=== PATIENT | female | born 1960 | race Caucasian/White ===

== ENCOUNTER 2016-08-04 11:53 | Emergency (ER) | payer MEDICARE, MEDICAID ==
[~2016-08-04 11:53] MED LIST: ACETAMINOPHEN-1 EAC1 PO; ALBUTEROL SULF8.5 GM INH; ALBUTEROL0.63 MG/3 INH; ALPRAZOLAM0.25 MG PO; ALPRAZOLAM0.5 MG PO; AMITRIPTYLINE H25 MG PO; AMLODIPINE BESYL5 MG PO; AZITHROMYCIN250 MG PO; BACTRIM DS TAB1 EACH PO; BENADRYL25 MG PO; CLINDAMYCIN HC300 MG PO; CLOTRIMAZOLE-BE15 GM TOP; CYCLOBENZAPRINE10 MG PO; DIAZEPAM5 MG PO; FREESTYLE TEST1 EACH MISC; HORMONE PILL; HYDROXYZINE HCL25 MG PO; LOSARTAN POTASS50 MG PO; LOSARTAN-HCTZ1 EAC2 PO; MAG-OXIDE400 MG PO; MEDROXYPROGESTE10 MG PO; METFORMIN HCL500 MG PO; METOPROLOL SUC100 MG PO; METOPROLOL SUCC25 MG PO; NAPROXEN500 MG PO; NEOMYCIN-POLYMY10 M1 OTIC; NORCO 5-325 TA1 EACH PO; NYSTATIN15 GM TOP; PERCOCET 5-3251 EACH PO; PERCOCET 7.5-31 EACH PO; POTASSIUM CHLO10 MEQ PO; PREDNISONE20 MG PO; SEPTRA DS TABL1 EACH PO; TOPROL XL100 MG PO; TRAMADOL HCL50 MG PO; TRAZODONE HCL100 MG PO; TRAZODONE HCL150 MG PO; TYLENOL WITH C1 EACH PO; VALIUM5 MG PO; VENTOLIN HFA18 GM INH; ZOFRAN ODT8 MG PO
--- NOTE | 2016-08-05 01:01 | EKG ---
[facility] [address] [facility] [place] [address] Signed Normal sinus rhythm Low voltage QRS Nonspecific T wave abnormality Prolonged QT Abnormal ECG No previous ECGs available Confirmed by ELISEO MORRIS MD ([id number]) on 08/05/2016 1:00:44 AM Electronically Signed By: ELISEO MORRIS MD 08/05/16100 PATIENT NAME: SHAYYCHARLA DHEERAJ Electrocardiogram DATE OF : 64 PHYSICIAN: ELISEO MORRIS MD REPORT #: [id number] REPORT IS CONFIDENTIAL AND NOT TO BE RELEASED WITHOUT AUTHORIZATION
== END 2016-08-04 15:17 | disposition home or self-care (01) ==
LOC: ED 11:53
DX: E86.0 Dehydration (principal); R55 Syncope and collapse; I10 Essential (primary) hypertension; F41.9 Anxiety disorder, unspecified; J45.909 Unspecified asthma, uncomplicated; F43.10 Post-traumatic stress disorder, unspecified; Z88.0 Allergy status to penicillin; Z88.1 Allergy status to other antibiotic agents; Z88.8 Allergy status to other drugs, medicaments and biological substances; Z79.899 Other long term (current) drug therapy
CPT/HCPCS: 80053; 81001; 84484; 85025; 96360; 99284; J7030

== ENCOUNTER 2017-05-05 17:16 | Emergency (ER) | payer MEDICARE, MEDICAID ==
[~2017-05-05] VITALS: Ht 162.6 cm; Wt 111.1 kg
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
--- OUTSIDE RECORDS SUMMARY | 2017-05-05 17:28 | XMS | Clinical Summary ---
Demographics + + + | Address | [address] | | | [place] [address] | + + + | Home Phone | | + + + | Preferred Language | Unknown | + + + | Marital Status | Single | + + + | Druze Affiliation | CHR | + + + | Race | White | + + + | Ethnic Group | Not or | + + + Author + + + | Author | [facility] | + + + | Organization | [facility] | + + + [...] Team Providers + +------+ + | Care Swimming Pool Installer And Servicer Name | Role | Phone | + +------+ + | Alex Askew MD | PP | Unavailable | + +------+ + Source Comments JANINE is fully live on both EpicCare Ambulatory and EpicCare InPatient.[facility] Allergies + + + + [...] + | Overview: 1 Liver biopsy 09/08/08 [facility] G3S3, previously 2004, | | Spencer Palmer, Reviewed at [facility] G2S22 HCV Genotype 1, Well | | compensated, no evidence of ascites, variceal hemorrhage, or | | encephalopathy 3 egd 09/07/[address] [facility] ab[address] [facility], 7mm | | hypervascular lesion in right [...] 2018 | Visit | | MD Daniela [address] | | | | | | [place], [place] | | | | | | [address] | | | | | | [phone] | | | | | | | [...]
[2017-05-05] MEDS ORDERED: MINIPRESS2 MG PO (17:36)
[2017-05-05] MEDS ORDERED: ALDACTONE25 MG PO (17:36)
[2017-05-05] MEDS ORDERED: NADOLOL80 MG PO (17:37)
[2017-05-05] MEDS ORDERED: LOSARTAN POTAS100 MG PO (17:37)
[2017-05-05] MEDS ORDERED: PAROXETINE HCL20 MG PO (17:37)
[2017-05-05] MEDS ORDERED: QUETIAPINE FUMA50 M1 PO (17:38)
[2017-05-05] MEDS ORDERED: KETOROLAC TROME10 MG PO (18:53)
[2017-05-05] MEDS ORDERED: BACLOFEN10 MG PO (18:53)
== END 2017-05-05 19:05 | disposition home or self-care (01) ==
LOC: ED 17:16
DX: S09.90XA Unspecified injury of head, initial encounter (principal); S16.1XXA Strain of muscle, fascia and tendon at neck level, initial encounter; I10 Essential (primary) hypertension; F41.9 Anxiety disorder, unspecified; J45.909 Unspecified asthma, uncomplicated; E66.9 Obesity, unspecified; Z91.018 Allergy to other foods; Z91.030 Bee allergy status; Z88.1 Allergy status to other antibiotic agents; Z88.0 Allergy status to penicillin; Z79.899 Other long term (current) drug therapy; Z79.1 Long term (current) use of non-steroidal anti-inflammatories (NSAID); Z79.84 Long term (current) use of oral hypoglycemic drugs; W19.XXXA Unspecified fall, initial encounter
CPT/HCPCS: 70450; 70486; 72125; 96374; 96375; 99284; J1885; J2060

== ENCOUNTER 2017-05-07 20:56 | Emergency (ER) | payer MEDICARE, MEDICAID ==
[~2017-05-07] VITALS: Ht 162.6 cm; Wt 111.1 kg
--- OUTSIDE RECORDS SUMMARY | ~2017-05-07 | XMS | Clinical Summary ---
Demographics + + + | Address | [address] | | | [place] [address] | + + + | Home Phone [...] + + + | Author | [facility] | + + + | Organization | [facility] | + + [...] Team Providers + +------+ + | Care Stone Engraver Name | Role | Phone | + +------+ + | Alex Askew MD | PP | Unavailable | + +------+ + Source Comments JANINE is fully live on both EpicCare Ambulatory and EpicCare InPatient.[facility] Allergies + + + + [...] + | Overview: 1 Liver biopsy 09/08/08 [facility] G3S3, previously 2004, | | Spencer Palmer, Reviewed at [facility] G2S22 HCV Genotype 1, Well | | compensated, no evidence of ascites, variceal hemorrhage, or | | encephalopathy 3 egd 09/07/[address] of abd [facility], 7mm | | hypervascular lesion in right [...] | | | | | | [place], [place] | | | | | | [address] | | | | | | [phone] | | | | | | | | +--------+---------+ + + + + + + + + | Health Maintenance | Due Date | Last Done | Comments | + + + + + | INFLUENZA VACCINE | | 11/22/2009, 10/07/2008, | | | (FLU SHOT) | 8 | 12/08/2007, Additional history | | | | | exists | | + + + + + Results Not on filefrom Last 3 Months
--- OUTSIDE RECORDS SUMMARY | ~2017-05-07 | XMS | Clinical Summary ---
Demographics + + + | Address | [address] | | | [place] [address] | + + + | Home Phone [...] + + + | Author | [facility] | + + + | Organization | [facility] | + + + | [...] Team Providers + +------+ + | Care Veterans' Coordinator Name | Role | Phone | + +------+ + | Alex Askew MD | PP | Unavailable | + +------+ + Source Comments JANINE is fully live on both EpicCare Ambulatory and EpicCare InPatient.[facility] Allergies + + + + + [...] + | Overview: 1 Liver biopsy 09/08/08 [facility] G3S3, previously 2004, | | Spencer Palmer, Reviewed at [facility] G2S22 HCV Genotype 1, Well | | compensated, no evidence of ascites, variceal hemorrhage, or | | encephalopathy 3 egd 09/07/[address] [facility] [facility], 7mm | | hypervascular lesion in [...] 2018 | Visit | | MD Daniela [address] | | | | | | [place], [place] | | | | | | [address] | | | | | | [phone] | | | | | | | [...]
[~2017-05-07 20:56] MED LIST changes: +ALDACTONE25 MG PO; +BACLOFEN10 MG PO; +KETOROLAC TROME10 MG PO; +LOSARTAN POTAS100 MG PO; +MINIPRESS2 MG PO; +NADOLOL80 MG PO; +PAROXETINE HCL20 MG PO; +QUETIAPINE FUMA50 M1 PO
[2017-05-08] MEDS ORDERED: ONDANSETRON ODT4 MG SL (01:57)
[2017-05-08] MEDS ORDERED: ZANAFLEX2 M1 PO (01:57)
[2017-05-08] MEDS ORDERED: LIDODERM1 EACH TOP (02:01)
== END 2017-05-08 02:35 | disposition home or self-care (01) ==
LOC: ED 20:56
DX: S06.0X9A Concussion with loss of consciousness of unspecified duration, initial encounter (principal); R42 Dizziness and giddiness; M62.838 Other muscle spasm; R11.0 Nausea; W10.9XXA Fall (on) (from) unspecified stairs and steps, initial encounter; I10 Essential (primary) hypertension; F41.9 Anxiety disorder, unspecified; J45.909 Unspecified asthma, uncomplicated; E66.9 Obesity, unspecified; F43.10 Post-traumatic stress disorder, unspecified; Z88.0 Allergy status to penicillin; Z88.8 Allergy status to other drugs, medicaments and biological substances; Z91.030 Bee allergy status; Z91.010 Allergy to peanuts; Z79.899 Other long term (current) drug therapy; Z79.84 Long term (current) use of oral hypoglycemic drugs
CPT/HCPCS: 96374; 96375; 99282; J0780; J1200; J2060; J7040

== ENCOUNTER 2018-06-22 13:15 | Inpatient (IN) | payer MEDICARE, MEDICAID ==
[~2018-06-22] VITALS: Ht 162.6 cm; Wt 120.2 kg
--- NOTE | ~2018-06-22 | DS ---
[facility] [address] [place], [place] [address] Draft ADMISSION DATE: 07/03/2018 DISCHARGE DATE: 07/06/2018 FINAL DIAGNOSIS: End-stage osteoarthritis, right knee. PROCEDURE: Right total knee arthroplasty using an Attune PS knee. HISTORY OF PRESENT ILLNESS: The claimant has a long history of severe bilateral osteoarthritis of her knees, more symptomatic on the right. She has gotten to the point where she does not get any symptomatic relief from any conservative treatment and she presents for elective total knee arthroplasty on the right. HOSPITAL COURSE: The patient was admitted to Day Surgery on the . She was taken to the operating room, where she underwent an uneventful total knee arthroplasty on the right with an Attune PS knee and a fixed tibial bearing. Postoperatively, she has done fairly well. She has struggled a little bit with O2 desaturation when she gets up and moves around, but otherwise is making steady progress in therapy. Plan is to discharge her home on the after therapy when she finally clears all of her protocols per the therapist. We will be sending her home alternating on Oxy IR and tramadol for pain. I am also going to put her on Xarelto 10 mg one once a day for DVT prophylaxis. We will have her get started in outpatient physical therapy next Monday and go three times a week for the total knee program. I would like to see her back in about a month. We will have her continue on all her home medications. MD ROBERTO Zepeda/JULIANA /[id number] Copies: PATIENT NAME: CHARLA LUCAS DISCHARGE SUMMARY DATE OF : 64 REPORT #: [id number] PHYSICIAN: JADE WILL MD PCP: JAX NGO MD REPORT IS CONFIDENTIAL AND NOT TO BE RELEASED WITHOUT AUTHORIZATION [address] [address] Draft ~ PATIENT NAME: CHARLA LUCAS DISCHARGE SUMMARY DATE OF : 64 REPORT #: [id number] PHYSICIAN: JADE WILL MD PCP: JAX NGO MD REPORT IS CONFIDENTIAL AND NOT TO BE RELEASED WITHOUT AUTHORIZATION
--- OUTSIDE RECORDS SUMMARY | ~2018-06-22 | XMS | Encounter Summary ---
Demographics + + + | Address | [address] | | | [place] [address] | + + + | Home Phone | | + + + | Preferred Language | Unknown | + + + | Marital Status | Single | + + + | Presybeterian Affiliation | CHR | + + + | Race | White | + + + | Ethnic Group | Not or | + + + Author + + + | Author | [facility] | + + + | Organization | [facility] | + + + | Address | Unknown | + + + | Phone | Unavailable | + + + Support + + +---------+ + | Name | Relationship | Address | Phone | + + +---------+ + | Jennifer Cuevas | ECON | Unknown | | + + +---------+ + | Ye Epstein | ECON | Unknown | | + + +---------+ + Care Team Providers + +------+ + | Care Compensation Director Name | Role | Phone | + +------+ + | Alex Askew MD | PCP | Unavailable | + +------+ + Encounter Details +--------+ + + + + | Date | Type | Department | Care Team | Description | +--------+ + + + + | 03/16/ | Orders Only | [facility] Division of | Cyrus Huston, | Cirrhosis of Liver | | 2006 | | Gastroenterology/Hep | [place] | without Mention of | | | | atology [address] | | Alcohol; Chronic | | | | [address] | | Hepatitis C without | | | | Road Mailcode: | | Mention of Hepatic | | | | [address] | | Coma | | | | [address] | | | | | | [place], [place] | | | | | | [address] | | | | | | [phone] | | | +--------+ + + + + Social History + +-------+ +--------+------+ | Tobacco Use | Types | Packs/Day | Years | Date | | | | | Used | | + +-------+ +--------+------+ | Former Smoker | | | | | + +-------+ +--------+------+ + + +---------+ + | Alcohol Use | Drinks/Week | oz/Week | Comments | + + +---------+ + | No | | | | + + +---------+ + + + + | Sex Assigned at | Date Recorded | | | | + + + | Not on file | | + + + + + + + | Job Start Date | Occupation | Industry | + + + + | Not on file | Not on file | Not on file | + + + + + + + + | Travel History | Travel Start | Travel End | + + + + + + | No recent travel history available. | + + documented as of this encounter Plan of Treatment + +------+--------+ + + | Name | Type | Priori | Associated Diagnoses | Order Schedule | | | | ty | | | + +------+--------+ + + | [facility] COLLECT, | Lab | Routin | Cirrhosis of Liver | Ordered: 03/16/2006 | | VENIPUNCTURE | | e | without Mention of | | | | | | Alcohol | | + +------+--------+ + + documented as of this encounter Procedures + +--------+ + + + | Procedure Name | Priori | Date/Time | Associated Diagnosis | Comments | | | ty | | | | + +--------+ + + + | DIFFERENTIAL | Routin | 03/16/2006 | | Results for this | | | e | 2:13 PM | | procedure are in the | | | | PST | | results section. | + +--------+ + + + | INR | Routin | 03/16/2006 | Cirrhosis of Liver | Results for this | | | e | 2:13 PM | without Mention of | procedure are in the | | | | PST | Alcohol | results section. | + +--------+ + + + | CBC, WITH | Routin | 03/16/2006 | Cirrhosis of Liver | Results for this | | DIFFERENTIAL | e | 2:13 PM | without Mention of | procedure are in the | | | | PST | Alcohol | results section. | + +--------+ + + + | COMPLETE METABOLIC | Routin | 03/16/2006 | Cirrhosis of Liver | Results for this | | SET | e | 2:13 PM | without Mention of | procedure are in the | | (NA,K,CL,CO2,BUN,CRE | | PST | Alcohol | results section. | | AT,GLUC,CA,AST,ALT,B | | | | | | ENA TOTAL,ALK | | | | | | PHOS,ALB,PROT TOTAL) | | | | | + +--------+ + + + documented in this encounter Results DIFFERENTIAL (03/16/2006 2:13 PM PST) + +---------+ + + + | Component | Value | Ref Range | Performed | Pathologist | | | | | At | Signature | + +---------+ + + + | NEUTROPHIL | 66 | 50 - 70 % | [facility] | | | % | | | DEPARTMENT | | | | | | OF | | | | | | PATHOLOGY | | + +---------+ + + + | LYMPHOCYTE | 26 | 18 - 42 % | [facility] | | | % | | | DEPARTMENT | | | | | | OF | | | | | | PATHOLOGY | | + +---------+ + + + | MONOCYTE % | 7 | 2 - 8 % | [facility] | | | | | | DEPARTMENT | | | | | | OF | | | | | | PATHOLOGY | | + +---------+ + + + | EOS % | 1 | 1 - 3 % | [facility] | | | | | | DEPARTMENT | | | | | | OF | | | | | | PATHOLOGY | | + +---------+ + + + | BASO % | 0 | <3 % | [facility] | | | | | | DEPARTMENT | | | | | | OF | | | | | | PATHOLOGY | | + +---------+ + + + | NEUTROPHIL | 6.3 | 1.8 - 7.7 K/cu | [facility] | | | # | | mm | DEPARTMENT | | | | | | OF | | | | | | PATHOLOGY | | + +---------+ + + + | LYMPHOCYTE | 2.5 | 1.0 - 4.8 K/cu | [facility] | | | # | | mm | DEPARTMENT | | | | | | OF | | | | | | PATHOLOGY | | + +---------+ + + + | MONOCYTE # | 0.7 (H) | 0.1 - 0.6 K/cu | [facility] | | | | | mm | DEPARTMENT | | | | | | OF | | | | | | PATHOLOGY | | + +---------+ + + + | EOS # | 0.1 | <0.6 K/cu mm | [facility] | | | | | | DEPARTMENT | | | | | | OF | | | | | | PATHOLOGY | | + +---------+ + + + | BASO # | 0.0 | <0.3 | [facility] | | | | | | DEPARTMENT | | | | | | OF | | | | | | PATHOLOGY | | + +---------+ + + + + + | Specimen | + + | | + + + + + + + | Performing | Address | City/State/Zipcode | Phone Number | | Organization | | | | + + + + + | [facility] | [address] | [place] [address] | | | PATHOLOGY | [address] | | | + + + + + | [facility] | [address] | [place] [address] | | | PATHOLOGY | [address] | | | + + + + + PROTHROMBIN TIME (03/16/2006 2:13 PM PST) + + + + + + | Component | Value | Ref Range | Performed | Pathologist | | | | | At | Signature | + + + + + + | INR | 1.08Comment: | 0.90 - 1.20 INR | [facility] | | | | PT INR | | DEPARTMENT | | | | Therapeutic ranges for | | OF | | | | full | | PATHOLOGY | | | | anticoagulation: | | | | | | INR for | | | | | | Venous | | | | | | Thromboembolism | | | | | | | | | | | | (2.0-3.0)INR | | | | | | INR for most | | | | | | patients with mech. | | | | | | valves (2.5-3.5)I | | | | | | NR | | | | + + + + + + + + | Specimen | + + | Blood | + + + + + + + | Performing | Address | City/State/Zipcode | Phone Number | | Organization | | | | + + + + + | [facility] DEPARTMENT OF | [address] | [place] [address] | | | PATHOLOGY | [address] | | | + + + + + | [facility] DEPARTMENT OF | [address] | [place] [address] | | | PATHOLOGY | [address] | | | + + + + + CBC, WITH DIFFERENTIAL (03/16/2006 2:13 PM PST) + +-------+ + + + | Component | Value | Ref Range | Performed | Pathologist | | | | | At | Signature | + +-------+ + + + | WHITE CELL | 9.6 | 4.4 - 11.0 K/cu | [facility] | | | COUNT | | mm | DEPARTMENT | | | | | | OF | | | | | | PATHOLOGY | | + +-------+ + + + | RED CELL | 4.76 | 4.00 - 5.20 | [facility] | | | COUNT | | M/cu mm | DEPARTMENT | | | | | | OF | | | | | | PATHOLOGY | | + +-------+ + + + | HEMOGLOBIN | 14.9 | 12.0 - 16.0 | [facility] | | | | | g/dL | DEPARTMENT | | | | | | OF | | | | | | PATHOLOGY | | + +-------+ + + + | HEMATOCRIT | 43.0 | 36.0 - 46.0 % | [facility] | | | | | | DEPARTMENT | | | | | | OF | | | | | | PATHOLOGY | | + +-------+ + + + | MCV | 90.3 | 80.0 - 96.0 fL | [facility] | | | | | | DEPARTMENT | | | | | | OF | | | | | | PATHOLOGY | | + +-------+ + + + | MCHC | 34.6 | 33.4 - 35.5 | [facility] | | | | | g/dL | DEPARTMENT | | | | | | OF | | | | | | PATHOLOGY | | + +-------+ + + + | RDW | 12.6 | 11.5 - 15.0 % | [facility] | | | | | | DEPARTMENT | | | | | | OF | | | | | | PATHOLOGY | | + +-------+ + + + | PLATELET | 253 | 150 - 400 K/cu | [facility] | | | COUNT | | mm | DEPARTMENT | | | | | | OF | | | | | | PATHOLOGY | | + +-------+ + + + + + | Specimen | + + | | + + + + + + + | Performing | Address | City/State/Zipcode | Phone Number | | Organization | | | | + + + + + | [facility] | [address] | [place] [address] | | | PATHOLOGY | [address] | | | + + + + + | [facility] | [address] | [place] [address] | | | PATHOLOGY | [address] | | | + + + + + COMP METABOLIC SET (03/16/2006 2:13 PM PST) + +---------+ + + + | Component | Value | Ref Range | Performed | Pathologist | | | | | At | Signature | + +---------+ + + + | GLUCOSE, | 148 (H) | 65 - 110 mg/dL | [facility] | | | PLASMA | | | DEPARTMENT | | | (LAB) | | | OF | | | | | | PATHOLOGY | | + +---------+ + + + | BUN, PLASMA | 6 | 6 - 20 mg/dL | [facility] | | | (LAB) | | | DEPARTMENT | | | | | | OF | | | | | | PATHOLOGY | | + +---------+ + + + | CREATININE | 0.8 | 0.6 - 1.1 mg/dL | [facility] | | | PLASMA | | | DEPARTMENT | | | (LAB) | | | OF | | | | | | PATHOLOGY | | + +---------+ + + + | TOTAL | 6.8 | 6.1 - 7.9 g/dL | [facility] | | | PROTEIN, | | | DEPARTMENT | | | PLASMA | | | OF | | | (LAB) | | | PATHOLOGY | | + +---------+ + + + | ALBUMIN, | 3.5 | 3.5 - 4.7 g/dL | [facility] | | | PLASMA | | | DEPARTMENT | | | (LAB) | | | OF | | | | | | PATHOLOGY | | + +---------+ + + + | CALCIUM, | 8.8 | 8.5 - 10.5 | [facility] | | | PLASMA | | mg/dL | DEPARTMENT | | | (LAB) | | | OF | | | | | | PATHOLOGY | | + +---------+ + + + | BILIRUBIN | 0.7 | 0.3 - 1.2 mg/dL | [facility] | | | TOTAL | | | DEPARTMENT | | | | | | OF | | | | | | PATHOLOGY | | + +---------+ + + + | ALK PHOS | 130 (H) | 42 - 98 U/L | [facility] | | | | | | DEPARTMENT | | | | | | OF | | | | | | PATHOLOGY | | + +---------+ + + + | AST(SGOT) | 46 (H) | 15 - 41 U/L | [facility] | | | | | | DEPARTMENT | | | | | | OF | | | | | | PATHOLOGY | | + +---------+ + + + | SODIUM, | 138 | 136 - 145 | [facility] | | | PLASMA | | mmol/L | DEPARTMENT | | | (LAB) | | | OF | | | | | | PATHOLOGY | | + +---------+ + + + | POTASSIUM, | 3.4 (L) | 3.5 - 5.1 | [facility] | | | PLASMA | | mmol/L | DEPARTMENT | | | (LAB) | | | OF | | | | | | PATHOLOGY | | + +---------+ + + + | CHLORIDE, | 102 | 98 - 107 mmol/L | [facility] | | | PLASMA | | | DEPARTMENT | | | (LAB) | | | OF | | | | | | PATHOLOGY | | + +---------+ + + + | TOTAL CO2, | 28 | 23 - 29 mmol/L | [facility] | | | PLASMA | | | DEPARTMENT | | | (LAB) | | | OF | | | | | | PATHOLOGY | | + +---------+ + + + | ALT (SGPT) | 59 (H) | 13 - 48 U/L | [facility] | | | | | | DEPARTMENT | | | | | | OF | | | | | | PATHOLOGY | | + +---------+ + + + + + | Specimen | + + | | + + + + + | Narrative | Performed At | + + + | [id number] Estimated GFR > 60 mL/min/1.73 sq m if non- | [facility] | | [id number] Estimated GFR > 60 mL/min/1.73 sq m if GFR | DEPARTMENT OF | | is estimated using the MDRD equation recommended by the National | PATHOLOGY | | Kidney Disease Education Program. Estimated GFR Interpretive | | | Information: <60 mL/min/1.73 sq m Chronic Kidney Disease | | | <15 mL/mon/1.73 sq m Kidney Failure Estimated GFR greater | | | than 60mL/min/1.73 is of limited clinical Value. The MDRD equation | | | is not valid in the following situations: - Patients under 18 years | | | of age - Severe malnutrition or obesity - Vegetarian diet - | | | Rapidly changing kidney function | | + + + + + + + + | Performing | Address | City/State/Zipcode | Phone Number | | Organization | | | | + + + + + | [facility] | [facility] | [place] [address] | | | PATHOLOGY | [address] | | | + + + + + | [facility] | [address] | [place] [address] | | | PATHOLOGY | [address] | | | + + + + + documented in this encounter Visit Diagnoses + + | Diagnosis | + + | Cirrhosis of liver without mention of alcohol | + + | Chronic hepatitis C without mention of hepatic coma | + + documented in this encounter"
--- OUTSIDE RECORDS SUMMARY | ~2018-06-22 | XMS | Encounter Summary ---
Demographics + + + | Address | [address] | | | [place] [address] | + + + | Home Phone | | + + + | Preferred Language | Unknown | + + + | Marital Status | Single | + + + | Evangelical Affiliation | CHR | + + + | Race | White | + + + | Ethnic Group | Not or | + + + Author + + + | Author | [facility] | + + + | Organization | [facility] | + + + | Address | [...] Team Providers + +------+ + | Care Synthetic Plasterer Name | Role | Phone | + +------+ + | Alex Askew MD | PCP | Unavailable | + +------+ + Encounter Details +--------+------+ + + + | Date | Type | Department | Care Team | Description | +--------+------+ + + + | 08/21/ | Lab | Laboratory at [facility] | | Hepatitis C, chronic | | 2013 | | [address] | | (HCC); GERD | | | | [place], [place] | | (gastroesophageal | | | | [address] | | reflux disease) | | | | [phone] | | | +--------+------+ + + + Social History + +-------+ [...] as of this encounter Plan of Treatment Not on filedocumented as of this encounter Procedures + +--------+ + + + | Procedure Name | Priori | Date/Time | Associated Diagnosis | Comments | | | ty | | | | + +--------+ + + + | ALPHA-FETOPROTEIN | Routin | 08/21/2013 | Hepatitis C, | Results for this | | TUMOR MARKER, SERUM | e | 9:10 AM | chronic (HCC) GERD | procedure are in the | | | | PDT | (gastroesophageal | results section. | | | | | reflux disease) | | + +--------+ + + + documented in this encounter Results ALPHA-FETOPROTEIN TUMOR MARKER, SERUM (08/21/2013 9:10 AM PDT) + +-------+ + + + | Component | Value | Ref Range | Performed | Pathologist | | | | | At | Signature | + +-------+ + + + | AFP, TUMOR | 6.3 | <=9.0 ng/mL | [facility] | | | [facility], | | | [facility] | | | [facility] | | | [place] | | + +-------+ + + + + + | Specimen | + + | Blood - Blood | + + + + + + + | Performing | Address | City/State/Zipcode | Phone Number | | Organization | | | | + + + + + | [facility] | [address] | [place] [address] | | | [place] | | | | + + + + + documented in this encounter Visit Diagnoses + + | Diagnosis | + + | Hepatitis C, chronic (HCC) Chronic hepatitis C without mention of hepatic coma | + + | GERD (gastroesophageal reflux disease) Esophageal reflux | + + documented in this encounter"
--- OUTSIDE RECORDS SUMMARY | ~2018-06-22 | XMS | Encounter Summary ---
Demographics + + + | Address | [address] | | | [place] [address] | + + + | Home Phone | | + + + | Preferred Language | Unknown | + + + | Marital Status | Single | + + + | Gnosticism Affiliation | CHR | + + + | Race | White | + + + | Ethnic Group | Not or | + + + Author + + + | Author | [facility] | + + + | Organization | [facility] | + + + | [...] Team Providers + +------+ + | Care Engineering Director Name | Role | Phone | + +------+ + | Alex Askew MD | PCP | Unavailable | + +------+ + Encounter Details +--------+ + + + + | Date | Type | Department | Care Team | Description | +--------+ + + + + | 09/01/ | Documentati | Digestive Health | [place], | | | 2015 | on | [facility] [address] | [place], [place] | | | | | [address] | [address] | | | | | Mailcode: Center | | | | | | for Health and | | | | | | Healing, [address] | | | | | | [place], [place] | | | | | | [address] | | | | | | [phone] | | | +--------+ + + + + Social History + +-------+ +--------+ + [...] Not on filedocumented as of this encounter Visit Diagnoses Not on filedocumented in this encounter"
--- OUTSIDE RECORDS SUMMARY | ~2018-06-22 | XMS | Encounter Summary ---
Demographics + + + | Address | [address] | | | [place] [address] | + + + | Home Phone | | + + + | Preferred Language | Unknown | + + + | Marital Status | Single | + + + | Rastafari Affiliation | CHR | + + + | Race | White | + + + | Ethnic Group | Not or | + + + Author + + + | Author | [facility] | + + + | Organization | [facility] | + + + | [...] Team Providers + +------+ + | Care Internal Combustion Engine Subassembler Name | Role | Phone | + +------+ + | Alex Askew MD | PCP | Unavailable | + +------+ + Encounter Details +--------+ + + + + | Date | Type | Department | Care Team | Description | +--------+ + + + + | 12/15/ | Document-Sc | UNKNOWN DEPARTMENT | Unknown . | | | 2015 | anned | [address] [facility] [address] [facility] | | | | | | [facility] | | | | | | [place], [place] | | | | | | [address] | | | +--------+ + + + [...] | + +--------+ + + + | LAB REPORTS | | 12/15/2014 | | Results for this | | | | 12:00 AM | | procedure are in the | | | | PST | | results section. | + +--------+ + + + documented in this encounter Results LAB REPORTS (12/15/2014 12:00 AM PST) + + + | Narrative | Performed At | + + + | | | + + + documented in this encounter Visit Diagnoses Not on filedocumented in this encounter"
--- OUTSIDE RECORDS SUMMARY | ~2018-06-22 | XMS | Encounter Summary ---
Demographics + + + | Address | [address] | | | [place] [address] | + + + | Home Phone | | + + + | Preferred Language | Unknown | + + + | Marital Status | Single | + + + | Hindu Affiliation | CHR | + + + | Race | White | + + + | Ethnic Group | Not or | + + + Author + + + | Author | [facility] | + + + | Organization | [facility] | + + + | Address | [...] Team Providers + +------+ + | Care Adoption Worker Name | Role | Phone | + +------+ + | Alex Askew MD | PCP | Unavailable | + +------+ + Encounter Details +--------+ + + + + | Date | Type | Department | Care Team | Description | +--------+ + + + + | 08/04/ | Documentati | Digestive Health | [place], | | | 2015 | on | [facility] [address] | [place], [place] | | | | | [address] | [address] | | | | | Mailcode: Center | | | | | | for Health and | | | | | | Healing, [address] | | | | | | [place], [place] | | | | | | [address] | | | | | | [phone] | | | +--------+ + + + [...]
--- OUTSIDE RECORDS SUMMARY | ~2018-06-22 | XMS | Encounter Summary ---
Demographics + + + | Address | [address] | | | [place] [address] | + + + | Home Phone | | + + + | Preferred Language | Unknown | + + + | Marital Status | Single | + + + | Anabaptism Affiliation | CHR | + + + [...] Team Providers + +------+ + | Care Inventory Specialist Manager Name | Role | Phone | + +------+ + | Alex Askew MD | PCP | Unavailable | + +------+ + Encounter Details +--------+------+ + + + | Date | Type | Department | Care Team | Description | +--------+------+ + + + | 06/03/ | Lab | Laboratory at [facility] | | Hepatitis C, chronic | | 2014 | | [address] | | (HCC) | | | | [place], [place] | | | | | | [address] | | | | | | [phone] | | | +--------+------+ + + + [...] | + +--------+ + + + | CBC (HEMOGRAM) ONLY | Routin | 06/03/2014 | Hepatitis C, | Results for this | | | e | 12:51 PM | chronic (HCC) | procedure are in the | | | | PDT | | results section. | + +--------+ + + + | HEPATITIS C | Routin | 06/03/2014 | Hepatitis C, | Results for this | | QUANTITATIVE, PLASMA | e | 12:51 PM | chronic (HCC) | procedure are in the | | | | PDT | | results section. | + +--------+ + + + | INR | Routin | 06/03/2014 | Hepatitis C, | Results for this | | | e | 12:51 PM | chronic (HCC) | procedure are in the | | | | PDT | | results section. | + +--------+ + + + | COMPLETE METABOLIC | Routin | 06/03/2014 | Hepatitis C, | Results for this | | SET | e | 12:51 PM | chronic (HCC) | procedure are in the | | (NA,K,CL,CO2,BUN,CRE | | PDT | | results section. | | AT,GLUC,CA,AST,ALT,B | | | | | | ENA TOTAL,ALK | | | | | | PHOS,ALB,PROT TOTAL) | | | | | + +--------+ + + + | CBC ONLY | Routin | 06/03/2014 | Hepatitis C, | Results for this | | | e | 12:51 PM | chronic (HCC) | procedure are in the | | | | PDT | | results section. | + +--------+ + + + | ALPHA-FETOPROTEIN | Routin | 06/03/2014 | Hepatitis C, | Results for this | | TUMOR MARKER, SERUM | e | 12:51 PM | chronic (HCC) | procedure are in the | | | | PDT | | results section. | + +--------+ + + + documented in this encounter Results CBC (HEMOGRAM) ONLY (06/03/2014 12:51 PM PDT) + +-------+ + + + | Component | Value | Ref Range | Performed | Pathologist | | | | | At | Signature | + +-------+ + + + | WHITE CELL | 10.60 | 4.40 - 11.00 | [facility] | | | COUNT | | K/cu mm | LABORATORY | | | | | | SERVICES, | | | | | | [facility] | | | | [facility] | | + +-------+ + + + | RED CELL | 4.64 | 4.00 - 5.20 | [facility] | | | COUNT | | M/cu mm | LABORATORY | | | | | | SERVICES, | | | | | | [facility] + | | | | | | [facility] | | + +-------+ + + + | HEMOGLOBIN | 14.4 | 12.0 - 16.0 | [facility] | | | | | g/dL | LABORATORY | | | | | | SERVICES, | | | | | | [facility] + | | | | | | [facility] | | + +-------+ + + + | HEMATOCRIT | 40.5 | 36.0 - 46.0 % | [facility] | | | | | | LABORATORY | | | | | | SERVICES, | | | | | | [facility] + | | | | | | [facility] | | + +-------+ + + + | MCV | 87.3 | 80.0 - 96.0 fL | [facility] | | | | | | LABORATORY | | | | | | SERVICES, | | | | | | [facility] + | | | | | | [facility] | | + +-------+ + + + | MCHC | 35.6 | 33.0 - 35.5 | [facility] | | | | | g/dL | LABORATORY | | | | | | SERVICES, | | | | | | [facility] + | | | | | | [facility] | | + +-------+ + + + | RDW SD | 39.8 | 35.1 - 46.3 fL | [facility] | | | | | | LABORATORY | | | | | | SERVICES, | | | | | | [facility] + | | | | | | [facility] | | + +-------+ + + + | PLATELET | 192 | 150 - 400 K/cu | [facility] | | | COUNT | | mm | LABORATORY | | | | | | SERVICES, | | | | | | [facility] + | | | | | | [facility] | | + +-------+ + + + | MPV | 9.8 | 9.7 - 12.3 fL | [facility] | | | | | | LABORATORY | | | | | | SERVICES, | | | | | | [facility] + | | | | | | [facility] | | + +-------+ + + + + + | Specimen | + + | Blood - Blood | + + + + + + + | Performing | Address | City/State/Zipcode | Phone Number | | Organization | | | | + + + + + | [facility] | [address] | [place] [address] | | | [facility] | | | | | [facility] + [facility]ALING | | | | + + + + + HEPATITIS C QUANTITATIVE, PLASMA (06/03/2014 12:51 PM PDT) + + + + + + | Component | Value | Ref Range | Performed | Pathologist | | | | | At | Signature | + + + + + + | HEP C PCR | 1,700,000 (H) | Undetected | [facility] | | | QUANT, | | IU/mL | DIAGNOSTIC | | | VALUE | | | | | | | | | LABORATORIE | | | | | | S | | + + + + + + + + | Specimen | + + | Blood - Blood | + + + + + | Narrative | Performed At | + + + | Reportable Range: 12-100,000,000 IU/mL Low levels or serial | [facility] | | declines in the HCV viral load may indicate the relative efficacy of | DIAGNOSTIC | | anti-viral therapy. Viral load changes of less than approximately 3 | LABORATORIES | | fold may not be biologically significant and should be interpreted | | | cautiously. Undetected results are suggestive of either the absence | | | of HCV viremia or the presence of low-level HCV viremia below the | | | assay's detection limit. | | + + + + + + + + | Performing | Address | City/State/Zipcode | Phone Number | | Organization | | | | + + + + + | [facility] | [address], | [place] [address] | | | DI[facility] | [address] | | | | LABORATORIES | | | | + + + + + ALPHA-FETOPROTEIN TUMOR MARKER, SERUM (06/03/2014 12:51 PM PDT) + +---------+ + + + | Component | Value | Ref Range | Performed | Pathologist | | | | | At | Signature | + +---------+ + + + | AFP, TUMOR | 9.8 (H) | <=9.0 ng/mL | [facility] | | | [facility], | | | [facility] - | | | SERUM | | | [place] | | + +---------+ + + + + + | Specimen | + + | Blood - Blood | + + + + + + + | Performing | Address | City/State/Zipcode | Phone Number | | Organization | | | | + + + + + | [facility] | [address] | [place] [address] | | | [place] | | | | + + + + + INR (06/03/2014 12:51 PM PDT) + +-------+ + + + | Component | Value | Ref Range | Performed | Pathologist | | | | | At | Signature | + +-------+ + + + | INR | 1.17 | 0.90 - 1.20 INR | [facility] | | | | | | LABORATORY | | | | | | SERVICES, | | | | | | CORE | | + +-------+ + + + + + | Specimen | + + | Blood - Blood | + + + + + | Narrative | Performed At | + + + | INR Therapeutic ranges for full anticoagulation: INR for | [facility] | | Venous Thromboembolism (2.0 - 3.0) INR INR | LABORATORY | | for most patients with mech. valves (2.5 - 3.5) INR | [facility] | + + + + + + + + | Performing | Address | City/State/Zipcode | Phone Number | | Organization | | | | + + + + + | [facility] | [address] | [place] [address] | | | [facility] | [address] | | | + + + + + COMPLETE METABOLIC SET (NA,K,CL,CO2,BUN,CREAT,GLUC,CA,AST,ALT,BILI TOTAL,ALK PHOS,ALB,PROT TOTAL) (06/03/2014 12:51 PM PDT) + +---------+ + + + | Component | Value | Ref Range | Performed | Pathologist | | | | | At | Signature | + +---------+ + + + | GLUCOSE, | 105 (H) | 60 - 99 mg/dL | [facility] | | | PLASMA | | | LABORATORY | | | (LAB) | | | SERVICES, | | | | | | CORE | | + +---------+ + + + | BUN, PLASMA | 13 | 6 - 20 mg/dL | [facility] | | | (LAB) | | | LABORATORY | | | | | | SERVICES, | | | | | | CORE | | + +---------+ + + + | CREATININE | 0.90 | 0.60 - 1.10 | [facility] | | | PLASMA | | mg/dL | LABORATORY | | | (LAB) | | | SERVICES, | | | | | | CORE | | + +---------+ + + + | EGFR | >60 | >60 mL/min | [facility] | | | - | | | LABORATORY | | | RUSSIAN | | | SERVICES, | | | | | | CORE | | + +---------+ + + + | EGFR NON | >60 | >60 mL/min | [facility] | | | -RAMÓN | | | LABORATORY | | | RICAN | | | SERVICES, | | | | | | CORE | | + +---------+ + + + | SODIUM, | 138 | 136 - 145 | [facility] | | | PLASMA | | mmol/L | LABORATORY | | | (LAB) | | | SERVICES, | | | | | | CORE | | + +---------+ + + + | POTASSIUM, | 3.5 | 3.4 - 5.0 | [facility] | | | PLASMA | | mmol/L | LABORATORY | | | (LAB) | | | SERVICES, | | | | | | CORE | | + +---------+ + + + | CHLORIDE, | 100 | 97 - 108 mmol/L | [facility] | | | PLASMA | | | LABORATORY | | | (LAB) | | | SERVICES, | | | | | | CORE | | + +---------+ + + + | TOTAL CO2, | 31 | 21 - 32 mmol/L | [facility] | | | PLASMA | | | LABORATORY | | | (LAB) | | | SERVICES, | | | | | | CORE | | + +---------+ + + + | CALCIUM, | 9.2 | 8.6 - 10.2 | [facility] | | | PLASMA | | mg/dL | LABORATORY | | | (LAB) | | | SERVICES, | | | | | | CORE | | + +---------+ + + + | BILIRUBIN | 0.6 | 0.3 - 1.2 mg/dL | [facility] | | | TOTAL | | | LABORATORY | | | | | | SERVICES, | | | | | | CORE | | + +---------+ + + + | TOTAL | 8.1 | 6.4 - 8.2 g/dL | [facility] | | | PROTEIN, | | | LABORATORY | | | PLASMA | | | SERVICES, | | | (LAB) | | | CORE | | + +---------+ + + + | ALBUMIN, | 3.4 (L) | 3.5 - 4.7 g/dL | [facility] | | | PLASMA | | | LABORATORY | | | (LAB) | | | SERVICES, | | | | | | CORE | | + +---------+ + + + | ALK PHOS | 126 (H) | 42 - 98 U/L | [facility] | | | | | | LABORATORY | | | | | | SERVICES, | | | | | | CORE | | + +---------+ + + + | AST(SGOT) | 79 (H) | <=41 U/L | [facility] | | | | | | LABORATORY | | | | | | SERVICES, | | | | | | CORE | | + +---------+ + + + | ALT (SGPT) | 89 (H) | <=60 U/L | [facility] | | | | | | LABORATORY | | | | | | SERVICES, | | | | | | CORE | | + +---------+ + + + | ANION | 8 | 4 - 11 mmol/L | [facility] | | | GAP(ALB | | | LABORATORY | | | CORRECTED) | | | SERVICES, | | | | | | CORE | | + +---------+ + + + | POTASSIUM | No Hemo | | [facility] | | | CMNT | | | LABORATORY | | | | | | SERVICES, | | | | | | CORE | | + +---------+ + + + | BILI T CMNT | No Hemo | | [facility] | | | | | | LABORATORY | | | | | | SERVICES, | | | | | | CORE | | + +---------+ + + + | AST CMNT | No Hemo | | [facility] | | | | | | LABORATORY | | | | | | SERVICES, | | | | | | CORE | | + +---------+ + + + | ANION GAP | 7 | mmol/L | [facility] | | | | | | LABORATORY | | | | | | SERVICES, | | | | | | CORE | | + +---------+ + + + + + | Specimen | + + | Blood - Blood | + + + + + | Narrative | Performed At | + + + | GFR is estimated using the MDRD equation recommended by the | [facility] | | National Kidney Disease Education Program. Estimated GFR | LABORATORY | | Interpretive Information: <60 mL/min/1.73 sq | SERVICES, CORE | | m Chronic Kidney Disease <15 mL/min/1.73 | | | sq m Kidney Failure Estimated GFR greater | | | that 60 mL/min/1.73 sq m is of limited clinical value. The MDRD | | | equation is not valid in the following situations: - Patients under | | | 18 years of age - Severe malnutrition or obesity - Vegetarian diet | | | - Rapidly changing kidney function | | + + + + + + + + | Performing | Address | City/State/Zipcode | Phone Number | | Organization | | | | + + + + + | [facility] | [address] | [place] [address] | | | SERVICES, CORE | [address] | | | + + + + + documented in this encounter Visit Diagnoses + + | Diagnosis | + + | Hepatitis C, chronic (HCC) Chronic hepatitis C without mention of hepatic coma | + + documented in this encounter"
--- OUTSIDE RECORDS SUMMARY | ~2018-06-22 | XMS | Encounter Summary ---
Demographics + + + | Address | [address] | | | [place] [address] | + + + | Home Phone [...] + + + | Author | [facility] | + + + | Organization | [facility] | + + + | Address | [...] Team Providers + +------+ + | Care Boom Stick Worker Name | Role | Phone | + +------+ + | Alex Askew MD | PCP | Unavailable | + +------+ + Reason for Visit +--------+ + | Reason | Comments | +--------+ + | Other | Pre clinic prep | +--------+ + Encounter Details +--------+ + + + + | Date | Type | Department | Care Team | Description | +--------+ + + + + | 07/17/ | Telephone | [facility] | Cyrus Huston, | Other (Pre clinic | | 2013 | | Center at [facility] [address] | [place] | prep) | | | | [address] | | | | | | Mailcode: Center | | | | | | for Health and | | | | | | [facility] [address] | | | | | | | | | | | | [address] | | | | | | [phone] | | | +--------+ + + + [...] Not on filedocumented as of this encounter Results INR (08/07/2013 8:39 AM PDT) + +-------+ + + + | Component | Value | Ref Range | Performed | Pathologist | | | | | At | Signature | + +-------+ + + + | INR | 1.09 | 0.90 - 1.20 INR | [facility] [...] ranges for full anticoagulation: INR for | [facility] | | Venous Thromboembolism (2.0 - 3.0) INR INR | LABORATORY | | for most patients with mech. valves (2.5 - 3.5) INR | [facility], CORE | + + + + + + + + | Performing | Address | City/State/Zipcode | Phone Number | | Organization | | | | + + + + + | [facility] | [address] | [place] [address] | | | [place] | [address] | | | + + + + + COMPLETE METABOLIC SET (NA,K,CL,CO2,BUN,CREAT,GLUC,CA,AST,ALT,BILI TOTAL,ALK PHOS,ALB,PROT TOTAL) (08/07/2013 8:39 AM PDT) + +---------+ + + + | Component | Value | Ref Range | Performed | Pathologist | | | | | At | Signature | + +---------+ + + + | GLUCOSE, | 121 (H) | 60 - 99 mg/dL | [facility] | | | PLASMA | | | LABORATORY | | | (LAB) | | | SERVICES, | | | | | | CORE | | + +---------+ + + + | BUN, PLASMA | 14 | 6 - 20 mg/dL | [facility] | | | (LAB) | | | LABORATORY | | | | | | SERVICES, | | | | | | CORE | | + +---------+ + + + | CREATININE | 0.99 | 0.60 - 1.10 | [facility] | | | PLASMA | | mg/dL | LABORATORY | | | (LAB) | | | SERVICES, | | | | | | CORE | | + +---------+ + + + | EGFR | >60 | >60 mL/min | [facility] | | | - | | | LABORATORY | | | CONGOLESE | | | SERVICES, | | | | | | CORE | | + +---------+ + + + | EGFR NON | 59 (L) | >60 mL/min | [facility] | | | -RAM[facility]N | | | LABORATORY | | | RICAN | | | SERVICES, | | | | | | CORE | | + +---------+ + + + | SODIUM, | 135 (L) | 136 - 145 | [facility] | | | PLASMA | | mmol/L | LABORATORY | | | (LAB) | | | SERVICES, | | | | | | CORE | | + +---------+ + + + | POTASSIUM, | 3.0 (L) | 3.4 - 5.0 | [facility] | [...] + + + | TOTAL CO2, | 30 | 21 - 32 mmol/L | [facility] | | | PLASMA | | | LABORATORY | | | (LAB) | | | SERVICES, | | | | | | CORE | | + +---------+ + + + | CALCIUM, | 8.8 | 8.6 - 10.2 | [facility] | [...] +---------+ + + + | TOTAL | 7.7 | 6.4 - 8.2 g/dL | [facility] | | | PROTEIN, | | | LABORATORY | | | PLASMA | | | SERVICES, | | | (LAB) | | | CORE | | + +---------+ + + + | ALBUMIN, | 3.6 | 3.5 - 4.7 g/dL | [facility] | | | PLASMA | | | LABORATORY | | | (LAB) | | | SERVICES, | | | | | | CORE | | + +---------+ + + + | ALK PHOS | 95 | 42 - 98 U/L | [facility] | | | | | | LABORATORY | | | | | | SERVICES, | | | | | | CORE | | + +---------+ + + + | AST(SGOT) | 41 | 15 - 41 U/L | [facility] | | | | | | LABORATORY | | | | | | SERVICES, | | | | | | CORE | | + +---------+ + + + | ALT (SGPT) | 52 | 12 - 60 U/L | [facility] | | | | | | LABORATORY | | | | | | SERVICES, | | | | | | CORE | | + +---------+ + + + | ANION | 6 | 4 - 11 mmol/L | [facility] [...] + + + | ANION GAP | 5 | mmol/L | [facility] | | | [...] | + + + + + | [facility] | [address] | [place] [address] | | | SERVICES, CORE | [address] | | | + + + + + documented in this encounter Visit Diagnoses + + | Diagnosis | + + | Hepatitis C, chronic (HCC) - Primary Chronic hepatitis C without mention of hepatic | | coma | + + documented in this encounter"
--- OUTSIDE RECORDS SUMMARY | ~2018-06-22 | XMS | Encounter Summary ---
Demographics + + + | Address | [address] | | | [place] [address] | + + + | Home Phone | | + + + | Preferred Language | Unknown | + + + | Marital Status | Single | + + + | Restorationism Affiliation | CHR | + + + | Race | White | + + + | Ethnic Group | Not or | + + + Author + + + | Author | [facility] | + + + | Organization | [facility] | + + + | Address [...] Team Providers + +------+ + | Care Health Researcher Name | Role | Phone | + +------+ + | Alex Askew MD | PCP | Unavailable | + +------+ + Reason for Visit + + + | Reason | Comments | + + + | Medical Records | | | Review | | + + + Encounter Details +--------+ + + + + | Date | Type | Department | Care Team | Description | +--------+ + + + + | 09/08/ | Abstract | [facility] | [place] | Medical Records | | 2014 | | Center at [facility] [address] | MD Daniela [address] | Review | | | | [address] | [place], [place] | | | | | Mailcode: [place] | [address] | | | | | [facility] and | [phone] | | | | | [facility], [place] [address] | | | | | | [place], [place] | | | | | | [address] | | | | | | [phone] | | | +--------+ + + + [...]
--- OUTSIDE RECORDS SUMMARY | ~2018-06-22 | XMS | Encounter Summary ---
Demographics + + + | Address | [address] | | | [place] [address] | + + + | Home Phone | | + + + | Preferred Language | Unknown | + + + | Marital Status | Single | + + + | Pentecostalism Affiliation | CHR | + + + | Race | White | + + + | Ethnic Group | Not or | + + + Author + + + | Author | [facility] | + + + | Organization | [facility] | + + + | Address [...] Team Providers + +------+ + | Care Etl Manager Name | Role | Phone | + +------+ + | Alex Askew MD | PCP | Unavailable | + +------+ + Reason for Visit + + + | Reason | Comments | + + + | Refill Request | Hep c tx refill/Ribavirin | + + + Encounter Details +--------+ + + + + | Date | Type | Department | Care Team | Description | +--------+ + + + + | 11/21/ | Telephone | [facility] | [place] | Refill Request (Hep | | 2015 | | Center at [facility] [address] | EMD [address] | c tx | | | | [address] | [place], [place] | refill/Ribavirin) | | | | Mailcode: [place] | [address] | | | | | for Health and | [phone] | | | | | [place] [address] | | | | | | [place], [place] | | | | | | [address] | | | | | | [phone] | | | +--------+ + + + [...]
--- OUTSIDE RECORDS SUMMARY | ~2018-06-22 | XMS | Encounter Summary ---
Demographics + + + | Address | [address] | | | [place] [address] | + + + | Home Phone | | + + + | Preferred Language | Unknown | + + + | Marital Status | Single | + + + | Zoroastrianism Affiliation | CHR | + + + | Race | White | + + + | Ethnic Group | Not or | + + + Author + + + | Author | [facility] | + + + | Organization | [facility] | + + + | [...] Team Providers + +------+ + | Care Senior Scrum Master Name | Role | Phone | + +------+ + | Alex Askew MD | PCP | Unavailable | + +------+ + Reason for Visit + + + | Reason | Comments | + + + | Medical Records | 12/15/14 lab | | Review | | + + + Encounter Details +--------+ + + + + | Date | Type | Department | Care Team | Description | +--------+ + + + + | 01/29/ | Documentati | [facility] | [place] | Medical Records | | 2014 | on | Center at [facility] [address] | MD Danieal [address] | Review (12/15/14 [facility]) | | | | [address] | [place], [place] | | | | | Mailcode: [place] | [address] | | | | | for Health and | [phone] | | | | | [place] [address] | | | | | | [place], [place] | | | | | | [address] | | | | | | [phone] | | | +--------+ + + + [...] + | HEPATITIS C | Routin | 12/15/2014 | | Results for this | | QUANTITATIVE, PLASMA | e | | | procedure are in the | | | | | | results section. | + +--------+ + + + documented in this encounter Results HEPATITIS C QUANTITATIVE, PLASMA (12/15/2014) + + + + + + | Component | Value | Ref Range | Performed | Pathologist | | | | | At | Signature | + + + + + + | HEP C PCR, | not detected | IU/mL | [facility] | | | QUANT | | | LABORATORY- | | | | | | [place] | | + + + + + + + + | Specimen | + + | Blood - Blood | + + + + + + + | Performing | Address | City/State/Zipcode | Phone Number | | Organization | | | | + + + + + | [facility] | [address] | [place] [address] | [phone] | | [facility] | | | | + + + + + documented in this encounter Visit Diagnoses Not on filedocumented in this encounter"
--- OUTSIDE RECORDS SUMMARY | ~2018-06-22 | XMS | Encounter Summary ---
Demographics + + + | Address | [address] | | | [place] [address] | + + + | Home Phone | | + + + | Preferred Language | Unknown | + + + | Marital Status | Single | + + + | Moravian Affiliation | CHR | + + + | Race | White | + + + | Ethnic Group | Not or | + + + Author + + + | Author | [facility] | + + + | Organization | [facility] | + + + | Address | [...] Team Providers + +------+ + | Care Property Field Adjuster Name | Role | Phone | + +------+ + | Alex Aksew MD | PCP | Unavailable | + +------+ + Encounter Details +--------+ + + + + | Date | Type | Department | Care Team | Description | +--------+ + + + + | 05/25/ | Ancillary | Registration 3181 | Cyrus Huston, | | | 2005 | [facility] | | | | n | [facility] Mailcode: | | | | | | [address] [place], [place] | | | | | | [address] | | | | | | [phone] | | | +--------+ + + + + Social History + +-------+ +--------+------+ | Tobacco Use | Types | Packs/Day | Years | Date | | | | | Used | | + +-------+ +--------+------+ | Never Assessed | | | | | + +-------+ +--------+------+ + + + | Sex Assigned at [...] + + | DIFFERENTIAL | Routin | 05/25/2005 | | Results for this | | | e | 1:47 PM | | procedure are in the | | | | PDT | | results section. | + +--------+ + + + | INR | Routin | 05/25/2005 | | Results for this | | | e | 1:47 PM | | procedure are in the | | | | PDT | | results section. | + +--------+ + + + | CBC, WITH | Routin | 05/25/2005 | | Results for this | | DIFFERENTIAL | e | 1:47 PM | | procedure are in the | | | | PDT | | results section. | + +--------+ + + + | COMPLETE METABOLIC | Routin | 05/25/2005 | | Results for this | | SET | e | 1:47 PM | | procedure are in the | | (NA,K,CL,CO2,BUN,CRE | | PDT | | results section. | | AT,GLUC,CA,AST,ALT,B | | | | | | ENA TOTAL,ALK | | | | | | PHOS,ALB,PROT TOTAL) | | | | | + +--------+ + + + | ALPHA-FETOPROTEIN | Routin | 05/25/2005 | | Results for this | | TUMOR MARKER, SERUM | e | 1:47 PM | | procedure are in the | | | | PDT | | results section. | + +--------+ + + + | HEPATITIS A AB IGM, | Routin | 05/25/2005 | | Results for this | | SERUM | e | 1:47 PM | | procedure are in the | | | | PDT | | results section. | + +--------+ + + + | HEPATITIS B SURFACE | Routin | 05/25/2005 | | Results for this | | AB QUAL, SERUM | e | 1:47 PM | | procedure are in the | | | | PDT | | results section. | + +--------+ + + + | HEPATITIS B SURFACE | Routin | 05/25/2005 | | Results for this | | AG, SERUM | e | 1:47 PM | | procedure are in the | | | | PDT | | results section. | + +--------+ + + + | HEPATITIS B CORE AB, | Routin | 05/25/2005 | | Results for this | | SERUM | e | 1:47 PM | | procedure are in the | | | | PDT | | results section. | + +--------+ + + + | HEPATITIS A AB | Routin | 05/25/2005 | | Results for this | | SCREEN, SERUM | e | 1:47 PM | | procedure are in the | | | | PDT | | results section. | + +--------+ + + + | HEPATITIS C | Routin | 05/25/2005 | | Results for this | | GENOTYPING, PLASMA | e | 1:27 PM | | procedure are in the | | | | PDT | | results section. | + +--------+ + + + documented in this encounter Results HEPATITIS A AB-IGM (05/25/2005 1:47 PM PDT) + + + + + + | Component | Value | Ref Range | Performed | Pathologist | | | | | At | Signature | + + + + + + | HEPATITIS A | NegativeComment: | Negative | | | | AB, IGM | Test performed by [facility] | | | | | | [facility] | | | | | | ethology. | | | | + + + + + + + + | Specimen | + + | | + + + + + + + | Performing | Address | City/State/Zipcode | Phone Number | | Organization | | | | + + + + + | [facility] | [address] | [place] [address] | | | LABORATORY | | | | + + + + + HEPATITIS B SURFACE AG (05/25/2005 1:47 PM PDT) + + + + + + | Component | Value | Ref Range | Performed | Pathologist | | | | | At | Signature | + + + + + + | HEPATITIS B | NegativeComment: | Negative | | | | SURFACE | Test performed by Last | | | | | AG, SERUM | [facility] | | | | | | Laboratories. | | | | + + + + + + + + | Specimen | + + | | + + + + + + + | Performing | Address | City/State/Zipcode | Phone Number | | Organization | | | | + + + + + | [facility] | [address] | [place] [address] | | | LABORATORY | | | | + + + + + HEPATITIS B SURFACE AB (05/25/2005 1:47 PM PDT) + + + + + + | Component | Value | Ref Range | Performed | Pathologist | | | | | At | Signature | + + + + + + | HEP B | POSITIVEComment: | Negative | | | | SURFACE AB | Test performed by Last | | | | | UBALDO, SERUM | [facility] | | | | | | Laboratories. | | | | + + + + + + + + | Specimen | + + | | + + + + + + + | Performing | Address | City/State/Zipcode | Phone Number | | Organization | | | | + + + + + | [facility] | [address] | [place] [address] | | | LABORATORY | | | | + + + + + ALPHA-FETOPROTEIN, TUMOR MKR (05/25/2005 1:47 PM PDT) + + + + + + | Component | Value | Ref Range | Performed | Pathologist | | | | | At | Signature | + + + + + + | AFP, TUMOR | 5Comment: Test | <21 ng/mL | | | | MARKER, | performed by [facility] | | | | | SERUM | [facility] | | | | | | Laboratories. | | | | + + + + + + + + | Specimen | + + | | + + + + + + + | Performing | Address | City/State/Zipcode | Phone Number | | Organization | | | | + + + + + | [facility] | [address] | [place] [address] | | | LABORATORY | | | | + + + + + HEPATITIS B CORE AB (05/25/2005 1:47 PM PDT) + + + + + + | Component | Value | Ref Range | Performed | Pathologist | | | | | At | Signature | + + + + + + | HEPATITIS B | POSITIVEComment: | Negative | | | | CORE AB, | Test performed by [facility] | | | | | [facility] | [facility] | | | | | | Laboratories. | | | | + + + + + + + + | Specimen | + + | | + + + + + + + | Performing | Address | City/State/Zipcode | Phone Number | | Organization | | | | + + + + + | [facility] | [address] | [place] [address] | | | LABORATORY | | | | + + + + + HEPATITIS A IGNACIO LOPEZ (05/25/2005 1:47 PM PDT) + + + + + + | Component | Value | Ref Range | Performed | Pathologist | | | | | At | Signature | + + + + + + | HEPATITIS A | POSITIVEComment: | Negative | | | | AB TOTAL | Test performed | | | | | | by [facility] | | | | | | Regional | | | | | | Laboratories. | | | | | | The test for total | | | | | | antibody to Hepatits A | | | | | | virus tests for | | | | | | both | | | | | | immunoglobulins G and M | | | | | | and is used primarily as | | | | | | an indicatorof | | | | | | past infection and | | | | | | immunity to HAV. When | | | | | | total antibodyresult | | | | | | is positive the | | | | | | Hepatitis A IgM antibody | | | | | | is | | | | | | automaticallyperformed | | | | | | to confirm | | | | | | recent infection. | | | | + + + + + + + + | Specimen | + + | | + + + + + + + | Performing | Address | City/State/Zipcode | Phone Number | | Organization | | | | + + + + + | [facility] | [address] | [place] [address] | | | LABORATORY | | | | + + + + + PROTHROMBIN TIME (05/25/2005 1:47 PM PDT) + + + + + + | Component | Value | Ref Range | Performed | Pathologist | | | | | At | Signature | + + + + + + | INR | 1.00Comment: | 0.90 - 1.20 INR | [facility] [...] | + + + + + | [facility] DEPARTMENT | [address] | [place] [address] | | | PATHOLOGY | [address] | | | + + + + + | [facility] | [address] | [place] [address] | | | PATHOLOGY | [address] | | | + + + + + DIFFERENTIAL (05/25/2005 1:47 PM PDT) + +---------+ + + + | Component | Value | Ref Range | Performed | Pathologist | | | | | At | Signature | + +---------+ + + + | NEUTROPHIL | 67 | 50 - 70 % | [facility] | | | % | | | DEPARTMENT | | | | | | OF | | | | | | PATHOLOGY | | + +---------+ + + + | LYMPHOCYTE | 25 | 18 - 42 % | [facility] [...] + + + | BASO % | 1 | <3 % | [facility] | | | | | | DEPARTMENT | | | | | | OF | | | | | | PATHOLOGY | | + +---------+ + + + | NEUTROPHIL | 6.4 | 1.8 - 7.7 K/cu | [facility] | | | # | | mm | DEPARTMENT | | | | | | OF | | | | | | PATHOLOGY | | + +---------+ + + + | LYMPHOCYTE | 2.4 | 1.0 - 4.8 K/cu | [facility] [...] + + + | BASO # | 0.1 | <0.3 | [facility] | | | [...] | + + + + + | [facility] | [address] | [place] [address] | | | PATHOLOGY | [address] | | | + + + + + | [facility] | [address] | [place] [address] | | | PATHOLOGY | [address] | | | + + + + + CBC, WITH DIFFERENTIAL (05/25/2005 1:47 PM PDT) + +-------+ + + + | Component | Value | Ref Range | Performed | Pathologist | | | | | At | Signature | + +-------+ + + + | WHITE CELL | 9.5 | 4.4 - 11.0 K/cu | [facility] | | | COUNT | | mm | DEPARTMENT | | | | | | OF | | | | | | PATHOLOGY | | + +-------+ + + + | RED CELL | 4.70 | 4.00 - 5.20 | [facility] | | | COUNT | | M/cu mm | DEPARTMENT | | | | | | OF | | | | | | PATHOLOGY | | + +-------+ + + + | HEMOGLOBIN | 14.7 | 12.0 - 16.0 | [facility] | | | | | g/dL | DEPARTMENT | | | | | | OF | | | | | | PATHOLOGY | | + +-------+ + + + | HEMATOCRIT | 42.4 | 36.0 - 46.0 % | [facility] [...] +-------+ + + + | PLATELET | 303 | 150 - 400 K/cu | [facility] [...] | + + + + + | [facility] DEPARTMENT OF | [address] | [place] [address] | | | PATHOLOGY | [address] | | | + + + + + | [facility] DEPARTMENT OF | [address] | [place] [address] | | | PATHOLOGY | [address] | | | + + + + + COMP METABOLIC SET (05/25/2005 1:47 PM PDT) + +---------+ + + + | Component | Value | Ref Range | Performed | Pathologist | | | | | At | Signature | + +---------+ + + + | GLUCOSE, | 115 (H) | 65 - 110 mg/dL | [facility] | | | PLASMA | | | DEPARTMENT | | | (LAB) | | | OF | | | | | | PATHOLOGY | | + +---------+ + + + | BUN, PLASMA | 8 | 6 - 20 mg/dL | [facility] [...] +---------+ + + + | TOTAL | 7.6 | 6.1 - 7.9 g/dL | [facility] [...] +---------+ + + + | CALCIUM, | 8.7 | 8.5 - 10.5 | [facility] | [...] + + + | ALK PHOS | 133 (H) | 42 - 98 U/L | [facility] | | | | | | DEPARTMENT | | | | | | OF | | | | | | PATHOLOGY | | + +---------+ + + + | AST(SGOT) | 42 (H) | 15 - 41 U/L | [facility] | | | | | | DEPARTMENT | | | | | | OF | | | | | | PATHOLOGY | | + +---------+ + + + | SODIUM, | 136 | 136 - 145 | [facility] | | | PLASMA | | mmol/L | DEPARTMENT | | | (LAB) | | | OF | | | | | | PATHOLOGY | | + +---------+ + + + | POTASSIUM, | 3.5 | 3.5 - 5.1 | [facility] | | | PLASMA | | mmol/L | DEPARTMENT | | | (LAB) | | | OF | | | | | | PATHOLOGY | | + +---------+ + + + | CHLORIDE, | 103 | 98 - 107 mmol/L | [facility] | | | PLASMA | | | DEPARTMENT | | | (LAB) | | | OF | | | | | | PATHOLOGY | | + +---------+ + + + | TOTAL CO2, | 27 | 23 - 29 mmol/L | [facility] | | | PLASMA | | | DEPARTMENT | | | (LAB) | | | OF | | | | | | PATHOLOGY | | + +---------+ + + + | ALT (SGPT) | 57 (H) | 13 - 48 U/L | [facility] | | | | | | DEPARTMENT | | | | | | OF | | | | | | PATHOLOGY | | + +---------+ + + + + + | Specimen | + + | | + + + + + | Narrative | Performed At | + + + | [id number] Estimated GFR > 60 mL/min/1.73 sq m if non- | [facility] | | [id number] Estimated GFR > 60 mL/min/1.73 sq m [...] | + + + + + | [facility] DEPARTMENT | [address] [place] [address] | [place] [address] | | | PATHOLOGY | [address] | | | + + + + + | [facility] DEPARTMENT OF | [address] [place] [address] | [place] [address] | | | PATHOLOGY | [address] | | | + + + + + HEP C GENOTYPING (05/25/2005 1:27 PM PDT) + + + + + + | Component | Value | Ref Range | Performed | Pathologist | | | | | At | Signature | + + + + + + | HEP C | TYPE 1A | | | | | GENOTYPE | | | | | + + + + + + | INTERP HEP | As per your request, we | | | | | C GENOTYPE | have completed a | | | | | | polymerase chain | | | | | | reaction (PCR)bases | | | | | | assay to determine the | | | | | | genotype of the | | | | | | hepatitis C virus | | | | | | speciespresent in the | | | | | | patient. For this assay, | | | | | | serum derived RNA is | | | | | | reversetranscribed with | | | | | | an HCV specific primer | | | | | | followed by multiplex | | | | | | PCRamplification (3 | | | | | | different reactions) | | | | | | with genotype-specific | | | | | | probes andfluorescent | | | | | | detection on an BECK | | | | | | [id number] instrument. The | | | | | | real time | | | | | | PCRamplification plots | | | | | | of the patient sample | | | | | | and controls has been | | | | | | examinedand the clinical | | | | | | interpretation is | | | | | | detailed below.Infection | | | | | | with HCV genotype | | | | | | 1,4,5, or 6 isolates has | | | | | | been shown to be oneof | | | | | | several factors | | | | | | associated with a poorer | | | | | | virological response | | | | | | topharmacologic | | | | | | antiviral therapy. | | | | | | Patients with HCV | | | | | | genotype 1,4,5,or | | | | | | 6isolates may require | | | | | | lengthier durations of | | | | | | antiviral therapy to | | | | | | achievea sustained | | | | | | virological | | | | | | response. In addition | | | | | | to the presence of | | | | | | HCVgenotype 1,4,5,or 6 | | | | | | isolates, other poor | | | | | | prognostic indicators | | | | | | for asustained response | | | | | | to antiviral therapy | | | | | | include a high baseline | | | | | | viralload, the presence | | | | | | of hepatic fibrosis, and | | | | | | older age. A | | | | | | quantitativeHCV RNA-PCR | | | | | | viral load assay | | | | | | (test#8804) may | | | | | | therefore be | | | | | | clinicallyindicated. | | | | | | References:1.) Jennifer | | | | | | Christiano gomez, Ej Martinez, | | | | | | Paris Rios, Felicity, | | | | | | Maureen Briones J. | | | | | | (1999): Is am "A la | | | | | | Carte" combination of | | | | | | interferon denilson-2b | | | | | | plusribavirin regimen | | | | | | possible for the first | | | | | | line treatment of | | | | | | patients withhepatitis | | | | | | C? Hepatology 31, | | | | | | [phone]. This test was | | | | | | developed and its | | | | | | performance | | | | | | characteristics | | | | | | determined by[facility] | | | | | | [facility] | | | | | | Laboratory. It has | | | | | | not been cleared or | | | | | | approvedby the Food and | | | | | | Drug Administration. FDA | | | | | | approval is not | | | | | | required forclinical use | | | | | | of the test, and | | | | | | therefore validation was | | | | | | done as requiredunder | | | | | | the requirements of the | | | | | | Clinical Laboratory | | | | | | Improvement Act | | | | | | [id number]. The [facility] | | | | | | Diagnostic Laboratory is | | | | | | a fully licensed and/ | | | | | | oraccredited clinical | | | | | | laboratory under CLIA, | | | | | | [place], and the State of | | | | | | [place]. | | | | + + + + + + | HEP C GT | Reviewed by Melvin Garcia | | | | | FINAL | Carol MATTSON, PhD. | | | | | SIGNATURE | | | | | | HGT | | | | | + + + + + + + + | Specimen | + + | | + + + + + + + | Performing | Address | City/State/Zipcode | Phone Number | | Organization | | | | + + + + + | [facility] | [facility] | [place] [address] | | | GENETICS LABS | [address] | | | | | [address] | | | + + + + + documented in this encounter Visit Diagnoses Not on filedocumented in this encounter
--- OUTSIDE RECORDS SUMMARY | ~2018-06-22 | XMS | Encounter Summary ---
Demographics + + + | Address | [address] | | | [place] [address] | + + + | Home Phone | | + + + | Preferred Language | Unknown | + + + | Marital Status | Single | + + + | Adventism Affiliation | CHR | + + + | Race | White | + + + | Ethnic Group | Not or | + + + Author + + + | Organization | Unknown | + + + | Address | [...] Team Providers + +------+ + | Care Manager Services Name | Role | Phone | + +------+ + | Alex Askew MD | PCP | Unavailable | + +------+ + Encounter Details +--------+ + + + + | Date | Type | Department | Care Team | Description | +--------+ + + + + | 09/07/ | Procedure - | | Endoscopy, Gi | EGD | | 2005 | | | | (esophagogastroduode | | | Transcribed | | | noscopy) | +--------+ + + + + Social [...] | + +--------+ + + + | EGD | | 09/07/2005 | | | + +--------+ + + + documented in this encounter Visit Diagnoses Not on filedocumented in this encounter"
--- OUTSIDE RECORDS SUMMARY | ~2018-06-22 | XMS | Encounter Summary ---
Demographics + + + | Address | [address] | | | [place] [address] | + + + | Home Phone [...] Author + + + | Author | [facility] | + + + | Organization | [facility] | + + + | Address | [...] Team Providers + +------+ + | Care Television Audio Engineer Name | Role | Phone | + +------+ + PCP | Unavailable | + +------+ + Encounter Details +--------+ + + + + | Date | Type | Department | Care Team | Description | +--------+ + + + + | 05/25/ | Results | [facility] Division of | Cyrus Huston, | | | 2005 | Only | Gastroenterology/Hep | [place] | | | | | atology [address] | | | | [address] | | | | | | [address] Mailcode: | | | | | | [id number] | | | | | | [address] | | | | | | [place], [place] | | | | | | [address] | | | | | | [phone] | | | +--------+ + + + [...] of this encounter Plan of Treatment + +---------+--------+ + + | Name | Type | Priori | Associated Diagnoses | Date/Time | | | | ty | | | + +---------+--------+ + + | CT ABDOMEN W | Imaging | Routin | | 05/25/2005 1:37 PM | | CONTRAST | | e | | PDT | + +---------+--------+ + + | CT ABDOMEN WWO | Imaging | Routin | | 08/08/2005 1:09 PM | | CONTRAST | | e | | PDT | + +---------+--------+ + + | CT ABDOMEN WWO | Imaging | Routin | | 09/07/2005 2:45 PM | | CONTRAST | | e | | PDT | + +---------+--------+ + + documented as of this encounter Procedures + +--------+ + + + | Procedure Name | Priori | Date/Time | Associated Diagnosis | Comments | | | ty | | | | + +--------+ + + + | CT ABDOMEN WWO IV | Routin | 09/07/2005 | | Results for this | | CONTRAST | e | 2:45 PM | | procedure are in the | | | | PDT | | results section. | + +--------+ + + + documented in this encounter Results CT ABDOMEN WWO CONTRAST (09/07/2005 2:45 PM PDT) + + + + + + | Component | Value | Ref Range | Performed | Pathologist | | | | | At | Signature | + + + + + + | CT ABDOMEN | Radiologist 1: LEONILA, | | | | | MANEO | Jose NICOLE | | | | | VERONIQUE | MMirna-Radiologist 2: | | | | | | MARLENA RAMEY: ABDOMEN | | | | | | WITHOUT AND WITH IV | | | | | | CONTRAST: (Triple Phase | | | | | | Liver) TECHNIQUE: | | | | | | Following oral water | | | | | | helical scanning was | | | | | | performedthrough the | | | | | | abdomen. Following | | | | | | intravenous contrast | | | | | | (Visapaque,120 cc), | | | | | | helical scanning was | | | | | | performed from the | | | | | | diaphram throughthe | | | | | | abdomen to the iliac | | | | | | crest during both | | | | | | arterial and | | | | | | portalvenous phase. | | | | | | COMPARISONS: None. | | | | | | FINDINGS: Noncontrast | | | | | | images through the | | | | | | abdomen demonstrate no | | | | | | pathologiccalcifications | | | | | | . Following contrast in | | | | | | this region, arterial | | | | | | phase imagesdemonstrate | | | | | | a 7 mm hypervascular | | | | | | focus in the periphery | | | | | | of theright anterior | | | | | | segment, image | | | | | | 19. This lesion | | | | | | becomes isodense tothe | | | | | | surrounding hepatic | | | | | | parenchyma in the portal | | | | | | venous phase. Noother | | | | | | focal hepatic lesions | | | | | | identified. Hepatic | | | | | | arterial anatomyis | | | | | | conventional. The | | | | | | main portal vein | | | | | | measures 13 mm diameter | | | | | | andis patent. The | | | | | | gallbladder, spleen, | | | | | | pancreas, adrenal | | | | | | glands, and kidneys | | | | | | arenormal. The distal | | | | | | esophagus, stomach, and | | | | | | visualized bowel | | | | | | areunremarkable. Ther | | | | | | e is no ascites | | | | | | appreciable | | | | | | adenopathy. Lungbases | | | | | | are clear. IMPRESSION: | | | | | | 1. Isolated 7 mm | | | | | | hypervascular focus in | | | | | | the right | | | | | | anteriorsegment, | | | | | | indeterminate | | | | | | etiology. Close | | | | | | attention in followup | | | | | | issuggested. Otherwis | | | | | | e no focal abnormality. | | | | + + + + + + + + | Specimen | + + | | + + + +---------+ + + | Performing | Address | City/State/Zipcode | Phone Number | | Organization | | | | + +---------+ + + | [facility] DEPARTMENT OF | | | | | RADIOLOGY | | | | + +---------+ + + documented in this encounter Visit Diagnoses Not on filedocumented in this encounter"
--- OUTSIDE RECORDS SUMMARY | ~2018-06-22 | XMS | Encounter Summary ---
Demographics + + + | Address | [address] | | | [place] [address] | + + + | Home Phone | | + + + | Preferred Language | Unknown | + + + | Marital Status | Single | + + + | Denominational Affiliation | CHR | + + + | Race | White | + + + | Ethnic Group | Not or | + + + Author + + + | Author | [facility] | + + + | Organization | [facility] | + + + | Address [...] Team Providers + +------+ + | Care Multimedia Manager Name | Role | Phone | + +------+ + | Alex Askew MD | PCP | Unavailable | + +------+ + Reason for Referral Diagnostic Testing (Routine) +--------+--------+ + + + + | Status | Reason | Specialty | Diagnoses / | Referred By | Referred To | | | | | Procedures | Contact | Contact | +--------+--------+ + + + + | Closed | | Radiology | Diagnoses | [place] | [address] | | | | | Hepatitis | ROMIE Bridges | [address] | | | | | C, chronic | [address] | | | | | (HCC) | [address] | [address] | | | | | Procedures | [place], [place] | Road | | | | | CT ABDOMEN | [address] | Mailcode: | | | | | W[address] IV | | [address] [facility] | | | | | CONTRAST RI | | Hospital | | | | | CT SCAN OF | | [place], [place] | | | | | ABDOMEN | | [address] | | | | | COMBO | | Phone: | | | | | | | [phone] | | | | | | | Fax: | | | | | | | [phone] | +--------+--------+ + + + + Diagnostic Testing (Routine) +--------+--------+ + + + + | Status | Reason | Specialty | Diagnoses / | Referred By | Referred To | | | | | Procedures | Contact | Contact | +--------+--------+ + + + + | Closed | | Radiology | Diagnoses | [place], | Rad Ct Scan | | | | | Hepatitis | ROMIE Bridges | [facility] [address] | | | | | C, chronic | [address] | [address] | | | | | (HCC) | [address] | [address] | | | | | Procedures | [place], [place] | Road | | | | | CT ABDOMEN | [address] | Mailcode: | | | | | WWO IV | | [address] [facility] | | | | | [address] | | Hospital | | | | | CT SCAN OF | | [place], [place] | | | | | ABDOMEN | | [address] | | | | | COMBO | | Phone: | | | | | | | [phone] | | | | | | | Fax: | | | | | | | [phone] | +--------+--------+ + + + + Reason for Visit Diagnostic Testing (Routine) +--------+--------+ + + + + | Status | Reason | Specialty | Diagnoses / | Referred By | Referred To | | | | | Procedures | Contact | Contact | +--------+--------+ + + + + | Closed | | Radiology | Diagnoses | [place], | Rad Ct Scan | | | | | Hepatitis | ROMIE Bridges | [facility] [address] | | | | | C, chronic | [address] | [address] | | | | | (HCC) | [address] | [facility] | | | | | Procedures | [place], [place] | Road | | | | | CT ABDOMEN | [address] | Mailcode: | | | | | W[address] IV | | [address] [facility] | | | | | [address] [place] | | Hospital | | | | | CT SCAN OF | | [place], [place] | | | | | ABDOMEN | | [address] | | | | | COMBO | | Phone: | | | | | | | [phone] | | | | | | | Fax: | | | | | | | [phone] | +--------+--------+ + + + + Encounter Details +--------+ + + + + | Date | Type | Department | Care Team | Description | +--------+ + + + + | 08/21/ | Hospital | Radiology/Imaging | | | | 2013 | Encounter | Lab at [facility] [address] | | | | | | [address] | | | | | | Mailcode: CH3G | | | | | | [facility] | | | | | | and [facility], 3rd | | | | | | [place], [place] | | | | | | [address] | | | | | | [phone] | | | +--------+ + + + [...] + + documented as of this encounter Medications at Time of Discharge + + + +---------+--------+ + | Medication | Sig | Dispensed | Refills | Start | End Date | | | | | | Date | | + + + +---------+--------+ + | ACETAMINOPHEN, | once daily at | | 0 | | | | BULK, MISC | bedtime. | | | | | + + + +---------+--------+ + | ALBUTEROL 90 | inhale 1 puff by | | 0 | | | | MCG/ACTUATION | inhalation route | | | | | | AEROSOL INHALER | every 4-6 hours as | | | | | | | needed | | | | | + + + +---------+--------+ + | ALBUTEROL IN | Inhale 0.85 mg. 4 | | 0 | | | | | times daily or more | | | | | | | as needed | | | | | + + + +---------+--------+ + | amLODIPine 5 mg | Take 5 mg by mouth | | 0 | | | | oral tablet | once daily. | | | | | + + + +---------+--------+ + | cyclobenzaprine 10 | Take 10 mg by mouth | | 0 | | | | mg oral tablet | three times daily as | | | | | | | needed. Do not use | | | | | | | longer than 2-3 | | | | | | | weeks. | | | | | + + + +---------+--------+ + | DULoxetine 60 mg | Take 60 mg by mouth | | 0 | | | | oral capsule,delayed | once daily. | | | | | | release(/INO) | | | | | | + + + +---------+--------+ + | hydrOXYzine | Take 25 mg by mouth | | 0 | | | | pamoate 25 mg Oral | every four hours as | | | | | | Capsule | needed. | | | | | + + + +---------+--------+ + | losartan 100 mg | Take 12.5 mg by | | 0 | | | | oral tablet | mouth once daily. | | | | | + + + +---------+--------+ + | meclizine 25 mg | Take 25 mg by mouth | | 0 | | | | oral tablet | twice daily as | | | | | | | needed for | | | | | | | nausea/vomiting. | | | | | + + + +---------+--------+ + | | Take 10 mg by mouth. | | 0 | | | | medroxyPROGESTERone | | | | | | | 10 mg oral tablet | | | | | | + + + +---------+--------+ + | METOPROLOL | Take by mouth. | | 0 | | | | SUCCINATE ORAL | | | | | | + + + +---------+--------+ + | naproxen 500 mg | Take 500 mg by mouth | | 0 | | | | oral tablet | two times daily. | | | | | + + + +---------+--------+ + | oxyCODONE, | Take by mouth every | | 0 | | | | immediate release, 5 | six hours as | | | | | | mg oral tablet | needed. | | | | | + + + +---------+--------+ + | timolol 10 mg Oral | Take by mouth. Take | | 0 | | | | Tablet | 2 tabs in the | | | | | | | morning and 1 at | | | | | | | bedtime | | | | | + + + +---------+--------+ + | Tramadol (ULTRAM | Take 50 mg by mouth | | 0 | | | | ER) 300 mg Oral | once daily at | | | | | | Tablet Sustained | bedtime. | | | | | | Release 24 hr | | | | | | + + + +---------+--------+ + | TRAZODONE 50 MG | 1 tab by mouth once | | 0 | | | | TAB | daily 100 mg | | | | | + + + +---------+--------+ + | XANAX 0.25 MG TAB | take 1 tablet | | 0 | | | | | (0.25mg) by oral | | | | | | | route 3 times per | | | | | | | day | | | | | + + + +---------+--------+ + documented as of this encounter Plan of Treatment Not on filedocumented as of this encounter Procedures + +--------+ + + + | Procedure Name | Priori | Date/Time | Associated Diagnosis | Comments | | | ty | | | | + +--------+ + + + | PROCEDURE NOTE | Routin | 03/12/2015 | | Results for this | | | e | 6:11 PM | | procedure are in the | | | | PST | | results section. | + +--------+ + + + | CT ABDOMEN WWO IV | Routin | 08/21/2013 | Hepatitis C, | Results for this | | CONTRAST | e | 9:39 AM | chronic (HCC) | procedure are in the | | | | PDT | | results section. | + +--------+ + + + | CREATININE, POC | Routin | 08/21/2013 | | Results for this | | | e | 9:09 AM | | procedure are in the | | | | PDT | | results section. | + +--------+ + + + documented in this encounter Results PROCEDURE NOTE (03/12/2015 6:11 PM PST) + + | Transcriptions | + + | Other, Faculty - 08/29/2013 1:34 PM PDT | + + CT ABDOMEN WWO IV CONTRAST (08/21/2013 9:39 AM PDT) + + + + + + | Component | Value | Ref Range | Performed | Pathologist | | | | | At | Signature | + + + + + + | CT ABDOMEN | EXAM: Liver protocol | | | | | WWO | CT of the abdomen WITH | | | | | CONTRAST | and WITHOUT contrast. | | | | | | HISTORY: Cirrhosis, | | | | | | hepatoma screening | | | | | | COMPARISON: 12/29/10 | | | | | | TECHNIQUE: Unenhanced, | | | | | | arterial, portal venous | | | | | | and 4-minute delayed | | | | | | abdominalCT with 125mL | | | | | | Omnipaque 350 IV | | | | | | contrast. Coronal and | | | | | | sagittal reformats | | | | | | werereviewed. | | | | | | FINDINGS:LOWER THORAX: | | | | | | There is trace right | | | | | | basilar atelectasis. The | | | | | | lung bases areclear. | | | | | | There is no effusion or | | | | | | pneumothorax. The heart | | | | | | and mediastinum | | | | | | areunremarkable. LIVER: | | | | | | There are multiple sub 5 | | | | | | mm foci of arterial | | | | | | phase hyper | | | | | | enhancement.There is no | | | | | | corresponding finding or | | | | | | other focal abnormality | | | | | | on portal venousand | | | | | | delayed phases. These | | | | | | are most consistent with | | | | | | transient | | | | | | hepaticattenuation | | | | | | differences.BILIARY: | | | | | | There is no intra-or | | | | | | extrahepatic biliary | | | | | | dilation. The | | | | | | gallbladder | | | | | | isnormal.SPLEEN: | | | | | | Unremarkable.PANCREAS: | | | | | | Unremarkable. ADRENALS: | | | | | | Unremarkable.KIDNEYS/URE | | | | | | TERS: There is a 6 mm, | | | | | | exophytic, likely simple | | | | | | cyst in theinterpolar | | | | | | right kidney. The | | | | | | kidneys are otherwise | | | | | | unremarkable. There is | | | | | | nohydronephrosis or | | | | | | ureterectasis. GI TRACT: | | | | | | The stomach and visible | | | | | | bowel is normal caliber | | | | | | and wall | | | | | | thickness.PERITONEUM: No | | | | | | free air or fluid.LYMPH | | | | | | NODES: | | | | | | Unremarkable.VESSELS: No | | | | | | aortic aneurysmal | | | | | | dilation. Normal caliber | | | | | | and contrast filling | | | | | | ofthe aorta, portal | | | | | | system, and vena cava. | | | | | | Hepatic arterial anatomy | | | | | | isconventional. No | | | | | | other varicosities. | | | | | | BONES: No suspicious | | | | | | bony lesions. | | | | | | IMPRESSION:No evidence | | | | | | for HCC. Attending | | | | | | Radiologists: NELSY | | | | | | GI ESPARZAuthor: | | | | | | EMILIANO CUEVAS MD I have | | | | | | personally viewed this | | | | | | procedure/exam, reviewed | | | | | | this report, and | | | | | | madechanges to it where | | | | | | appropriate. | | | | | | Final/Electronically | | | | | | signed / NELSY | | | | | | ISAIAS 08/21/2013 | | | | | | 15:52 PM Pending | | | | | | final approval / | | | | | | EMILIANO CUEVAS 08/21/2013 | | | | | | 14:53 PM Preliminary | | | | | | / EMILIANO CUEVAS | | | | | | 08/21/2013 10:12 AM | | | | + + + + + + + + | Specimen | + + | | + + + +---------+ + + | Performing | Address | City/State/Zipcode | Phone Number | | Organization | | | | + +---------+ + + | [place] [facility] | | | | | [facility]IOLOGY | | | | + +---------+ + + ROUTINE CHEMISTRY TESTS (RADIOLOGY), POC (08/21/2013 9:09 AM PDT) + +-------+ + + + | Component | Value | Ref Range | Performed | Pathologist | | | | | At | Signature | + +-------+ + + + | CREATININE, | 1.1 | 0.6 - 1.1 mg/dL | [facility], | | | POC | | | POINT OF | | | | | | CARE TESTS | | + +-------+ + + + + + | Specimen | + + | | + + + + + + + | Performing | Address | City/State/Zipcode | Phone Number | | Organization | | | | + + + + + | [facility] | [address] | [place] [address] | | | OF CARE TESTS | | | | + + + + + documented in this encounter Visit Diagnoses + + | Diagnosis | + + | Hepatitis C, chronic (HCC) Chronic hepatitis C without mention of hepatic coma | + + documented in this encounter"
--- OUTSIDE RECORDS SUMMARY | ~2018-06-22 | XMS | Encounter Summary ---
Demographics + + + | Address | [address] | | | [place] [address] | + + + | Home Phone | | + + + | Preferred Language | Unknown | + + + | Marital Status | Single | + + + | Scientologist Affiliation | CHR | + + + | Race | White | + + + | Ethnic Group | Not or | + + + Author + + + | Author | [facility] | + + + | Organization | [facility] | + + + | Address | [...] Team Providers + +------+ + | Care Pharmacy Technician Instructor Name | Role | Phone | + +------+ + | Alex Askew MD | PCP | Unavailable | + +------+ + Reason for Visit + + + | Reason | Comments | + + + | Blood Test Results | Outside labs from [facility] 12/15/14. | + + + Encounter Details +--------+ + + + + | Date | Type | Department | Care Team | Description | +--------+ + + + + | 12/16/ | Documentati | Dig[facility]ive [facility] | [place] | Blood Test Results | | 2015 | on | Center at [facility] [address] | MD Daniela [address] | (Outside labs from | | | | [address] | [place], [place] | [facility] 12/15/14.) | | | | Mailcode: [place] | [address] | | | | | for Health and | [phone] | | | | | [facility], [place] [address] | | | | | | [place], [place] | | | | | | [address] | | | | | | [phone] | | | +--------+ + + + [...] + + | INR | Routin | 12/15/2014 | | Results for this | | | e | 11:07 AM | | procedure are in the | | | | PST | | results section. | + +--------+ + + + | COMPLETE METABOLIC | Routin | 12/15/2014 | | Results for this | | SET | e | 11:07 AM | | procedure are in the | | (NA,K,CL,CO2,BUN,CRE | | PST | | results section. | | AT,GLUC,CA,AST,ALT,B | | | | | | ENA TOTAL,ALK | | | | | | PHOS,ALB,PROT TOTAL) | | | | | + +--------+ + + + | CBC ONLY | Routin | 12/15/2014 | | Results for this | | | e | 11:07 AM | | procedure are in the | | | | PST | | results section. | + +--------+ + + + documented in this encounter Results INR (12/15/2014 11:07 AM PST) + +-------+ + + + | Component | Value | Ref Range | Performed | Pathologist | | | | | At | Signature | + +-------+ + + + | INR | 1.3 | INR | [facility] | | | | | | LAB - | | | | | | [place] | | + +-------+ + + + + + | Specimen | + + | Blood - Blood | + + + + + + + | Performing | Address | City/State/Zipcode | Phone Number | | Organization | | | | + + + + + | [facility] - | [address] | [place], [place] | [phone] | | [place] | | | | + + + + + COMPLETE METABOLIC SET (NA,K,CL,CO2,BUN,CREAT,GLUC,CA,AST,ALT,BILI TOTAL,ALK PHOS,ALB,PROT TOTAL) (12/15/2014 11:07 AM PST) + +---------+ + + + | Component | Value | Ref Range | Performed | Pathologist | | | | | At | Signature | + +---------+ + + + | GLUCOSE, | 175 (H) | mg/dL | [facility] | | | PLASMA | | | LAB - | | | (LAB) | | | [place] | | + +---------+ + + + | BUN, PLASMA | 18 | mg/dL | [facility] | | | (LAB) | | | LAB - | | | | | | [place] | | + +---------+ + + + | CREATININE | 0.96 | mg/dL | [facility] | | | PLASMA | | | LAB - | | | (LAB) | | | [place] | | + +---------+ + + + | ALBUMIN, | 3.7 | g/dL | [facility] | | | PLASMA | | | LAB - | | | (LAB) | | | [place] | | + +---------+ + + + | BILIRUBIN | 0.8 | Transcutaneous | [facility] | | | TOTAL | | Bilirubinometer | LAB - | | | | | | [place] | | + +---------+ + + + | ALK PHOS | 151 (H) | U/L | [facility] | | | | | | LAB - | | | | | | [place] | | + +---------+ + + + | AST(SGOT) | 24 | U/L | [facility] | | | | | | LAB - | | | | | | [place] | | + +---------+ + + + | SODIUM, | 134 | mmol/L | [facility] | | | PLASMA | | | LAB - | | | (LAB) | | | [place] | | + +---------+ + + + | POTASSIUM, | 4 | mmol/L | [facility] | | | PLASMA | | | LAB - | | | (LAB) | | | [place] | | + +---------+ + + + | ALT (SGPT) | 31 | U/L | [facility] | | | | | | LAB - | | | | | | [place] | | + +---------+ + + + + + | Specimen | + + | Blood - Blood | + + + + + + + | Performing | Address | City/State/Zipcode | Phone Number | | Organization | | | | + + + + + | [facility] - | [address] | [place], [place] | [phone] | | [place] | | | | + + + + + CBC ONLY (12/15/2014 11:07 AM PST) + + + + + + | Component | Value | Ref Range | Performed | Pathologist | | | | | At | Signature | + + + + + + | WHITE CELL | 12.7 (H) | K/cu mm | [facility] | | | COUNT | | | LAB - | | | | | | [place] | | + + + + + + | HEMOGLOBIN | 10.8 (L) | g/dL | [facility] | | | | | | LAB - | | | | | | [place] | | + + + + + + | HEMATOCRIT | 32.5 | % | [facility] | | | | | | LAB - | | | | | | [place] | | + + + + + + | PLATELET | 271 | K/cu mm | [facility] | | | COUNT | | | LAB - | | | | | | [place] | | + + + + + + + + | Specimen | + + | Blood - Blood | + + + + + + + | Performing | Address | City/State/Zipcode | Phone Number | | Organization | | | | + + + + + | [facility] | [address] | [place] | [phone] | | [place] | | | | + + + + + documented in this encounter Visit Diagnoses Not on filedocumented in this encounter"
--- OUTSIDE RECORDS SUMMARY | ~2018-06-22 | XMS | Encounter Summary ---
Demographics + + + | Address | [address] | | | [place] [address] | + + + | Home Phone [...] Author + + + | Author | [facility] | + + + | Organization | [facility] | + + + | [...] Team Providers + +------+ + | Care Process Coach Name | Role | Phone | + +------+ + | Alex Askew MD | PCP | Unavailable | + +------+ + Reason for Visit + + + | Reason | Comments | + + + | Treatment Planning | | + + + Encounter Details +--------+ + + + + | Date | Type | Department | Care Team | Description | +--------+ + + + + | 09/22/ | Telephone | Dig[facility]ive [facility] | [place], | Treatment Planning | | 2008 | | Center at [facility] [address] | [place] | | | | | [address] | | | | | | Mailcode: [place] | | | | | | [facility] | | | | | | [place] [address] | | | | | | [place], [place] | | | | | | [address] | | | | | | [phone] | | | +--------+ + + + [...] + | HEPATITIS C | Routin | 10/10/2008 | Chronic hepatitis | Results for this | | QUANTITATIVE, PLASMA | e | | C without mention of | procedure are in the | | | | | hepatic coma | results section. | + +--------+ + + + documented in this encounter Results HEPATITIS C QUANTITATIVE, SERUM (10/10/2008) + + + + + + | Component | Value | Ref Range | Performed | Pathologist | | | | | At | Signature | + + + + + + | HEP C PCR, | [id number] (H) | IU/mL | [facility] | | | QUANT | | | LAB - | | [...] - | [address] | [place], [place] | [phone] | | [place] | | | | + + + + + | [facility] - | | [place], [place] | | | [place] | | | | + + + + + documented in this encounter Visit Diagnoses + + | Diagnosis | + + | Chronic hepatitis C without mention of hepatic coma - Primary | + + documented in this encounter"
--- OUTSIDE RECORDS SUMMARY | ~2018-06-22 | XMS | Encounter Summary ---
Demographics + + + | Address | [address] | | | [place] [address] | + + + | Home Phone | | + + + | Preferred Language | Unknown | + + + | Marital Status | Single | + + + | Restorationist Affiliation | CHR | + + + [...] Team Providers + +------+ + | Care Coil Winder Repair Name | Role | Phone | + +------+ + | Alex Askew MD | PCP | Unavailable | + +------+ + Encounter Details +--------+------+ + + + | Date | Type | Department | Care Team | Description | +--------+------+ + + + | 09/22/ | Lab | Laboratory at [facility] | | Hepatitis C, Chronic | | 2008 | | [address] | | (HCC) | | | | [place], [place] | | | | | | [address] | | | | | | [phone] | | | +--------+------+ + + + [...] + + | DIFFERENTIAL | Routin | 09/22/2008 | | Results for this | | | e | 1:46 PM | | procedure are in the | | | | PDT | | results section. | + +--------+ + + + | INR | Routin | 09/22/2008 | Hepatitis C, | Results for this | | | e | 1:46 PM | Chronic (HCC) | procedure are in the | | | | PDT | | results section. | + +--------+ + + + | CBC, WITH | Routin | 09/22/2008 | Hepatitis C, | Results for this | | DIFFERENTIAL | e | 1:46 PM | Chronic (HCC) | procedure are in the | | | | PDT | | results section. | + +--------+ + + + | COMPLETE METABOLIC | Routin | 09/22/2008 | Hepatitis C, | Results for this | | SET | e | 1:46 PM | Chronic (HCC) | procedure are in the | | (NA,K,CL,CO2,BUN,CRE | | PDT | | results section. | | AT,GLUC,CA,AST,ALT,B | | | | | | ENA TOTAL,ALK | | | | | | PHOS,ALB,PROT TOTAL) | | | | | + +--------+ + + + documented in this encounter Results DIFFERENTIAL (09/22/2008 1:46 PM PDT) + +---------+ + + + | Component | Value | Ref Range | Performed | Pathologist | | | | | At | Signature | + +---------+ + + + | NEUTROPHIL | 60 | 50 - 70 % | [facility] | | | % | | | DEPARTMENT | | | | | | OF | | | | | | PATHOLOGY | | + +---------+ + + + | LYMPHOCYTE | 30 | 18 - 42 % | [facility] | | | % | | | DEPARTMENT | | | | | | OF | | | | | | PATHOLOGY | | + +---------+ + + + | MONOCYTE % | 9 (H) | 2 - 8 % | [facility] [...] +---------+ + + + | NEUTROPHIL | 6.2 | 1.8 - 7.7 K/cu | [facility] | | | # | | mm | DEPARTMENT | | | | | | OF | | | | | | PATHOLOGY | | + +---------+ + + + | LYMPHOCYTE | 3.1 | 1.0 - 4.8 K/cu | [facility] | | | # | | mm | DEPARTMENT | | | | | | OF | | | | | | PATHOLOGY | | + +---------+ + + + | MONOCYTE # | 0.9 (H) | <0.9 K/cu mm | [facility] | | | [...] | + + + + + | [facility] DEPARTMENT | [address] | [place] [address] | | | PATHOLOGY | [address] | | | + + + + + | [facility] | [facility] | [place] [address] | | | PATHOLOGY | [address] | | | + + + + + INR (09/22/2008 1:46 PM PDT) + + + + + + | Component | Value | Ref Range | Performed | Pathologist | | | | | At | Signature | + + + + + + | INR | 1.10Comment: | 0.90 - 1.20 INR | [facility] | | | | INR | | DEPARTMENT | | | | Therapeutic ranges for | | OF | | | | full | | PATHOLOGY | | | | anticoagulation: | | | | | | INR for Venous | | | | | | Thromboembolism | | | | | | | | | | | | (2.0-3.0) | | | | | | INR INR for | | | | | | most patients with mech. | | | | | | | | | | | | valves (2.5-3.5) | | | | | | INR | | | | + + + + + + + + | Specimen | + + | Blood - Blood | + + + + + + + | Performing | Address | City/State/Zipcode | Phone Number | | Organization | | | | + + + + + | [facility] | [address] | [place] [address] | | | PATHOLOGY | [address] | | | + + + + + | [facility] | [address] | [place] [address] | | | PATHOLOGY | [address] | | | + + + + + CBC, WITH DIFFERENTIAL (09/22/2008 1:46 PM PDT) + +-------+ + + + | Component | Value | Ref Range | Performed | Pathologist | | | | | At | Signature | + +-------+ + + + | WHITE CELL | 10.3 | 4.4 - 11.0 K/cu | [facility] | | | COUNT | | mm | DEPARTMENT | | | | | | OF | | | | | | PATHOLOGY | | + +-------+ + + + | RED CELL | 4.61 | 4.00 - 5.20 | [facility] | | | COUNT | | M/cu mm | DEPARTMENT | | | | | | OF | | | | | | PATHOLOGY | | + +-------+ + + + | HEMOGLOBIN | 15.1 | 12.0 - 16.0 | [facility] | | | | | g/dL | DEPARTMENT | | | | | | OF | | | | | | PATHOLOGY | | + +-------+ + + + | HEMATOCRIT | 43.7 | 36.0 - 46.0 % | [facility] | | | | | | DEPARTMENT | | | | | | OF | | | | | | PATHOLOGY | | + +-------+ + + + | MCV | 94.6 | 80.0 - 96.0 fL | [facility] | | | | | | DEPARTMENT | | | | | | OF | | | | | | PATHOLOGY | | + +-------+ + + + | MCHC | 34.5 | 33.4 - 35.5 | [facility] | | | | | g/dL | DEPARTMENT | | | | | | OF | | | | | | PATHOLOGY | | + +-------+ + + + | RDW | 13.6 | 11.5 - 15.0 % | [facility] | | | | | | DEPARTMENT | | | | | | OF | | | | | | PATHOLOGY | | + +-------+ + + + | PLATELET | 268 | 150 - 400 K/cu | [facility] [...] | + + + + + | [facility] | [address] | [place] [address] | | | PATHOLOGY | [address] | | | + + + + + | [facility] | [facility] | [place] [address] | | | PATHOLOGY | [address] | | | + + + + + COMPLETE METABOLIC SET (NA,K,CL,CO2,BUN,CREAT,GLUC,CA,AST,ALT,BILI TOTAL,ALK PHOS,ALB,PROT TOTAL) (09/22/2008 1:46 PM PDT) + +---------+ + + + | Component | Value | Ref Range | Performed | Pathologist | | | | | At | Signature | + +---------+ + + + | GLUCOSE, | 134 (H) | 60 - 99 mg/dL | [facility] | | | PLASMA | | | DEPARTMENT | | | (LAB) | | | OF | | | | | | PATHOLOGY | | + +---------+ + + + | BUN, PLASMA | 7 | 6 - 20 mg/dL | [facility] | | | (LAB) | | | DEPARTMENT | | | | | | OF | | | | | | PATHOLOGY | | + +---------+ + + + | CREATININE | 0.84 | 0.60 - 1.10 | [facility] | | | PLASMA | | mg/dL | DEPARTMENT | | | (LAB) | | | OF | | | | | | PATHOLOGY | | + +---------+ + + + | TOTAL | 7.3 | 6.1 - 7.9 g/dL | [facility] | | | PROTEIN, | | | DEPARTMENT | | | PLASMA | | | OF | | | (LAB) | | | PATHOLOGY | | + +---------+ + + + | ALBUMIN, | 3.3 (L) | 3.5 - 4.7 g/dL | [facility] | | | PLASMA | | | DEPARTMENT | | | (LAB) | | | OF | | | | | | PATHOLOGY | | + +---------+ + + + | CALCIUM, | 9.0 | 8.6 - 10.2 | [facility] | [...] + + + | ALK PHOS | 109 (H) | 42 - 98 U/L | [facility] | | | | | | DEPARTMENT | | | | | | OF | | | | | | PATHOLOGY | | + +---------+ + + + | AST(SGOT) | 84 (H) | 15 - 41 U/L | [facility] | | | | | | DEPARTMENT | | | | | | OF | | | | | | PATHOLOGY | | + +---------+ + + + | SODIUM, | 140 | 134 - 143 | [facility] | | | PLASMA | | mmol/L | DEPARTMENT | | | (LAB) | | | OF | | | | | | PATHOLOGY | | + +---------+ + + + | POTASSIUM, | 3.9 | 3.4 - 5.0 | [facility] | | | PLASMA | | mmol/L | DEPARTMENT | | | (LAB) | | | OF | | | | | | PATHOLOGY | | + +---------+ + + + | CHLORIDE, | 104 | 97 - 108 mmol/L | [facility] | | | PLASMA | | | DEPARTMENT | | | (LAB) | | | OF | | | | | | PATHOLOGY | | + +---------+ + + + | TOTAL CO2, | 30 | 23 - 31 mmol/L | [facility] | | | PLASMA | | | DEPARTMENT | | | (LAB) | | | OF | | | | | | PATHOLOGY | | + +---------+ + + + | ALT (SGPT) | 88 (H) | 13 - 48 U/L | [facility] | | | | | | DEPARTMENT | | | | | | OF | | | | | | PATHOLOGY | | + +---------+ + + + + + | Specimen | + + | Blood - Blood | + + + + + | Narrative | Performed At | + + + | [id number] Estimated GFR > 60 mL/min/1.73 sq m if non- | [facility] | | [place] [id number] Estimated GFR > 60 mL/min/1.73 sq m if | DEPARTMENT | | [place] GFR is estimated using the MDRD equation recommended by | PATHOLOGY | | the National Kidney Disease Education Program. Estimated GFR | | | Interpretive Information: <60 mL/min/1.73 sq m Chronic | | | Kidney Disease <15 mL/mon/1.73 sq m Kidney Failure | | | Estimated GFR greater than 60mL/min/1.73 is of limited clinical | | | Value. The MDRD equation is not valid in the following situations: | | | - Patients under 18 years of age - Severe malnutrition or obesity | | | - Vegetarian diet - Rapidly changing kidney function | | + + + + + + + + | Performing | Address | City/State/Zipcode | Phone Number | | Organization | | | | + + + + + | [facility] | [address] | [place] [address] | | | PATHOLOGY | [address] | | | + + + + + | [facility] | [address] | [place] [address] | | | PATHOLOGY | [address] | | | + + + + + documented in this encounter Visit Diagnoses + + | Diagnosis | + + | Hepatitis C, chronic (HCC) Chronic hepatitis C without mention of hepatic coma | + + documented in this encounter"
--- OUTSIDE RECORDS SUMMARY | ~2018-06-22 | XMS | Encounter Summary ---
Demographics + + + | Address | [address] | | | [place] [address] | + + + | Home Phone [...] Author + + + | Author | [facility] | + + + | Organization | [facility] | + + + | Address [...] Team Providers + +------+ + | Care Logistic Manager Name | Role | Phone | [...] | +--------+ + + + + | 10/14/ | Abstract | [facility] | [place] | Medical Records | | 2015 | | Center at [facility] [address] | MD Daniela [address] | Review | | | | [address] | [place], [place] | | | | | Mailcode: [place] | [address] | | | | | [facility] and | [phone] | | | | | [facility] [place] [address] | | | | | | [place], [place] | | | | | | [address] | | | | | | [phone] | | | +--------+ + + + [...]
--- OUTSIDE RECORDS SUMMARY | ~2018-06-22 | XMS | Encounter Summary ---
Demographics + + + | Address | [address] | | | [place] [address] | + + + | Home Phone [...] Author + + + | Author | [facility] | + + + | Organization | [facility] | + + + | Address [...] Team Providers + +------+ + | Care Fresh Work Wrapper Layer Name | Role | Phone | + +------+ + | Alex Askew MD | PCP | Unavailable | + +------+ + Reason for Visit + + + | Reason | Comments | + + + | Blood Test Results | Outside labs from [facility] 03/11/15. | + + + Encounter Details +--------+ + + + + | Date | Type | Department | Care Team | Description | +--------+ + + + + | 04/01/ | Documentati | [facility] | [place] | Blood Test Results | | 2016 | on | Center at [facility] [address] | MD Daniela [address] | (Outside labs from | | | | [address] | [place], [place] | [facility] 03/11/15.) | | | | Mailcode: [place] | [address] | | | | | for Health and | [phone] | | | | | [place] [address] | | | | | | [place], [place] | | | | | | [address] | | | | | | [phone] | | | +--------+ + + + [...] + + | INR | Routin | 03/11/2015 | | Results for this | | | e | 3:36 PM | | procedure are in the | | | | PST | | results section. | + +--------+ + + + | COMPLETE METABOLIC | Routin | 03/11/2015 | | Results for this | | SET | e | 3:36 PM | | procedure are in the | | (NA,K,CL,CO2,BUN,CRE | | PST | | results section. | | AT,GLUC,CA,AST,ALT,B | | | | | | ENA TOTAL,ALK | | | | | | PHOS,ALB,PROT TOTAL) | | | | | + +--------+ + + + | CBC ONLY | Routin | 03/11/2015 | | Results for this | | | e | 3:36 PM | | procedure are in the | | | | PST | | results section. | + +--------+ + + + documented in this encounter Results INR (03/11/2015 3:36 PM PST) + +-------+ + + + | Component | Value | Ref Range | Performed | Pathologist | | | | | At | Signature | + +-------+ + + + | INR | 1.1 | INR | [facility] | | | [...] [address] | [place], [place] | [phone] | | [facility] | | | | + + + + + COMPLETE METABOLIC SET (NA,K,CL,CO2,BUN,CREAT,GLUC,CA,AST,ALT,BILI TOTAL,ALK PHOS,ALB,PROT TOTAL) (03/11/2015 3:36 PM PST) + +---------+ + + + | Component | Value | Ref Range | Performed | Pathologist | | | | | At | Signature | + +---------+ + + + | GLUCOSE, | 375 (H) | mg/dL | [facility] | | | PLASMA | | | LAB - | | | (LAB) | | | [facility] | | + +---------+ + + + | BUN, PLASMA | 14 | mg/dL | [facility] | | | (LAB) | | | LAB - | | | | | | [facility] | | + +---------+ + + + | CREATININE | 0.93 | mg/dL | [facility] | | | PLASMA | | | LAB - | | | (LAB) | | | [facility] | | + +---------+ + + + | ALBUMIN, | 4 | g/dL | [facility] | | | PLASMA | | | LAB - | | | (LAB) | | | [facility] | | + +---------+ + + + | BILIRUBIN | 0.5 | Transcutaneous | [facility] | | | TOTAL | | Bilirubinometer | LAB - | | | | | | [facility] | | + +---------+ + + + | ALK PHOS | 137 (H) | U/L | [facility] | | | | | | LAB - | | | | | | [facility] | | + +---------+ + + + | AST(SGOT) | 26 | U/L | [facility] | | | | | | LAB - | | | | | | [facility] | | + +---------+ + + + | SODIUM, | 132 | mmol/L | [facility] | | | PLASMA | | | LAB - | | | (LAB) | | | [facility] | | + +---------+ + + + | POTASSIUM, | 3.9 | mmol/L | [facility] | | | PLASMA | | | LAB - | | | (LAB) | | | [facility] | | + +---------+ + + + | ALT (SGPT) | 37 | U/L | [facility] | | | [...] [address] | [place], [place] | [phone] | | [facility] | | | | + + + + + CBC ONLY (03/11/2015 3:36 PM PST) + +-------+ + + + | Component | Value | Ref Range | Performed | Pathologist | | | | | At | Signature | + +-------+ + + + | WHITE CELL | 9.1 | K/cu mm | [facility] | | | COUNT | | | LAB - | | | | | | [facility] | | + +-------+ + + + | HEMOGLOBIN | 15.1 | g/dL | [facility] | | | | | | LAB - | | | | | | [facility] | | + +-------+ + + + | HEMATOCRIT | 44.8 | % | [facility] | | | | | | LAB - | | | | | | [facility] | | + +-------+ + + + | PLATELET | 204 | K/cu mm | [facility] | | [...] [facility] - | [address] | [place] | [phone] | | [place] | | | | + + + + + documented in this encounter Visit Diagnoses Not on filedocumented in this encounter"
--- OUTSIDE RECORDS SUMMARY | ~2018-06-22 | XMS | Encounter Summary ---
Demographics + + + | Address | [address] | | | [place] [address] | + + + | Home Phone [...] + + | Author | [facility] | + + + | Organization | [facility] | + + + | [...] Providers + +------+ + | Care Senior Solutions Consultant Name | Role | Phone | + +------+ + | Alex Askew MD | PCP | Unavailable | + +------+ + Encounter Details +--------+ + + + + | Date | Type | Department | Care Team | Description | +--------+ + + + + | 08/21/ | Document-Sc | UNKNOWN DEPARTMENT | Unknown . | | | 2013 | anned | [address] | | | | | | [facility] | | | | | | [place], [place] | | | | | | [address] | | | +--------+ + + + [...] | + +--------+ + + + | ORDERS OTHER | | 08/21/2013 | | Results for this | | | | 12:00 AM | | procedure are in the | | | | PDT | | results section. | + +--------+ + + + documented in this encounter Results ORDERS OTHER (08/21/2013 12:00 AM PDT) + + + | Narrative | Performed At | + + + | | | | | | + + + + + | Procedure Note | + + | Yoanna Jaffe - 09/02/2013 9:37 AM PDT | + + documented in this encounter Visit Diagnoses Not on filedocumented in this encounter"
--- OUTSIDE RECORDS SUMMARY | ~2018-06-22 | XMS | Encounter Summary ---
Demographics + + + | Address | [address] | | | [place] [address] | + + + | Home Phone | | + + + | Preferred Language | Unknown | + + + | Marital Status | Single | + + + | Bahai Affiliation | CHR | + + + | Race | White | + + + | Ethnic Group | Not or | + + + Author + + + | Author | [facility] | + + + | Organization | [facility] | + + + | [...] Team Providers + +------+ + | Care Virtual Recruiter Name | Role | Phone | + +------+ + | Alex Askew MD | PCP | Unavailable | + +------+ + Reason for Visit + + + | Reason | Comments | + + + | Medication Question | authorization for medication | + + + Encounter Details +--------+ + + + + | Date | Type | Department | Care Team | Description | +--------+ + + + + | 07/03/ | Telephone | [facility] | [place] | Medication Question | | 2014 | | Center at [facility] [address] | MD Daniela [address] | (authorization for | | | | [address] | [place], [place] | medication) | | | | Mailcode: [place] | [address] | | | | | for Health and | [phone] | | | | | [place] [address] | | | | | | [place], [place] | | | | | | [address] | | | | | | [phone] | | | +--------+ + + + [...]
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
--- OUTSIDE RECORDS SUMMARY | ~2018-06-22 | XMS | Encounter Summary ---
Demographics + + + | Address | [address] | | | [place] [address] | + + + | Home Phone | | + + + | Preferred Language | Unknown | + + + | Marital Status | Single | + + + | Catholic Affiliation | CHR | + + + | Race | White | + + + | Ethnic Group | Not or | + + + Author + + + | Author | [facility] | + + + | Organization | [facility] | + + + | [...] Team Providers + +------+ + | Care Statistics Manager Name | Role | Phone | + +------+ + | Alex Askew MD | PCP | Unavailable | + +------+ + Encounter Details +--------+ + + + + | Date | Type | Department | Care Team | Description | +--------+ + + + + | 03/16/ | Ancillary | Registration [id number] | Cyrus Huston, | | | 2006 | Registrjulioo Bryce GRUBBS | | | | n | [facility] Mailcode: | | | | | | [address] [place], [place] | | | | | | [address] | | | | | | [phone] | | | +--------+ + + + [...]
--- OUTSIDE RECORDS SUMMARY | ~2018-06-22 | XMS | Encounter Summary ---
Demographics + + + | Address | [address] | | | [place] [address] | + + + | Home Phone | | + + + | Preferred Language | Unknown | + + + | Marital Status | Single | + + + | Episcopalian Affiliation | CHR | + + + | Race | White | + + + | Ethnic Group | Not or | + + + Author + + + | Author | [facility] | + + + | Organization | [facility] | + + + | Address [...] Team Providers + +------+ + | Care Thickener Operator Name | Role | Phone | + +------+ + | Alex Askew MD | PCP | Unavailable | + +------+ + Encounter Details +--------+ + + + + | Date | Type | Department | Care Team | Description | +--------+ + + + + | 12/09/ | Document-Sc | Health Information | Other, Faculty | | | 2014 | anned | Services [address] | [phone] | | | | | [address] | | | | | | Road Mailcode: | | | | | | [address] | | | | | | [facility] | | | | | [place], [place] | | | | | | [address] | | | | | | [phone] | | | +--------+ + + + [...]
--- OUTSIDE RECORDS SUMMARY | ~2018-06-22 | XMS | Encounter Summary ---
Demographics + + + | Address | [address] | | | [place] [address] | + + + | Home Phone | | + + + | Preferred Language | Unknown | + + + | Marital Status | Single | + + + | Jew Affiliation | CHR | + + + | Race | White | + + + | Ethnic Group | Not or | + + + Author + + + | Author | [facility] | + + + | Organization | [facility] | + + + | Address [...] Team Providers + +------+ + | Care Angle Dozer Operator Name | Role | Phone | + +------+ + | Alex Askew MD | PCP | Unavailable | + +------+ + Encounter Details +--------+ + + + + | Date | Type | Department | Care Team | Description | +--------+ + + + + | 05/28/ | Document-Sc | [facility] | [place] | | | 2016 | annluis enrique | [facility] [address] | MD Daniela [address] | | | | | [address] | [place], [place] | | | | | Mailcode: [place] | [address] | | | | | for Health and | [phone] | | | | | [facility], [facility] [address] | | | | | | [place], [place] | | | | | | [address] | | | | | | [phone] | | | +--------+ + + + [...] | + +--------+ + + + | US HEPATOCELLULAR | | 05/29/2015 | | | | CARCINOMA SCREENING | | 12:00 AM | | | | | | PDT | | | + +--------+ + + + documented in this encounter Results HEPATOCELLULAR CARCINOMA SCREENING (05/29/2015 12:00 AM PDT) + + + | Narrative | Performed At | + + + | | | + + + documented in this encounter Visit Diagnoses Not on filedocumented in this encounter"
--- OUTSIDE RECORDS SUMMARY | ~2018-06-22 | XMS | Encounter Summary ---
Demographics + + + | Address | [address] | | | [place] [address] | + + + | Home Phone | | + + + | Preferred Language | Unknown | + + + | Marital Status | Single | + + + | Baptism Affiliation | CHR | + + + | Race | White | + + + | Ethnic Group | Not or | + + + Author + + + | Author | [facility] | + + + | Organization | [facility] | + + + [...] Team Providers + +------+ + | Care Real Estate Representative Name | Role | Phone | + +------+ + | Alex Askew MD | PCP | Unavailable | + +------+ + Encounter Details +--------+ + + + + | Date | Type | Department | Care Team | Description | +--------+ + + + + | 09/07/ | Hospital | Registration [address] | [address] | | | 2005 | Activity | [address] | [address] | | | | | [facility] Mailcode: | [address] [place], | | | | | [address] [place], [place] | [place] [address] | | | | | [address] | [phone] | | | | | [phone] | | | +--------+ + + + [...]
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
--- OUTSIDE RECORDS SUMMARY | ~2018-06-22 | XMS | Encounter Summary ---
Demographics + + + | Address | [address] | | | [place] [address] | + + + | Home Phone | | + + + | Preferred Language | Unknown | + + + | Marital Status | Single | + + + | Mu-Ism Affiliation | CHR | + + + [...] Team Providers + +------+ + | Care Tutoring Manager Name | Role | Phone | + +------+ + | Alex Askew MD | PCP | Unavailable | + +------+ + Reason for Referral PROC - Dept/Practice Procedure (Routine) +--------+--------+ + + + + | Status | Reason | Specialty | Diagnoses / | Referred By | Referred To | | | | | Procedures | Contact | Contact | +--------+--------+ + + + + | Closed | | Gastroenterol | Diagnoses | Darcy, | Gas End[facility] | | | | ogy | BRBPR | MD Kristian | [facility] [address] | | | | | (bright red | [address] | | | | | blood per | [place] | [address] | | | | | rectum) | Rd | Mailcode: | | | | | Procedures | [place], [place] | [address] | | | | | CONSULT TO | [address] | [place] | | | | | GI PROCEDURE | Phone: | [address] | | | | | UNIT: | [phone] | [place], | | | | | COLONOSCOPY | Fax: | [place] [address] | | | | | [place] | [phone] | Phone: | | | | | COLONOSCOPY, | | [phone] | | | | | BIOPSY | | Fax: | | | | | | | [phone] | +--------+--------+ + + + + Encounter Details +--------+ + + + + | Date | Type | Department | Care Team | Description | +--------+ + + + + | 08/22/ | Macroeconomics Professor | Digestive Health | Kristian Taveras MD | BRBPR (bright red | | 2013 | | Center at [facility] [address] | [address] | blood per rectum) | | | | [address] | Deja [address] [place], | (Primary Dx) | | | | Mailcode: Center | [place] [address] | | | | | for [facility] and | [phone] | | | | | [facility] [address] | | | | | | [place], [place] | | | | | | [address] | | | | | | [phone] | | | +--------+ + + + [...] filedocumented as of this encounter Visit Diagnoses + + | Diagnosis | + + | BRBPR (bright red blood per rectum) - Primary Hemorrhage of rectum and anus | + + documented in this encounter"
--- OUTSIDE RECORDS SUMMARY | ~2018-06-22 | XMS | Encounter Summary ---
Demographics + + + | Address | [address] | | | [place] [address] | + + + | Home Phone | | + + + | Preferred Language | Unknown | + + + | Marital Status | Single | + + + | Sabianism Affiliation | CHR | + + + [...] Team Providers + +------+ + | Care Ornamental Metal Erector Name | Role | Phone | + +------+ + | Alex Askew MD | PCP | Unavailable | + +------+ + Reason for Visit + + + | Reason | Comments | + + + | Blood Test Results | 10/10/2008 [facility] | + + + Encounter Details +--------+ + + + + | Date | Type | Department | Care Team | Description | +--------+ + + + + | 04/27/ | Documentati | Digestive Health | Betzaida Cyrus, | Blood Test Results | | 2009 | on | Center at [facility] [address] | [place] | (10/10/2008 [facility] | | | | [address] | | laboratory) | | | | Mailcode: Center | | | | | | for Health and | | | | | | [facility], [address] [place] [address] | | | | | | [place], [place] | | | | | | [address] | | | | | | [phone] | | | +--------+ + + + [...]
--- OUTSIDE RECORDS SUMMARY | ~2018-06-22 | XMS | Encounter Summary ---
Demographics + + + | Address | [address] | | | [place] [address] | + + + | Home Phone [...] Author + + + | Author | [facility] | + + + | Organization | [facility] | + + + | Address [...] Team Providers + +------+ + | Care Filter Helper Name | Role | Phone | + +------+ + | Alex Askew MD | PCP | Unavailable | + +------+ + Reason for Visit +--------+ + | Reason | Comments | +--------+ + | Other | Notes sent to PCP. | +--------+ + Encounter Details +--------+ + + + + | Date | Type | Department | Care Team | Description | +--------+ + + + + | 08/15/ | Documentati | Digestive Health | Cyrus Huston, | Other (Notes sent to | | 2013 | on | [facility] at [facility] [address] | [place] | PCP.) | | | | [address] | | | | | | Mailcode: [place] | | | | | | [facility] Health and | | | | | | [facility] [address] | | | | | | [place], [place] | | | | | | [address] | | | | | | [phone] | | | +--------+ + + + [...]
--- OUTSIDE RECORDS SUMMARY | ~2018-06-22 | XMS | Encounter Summary ---
Demographics + + + | Address | [address] | | | [place] [address] | + + + | Home Phone [...] Team Providers + +------+ + | Care Abstract Clerk Name | Role | Phone | + +------+ + | Alex Askew MD | PCP | Unavailable | + +------+ + Encounter Details +--------+ + + + + | Date | Type | Department | Care Team | Description | +--------+ + + + + | 09/01/ | Ancillary | Registration [id number] | | | | 2005 | [address] | | | | | n | [facility] Mailcode: | | | | | | [address] [place], [place] | | | | | | [address] | | | | | | [phone] | | | +--------+ + + + [...]
--- OUTSIDE RECORDS SUMMARY | ~2018-06-22 | XMS | Encounter Summary ---
Demographics + + + | Address | [address] | | | [place] [address] | + + + | Home Phone | | + + + | Preferred Language | Unknown | + + + | Marital Status | Single | + + + | Quaker Affiliation | CHR | + + + [...] Team Providers + +------+ + | Care Interventional Radiology Rn Name | Role | Phone | + [...] | Radiology | Diagnoses | Betzaida | Rad | | | | | Hepatitis | ROMIE Bridges | Ultrasound | | | | | C, chronic | [address] | | | | | (HCC) | [address] | [address] | | | | | Procedures | [place], [place] | [facility] | | | | | [place] BIOPSY | [address] | Road | | | | | LIVER W/ US | | Mailcode: | | | | | & GUIDANCE | | [id number] | | | | | | | Physicians | | | | | | | Doris | | | | | | | [place], [place] | | | | | | | [address] | | | | | | | Phone: | | | | | | | [phone] | | | | | | | Fax: | | | | | | | [phone] | +--------+--------+ + + + + Reason for Visit Office Visit - E/M Services (Routine) +--------+--------+ [...] | | | | [facility] for [facility] | | | [facility] | [facility] and | Health and | | | | | | Healing, | Healing, | | | | | | Building [address] | [address] | | | | | | [place], [place] | [place], [place] | | | | | | [address] | [address] | | | | | | Phone: | Phone: | | | | | | [phone] | [phone] | | | | | | Fax: | Fax: | | | | | | [phone] | [phone] | +--------+--------+ + + + + Encounter Details +--------+---------+ + + + | Date | Type | Department | Care Team | Description | +--------+---------+ + + + | 08/01/ | Office | Digestive Health | Cyrus Huston, | Hepatitis C, Chronic | | 2008 | Visit | Center at [facility] [address] | [place] | (HCC) (Primary Dx) | | | | [address] | | | | | | Mailcode: Center | | | | | | for Health and | | | | | | Healing, [address] | | | | | | [place], [place] | | | | | | [address] | | | | | | [phone] | | | +--------+---------+ + + + [...] + + + | Blood Pressure | 161/83 | 08/01/2008 2:06 PM | | | | | PDT | | + + + + + | Pulse | 64 | 08/01/2008 2:06 PM | | | | | PDT | | + + + + + | Temperature | 36.7 C (98.1 F) | 08/01/2008 2:06 PM | | | | | PDT | | + + + + + | Respiratory Rate | 16 | 08/01/2008 2:06 PM | | | | | PDT | | + + + + + | Oxygen Saturation | - | - | | + + + + + | Inhaled Oxygen | - | - | | | Concentration | | | | + + + + + | Weight | 116.6 kg (257 lb 1.6 | 08/01/2008 2:06 PM | | | | oz) | PDT | | + + + + + | Height | 162.6 cm (5' 4") | 08/01/2008 2:06 PM | | | | | PDT | | + + + + + | Body Mass Index | 44.13 | 08/01/2008 2:06 PM | | | | | PDT | | + + + + + documented in this encounter Progress Notes Cyrus Huston PA - 08/03/2008 11:42 AM PDTFormatting of this note might be different fro m the original. HEPATOLOGY FOLLOW UP VISIT Diagnoses: Patient Active Problem List Diagnoses Hepatitis C, Chronic [070.54C] Overview Note: 1 Liver biopsy 2003, [facility], Reviewed at [facility] G2S2 2 HCV Genotype 1, Well compensated, no evidence of ascites, variceal hemorrhage, or encepha lopathy 3 egd 09/07/[address] of abd [facility], 7mm hypervascular lesion in right [...] clinic for follow up of Chronic Hepatitis C. She states that her current symptoms are fatigue. She denies fluid accumulation in feet/ankles, fluid accumulation in abdomen, blood in bowel movements or black tarry bm's, memory or concentration changes, weight loss and early satie ty. Review of Systems: All other systems negative. Social History: Current alcohol use: no Currently employed: yes Good social support: yes Objective: BP 161/83 | Pulse 64 | Temp(Src) 36.7 C (98.1 F) (Oral) | Resp 16 | Ht 1.626 m (5' 4") | Wt 116.62 kg (257 lb 1.6 oz) General: Alert, NAD. HEENT: Normal, sclerae [...] Laboratory Data: SODIUM (LAB) (mmol/L) Date Value 08/01/08 2:46 PM 138 07/24/07 11:22 AM 138 03/16/06 2:13 PM 138 CREATININE,PLASMA (mg/dL) Date Value 08/01/08 2:46 PM 0.72 07/24/07 11:22 AM 0.8 03/16/06 2:13 PM 0.8 AST(SGOT) (U/L) Date Value 08/01/08 2:46 PM 46* 07/24/07 11:22 AM 36 03/16/06 2:13 PM 46* ALT (SGPT) (U/L) Date Value 08/01/08 2:46 PM 65* 07/24/07 11:22 AM 46 03/16/06 2:13 PM 59* BILIRUBIN TOTAL (mg/dL) Date Value 08/01/08 2:46 PM 0.7 07/24/07 11:22 AM 0.3 03/16/06 2:13 PM 0.7 ALBUMIN (LAB) (g/dL) Date Value 08/01/08 2:46 PM 3.5 07/24/07 11:22 AM 3.3* 03/16/06 2:13 PM 3.5 WHITE CELL COUNT (K/cu mm) Date Value 08/01/08 2:46 PM 9.4 07/24/07 11:22 AM 11.4* 09/21/06 10:25 AM 8.0 HEMOGLOBIN (g/dL) Date Value 08/01/08 2:46 PM 14.5 07/24/07 11:22 AM 15.0 09/21/06 10:25 AM 14.5 MCV (fL) Date Value 08/01/08 2:46 PM 93.5 07/24/07 11:22 AM 90.3 09/21/06 10:25 AM 91.1 PLATELET COUNT (K/cu mm) Date Value 08/01/08 2:46 PM 262 07/24/07 11:22 AM 246 09/21/06 10:25 AM 281 Assessment/Plan: 070.54C Hepatitis C, Chronic (primary encounter diagnosis) Comment:Chronic infection gt1, discussed updated liver biopsy, pt wishes to have procedure, ordered today, rtc after results available for further discussion. Plan: COMPLETE METABOLIC SET (NA,K,CL,CO2,BUN,CREAT,GLUC,CA,AST,ALT,BILI TOTAL,ALK PHOS,ALB,PROT TOTAL), CBC, WITH DIFFERENTIAL, INR, US BIOPSY LIVER W/ US & GUIDANCE, APTT (ACT. PART. THROMBO TIME) Counseling Time: The overall face to face time of office visit was >25 minutes over half, of which was spent in education and counseling the patient. ROMIE AZUL documented in this en counter Plan of Treatment Not on filedocumented as of this encounter Results APTT (ACT. PART. THROMBO TIME) (08/01/2008 2:46 PM PDT) + + + + + + | Component | Value | Ref Range | Performed | Pathologist | | | | | At | Signature | + + + + + + | APTT | 32.0Comment: | 26.0 - 36.0 | [facility] | | | | APTT | seconds | DEPARTMENT | | | | Therapeutic | | OF | | | | Range | | PATHOLOGY | | | | | | | | | | (75-120) | | | | | | sec | | | | | | Heparin levels of | | | | | | 0.35-0.7 U/mL | | | | + + + + + + + + | Specimen | + + | Blood - Blood | + + + + + + + | Performing | Address | City/State/Zipcode | Phone Number | | Organization | | | | + + + + + | [facility] DEPARTMENT OF | [address] | [place] [address] | | | PATHOLOGY | [address] | | | + + + + + | [facility] DEPARTMENT OF | [address] | [place] [address] | | | PATHOLOGY | [address] | | | + + + + + INR (08/01/2008 2:46 PM PDT) + + + + + + | Component | Value | Ref Range | Performed | Pathologist | | | | | At | Signature | + + + + + + | INR | 1.14Comment: | 0.90 - 1.20 INR | [facility] | | | | INR | | [...] | + + + + + | [facility] | [address] | [place] [address] | | | PATHOLOGY | [address] | | | + + + + + | [facility] DEPARTMENT OF | [address] | [place] [address] | | | PATHOLOGY | [address] | | | + + + + + CBC, WITH DIFFERENTIAL (08/01/2008 2:46 PM PDT) + +-------+ + + + | Component | Value | Ref Range | Performed | Pathologist | | | | | At | Signature | + +-------+ + + + | WHITE CELL | 9.4 | 4.4 - 11.0 K/cu | [facility] | | | COUNT | | mm | DEPARTMENT | | | | | | OF | | | | | | PATHOLOGY | | + +-------+ + + + | RED CELL | 4.48 | 4.00 - 5.20 | [facility] | | | COUNT | | M/cu mm | DEPARTMENT | | | | | | OF | | | | | | PATHOLOGY | | + +-------+ + + + | HEMOGLOBIN | 14.5 | 12.0 - 16.0 | [facility] | | | | | g/dL | DEPARTMENT | | | | | | OF | | | | | | PATHOLOGY | | + +-------+ + + + | HEMATOCRIT | 41.9 | 36.0 - 46.0 % | [facility] | | | | | | DEPARTMENT | | | | | | OF | | | | | | PATHOLOGY | | + +-------+ + + + | MCV | 93.5 | 80.0 - 96.0 fL | [facility] | | | | | | DEPARTMENT | | | | | | OF | | | | | | PATHOLOGY | | + +-------+ + + + | MCHC | 34.7 | 33.4 - 35.5 | [facility] | | | | | g/dL | DEPARTMENT | | | | | | OF | | | | | | PATHOLOGY | | + +-------+ + + + | RDW | 12.0 | 11.5 - 15.0 % | [facility] | | | | | | DEPARTMENT | | | | | | OF | | | | | | PATHOLOGY | | + +-------+ + + + | PLATELET | 262 | 150 - 400 K/cu | [facility] [...] + | [facility] DEPARTMENT OF | [address] | [place] [address] | | | PATHOLOGY | [address] | | | + + + + + | [facility] DEPARTMENT | [address] | [place] [address] | | | PATHOLOGY | [address] | | | + + + + + COMPLETE METABOLIC SET (NA,K,CL,CO2,BUN,CREAT,GLUC,CA,AST,ALT,BILI TOTAL,ALK PHOS,ALB,PROT TOTAL) (08/01/2008 2:46 PM PDT) + +--------+ + + + | Component | Value | Ref Range | Performed | Pathologist | | | | | At | Signature | + +--------+ + + + | GLUCOSE, | 89 | 60 - 99 mg/dL | [facility] | | | PLASMA | | | DEPARTMENT | | | (LAB) | | | OF | | | | | | PATHOLOGY | | + +--------+ + + + | BUN, PLASMA | 5 (L) | 6 - 20 mg/dL | [facility] | | | (LAB) | | | DEPARTMENT | | | | | | OF | | | | | | PATHOLOGY | | + +--------+ + + + | CREATININE | 0.72 | 0.60 - 1.10 | [facility] | | | PLASMA | | mg/dL | DEPARTMENT | | | (LAB) | | | OF | | | | | | PATHOLOGY | | + +--------+ + + + | TOTAL | 7.2 | 6.1 - 7.9 g/dL | [facility] | | | PROTEIN, | | | DEPARTMENT | | | PLASMA | | | OF | | | (LAB) | | | PATHOLOGY | | + +--------+ + + + | ALBUMIN, | 3.5 | 3.5 - 4.7 g/dL | [facility] | | | PLASMA | | | DEPARTMENT | | | (LAB) | | | OF | | | | | | PATHOLOGY | | + +--------+ + + + | CALCIUM, | 8.9 | 8.6 - 10.2 | [facility] | | | PLASMA | | mg/dL | DEPARTMENT | | | (LAB) | | | OF | | | | | | PATHOLOGY | | + +--------+ + + + | BILIRUBIN | 0.7 | 0.3 - 1.2 mg/dL | [facility] | | | TOTAL | | | DEPARTMENT | | | | | | OF | | | | | | PATHOLOGY | | + +--------+ + + + | ALK PHOS | 95 | 42 - 98 U/L | [facility] | | | | | | DEPARTMENT | | | | | | OF | | | | | | PATHOLOGY | | + +--------+ + + + | AST(SGOT) | 46 (H) | 15 - 41 U/L | [facility] | | | | | | DEPARTMENT | | | | | | OF | | | | | | PATHOLOGY | | + +--------+ + + + | SODIUM, | 138 | 134 - 143 | [facility] | | | PLASMA | | mmol/L | DEPARTMENT | | | (LAB) | | | OF | | | | | | PATHOLOGY | | + +--------+ + + + | POTASSIUM, | 3.7 | 3.4 - 5.0 | [facility] | | | PLASMA | | mmol/L | DEPARTMENT | | | (LAB) | | | OF | | | | | | PATHOLOGY | | + +--------+ + + + | CHLORIDE, | 102 | 97 - 108 mmol/L | [facility] | | | PLASMA | | | DEPARTMENT | | | (LAB) | | | OF | | | | | | PATHOLOGY | | + +--------+ + + + | TOTAL CO2, | 30 | 23 - 31 mmol/L | [facility] | | | PLASMA | | | DEPARTMENT | | | (LAB) | | | OF | | | | | | PATHOLOGY | | + +--------+ + + + | ALT (SGPT) | 65 (H) | 13 - 48 U/L | [facility] | | | | | | DEPARTMENT | | | | | | OF | | | | | | PATHOLOGY | | + +--------+ + + + + + | Specimen | + + | Blood - Blood | + + + + + | Narrative | Performed At | + + + | [id number] Estimated GFR > 60 mL/min/1.73 sq m if non- | [facility] | | [place] [id number] Estimated GFR > 60 mL/min/1.73 sq m if | DEPARTMENT OF | | [place] GFR is estimated using the MDRD equation [...] | + + + + + | [facility] | [address] | [place] [address] | | | PATHOLOGY | [address] | | | + + + + + | [facility] | [address] | [place] [address] | | | PATHOLOGY | [address] | | | + + + + + documented in this encounter Visit Diagnoses + + | Diagnosis | + + | Hepatitis C, chronic (HCC) - Primary Chronic hepatitis C without mention of hepatic | | coma | + + documented in this encounter
--- OUTSIDE RECORDS SUMMARY | ~2018-06-22 | XMS | Encounter Summary ---
Demographics + + + | Address | [address] | | | [place] [address] | + + + | Home Phone [...] Author + + + | Author | [facility] | + + + | Organization | [facility] | + + + | Address [...] Team Providers + +------+ + | Care Gardening Supervisor Name | Role | Phone | + [...] | Radiology | Diagnoses | [place] | [address] Scan | | | | | Hepatitis | ROMIE Bridges | [address] | | | | | C, chronic | [address] | | | | | (HCC) | [address] | [address] | | | | | Procedures | [place], [place] | Road | | | | | CT ABDOMEN | [address] | Mailcode: | | | | | [address] | | [address] [facility] | | | | | CONTRAST | | Hospital | | | | | | | [place], [place] | | | | | | | [address] | | | | | | | Phone: | | | | | | | [phone] | | | | | | | Fax: | | | | | | | [phone] | +--------+--------+ + + + + Reason for Visit + + + | Reason | Comments | + + + | Follow-up visit | | + + + Encounter Details +--------+---------+ + + + | Date | Type | Department | Care Team | Description | +--------+---------+ + + + | 12/20/ | Office | Digestive Health | Cyrus Huston, | Hepatitis c, chronic | | 2010 | Visit | Center at [facility] [address] | [place] | (HCC) (Primary Dx) | | | | [address] | | | | | | Mailcode: [place] | | | | | | for Health and | | | | | | Healing, [address] | | | | | | [place], [place] | | | | | | [address] | | | | | | [phone] | | | +--------+---------+ + + + [...] + + + | Blood Pressure | 191/83 | 12/20/2010 4:28 PM | | | | | PST | | + + + + + | Pulse | 67 | 12/20/2010 4:28 PM | | | | | PST | | + + + + + | Temperature | 36.4 C (97.6 F) | 12/20/2010 4:28 PM | | | | | PST | | + + + + + | Respiratory Rate | 16 | 12/20/2010 4:28 PM | | | | | PST | | + + + + + | Oxygen Saturation | - | - | | + + + + + | Inhaled Oxygen | - | - | | | Concentration | | | | + + + + + | Weight | 114.7 kg (252 lb | 12/20/2010 4:28 PM | | | | 14.4 oz) | PST | | + + + + + | Height | 162.6 cm (5' 4") | 12/20/2010 4:28 PM | | | | | PST | | + + + + + | Body Mass Index | 43.41 | 12/20/2010 4:28 PM | | | | | PST | | + + + + + documented in this encounter Progress Notes Cyrus Huston PA - 01/18/2011 2:41 PM PSTFormatting of this note might be different fro m the original. HEPATOLOGY FOLLOW UP VISIT Diagnoses: Patient Active Problem List Diagnoses Hepatitis C, Chronic 1 Liver biopsy 09/08/08 [facility] G3S3, previously 2004, [facility], Reviewed at [facility] G2S2 2 HCV Genotype 1, Well compensated, no evidence of ascites, variceal hemorrhage, or encepha lopathy 3 egd 09/07/[address] of abd [facility], 7mm hypervascular lesion in right lobe of [...] history of IVDA GERD (Gastroesophageal Reflux Disease) 1 Stable on protonix Chronic Low Back Pain RAD (Reactive Airway Disease) Current Outpatient Prescriptions Medication Sig ALBUTEROL 90 MCG/ACTUATION AEROSOL INHALER inhale 1 puff by inhalation route every 4-6 hours as needed ALBUTEROL IN Inhale 0.85 mg. 4 times daily or more as needed diclofenac EC 75 mg Oral Tablet, Delayed Release (E.C.) Take 75 mg by mouth two times d aily. hydrOXYzine pamoate 25 mg Oral Capsule Take 25 mg by mouth every four hours as needed. irbesartan (AVAPRO) 300 mg Oral Tablet Take 150 mg by mouth once daily. timolol 10 mg Oral Tablet Take by mouth. Take 2 tabs in the morning and 1 at bedtime Tramadol (ULTRAM ER) 300 mg Oral Tablet Sustained Release 24 hr Take 300 mg by mouth on ce daily at bedtime. TRAZODONE 50 MG TAB 1 tab by mouth once daily XANAX 0.25 MG TAB take 1 tablet (0.25mg) by oral route 3 times per day Allergy: Allergies Allergen Reactions Cephalexin Itching, Rash and Swelling Lisinopril Wheez/Dyspnea, Cough and Swelling Ampicillin Hives Subjective: Ms. Miranda is seen in Hepatology clinic for follow up of Chronic Hepatitis C wi th advanced fibrosis. She states that her current symptoms are fatigue. She denies abdominal pain , fluid accumulation in feet/ankles, fluid accumulation in abdome n, blood in bowel movements or black tarry bm's, memory or concentration changes, weight los s and early satiety. Review of Systems: All other systems negative. Social History: Currently smoking: no Current alcohol use: no Currently employed: yes Objective: BP 191/83 | Pulse 67 | Temp (Src) 36.4 C (97.6 F) (Oral) | RR 16 | Ht 162.6 cm (5' 4") | Wt 114.715 kg (252 lb 14.4 oz) | BMI 43.41 kg/(m^2) General: Alert, NAD. HEENT: Normal, sclerae anicteric. Respiration: Normal CTAB, and good air exchange. Cardiac: Regular rate and rhythm. Abdomen: Soft, non-distended, normal bowel sounds, no hepatosplenomegaly, no fluid wave, no other masses noted. Neuro: Normal, alert with no asterixis. Psych: Normal speech pattern and thought process linear. Extremities: Normal, no edema, or skin discolorations. Skin: Warm and dry without rashes, lesions or spider hemangomota. Laboratory Data: SODIUM, PLASMA (LAB) (mmol/L) Date Value 12/20/2010 139 11/23/2009 134 05/22/2009 137 SODIUM-[facility] (mmol/L) Date Value CREATININE PLASMA (LAB) (mg/dL) Date Value 11/23/2009 1.12* 05/22/2009 0.85 CREATININE, POC (mg/dL) Date Value CREATININE-[facility] (mg/dL) Date Value AST(SGOT) (U/L) Date Value 11/23/2009 44* 05/22/2009 116* AST-[facility] (U/L) Date Value ALT (SGPT) (U/L) Date Value 12/20/2010 91* 11/23/2009 61* 05/22/2009 141* ALT-[facility] (U/L) Date Value BILIRUBIN TOTAL (mg/dL) Date Value 11/23/2009 0.8 05/22/2009 0.7 BILIRUBIN, TOTAL-[facility] (mg/dL) Date Value ALBUMIN, PLASMA (LAB) (g/dL) Date Value 11/23/2009 3.6 05/22/2009 3.5 ALBUMIN-[facility] (g/dL) Date Value WHITE CELL COUNT (K/cu mm) Date Value 12/20/2010 12.9* 11/23/2009 9.5 WHITE CELL COUNT - [facility] (K/cu mm) Date Value HEMOGLOBIN (g/dL) Date Value 12/20/2010 15.2 11/23/2009 14.9 HEMOGLOBIN, BLOOD - [facility] (g/dL) Date Value MCV (fL) Date Value 12/20/2010 95.1 11/23/2009 97.3* MCV - [facility] (fL) Date Value PLATELET COUNT (K/cu mm) Date Value 12/20/2010 271 11/23/2009 198 PLATELET COUNT, BLOOD - [facility] (K/cu mm) Date Value Assessment/Plan: Hepatitis c, chronic (primary encounter diagnosis) Comment: Stable, given s3 fibrosis, continue screening for hepatoma, update labs today, rtc 6 months, sooner as needed. Plan: COMPLETE METABOLIC SET (NA,K,CL,CO2,BUN,CREAT,GLUC,CA,AST,ALT,BILI TOTAL,ALK PHOS,ALB,PROT TOTAL), CBC, WITH DIFFERENTIAL, INR, ALPHA-FETOPROTEIN TUMOR MARKER, SERUM, CT ABDOMEN WWO IV CONTRAST ROMIE AZUL documented in this en counter Plan of Treatment Not on filedocumented as of this encounter Results CT ABDOMEN WWO IV CONTRAST (12/29/2010 1:25 PM PST) + + + + + + | Component | Value | Ref Range | Performed | Pathologist | | | | | At | Signature | + + + + + + | CT ABDOMEN | EXAM: CT abdomen and | | | | | WWO | pelvis with and without | | | | | CONTRAST | contrast. 12/29/2010. | | | | | | HISTORY: Chronic | | | | | | hepatitis C, evaluate | | | | | | for and hepatoma. | | | | | | COMPARISON: MRI | | | | | | abdomen with and without | | | | | | contrast dated 03/16/06 | | | | | | andCT abdomen with and | | | | | | without contrast 09/07/05. | | | | | | TECHNIQUE: Overlapping | | | | | | [address] images | | | | | | were obtained through | | | | | | theabdomen without | | | | | | contrast. Subsequentl | | | | | | y after the | | | | | | uneventfuladministration | | | | | | of 100 cc of Visipaque | | | | | | intravenous contrast, | | | | | | 5-mmoverlapping axial CT | | | | | | images were obtained | | | | | | through the abdomen | | | | | | inarterial and portal | | | | | | venous | | | | | | phase. Four-minute | | | | | | delayed images werealso | | | | | | acquired. Coronal and | | | | | | sagittal reformatted | | | | | | images reviewed. | | | | | | FINDINGS: The visualized | | | | | | lung bases are clear. | | | | | | The lateral segment of | | | | | | the left hepatic lobe is | | | | | | enlarged, | | | | | | withprominence of | | | | | | fissures within the | | | | | | liver. Geographic | | | | | | arterialhyperenhancement | | | | | | is noted along the | | | | | | posterior aspect of the | | | | | | lateralsegment left | | | | | | hepatic lobe, along the | | | | | | fissure for the | | | | | | ligamentumteres, | | | | | | adjacent to the | | | | | | gallbladder fossa and | | | | | | within the | | | | | | posteriorsegment of the | | | | | | right hepatic lobe, | | | | | | likely perfusion | | | | | | anomalies. Thereis a | | | | | | 6-mm arterial | | | | | | hyperenhancing lesion in | | | | | | the lateral segment | | | | | | ofthe left hepatic lobe | | | | | | (image 50 series 4), | | | | | | which remains | | | | | | hyperdenseon portal | | | | | | venous imaging, and is | | | | | | isodense to hepatic | | | | | | parenchyma on4-minute | | | | | | delayed images. This | | | | | | lesion is unchanged in | | | | | | size from 2006,and most | | | | | | compatible with a flash | | | | | | filling | | | | | | hemangioma. No | | | | | | suspiciousfocal arterial | | | | | | hyperenhancing lesion | | | | | | is identified. No | | | | | | focus ofwashout is | | | | | | identified on portal | | | | | | venous phase or delayed | | | | | | images. Conventional | | | | | | hepatic arterial anatomy | | | | | | is noted. The main | | | | | | portal veinis patent, | | | | | | and measures 13 mm in | | | | | | diameter, | | | | | | unchanged. Scatteredp | | | | | | rominent portOcaval | | | | | | lymph nodes are | | | | | | unchanged from 2005, | | | | | | likelyrelated to chronic | | | | | | hepatitis C. The | | | | | | gallbladder, biliary | | | | | | system, spleen, | | | | | | pancreas, adrenals | | | | | | andkidneys are | | | | | | unremarkable. The | | | | | | visualized bowel is | | | | | | unremarkable,without | | | | | | evidence of | | | | | | obstruction. No | | | | | | abdominal adenopathy or | | | | | | freefluid is seen in the | | | | | | visualized abdomen. | | | | | | There is no suspicious | | | | | | osseous abnormality. | | | | | | IMPRESSION:1. 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 | | | | | | No evidence of HCC. | | | | | | 2. Hypertrophy of the | | | | | | lateral segment left | | | | | | hepatic lobe | | | | | | withprominence of | | | | | | fissures, suggestive of | | | | | | hepatic | | | | | | fibrosis/earlycirrhosis. | | | | | | No evidence of | | | | | | portal hypertension or | | | | | | ascites. Attending | | | | | | Radiologists: Vito | | | | | | Juanito BelleAuthor: | | | | | | Tom Bender M.D. | | | | | | I have personally viewed | | | | | | this procedure/exam, | | | | | | reviewed this report,and | | | | | | made changes to it | | | | | | where appropriate. | | | | | | Final/Electronically | | | | | | signed / Vito | | | | | | Yoshi 12/29/2010 16:51 | | | | | | PM Pending final | | | | | | approval / Tom | | | | | | Eliazar Bender 12/29/2010 | | | | | | 15:32 PM Preliminary | | | | | | / Tom Bender | | | | | | 12/29/2010 13:46 PM | | | | + + + + + + + + | Specimen | + + | | + + + +---------+ + + | Performing | Address | City/State/Zipcode | Phone Number | | Organization | | | | + +---------+ + + | [facility] | | | | | RADIOLOGY | | | | + +---------+ + + ALPHA-FETOPROTEIN TUMOR MARKER, SERUM (12/20/2010 5:19 PM PST) + +-------+ + + + | Component | Value | Ref Range | Performed | Pathologist | | | | | At | Signature | + +-------+ + + + | AFP, TUMOR | 8 | ng/mL | [facility] | | | MARKER, | | | DEPARTMENT | | | SERUM | | | OF | | | | | | PATHOLOGY | | + +-------+ + + + + + | Specimen | + + | Blood - Blood | + + + + + | Narrative | Performed At | + + + | [facility] ([facility]) | [facility] | | [facility] [address] [address] | DEPARTMENT OF | | [place] [address] | PATHOLOGY | + + + + + + + + | Performing | Address | City/State/Zipcode | Phone Number | | Organization | | | | + + + + + | [facility] | [address] | [place] [address] | | | PATHOLOGY | [address] | | | + + + + + INR (12/20/2010 5:19 PM PST) + + + + + + | Component | Value | Ref Range | Performed | Pathologist | | | | | At | Signature | + + + + + + | INR | 1.16Comment: | 0.90 - 1.20 INR | [facility] [...] DEPARTMENT OF | [address] | [place] [address] | | | PATHOLOGY | [address] | | | + + + + + CBC, WITH DIFFERENTIAL (12/20/2010 5:19 PM PST) + + + + + + | Component | Value | Ref Range | Performed | Pathologist | | | | | At | Signature | + + + + + + | WHITE CELL | 12.9 (H) | 4.4 - 11.0 K/cu | [facility] | | | COUNT | | mm | DEPARTMENT | | | | | | OF | | | | | | PATHOLOGY | | + + + + + + | RED CELL | 4.57 | 4.00 - 5.20 | [facility] | | | COUNT | | M/cu mm | DEPARTMENT | | | | | | OF | | | | | | PATHOLOGY | | + + + + + + | HEMOGLOBIN | 15.2 | 12.0 - 16.0 | [facility] | | | | | g/dL | DEPARTMENT | | | | | | OF | | | | | | PATHOLOGY | | + + + + + + | HEMATOCRIT | 43.5 | 36.0 - 46.0 % | [facility] | | | | | | DEPARTMENT | | | | | | OF | | | | | | PATHOLOGY | | + + + + + + | MCV | 95.1 | 80.0 - 96.0 fL | [facility] | | | | | | DEPARTMENT | | | | | | OF | | | | | | PATHOLOGY | | + + + + + + | MCHC | 35.0 | 33.4 - 35.5 | [facility] | | | | | g/dL | DEPARTMENT | | | | | | OF | | | | | | PATHOLOGY | | + + + + + + | RDW | 12.7 | 11.5 - 15.0 % | [facility] | | | | | | DEPARTMENT | | | | | | OF | | | | | | PATHOLOGY | | + + + + + + | PLATELET | 271 | 150 - 400 K/cu | [facility] [...] | + + + + + | [facility] DEPARTMENT | [address] | [place] [address] | | | PATHOLOGY | [address] | | | + + + + + COMPLETE METABOLIC SET (NA,K,CL,CO2,BUN,CREAT,GLUC,CA,AST,ALT,BILI TOTAL,ALK PHOS,ALB,PROT TOTAL) (12/20/2010 5:19 PM PST) + + + + + + | Component | Value | Ref Range | Performed | Pathologist | | | | | At | Signature | + + + + + + | GLUCOSE, | 96 | 60 - 99 mg/dL | [facility] | | | PLASMA | | | DEPARTMENT | | | (LAB) | | | OF | | | | | | PATHOLOGY | | + + + + + + | BUN, PLASMA | 12 | 6 - 20 mg/dL | [facility] | | | (LAB) | | | DEPARTMENT | | | | | | OF | | | | | | PATHOLOGY | | + + + + + + | CREATININE | 1.00 | 0.60 - 1.10 | [facility] | | | PLASMA | | mg/dL | DEPARTMENT | | | (LAB) | | | OF | | | | | | PATHOLOGY | | + + + + + + | TOTAL | 7.7 | 6.1 - 7.9 g/dL | [facility] | | | PROTEIN, | | | DEPARTMENT | | | PLASMA | | | OF | | | (LAB) | | | PATHOLOGY | | + + + + + + | ALBUMIN, | 3.6 | 3.5 - 4.7 g/dL | [facility] | | | PLASMA | | | DEPARTMENT | | | (LAB) | | | OF | | | | | | PATHOLOGY | | + + + + + + | CALCIUM, | 9.1 | 8.6 - 10.2 | [facility] | | | PLASMA | | mg/dL | DEPARTMENT | | | (LAB) | | | OF | | | | | | PATHOLOGY | | + + + + + + | BILIRUBIN | 0.8 | 0.3 - 1.2 mg/dL | [facility] | | | TOTAL | | | DEPARTMENT | | | | | | OF | | | | | | PATHOLOGY | | + + + + + + | ALK PHOS | 125 (H) | 42 - 98 U/L | [facility] | | | | | | DEPARTMENT | | | | | | OF | | | | | | PATHOLOGY | | + + + + + + | AST(SGOT) | 63 (H) | 15 - 41 U/L | [facility] | | | | | | DEPARTMENT | | | | | | OF | | | | | | PATHOLOGY | | + + + + + + | SODIUM, | 139 | 134 - 143 | [facility] | | | PLASMA | | mmol/L | DEPARTMENT | | | (LAB) | | | OF | | | | | | PATHOLOGY | | + + + + + + | POTASSIUM, | 3.1 (L) | 3.4 - 5.0 | [facility] | | | PLASMA | | mmol/L | DEPARTMENT | | | (LAB) | | | OF | | | | | | PATHOLOGY | | + + + + + + | CHLORIDE, | 99 | 97 - 108 mmol/L | [facility] | | | PLASMA | | | DEPARTMENT | | | (LAB) | | | OF | | | | | | PATHOLOGY | | + + + + + + | TOTAL CO2, | 33 (H) | 22 - 29 mmol/L | [facility] | | | PLASMA | | | DEPARTMENT | | | (LAB) | | | OF | | | | | | PATHOLOGY | | + + + + + + | ALT (SGPT) | 91 (H) | 13 - 48 U/L | [facility] | | | | | | DEPARTMENT | | | | | | OF | | | | | | PATHOLOGY | | + + + + + + | EGFR | > 60 | >60 mL/min | [facility] | | | - | | | DEPARTMENT | | | [place] | | | OF | | | | | | PATHOLOGY | | + + + + + + | EGFR NON | 59 (L)Comment: GFR is | >60 mL/min | [facility] | | | -RAMÓN | estimated using the MDRD | | DEPARTMENT | | | RICAN | equation recommended by | | OF | | | | theNational Kidney | | PATHOLOGY | | | | Disease Education | | | | | | Program. Estimated GFR | | | | | | Interpretive | | | | | | Information: <60 | | | | | | mL/min/1.73 sq m | | | | | | Chronic Kidney Disease | | | | | | <15 mL/min/1.73 sq | | | | | | m Kidney Failure | | | | | | Estimated GFR greater | | | | | | than 60mL/min/1.73 is of | | | | | | limited clinical Value. | | | | | | The MDRD equation is | | | | | | not valid in the | | | | | | following situations: - | | | | | | Patients under 18 years | | | | | | of age - Severe | | | | | | malnutrition or obesity | | | | | | - Vegetarian diet - | | | | | | Rapidly changing kidney | | | | | | function | | | | + + + + + + | ANION GAP | 7 | 4 - 11 mmol/L | [facility] | | | | | | DEPARTMENT | | | | | | OF | | | | | | PATHOLOGY | | + + + + + + | ANION | 8 | 4 - 11 mmol/L | [facility] | | | GAP(ALB | | | DEPARTMENT | | | CORRECTED) | | | OF | | | | | | PATHOLOGY | | + + + + + + + + | Specimen | + + | Blood - Blood | + + + + + + + | Performing | Address | City/State/Zipcode | Phone Number | | Organization | | | | + + + + + | [facility] | [address] | [place] [address] | | | PATHOLOGY | [address] | | | + + + + + documented in this encounter Visit Diagnoses + + | Diagnosis | + + | Hepatitis C, chronic (HCC) - Primary Chronic hepatitis C without mention of hepatic | | coma | + + documented in this encounter
--- OUTSIDE RECORDS SUMMARY | ~2018-06-22 | XMS | Encounter Summary ---
Demographics + + + | Address | [address] | | | [place] [address] | + + + | Home Phone [...] Team Providers + +------+ + | Care Host Name | Role | Phone | + +------+ + | Alex Askew MD | PCP | Unavailable | + +------+ + Encounter Details +--------+ + + + + | Date | Type | Department | Care Team | Description | +--------+ + + + + | 07/08/ | Telephone | Dig[facility]ive Health | [place] | | | 2014 | | Center at [facility] [address] Bryce Suarez MD [address] | | | | | [address] | [place] [facility] [place] | | | | | Mailcode: [place] | [address] | | | | | for Health and | [phone] | | | | | Healing, [address] | | | | | | [place], [place] | | | | | | [address] | | | | | | [phone] | | | +--------+ + + + [...]
--- OUTSIDE RECORDS SUMMARY | ~2018-06-22 | XMS | Encounter Summary ---
Demographics + + + | Address | [address] | | | [place] [address] | + + + | Home Phone | | + + + | Preferred Language | Unknown | + + + | Marital Status | Single | + + + | Jewish Affiliation | CHR | + + + | Race | White | + + + | Ethnic Group | Not or | + + + Author + + + | Author | [facility] | + + + | Organization | [facility] | + + + | [...] Team Providers + +------+ + | Care Hr Intern Name | Role | Phone | + +------+ + | Alex Askew MD | PCP | Unavailable | + +------+ + Reason for Visit + + + | Reason | Comments | + + + | Lab Results | | + + + | Medication | | | management | | + + + Encounter Details +--------+ + + + + | Date | Type | Department | Care Team | Description | +--------+ + + + + | 12/02/ | Telephone | Dig[facility]ive Health | [place] | Lab Results; | | 2014 | | Center at [facility] [address] | MD Daniela [address] | Medication | | | | [address] | [address] [place], [place] | management | | | | Mailcode: Center | [address] | | | | | for Health and | [phone] | | | | | [facility] [address] | | | | | | [place], [place] | | | | | | [address] | | | | | | [phone] | | | +--------+ + + + [...]
--- OUTSIDE RECORDS SUMMARY | ~2018-06-22 | XMS | Encounter Summary ---
Demographics + + + | Address | [address] | | | [place] [address] | + + + | Home Phone | | + + + | Preferred Language | Unknown | + + + | Marital Status | Single | + + + | Jainism Affiliation | CHR | + + + | Race | White | + + + | Ethnic Group | Not or | + + + Author + + + | Author | [facility] | + + + | Organization | [facility] | + + + | Address [...] Team Providers + +------+ + | Care Environmental Journalist Name | Role | Phone | + +------+ + | Alex Askew MD | PCP | Unavailable | + +------+ + Reason for Visit + + + | Reason | Comments | + + + | Lab Results | | + + + Encounter Details +--------+ + + + + | Date | Type | Department | Care Team | Description | +--------+ + + + + | 09/14/ | Telephone | Dig[facility]ive Health | [place] | Lab Results | | 2014 | | Center at [facility] [address] | MD Daniela [address] | | | | | [address] | [place], [place] | | | | | Mailcode: [place] | [address] | | | | | for Health and | [phone] | | | | | [facility] [address] | | | | | | [place], [place] | | | | | | [address] | | | | | | [phone] | | | +--------+ + + + [...] + | HEPATITIS C | Routin | 10/21/2014 | | Results for this | | QUANTITATIVE, PLASMA | e | 12:00 PM | | procedure are in the | | | | PDT | | results section. | + +--------+ + + + | INR | Routin | 10/21/2014 | | Results for this | | | e | 12:00 PM | | procedure are in the | | | | PDT | | results section. | + +--------+ + + + | COMPLETE METABOLIC | Routin | 10/21/2014 | | Results for this | | SET | e | 12:00 PM | | procedure are in the | | (NA,K,CL,CO2,BUN,CRE | | PDT | | results section. | | AT,GLUC,CA,AST,ALT,B | | | | | | ENA TOTAL,ALK | | | | | | PHOS,ALB,PROT TOTAL) | | | | | + +--------+ + + + | CBC ONLY | Routin | 10/21/2014 | | Results for this | | | e | 12:00 PM | | procedure are in the | | | | PDT | | results section. | + +--------+ + + + documented in this encounter Results HEPATITIS C QUANTITATIVE, PLASMA (10/21/2014 12:00 PM PDT) + +-------+ + + + | Component | Value | Ref Range | Performed | Pathologist | | | | | At | Signature | + +-------+ + + + | HEP C PCR, | <15 | IU/mL | [facility] | | | [...] + + | [facility] - | [address] | [place], [place] | [phone] | | [place] | | | | + + + + + INR (10/21/2014 12:00 PM PDT) + +-------+ + + + [...] | [facility] - | [address] | [place], [place] | [phone] | | [place] | | | | + + + + + COMPLETE METABOLIC SET (NA,K,CL,CO2,BUN,CREAT,GLUC,CA,AST,ALT,BILI TOTAL,ALK PHOS,ALB,PROT TOTAL) (10/21/2014 12:00 PM PDT) + +---------+ + + + | Component | Value | Ref Range | Performed | Pathologist | | | | | At | Signature | + +---------+ + + + | GLUCOSE, | 125 (H) | mg/dL | [facility] | | | PLASMA | | | LAB - | | | (LAB) | | | [place] | | + +---------+ + + + | BUN, PLASMA | 8 | mg/dL | [facility] | | | (LAB) | | | LAB - | | | | | | [place] | | + +---------+ + + + | CREATININE | 1.03 | mg/dL | [facility] | | | PLASMA | | | LAB - | | | (LAB) | | | [place] | | + +---------+ + + + | ALBUMIN, | 3.3 (L) | g/dL | [facility] | | | PLASMA | | | LAB - | | | (LAB) | | | [facility] | | + +---------+ + + + | BILIRUBIN | 1 | Transcutaneous | [facility] | | | TOTAL | | Bilirubinometer | LAB - | | | | | | [facility] | | + +---------+ + + + | ALK PHOS | 119 | U/L | [facility] | | | | | | LAB - | | | | | | [facility] | | + +---------+ + + + | AST(SGOT) | 23 | U/L | [facility] | | | | | | LAB - | | | | | | [facility] | | + +---------+ + + + | SODIUM, | 135 | mmol/L | [facility] | | | [...] + + + | ALT (SGPT) | 24 | U/L | [facility] | [...] + | [facility] - | [address] | [place] | [phone] | | [facility] | | | | + + + + + CBC ONLY (10/21/2014 12:00 PM PDT) + + + + + + | Component | Value | Ref Range | Performed | Pathologist | | | | | At | Signature | + + + + + + | WHITE CELL | 8.3 | K/cu mm | [facility] | | | COUNT | | | LAB - | | | | | | [facility] | | + + + + + + | HEMOGLOBIN | 9.8 (L) | g/dL | [facility] | | | | | | LAB - | | | | | | [facility] | | + + + + + + | HEMATOCRIT | 28.8 (L) | % | [facility] | | | | | | LAB - | | | | | | [facility] | | + + + + + + | PLATELET | 207 | K/cu mm | [facility] | | [...] + + | [facility] - | [address] | [place] | [phone] | | [facility] | | | | + + + + + documented in this encounter Visit Diagnoses + + | Diagnosis | + + | Chronic hepatitis C without hepatic coma (HCC) - Primary | + + documented in this encounter"
--- OUTSIDE RECORDS SUMMARY | ~2018-06-22 | XMS | Encounter Summary ---
Demographics + + + | Address | [address] | | | [place] [address] | + + + | Home Phone [...] + + + | Author | [facility] | + + + | Organization | [facility] | + + + | Address [...] Team Providers + +------+ + | Care Life Advisor Name | Role | Phone | + +------+ + | Alex Askew MD | PCP | Unavailable | + +------+ + Reason for Visit + + + | Reason | Comments | + + + | Discussion | | + + + Encounter Details +--------+ + + + + | Date | Type | Department | Care Team | Description | +--------+ + + + + | 08/07/ | Telephone | Digestive Health | [place]os | Discussion | | 2014 | | Center at [facility] [address] | MD Daniela [address] | | | | | [address] | [place], [place] | | | | | Mailcode: [place] | [address] | | | | | for Health and | [phone] | | | | | [address] [address] | | | | | | [place], [place] | | | | | | [address] | | | | | | [phone] | | | +--------+ + + + [...]
--- OUTSIDE RECORDS SUMMARY | ~2018-06-22 | XMS | Encounter Summary ---
Demographics + + + | Address | [address] | | | [place] [address] | + + + | Home Phone | | + + + | Preferred Language | Unknown | + + + | Marital Status | Single | + + + | Muslim Affiliation | CHR | + + + [...] Team Providers + +------+ + | Care Documentation Nurse Name | Role | Phone | + +------+ + | Alex Askew MD | PCP | Unavailable | + +------+ + Encounter Details +--------+ + + + + | Date | Type | Department | Care Team | Description | +--------+ + + + + | 06/03/ | Hospital | Radiology/Imaging | | | | 2014 | Encounter | Lab at [facility] [address] | | | | | | [address] | | | | | | Mailcode: CH3G | | | | | | [facility] | | | | | | and Healing, 3rd | | | | | | Floor [place], [place] | | | | | | [address] | | | | | | [phone] | | | +--------+ + + + [...] + +--------+ + + + | US ABDOMEN COMPLETE | Routin | 06/03/2014 | Hepatitis C, | Results for this | | | e | 1:32 PM | chronic (HCC) | procedure are in the | | | | PDT | | results section. | + +--------+ + + + documented in this encounter Results US ABDOMEN COMPLETE (06/03/2014 1:32 PM PDT) + + + + + + | Component | Value | Ref Range | Performed | Pathologist | | | | | At | Signature | + + + + + + | US ABDOMEN | EXAM: US ABDOMEN | | | | | COMPLETE | COMPLETE. HISTORY: | | | | | | Hepatitis C, screening | | | | | | for hepatoma. | | | | | | COMPARISON: CT abdomen | | | | | | and pelvis | | | | | | 08/21/13, abdominal | | | | | | ultrasound 09/08/08 | | | | | | TECHNIQUE: Abdominal | | | | | | ultrasound performed. | | | | | | FINDINGS: Liver: | | | | | | Diffusely increased | | | | | | echogenicity is | | | | | | noted. There is a | | | | | | hypoechoicsubcapsular | | | | | | lesion in the left | | | | | | lateral lobe that | | | | | | measures 1.2 x 3.8 x 1.1 | | | | | | cm,not significant | | | | | | changed compared to the | | | | | | prior ultrasound. No | | | | | | other focalhepatic | | | | | | lesion is seen. Biliary: | | | | | | The gallbladder is | | | | | | normal. No biliary | | | | | | dilatation. The | | | | | | common ductmeasures 7 mm | | | | | | in diameter. Pancreas: | | | | | | Overlying bowel gas | | | | | | partially obscures the | | | | | | pancreas. The | | | | | | visualizedhead and body | | | | | | are grossly | | | | | | unremarkable. Kidneys | | | | | | and Bladder: The right | | | | | | kidney measures 10.9 cm | | | | | | in length. The | | | | | | leftmeasures 10.0 cm in | | | | | | length. Renal | | | | | | parenchymal echogenicity | | | | | | is normal. | | | | | | Nosuspicious renal mass, | | | | | | stone, or | | | | | | hydronephrosis is seen. | | | | | | Spleen: The spleen is | | | | | | normal in echogenicity | | | | | | and measures 12.0 cm in | | | | | | length. Other: The | | | | | | visualized aorta and IVC | | | | | | are within normal | | | | | | limits. No free | | | | | | fluid. IMPRESSION: | | | | | | 1. Diffusely | | | | | | increased echogenicity | | | | | | of the liver may be due | | | | | | to fatty liverand/or | | | | | | underlying | | | | | | hepatocellular | | | | | | disease. Hypoechoic | | | | | | focus in the left | | | | | | lateralhepatic lobe is | | | | | | not significantly | | | | | | changed from | | | | | | 09/08/08. This may | | | | | | represent anarea of | | | | | | focal fatty sparing. | | | | | | Attending Radiologists: | | | | | | BLANE ALTMAN, | | | | | | MDAuthor: BLANE | | | | | | MD ANUPAMA I have | | | | | | personally viewed this | | | | | | procedure/exam, reviewed | | | | | | this report, and | | | | | | madechanges to it where | | | | | | appropriate. | | | | | | Final/Electronically | | | | | | signed / BLANE | | | | | | ANUPAMA 06/03/2014 14:16 | | | | | | PM | | | | + + + + + + + + | Specimen | + + | | + + + +---------+ + + | Performing | Address | City/State/Zipcode | Phone Number | | Organization | | | | + +---------+ + + | [facility] DEPARTMENT OF | | | | | RADIOLOGY | | | | + +---------+ + + documented in this encounter Visit Diagnoses + + | Diagnosis | + + | Hepatitis C, chronic (HCC) Chronic hepatitis C without mention of hepatic coma | + + documented in this encounter"
--- OUTSIDE RECORDS SUMMARY | ~2018-06-22 | XMS | Encounter Summary ---
Demographics + + + | Address | [address] | | | [place] [address] | + + + | Home Phone | | + + + | Preferred Language | Unknown | + + + | Marital Status | Single | + + + | Nondenominational Affiliation | CHR | + + + [...] Team Providers + +------+ + | Care Accounting Assistant Name | Role | Phone | + +------+ + | Alex Askew MD | PCP | Unavailable | + +------+ + Encounter Details +--------+ + + + + | Date | Type | Department | Care Team | Description | +--------+ + + + + | 02/24/ | Telephone | Digestive Health | Cyrus Huston, | | | 2009 | | [place] at [facility] [address] | [place] | | | | | [address] | | | | | | Mailcode: [place] | | | | | | for Health and | | | | | | Healing, [address] | | | | | | [facility] [place] | | | | | | [address] | | | | | | [phone] | | | +--------+ + + + [...]
--- OUTSIDE RECORDS SUMMARY | ~2018-06-22 | XMS | Encounter Summary ---
Demographics + + + | Address | [address] | | | [place] [address] | + + + | Home Phone | | + + + | Preferred Language | Unknown | + + + | Marital Status | Single | + + + | Rastafarian Affiliation | CHR | + + + | Race | White | + + + | Ethnic Group | Not or | + + + Author + + + | Author | [facility] | + + + | Organization | [facility] | + + + | Address [...] Team Providers + +------+ + | Care Corncob Pipe Supervisor Name | Role | Phone | + +------+ + | Alex Askew MD | PCP | Unavailable | + +------+ + Reason for Visit +--------+ + | Reason | Comments | +--------+ + | Other | | +--------+ + Encounter Details +--------+ + + + + | Date | Type | Department | Care Team | Description | +--------+ + + + + | 09/11/ | Telephone | Digestive Health | Cyrus Huston, | Other | | 2006 | | Center [address] | | | | | [place] Mailcode: | | | | | | [facility] | | | | | | Health and Healing, | | | | | | 6th floor [place], | | | | | | [place] [address] | | | | | | [phone] | | | +--------+ + + + [...]
--- OUTSIDE RECORDS SUMMARY | ~2018-06-22 | XMS | Encounter Summary ---
Demographics + + + | Address | [address] | | | [place] [address] | + + + | Home Phone [...] Team Providers + +------+ + | Care Leather Cutter Name | Role | Phone | + +------+ + | Alex Askew MD | PCP | Unavailable | + +------+ + Encounter Details +--------+------+ + + + | Date | Type | Department | Care Team | Description | +--------+------+ + + + | 12/20/ | Lab | Laboratory at [facility] | | Hepatitis c, chronic | | 2010 | | [address] | | (HCC) | | | | [place], [place] | | | | | | [address] | | | | | | [phone] | | | +--------+------+ + + + [...] + + | INR | Routin | 12/20/2010 | Hepatitis c, | Results for this | | | e | 5:19 PM | chronic (HCC) | procedure are in the | | | | PST | | results section. | + +--------+ + + + | CBC, WITH | Routin | 12/20/2010 | Hepatitis c, | Results for this | | DIFFERENTIAL | e | 5:19 PM | chronic (HCC) | procedure are in the | | | | PST | | results section. | + +--------+ + + + | COMPLETE METABOLIC | Routin | 12/20/2010 | Hepatitis c, | Results for this | | SET | e | 5:19 PM | chronic (HCC) | procedure are in the | | (NA,K,CL,CO2,BUN,CRE | | PST | | results section. | | AT,GLUC,CA,AST,ALT,B | | | | | | ENA TOTAL,ALK | | | | | | PHOS,ALB,PROT TOTAL) | | | | | + +--------+ + + + | ALPHA-FETOPROTEIN | Routin | 12/20/2010 | Hepatitis c, | Results for this | | TUMOR MARKER, SERUM | e | 5:19 PM | chronic (HCC) | procedure are in the | | | | PST | | results section. | + +--------+ + + + documented in this encounter Results ALPHA-FETOPROTEIN TUMOR MARKER, SERUM (12/20/2010 5:19 PM [...] ([facility] [facility]) | [facility] | | [facility] [place] [address] [facility] [address] [facility] | DEPARTMENT OF | | [place] [address] | PATHOLOGY | + + + + + + + + | Performing | Address | City/State/Zipcode | Phone Number | | Organization | | | | + + + + + | [facility] DEPARTMENT OF | [address] | [place] [address] | | | PATHOLOGY | [address] [...] | + + + + + | [facility][1] | [address] | [place] [address] | | | PATHOLOGY | [address] [...] 271 | 150 - 400 K/cu | [facility] | | | COUNT | | mm [...] | + + + + + | [facility] DEPARTMENT OF | [address] | [place] [address] | | | PATHOLOGY | [address] [...] 96 | 60 - 99 mg/dL | [facility] [...] | | | DEPARTMENT | | | RW[place]AN | | | OF | | | [...] | + + + + + | [facility][1] | [address] | [place] [address] | | | PATHOLOGY | [address] | | | + + + + + documented in this encounter Visit Diagnoses + + | Diagnosis | + + | Hepatitis C, chronic (HCC) Chronic hepatitis C without mention of hepatic coma | + + documented in this encounter"
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
--- OUTSIDE RECORDS SUMMARY | ~2018-06-22 | XMS | Encounter Summary ---
Demographics + + + | Address | [address] | | | [place] [address] | + + + | Home Phone | | + + + | Preferred Language | Unknown | + + + | Marital Status | Single | + + + | Buddhism Affiliation | CHR | + + + | Race | White | + + + | Ethnic Group | Not or | + + + Author + + + | Author | [facility] | + + + | Organization | [facility] | + + + | [...] Team Providers + +------+ + | Care Drill Press Hand Name | Role | Phone | + +------+ + | Alex Askew MD | PCP | Unavailable | + +------+ + Reason for Visit + + + | Reason | Comments | + + + | Medication | | | management | | + + + Encounter Details +--------+ + + + + | Date | Type | Department | Care Team | Description | +--------+ + + + + | 08/27/ | Telephone | Digestive Health | Tam Yu, | Medication | | 2014 | | Center at [facility] [address] | [place], [place] | management | | | | [address] | [address] | | | | | Mailcode: [place] | | | | | | for Health and | | | | | | Healing, [address] | | | | | | [place], [place] | | | | | | [address] | | | | | | [phone] | | | +--------+ + + + [...]
--- OUTSIDE RECORDS SUMMARY | ~2018-06-22 | XMS | Encounter Summary ---
Demographics + + + | Address | [address] | | | [place] [address] | + + + | Home Phone | | + + + | Preferred Language | Unknown | + + + | Marital Status | Single | + + + | Samaritan Affiliation | CHR | + + + | Race | White | + + + | Ethnic Group | Not or | + + + Author + + + | Author | [facility] | + + + | Organization | [facility] | + + + | [...] Team Providers + +------+ + | Care Pit Shovel Operator Name | Role | Phone | + +------+ + | Alex Askew MD | PCP | Unavailable | + +------+ + Reason for Visit + + + | Reason | Comments | + + + | Blood Test Results | [facility] 11/21/14 | + + + Encounter Details +--------+ + + + + | Date | Type | Department | Care Team | Description | +--------+ + + + + | 11/28/ | Documentati | Digestive Health | La Nena Ríos | Blood Test Results | | 2015 | on | Center at [facility] [address] | MD Daniela [address] | ([facility] | | | | [address] | [address] [place], [place] | 11/21/14) | | | | Mailcode: [place] | [address] | | | | | for Health and | [phone] | | | | | [address] [address] | | | | | | [place], [place] | | | | | | [address] | | | | | | [phone] | | | +--------+ + + + [...] + + | INR | Routin | 11/21/2014 | | Results for this | | | e | | | procedure are in the | | | | | | results section. | + +--------+ + + + | COMPLETE METABOLIC | Routin | 11/21/2014 | | Results for this | | SET | e | | | procedure are in the | | (NA,K,CL,CO2,BUN,CRE | | | | results section. | | AT,GLUC,CA,AST,ALT,B | | | | | | ENA TOTAL,ALK | | | | | | PHOS,ALB,PROT TOTAL) | | | | | + +--------+ + + + | CBC ONLY | Routin | 11/21/2014 | | Results for this | | | e | | | procedure are in the | | | | | | results section. | + +--------+ + + + documented in this encounter Results INR (11/21/2014) + +-------+ + + + | Component [...] - | [address] | [place], [place] | [phone] | | [facility] | | | | + + + + + COMPLETE METABOLIC SET (NA,K,CL,CO2,BUN,CREAT,GLUC,CA,AST,ALT,BILI TOTAL,ALK PHOS,ALB,PROT TOTAL) (11/21/2014) + +---------+ + + + | Component | Value | Ref Range | Performed | Pathologist | | | | | At | Signature | + +---------+ + + + | GLUCOSE, | 129 (H) | mg/dL | [facility] | | [...] +---------+ + + + | CREATININE | 0.91 | mg/dL | [facility] | | | PLASMA | | | LAB - | | | (LAB) | | | [facility] | | + +---------+ + + + | ALBUMIN, | 3.5 | g/dL | [facility] | | | [...] + + + | ALK PHOS | 111 | U/L | [facility] | | | | | | LAB - | | | | | | [facility] | | + +---------+ + + + | AST(SGOT) | 31 | U/L | [facility] | | | | | | LAB - | | | | | | [facility] | | + +---------+ + + + | SODIUM, | 134 | mmol/L | [facility] | | | PLASMA | | | LAB - | | | (LAB) | | | [facility] | | + +---------+ + + + | POTASSIUM, | 3.8 | mmol/L | [facility] | | | PLASMA | | | LAB - | | | (LAB) | | | [facility] | | + +---------+ + + + | ALT (SGPT) | 32 | U/L | [facility] | | | [...] - | [address] | [place], [place] | [phone] | | [facility] | | | | + + + + + CBC ONLY (11/21/2014) + + + + + + | Component | Value | Ref Range | Performed | Pathologist | | | | | At | Signature | + + + + + + | WHITE CELL | 13.5 (H) | K/cu mm | [facility] | | | COUNT | | | LAB - | | | | | | [facility] | | + + + + + + | HEMOGLOBIN | 10.9 (L) | g/dL | [facility] | | | | | | LAB - | | | | | | [facility] | | + + + + + + | HEMATOCRIT | 32.8 (L) | % | [facility] | | | | | | LAB - | | | | | | [facility] | | + + + + + + | PLATELET | 269 | K/cu mm | [facility] | | [...] + + | [facility] - | [address] | [place], [place] | [phone] | | [facility] | | | | + + + + + documented in this encounter Visit Diagnoses Not on filedocumented in this encounter"
--- OUTSIDE RECORDS SUMMARY | ~2018-06-22 | XMS | Encounter Summary ---
Demographics + + + | Address | [address] | | | [place] [address] | + + + | Home Phone | | + + + | Preferred Language | Unknown | + + + | Marital Status | Single | + + + | Yazidi Affiliation | CHR | + + + [...] Team Providers + +------+ + | Care Upset Welding Machine Operator Name | Role | Phone | + +------+ + | Alex Askew MD | PCP | Unavailable | + +------+ + Encounter Details +--------+ + + + + | Date | Type | Department | Care Team | Description | +--------+ + + + + | 12/11/ | Ancillary | Registration [id number] | Yoanna Jaffe | | | 2006 | Registratio | Suzy Miner | [phone] | | | | n | [facility] Mailcode: | | | | | | [address] [place], [place] | | | | | | [address] | | | | | | [phone] | | | +--------+ + + + [...] | + +--------+ + + + | SURGICAL PATHOLOGY | Routin | 12/11/2006 | | Results for this | | | e | | | procedure are in the | | | | | | results section. | + +--------+ + + + documented in this encounter Results SURGICAL PATHOLOGY (12/11/2006) + + + + + + | Component | Value | Ref Range | Performed | Pathologist | | | | | At | Signature | + + + + + + | SURGICAL | SOURCE OF SPECIMEN:A | | [facility] | | | PATHOLOGY | Liver Biopsy Materials | | DEPARTMENT | | | | Received:Received on | | OF | | | | December 11, 2006, from | | PATHOLOGY | | | | [id number] | | | | | [facility], | | | | | | Frank Julian, | | | | | | are four stained slides, | | | | | | one paraffin block | | | | | | bearingaccession number | | | | | | [id number], and a | | | | | | pathology report | | | | | | indicating specimen | | | | | | wasreceived on | | | | | | 09/26/2003. Final | | | | | | Pathologic | | | | | | Diagnosis:Liver, biopsy | | | | | | (outside slides | | | | | | [id number], 09/26/03)- | | | | | | Changes consistent with | | | | | | chronic hepatitis C, | | | | | | mildly active (grade 2 | | | | | | of4), with moderate | | | | | | periportal fibrosis | | | | | | (stage 2 of 4) | | | | | | Comment: The degree | | | | | | of fibrosis is confirmed | | | | | | on a VVG stain provided | | | | | | forreview. The | | | | | | submitted iron and PAS/D | | | | | | stains are negative for | | | | | | otherpathologic | | | | | | findings. Case reviewed | | | | | | by:Alex Howell | | | | | | Ronen Wahl, Ph.D. | | | | | | /PathologistThe slides | | | | | | will be returned at a | | | | | | later date. / | | | | | | I have reviewed all | | | | | | diagnostic slides and | | | | | | have edited the gross | | | | | | and/ormicroscopic | | | | | | portion of this report | | | | | | as part of my pathologic | | | | | | assessment andfinal | | | | | | diagnosis. Clinical | | | | | | History:The patient is a | | | | | | 46-year-old female with | | | | | | a history of chronic | | | | | | portalinflammation. C | | | | | | onsistent with hepatitis | | | | | | C.Rendering | | | | | | Diagnostician: Vlad | | | | | | ester Wahl | | | | | | Ronen,Ph.D.PathologistEle | | | | | | ctronically Signed | | | | | | 01/23/2007 | | | | + + + + + + + + | Specimen | + + | | + + + + + + + | Performing | Address | City/State/Zipcode | Phone Number | | Organization | | | | + + + + + | [facility] | [address] | [place] [address] | | | PATHOLOGY | [address] | | | + + + + + | [facility] | [address] | [place] [address] | | | PATHOLOGY | [address] | | | + + + + + documented in this encounter Visit Diagnoses Not on filedocumented in this encounter"
--- OUTSIDE RECORDS SUMMARY | ~2018-06-22 | XMS | Encounter Summary ---
Demographics + + + | Address | [address] | | | [place] [address] | + + + | Home Phone | | + + + | Preferred Language | Unknown | + + + | Marital Status | Single | + + + | Jehovah'S Witness Affiliation | CHR | + + + | Race | White | + + + | Ethnic Group | Not or | + + + Author + + + | Author | [facility] | + + + | Organization | [facility] | + + + | Address [...] Team Providers + +------+ + | Care Embedded Nurse Name | Role | Phone | + +------+ + | Alex Askew MD | PCP | Unavailable | + +------+ + Reason for Visit + + + | Reason | Comments | + + + | Prior Authorization | | | Request | | + + + Encounter Details +--------+ + + + + | Date | Type | Department | Care Team | Description | +--------+ + + + + | 09/04/ | Telephone | [facility] | [place] | Prior Authorization | | 2014 | | Center at [facility] [address] | MD Daniela [address] | Request | | | | [address] | [address] [place], [place] | | | | | Mailcode: [place] | [address] | | | | | for Health and | [phone] | | | | | [place] [address] | | | | | | [place], [place] | | | | | | [address] | | | | | | [phone] | | | +--------+ + + + [...]
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
--- OUTSIDE RECORDS SUMMARY | ~2018-06-22 | XMS | Encounter Summary ---
Demographics + + + | Address | [address] | | | [place] [address] | + + + | Home Phone | | + + + | Preferred Language | Unknown | + + + | Marital Status | Single | + + + | Protestant Affiliation | CHR | + + + | Race | White | + + + | Ethnic Group | Not or | + + + Author + + + | Author | [facility] | + + + | Organization | [facility] | + + + [...] Team Providers + +------+ + | Care Sack Sorter Name | Role | Phone | + +------+ + | Alex Askew MD | PCP | Unavailable | + +------+ + Encounter Details +--------+ + + + + | Date | Type | Department | Care Team | Description | +--------+ + + + + | 06/09/ | Telephone | [facility] | [facility] [place] | | | 2016 | | Center at [address] | | | | | [address] | [facility] [place] | | | | | Mailcode: [place] | [address] | | | | | for Health and | [phone] | | | | | Healing, [address] | | | | | | [place], [place] | | | | | | [address] | | | | | | [phone] | | | +--------+ + + + [...]
--- OUTSIDE RECORDS SUMMARY | ~2018-06-22 | XMS | Encounter Summary ---
Demographics + + + | Address | [address] | | | [place] [address] | + + + | Home Phone | | + + + | Preferred Language | Unknown | + + + | Marital Status | Single | + + + | Episcopal Affiliation | CHR | + + + | Race | White | + + + | Ethnic Group | Not or | + + + Author + + + | Author | [facility] | + + + | Organization | [facility] | + + + | Address [...] Team Providers + +------+ + | Care Machinist Mate Name | Role | Phone | + +------+ + | Alex Askew MD | PCP | Unavailable | + +------+ + Encounter Details +--------+ + + + + | Date | Type | Department | Care Team | Description | +--------+ + + + + | 04/03/ | Telephone | [facility] | [place] | | | 2015 | | Center at [facility] | | | | | [address] | [facility] [place] | | | | | Mailcode: [place] | [address] | | | | | for Health and | [phone] | | | | | Healing, [address] | | | | | | [place], [place] | | | | | | [address] | | | | | | [phone] | | | +--------+ + + + [...]
--- OUTSIDE RECORDS SUMMARY | ~2018-06-22 | XMS | Encounter Summary ---
Demographics + + + | Address | [address] | | | [place] [address] | + + + | Home Phone [...] Author + + + | Author | [facility] | + + + | Organization | [facility] | + + + | Address [...] Team Providers + +------+ + | Care Communication And Outreach Manager Name | Role | Phone | [...] | | | | | Procedures | [place], [place] | [facility] | | | | | US BIOPSY | [address] | Road | | | | | LIVER W/ US | | Mailcode: | | | | | & GUIDANCE | | [id number] | | | | | | | Physicians | | | | | | | [address] | | | | | | | [place], [place] | | | | | | | [address] | | | | | | | Phone: | | | | | | | [phone] | | | | | | | Fax: | | | | | | | [phone] | +--------+--------+ + + + + Reason for Visit AUTH/CERT +--------+--------+ + + + + | Status | Reason | Specialty | Diagnoses / | Referred By | Referred To | | | | | Procedures | Contact | Contact | +--------+--------+ + + + + | Closed | | | | | [facility] | | | | | | | Proceduralcar | | | | | | | e [address] | | | | | | | [address] | | | | | | | [address] | | | | | | | [facility] | | | | | | | [facility] | | | | | | | [place], [place] | | | | | | | [address] Phone: | | | | | | | [phone] | | | | | | | Fax: | | | | | | | [phone] | +--------+--------+ + + + + Encounter Details +--------+ + + + + | Date | Type | Department | Care Team | Description | +--------+ + + + + | 09/08/ | Hospital | [facility] [address] | Beverley Thomas MD | | | 2009 | Encounter | [address] | [address] | | | | | [facility] [facility] | [address] [place], | | | | | [place] [address] | [place] [address] | | | | | [phone] | [phone] | | | | | | | | | | | | Cyrus Goldsmith, | | | | | | [address] | | | | | | [address] | | | | | | [facility] [place] | | | | | | [address] | | | | | | [phone] | | | | | | | | +--------+ + + [...] + + + | Blood Pressure | 164/80 | 09/08/2008 4:15 PM | | | | | PDT | | + + + + + | Pulse | 71 | 09/08/2008 4:15 PM | | | | | PDT | | + + + + + | Temperature | 36.1 C (97 F) | 09/08/2008 9:55 AM | | | | | PDT | | + + + + + | Respiratory Rate | 16 | 09/08/2008 4:15 PM | | | | | PDT | | + + + + + | Oxygen Saturation | 100% | 09/08/2008 4:15 PM | | | | | PDT | | + + + + + | Inhaled Oxygen | - | - | | | Concentration | | | | + + + + + | Weight | 116.1 kg (256 lb) | 09/08/2008 9:55 AM | | | | | PDT | | + + + + + | Height | 162.6 cm (5' 4") | 09/08/2008 9:55 AM | | | | | PDT | | + + + + + | Body Mass Index | 43.94 | 09/08/2008 9:55 AM | | | | | PDT | | + + + + + documented in this encounter Discharge Summaries Yoanna Jaffe - 09/08/2008 4:57 PM PDT documented in this encounter Discharge Instructions Instructions Osiel Jackson - 09/08/2008Patient given dc instructions, verónica cummings Patient taken out in . documented in this encounter Medications at Time of Discharge [...] | | + +------+--------+ + + | SURGICAL PATHOLOGY | Lab | Routin | | LABS TO BE COLLECTED | | | | e | | IN RADIOLOGY for 1 | | | | | | Occurrences starting | | | | | | 09/08/2008 | + +------+--------+ + + | INR | Lab | Routin | | Pre-Procedure for 1 | | | | e | | Occurrences starting | | | | | | 09/08/2008 | + +------+--------+ + + documented as of this encounter Procedures + +--------+ + + + | Procedure Name | Priori | Date/Time | Associated Diagnosis | Comments | | | ty | | | | + +--------+ + + + | ANESTHESIA/SEDATION | | 09/08/2008 | | Results for this | | | | 4:57 PM | | procedure are in the | | | | PDT | | results section. | + +--------+ + + + | US BIOPSY LIVER WITH | Routin | 09/08/2008 | | Results for this | | GUIDANCE | e | 12:30 PM | | procedure are in the | | | | PDT | | results section. | + +--------+ + + + | INR | Routin | 09/08/2008 | | Results for this | | | e | 11:04 AM | | procedure are in the | | | | PDT | | results section. | + +--------+ + + + | CBC ONLY | Routin | 09/08/2008 | | Results for this | | | e | 11:04 AM | | procedure are in the | | | | PDT | | results section. | + +--------+ + + + | APTT (ACT. PART. | Routin | 09/08/2008 | | Results for this | | THROMBO TIME) | e | 11:04 AM | | procedure are in the | | | | PDT | | results section. | + +--------+ + + + | SURGICAL PATHOLOGY | Routin | 09/08/2008 | | Results for this | | | e | | | procedure are in the | | | | | | results section. | + +--------+ + + + documented in this encounter Results ANESTHESIA/SEDATION (09/08/2008 4:57 PM PDT) + + + | Narrative | Performed At | + + + | | | + + + + + | Procedure Note | + + | Ld, Faculty - 09/08/2008 4:57 PM PDT | | | + + US BIOPSY LIVER W/ US & GUIDANCE (09/08/2008 12:30 PM PDT) + + + + + + | Component | Value | Ref Range | Performed | Pathologist | | | | | At | Signature | + + + + + + | US BIOPSY | EXAM: Liver | | | | | LIVER W/ US | ultrasound and | | | | | & GUIDANCE | ultrasound-guided liver | | | | | | biopsyHISTORY: Chroni | | | | | | c hepatitis | | | | | | C.COMPARISON: None.FI | | | | | | NDINGS: The liver | | | | | | demonstrates mild | | | | | | diffuse increased | | | | | | echogenicitywith a more | | | | | | focal, rounded, | | | | | | subcentimeter area of | | | | | | hypoechogenicitywithin | | | | | | the left lateral | | | | | | lobe. Area of concern | | | | | | on the CT of 2005 | | | | | | inright lobe laterally | | | | | | is not | | | | | | seen. Gallbladder is | | | | | | unremarkable.PROCEDURE: | | | | | | PARQ conference was | | | | | | performed and the | | | | | | patient's | | | | | | questionsanswered. Th | | | | | | e patient gave informed | | | | | | written and verbal | | | | | | consent toproceed.The | | | | | | area was prepped and | | | | | | draped in the usual | | | | | | sterile | | | | | | fashion. Localanesthe | | | | | | karuna was achieved using | | | | | | 1% lidocaine mixed with | | | | | | sodiumbicarbonate. A | | | | | | small needle entry | | | | | | incision is | | | | | | made. Underultrasound | | | | | | guidance, an 18 gauge, | | | | | | 16-cm Bard biopsy needle | | | | | | wasadvanced into the | | | | | | left lobe of liver and | | | | | | two adequate core | | | | | | specimenswere obtained | | | | | | (one linear and one as | | | | | | fragments), placed in | | | | | | formalinand sent to | | | | | | pathology. After the | | | | | | biopsy needle was | | | | | | withdrawn,hemostasis was | | | | | | achieved. The | | | | | | patient tolerated the | | | | | | procedure wellwithout | | | | | | apparent | | | | | | complication. No | | | | | | post-biopsy fluid | | | | | | collection wasseen on | | | | | | ultrasound imaging.The | | | | | | attending physician, | | | | | | Martha, was present and | | | | | | participated inthe | | | | | | procedure. 1 mg of IV | | | | | | Versed and 200 | | | | | | micrograms of IV | | | | | | fentanylwas administered | | | | | | in total during the | | | | | | procedure. The | | | | | | patient was sentto the | | | | | | IRU for observation | | | | | | after the | | | | | | procedure.IMPRESSION:Deena | | | | | | arently successful | | | | | | ultrasound-guided liver | | | | | | biopsy.I have personally | | | | | | viewed this | | | | | | procedure/exam and | | | | | | reviewed this | | | | | | report.Author: NALDO Patricio | | | | | | DONALDO TORRESeviewer: | | | | | | BEVERLEY THOMAS JR., | | | | | | M.D.STATUS FINAL / | | | | | | BEVERLEY REES | | | | | | PENDING FINAL APPROVAL / | | | | | | Dr. NALDO Patricio | | | | | | ANTONINA | | | | | | PRELIMINARY - UNSIGNED / | | | | | | Dr. NALDO TORRES | | | | + + + + + + + + | Specimen | + + | | + + + +---------+ + + | Performing | Address | City/State/Zipcode | Phone Number | | Organization | | | | + +---------+ + + | [facility] DEPARTMENT OF | | | | | RADIOLOGY | | | | + +---------+ + + CBC ONLY (09/08/2008 11:04 AM PDT) + +-------+ + + + | Component | Value | Ref Range | Performed | Pathologist | | | | | At | Signature | + +-------+ + + + | WHITE CELL | 9.7 | 4.4 - 11.0 K/cu | [facility] | | | COUNT | | mm | DEPARTMENT | | | | | | OF | | | | | | PATHOLOGY | | + +-------+ + + + | RED CELL | 4.53 | 4.00 - 5.20 | [facility] | | | COUNT | | M/cu mm | DEPARTMENT | | | | | | OF | | | | | | PATHOLOGY | | + +-------+ + + + | HEMOGLOBIN | 14.6 | 12.0 - 16.0 | [facility] | [...] +-------+ + + + | MCV | 93.4 | 80.0 - 96.0 fL | [facility] | | | | | | DEPARTMENT | | | | | | OF | | | | | | PATHOLOGY | | + +-------+ + + + | MCHC | 34.3 | 33.4 - 35.5 | [facility] | [...] +-------+ + + + | PLATELET | 222 | 150 - 400 K/cu | [facility] [...] | + + + + + | [facility] DEPARTMENT | [address] | [place] [address] | | | PATHOLOGY | [address] | | | + + + + + | [facility] | [address] [place] [address] | [place] [address] | | | PATHOLOGY | [address] | | | + + + + + APTT (ACT. PART. THROMBO TIME) (09/08/2008 11:04 AM PDT) + + + + + + | Component | Value | Ref Range | Performed | Pathologist | | | | | At | Signature | + + + + + + | APTT | 33.7Comment: | 26.0 - 36.0 | [facility] | [...] + + + + + | [facility] | [address] | [place] [address] | | | PATHOLOGY | [address] | | | + + + + + | [facility] | [address] | [place] [address] | | | PATHOLOGY | [address] | | | + + + + + INR (09/08/2008 11:04 AM PDT) + + + + + + | Component | Value | Ref Range | Performed | Pathologist | | | | | At | Signature | + + + + + + | INR | 1.18Comment: | 0.90 - 1.20 INR | [facility] [...] | + + + + + | [facility] DEPARTMENT OF | [address] | [place] [address] | | | PATHOLOGY | [address] | | | + + + + + | [facility] DEPARTMENT OF | [address] | [place] [address] | | | PATHOLOGY | [address] | | | + + + + + SURGICAL PATHOLOGY (09/08/2008) + + + + + + | Component | Value | Ref Range | Performed | Pathologist | | | | | At | Signature | + + + + + + | SURGICAL | SOURCE OF SPECIMEN:A | | [facility] | | | PATHOLOGY | Liver, [place] | | DEPARTMENT | | | | Biopsy Final | | OF | | | | Pathologic | | PATHOLOGY | | | | Diagnosis:Liver, [place] | | | | | | biopsy:- Liver with | | | | | | moderate steatosis and | | | | | | changes consistent with | | | | | | chronichepatitis C, | | | | | | moderately active (grade | | | | | | 3 of 4) with septal | | | | | | fibrosis | | | | | | andarchitectural | | | | | | distortion (stage 3 of | | | | | | 4) | | | | | | Comment: Liver | | | | | | parenchyma shows macro- | | | | | | and microsteatosis. | | | | | | There ismoderate portal | | | | | | and periportal active | | | | | | inflammation. Portal | | | | | | septal fibrosisis | | | | | | prominent with | | | | | | associated lobular | | | | | | architectural | | | | | | distortion. In | | | | | | additionthe appearances | | | | | | of nodularity is | | | | | | reflective of early | | | | | | cirrhosis. Iron | | | | | | and PAS/D stains are | | | | | | negative. Trichrome and | | | | | | reticulin | | | | | | stainhighlights the | | | | | | fibrosis and | | | | | | architectural | | | | | | nodularity. Case | | | | | | seen by:Arlene Redding / | | | | | | Student FellowAtiya | | | | | | Julio Cesar, | | | | | | M.D./PathologistT:09/09/ | | | | | | 09:lab Clinical | | | | | | History:The patient is a | | | | | | 48-year-old female with | | | | | | a history of chronic | | | | | | hepatitis C. | | | | | | Gross Description:One | | | | | | specimen is received in | | | | | | formalin in a container | | | | | | labeled with thepatient | | | | | | name (initials CA), and | | | | | | medical record | | | | | | number. Received are | | | | | | fourthread-like | | | | | | fragments of soft tissue | | | | | | measuring 0.1 cm in | | | | | | diameter x 1.2 cmin | | | | | | total length. The | | | | | | entire specimen is | | | | | | submitted. | | | | | | Cassette Index:A1, | | | | | | wrappedMEG:tp My | | | | | | electronic signature | | | | | | indicates that I have | | | | | | personally reviewed | | | | | | alldiagnostic slides, | | | | | | the gross and/or | | | | | | microscopic portion of | | | | | | thisreport and | | | | | | formulated the final | | | | | | diagnosis. | | | | | | Rendering | | | | | | Diagnostician: Fernanda | | | | | | Julio Cesar | | | | | | RonenPathologistElectroni | | | | | | marry Signed 09/10/2008 | | | | + + + + + + + + | Specimen | + + | Other | + + + + + + + | Performing | Address | City/State/Zipcode | Phone Number | | Organization | | | | + + + + + | [facility] | [address] | [place] [address] | | | PATHOLOGY | [address] | | | + + + + + | [facility] | [address] | [place] [address] | | | PATHOLOGY | [address] | | | + + + + + documented in this encounter Visit Diagnoses + + | Diagnosis | + + | Hepatitis C, chronic (HCC) Chronic hepatitis C without mention of hepatic coma | + + documented in this encounter Administered Medications + +--------+ +--------+------+------+ | Medication Order | MAR | Action | Dose | Rate | Site | | | Action | Date | | | | + +--------+ +--------+------+------+ | fentanyl (aka SUBLIMAZE) | Given | 09/09/19 | 50 mcg | | | | injection 25-50 mcg 25-50 mcg, | | 09 1:00 | | | | | intravenous, EVERY 1 HOUR | | PM PDT | | | | | NEEDED, Starting Mon09/08/08 at | | | | | | | 1230, Until Mon09/08/08 at 2257, | | | | | | | moderate pain, pain | | | | | | + +--------+ +--------+------+------+ +---+---+ | | | +---+---+ + +-------+ +--------+---+---+ | HYDROmorphone (aka DILAUDID) | Given | 09/09/19 | 0.5 mg | | | | injection 1 mg 1 mg, | | 09 1:45 | | | | | intravenous, EVERY 2 HOURS | | PM PDT | | | | | NEEDED, Starting Mon09/08/08 at | | | | | | | 1340, Until Mon09/08/08 at 2257, | | | | | | | moderate pain | | | | | | + +-------+ +--------+---+---+ +---+---+ | | | +---+---+ documented in this encounter
--- OUTSIDE RECORDS SUMMARY | ~2018-06-22 | XMS | Encounter Summary ---
Demographics + + + | Address | [address] | | | [place] [address] | + + + | Home Phone [...] Author + + + | Author | [facility] | + + + | Organization | [facility] | + + + | Address [...] Team Providers + +------+ + | Care Rotary Cutter Operator Name | Role | Phone | + +------+ + | Alex Askew MD | PCP | Unavailable | + +------+ + Reason for Visit + + + | Reason | Comments | + + + | Lab Results | Patient request for results | + + + Encounter Details +--------+ + + + + | Date | Type | Department | Care Team | Description | +--------+ + + + + | 12/22/ | Telephone | [facility] | [facility] | Lab Results (Patient | | 2015 | | [facility] at [facility] [address] | MD Daniela [address] | request for | | | [address] | [address] [place], [place] | results) | | | | Mailcode: [place] | [address] | | | | | for Health and | [phone] | | | | | [place] [address] | | | | | | [place], [place] | | | | | | [address] | | | | | | [phone] | | | +--------+ + + + [...]
--- OUTSIDE RECORDS SUMMARY | ~2018-06-22 | XMS | Encounter Summary ---
Demographics + + + | Address | [address] | | | [place] [address] | + + + | Home Phone [...] Team Providers + +------+ + | Care Metallurgical Engineering Technician Name | Role | Phone | + +------+ + | Alex Askew MD | PCP | Unavailable | + +------+ + Encounter Details +--------+------+ + + + | Date | Type | Department | Care Team | Description | +--------+------+ + + + | 08/01/ | Lab | Laboratory at [facility] | | Hepatitis C, Chronic | | 2008 | | [address] | | (HCC) | | | | [place], [place] | | | | | | [address] | | | | | | [phone] | | | +--------+------+ + + + [...] + + | DIFFERENTIAL | Routin | 08/01/2008 | | Results for this | | | e | 2:46 PM | | procedure are in the | | | | PDT | | results section. | + +--------+ + + + | INR | Routin | 08/01/2008 | Hepatitis C, | Results for this | | | e | 2:46 PM | Chronic (HCC) | procedure are in the | | | | PDT | | results section. | + +--------+ + + + | CBC, WITH | Routin | 08/01/2008 | Hepatitis C, | Results for this | | DIFFERENTIAL | e | 2:46 PM | Chronic (HCC) | procedure are in the | | | | PDT | | results section. | + +--------+ + + + | COMPLETE METABOLIC | Routin | 08/01/2008 | Hepatitis C, | Results for this | | SET | e | 2:46 PM | Chronic (HCC) | procedure are in the | | (NA,K,CL,CO2,BUN,CRE | | PDT | | results section. | | AT,GLUC,CA,AST,ALT,B | | | | | | ENA TOTAL,ALK | | | | | | PHOS,ALB,PROT TOTAL) | | | | | + +--------+ + + + | APTT (ACT. PART. | Routin | 08/01/2008 | Hepatitis C, | Results for this | | THROMBO TIME) | e | 2:46 PM | Chronic (HCC) | procedure are in the | | | | PDT | | results section. | + +--------+ + + + documented in this encounter Results DIFFERENTIAL (08/01/2008 2:46 PM PDT) + +---------+ + + + | Component | Value | Ref Range | Performed | Pathologist | | | | | At | Signature | + +---------+ + + + | NEUTROPHIL | 54 | 50 - 70 % | [facility] | | | % | | | DEPARTMENT | | | | | | OF | | | | | | PATHOLOGY | | + +---------+ + + + | LYMPHOCYTE | 33 | 18 - 42 % | [facility] | | | % | | | DEPARTMENT | | | | | | OF | | | | | | PATHOLOGY | | + +---------+ + + + | MONOCYTE % | 12 (H) | 2 - 8 % | [...] +---------+ + + + | NEUTROPHIL | 5.1 | 1.8 - 7.7 K/cu | [facility] [...] + + + | MONOCYTE # | 1.1 (H) | <0.9 K/cu mm | [facility] [...] DEPARTMENT OF | [address] | [place], [place] [address] | | | PATHOLOGY | [address] | | | + + + + + | [facility] DEPARTMENT OF | [address] | [place] [address] | | | PATHOLOGY | [address] | | | + + + + + APTT (ACT. PART. THROMBO TIME) (08/01/2008 2:46 PM PDT) + + + + + + | Component | Value | Ref Range | Performed | Pathologist | | | | | At | Signature | + + + + + + | APTT | 32.0Comment: | 26.0 - 36.0 | [facility] | | | | APTT | seconds [...] | + + + + + | [facility] DEPARTMENT OF | [facility] | [place] [address] | | | PATHOLOGY | [address] | | | + + + + + | [facility] DEPARTMENT OF | [address] | [place] [address] | | | PATHOLOGY | [address] [...] | + + + + + | [facility] | [address] | [place] [address] | | | PATHOLOGY | [address] | | | + + + + + | [facility] | [address] | [place] [address] | | | PATHOLOGY | [address] [...] | + + + + + | [facility] | [address] [facility] | [place] [address] | | | PATHOLOGY | [address] | | | + + + + + | [facility] | [address] [facility] [facility] | [place] [address] | | | PATHOLOGY | [address] [...] 89 | 60 - 99 mg/dL | [facility] [...] Performed At | + + + | [id number] Estimated GFR > 60 mL/min/1.73 sq m if non- | [facility] | | [place] [id number] Estimated GFR > 60 mL/min/1.73 sq m if | DEPARTMENT OF | | [place] GFR is estimated using the MDRD equation [...] DEPARTMENT OF | [address] | [place] [address] | | | PATHOLOGY | [address] | | | + + + + + | [facility] | [address] [facility] [facility] [address] | [place] [address] | | | PATHOLOGY | [address] | | | + + + + + documented in this encounter Visit Diagnoses + + | Diagnosis | + + | Hepatitis C, chronic (HCC) Chronic hepatitis C without mention of hepatic coma | + + documented in this encounter"
--- OUTSIDE RECORDS SUMMARY | ~2018-06-22 | XMS | Encounter Summary ---
Demographics + + + | Address | [address] | | | [place] [address] | + + + | Home Phone | | + + + | Preferred Language | Unknown | + + + | Marital Status | Single | + + + | Advent Affiliation | CHR | + + + [...] Providers + +------+ + | Care Manager Technical Services Name | Role | Phone | + +------+ + | Alex Askew MD | PCP | Unavailable | + +------+ + Reason for Visit + + + | Reason | Comments | + + + | Evaluation of test | Patient request for results. | | results | | + + + Encounter Details +--------+ + + + + | Date | Type | Department | Care Team | Description | +--------+ + + + + | 10/08/ | Telephone | Dig[facility]ive Health | [place] | Evaluation of test | | 2014 | | Center at [facility] [address] | MD Daniela [address] | results (Patient | | | | [address] | Ave [place], [place] | request for | | | | Mailcode: Center | [phone] | results.) | | | | for Health and | [phone] | | | | | [address] [place] [address] | | | | | | [place], [place] | | | | | | [address] | | | | | | [phone] | | | +--------+ + + + [...] + + | INR | Routin | 10/06/2014 | | Results for this | | | e | 1:53 PM | | procedure are in the | | | | PDT | | results section. | + +--------+ + + + | COMPLETE METABOLIC | Routin | 10/06/2014 | | Results for this | | SET | e | 1:53 PM | | procedure are in the | | (NA,K,CL,CO2,BUN,CRE | | PDT | | results section. | | AT,GLUC,CA,AST,ALT,B | | | | | | ENA TOTAL,ALK | | | | | | PHOS,ALB,PROT TOTAL) | | | | | + +--------+ + + + | CBC ONLY | Routin | 10/06/2014 | | Results for this | | | e | 1:53 PM | | procedure are in the | | | | PDT | | results section. | + +--------+ + + + documented in this encounter Results INR (10/06/2014 1:53 PM PDT) + +-------+ + + + | Component | Value | Ref Range | Performed | Pathologist | | | | | At | Signature | + +-------+ + + + | INR | 1.3 | INR | [facility] | | | | | | [facility] [place] | | | | | | [place] | | + +-------+ + + + + + | Specimen | + + | Blood - Blood | + + + +---------+ + + | Performing | Address | City/State/Zipcode | Phone Number | | Organization | | | | + +---------+ + + | [facility] | | | | | [place] | | | | + +---------+ + + | [facility] | | [place] [address] | | | [place] | | | | + +---------+ + + COMPLETE METABOLIC SET (NA,K,CL,CO2,BUN,CREAT,GLUC,CA,AST,ALT,BILI TOTAL,ALK PHOS,ALB,PROT TOTAL) (10/06/2014 1:53 PM PDT) + + + + + + | Component | Value | Ref Range | Performed | Pathologist | | | | | At | Signature | + + + + + + | GLUCOSE, | 147 (H) | mg/dL | [facility] | | | PLASMA | | | [facility] [place] | | | (LAB) | | | [place] | | + + + + + + | BUN, PLASMA | 23 | mg/dL | [facility] | | | (LAB) | | | [facility] - [place] | | | | | | [place] | | + + + + + + | CREATININE | 1.55 (H) | mg/dL | [facility] | | | PLASMA | | | [facility] [place] | | | (LAB) | | | [place] | | + + + + + + | ALBUMIN, | 3.5 | g/dL | [facility] | | | PLASMA | | | [facility] - [place] | | | (LAB) | | | [place] | | + + + + + + | BILIRUBIN | 1.8 (H) | Transcutaneous | [facility] | | | TOTAL | | Bilirubinometer | [facility] - [place] | | | | | | [place] | | + + + + + + | ALK PHOS | 139 (H) | U/L | [facility] | | | | | | [facility] - [place] | | | | | | [place] | | + + + + + + | AST(SGOT) | 27 | U/L | [facility] | | | | | | [facility] - [place] | | | | | | [place] | | + + + + + + | SODIUM, | 135 | mmol/L | [facility] | | | PLASMA | | | [facility] [place] | | | (LAB) | | | [place] | | + + + + + + | POTASSIUM, | 3.6 | mmol/L | [facility] | | | PLASMA | | | [facility] - [place] | | | (LAB) | | | [place] | | + + + + + + | ALT (SGPT) | 27 | U/L | [facility] | | | | | | [facility] - [place] | | | | | | [place] | | + + + + + + + + | Specimen | + + | Blood - Blood | + + + +---------+ + + | Performing | Address | City/State/Zipcode | Phone Number | | Organization | | | | + +---------+ + + | [facility] | | | | | [place] | | | | + +---------+ + + | [facility] | | [place] [address] | | | [place] | | | | + +---------+ + + CBC ONLY (10/06/2014 1:53 PM PDT) + + + + + + | Component | Value | Ref Range | Performed | Pathologist | | | | | At | Signature | + + + + + + | WHITE CELL | 15.1 | K/cu mm | [facility] | | | COUNT | | | [facility] - [place] | | | | | | [place] | | + + + + + + | HEMOGLOBIN | 11 (L) | g/dL | [facility] | | | | | | [facility] - [place] | | | | | | [place] | | + + + + + + | HEMATOCRIT | 31.9 (L) | % | [facility] | | | | | | [facility] - [place] | | | | | | [place] | | + + + + + + | PLATELET | 267 | K/cu mm | [facility] | | | COUNT | | | [facility] - [place] | | | | | | [place] | | + + + + + + + + | Specimen | + + | Blood - Blood | + + + +---------+ + + | Performing | Address | City/State/Zipcode | Phone Number | | Organization | | | | + +---------+ + + | [facility] | | | | | [place] | | | | + +---------+ + + | [facility] | | [place] [address] | | | [place] | | | | + +---------+ + + documented in this encounter Visit Diagnoses Not on filedocumented in this encounter"
--- OUTSIDE RECORDS SUMMARY | ~2018-06-22 | XMS | Encounter Summary ---
Demographics + + + | Address | [address] | | | [place] [address] | + + + | Home Phone [...] Author + + + | Author | [facility] | + + + | Organization | [facility] | + + + | Address [...] Team Providers + +------+ + | Care Diet Supervisor Name | Role | Phone | + +------+ + | Alex Askew MD | PCP | Unavailable | + +------+ + Encounter Details +--------+ + + + + | Date | Type | Department | Care Team | Description | +--------+ + + + + | 07/28/ | Hospital | Registration [address] | Arsalan Casper MD | | | 2005 | Activity | [address] | [address] | | | | | [facility] Mailcode: | [place], [place] | | | | | [address] [place], [place] | [address] | | | | | [address] | [phone] | | | | | [phone] | | | +--------+ + + + [...]
--- OUTSIDE RECORDS SUMMARY | ~2018-06-22 | XMS | Encounter Summary ---
Demographics + + + | Address | [address] | | | [place] [address] | + + + | Home Phone | | + + + | Preferred Language | Unknown | + + + | Marital Status | Single | + + + | Roman Catholic Affiliation | CHR | + + [...] Team Providers + +------+ + | Care Folder Seamer Name | Role | Phone | + +------+ + | Alex Askew MD | PCP | Unavailable | + +------+ + Encounter Details +--------+ + + + + | Date | Type | Department | Care Team | Description | +--------+ + + + + | 03/11/ | Document-Sc | UNKNOWN DEPARTMENT | Unknown . | | | 2016 | anned | [address] [facility] | | | | | | [facility] | | | | | | [place], [place] | | | | | | [address] | | | +--------+ + + + [...] + + | LAB REPORTS | | 03/11/2015 | | Results for this | | | | 12:00 AM | | procedure are in the | | | | PST | | results section. | + +--------+ + + + documented in this encounter Results LAB REPORTS (03/11/2015 12:00 AM PST) + + + | Narrative | Performed At | + + + | | | + + + documented in this encounter Visit Diagnoses Not on filedocumented in this encounter"
--- OUTSIDE RECORDS SUMMARY | ~2018-06-22 | XMS | Encounter Summary ---
Demographics + + + | Address | [address] | | | [place] [address] | + + + | Home Phone | | + + + | Preferred Language | Unknown | + + + | Marital Status | Single | + + + | Confucianist Affiliation | CHR | + + + | Race | White | + + + | Ethnic Group | Not or | + + + Author + + + | Author | [facility] | + + + | Organization | [facility] | + + + | [...] Team Providers + +------+ + | Care Biology Research Assistant Name | Role | Phone | + +------+ + | Alex Askew MD | PCP | Unavailable | + +------+ + Reason for Visit + + + | Reason | Comments | + + + | Medication Education | Saw Busby + Ribavirin | + + + Encounter Details +--------+ + + + + | Date | Type | Department | Care Team | Description | +--------+ + + + + | 09/15/ | Telephone | Digestive Health | Tam Yu, | Medication Education | | 2015 | | [place] [facility] [address] | [place], [place] | ([address] | | | | [address] | [address] | Kehinde + Ribavirin) | | | | Mailcode: [place] | | | | | | [facility] and | | | | | | [place] [address] [address] | | | | | | [place], [place] | | | | | | [address] | | | | | | [phone] | | | +--------+ + + + [...]
--- OUTSIDE RECORDS SUMMARY | ~2018-06-22 | XMS | Encounter Summary ---
Demographics + + + | Address | [address] | | | [place] [address] | + + + | Home Phone | | + + + | Preferred Language | Unknown | + + + | Marital Status | Single | + + + | Scientology Affiliation | CHR | + + + | Race | White | + + + | Ethnic Group | Not or | + + + Author + + + | Author | [facility] | + + + | Organization | [facility] | + + + | Address | [...] Team Providers + +------+ + | Care Paper Bundler Name | Role | Phone | + +------+ + | Alex Askew MD | PCP | Unavailable | + +------+ + Encounter Details +--------+------+ + + + | Date | Type | Department | Care Team | Description | +--------+------+ + + + | 05/22/ | Lab | Laboratory at [facility] | | Hepatitis c, chronic | | 2009 | | [address] | | (HCC) | | | | [place], [place] | | | | | | [address] | | | | | | [phone] | | | +--------+------+ + + + [...] + + | DIFFERENTIAL | Routin | 05/22/2009 | | Results for this | | | e | 1:55 PM | | procedure are in the | | | | PDT | | results section. | + +--------+ + + + | INR | Routin | 05/22/2009 | Hepatitis c, | Results for this | | | e | 1:55 PM | chronic (HCC) | procedure are in the | | | | PDT | | results section. | + +--------+ + + + | CBC, WITH | Routin | 05/22/2009 | Hepatitis c, | Results for this | | DIFFERENTIAL | e | 1:55 PM | chronic (HCC) | procedure are in the | | | | PDT | | results section. | + +--------+ + + + | COMPLETE METABOLIC | Routin | 05/22/2009 | Hepatitis c, | Results for this | | SET | e | 1:55 PM | chronic (HCC) | procedure are in the | | (NA,K,CL,CO2,BUN,CRE | | PDT | | results section. | | AT,GLUC,CA,AST,ALT,B | | | | | | ENA TOTAL,ALK | | | | | | PHOS,ALB,PROT TOTAL) | | | | | + +--------+ + + + documented in this encounter Results DIFFERENTIAL (05/22/2009 1:55 PM PDT) + +---------+ + + + | Component | Value | Ref Range | Performed | Pathologist | | | | | At | Signature | + +---------+ + + + | NEUTROPHIL | 55 | 50 - 70 % | [facility] | | | % | | | DEPARTMENT | | | | | | OF | | | | | | PATHOLOGY | | + +---------+ + + + | LYMPHOCYTE | 31 | 18 - 42 % | [facility] [...] +---------+ + + + | NEUTROPHIL | 4.9 | 1.8 - 7.7 K/cu | [facility] | | | # | | mm | DEPARTMENT | | | | | | OF | | | | | | PATHOLOGY | | + +---------+ + + + | LYMPHOCYTE | 2.8 | 1.0 - 4.8 K/cu | [facility] [...] | + + + + + | [facility] | [address] | [place] [address] | | | PATHOLOGY | [address] | | | + + + + + INR (05/22/2009 1:55 PM PDT) + + [...] DEPARTMENT OF | [address] | [place] [address] | | | PATHOLOGY | [address] [...] | + + + + + | [facility] DEPARTMENT OF | [address] | [place] [address] | | | PATHOLOGY | [address] [...] 92 | 60 - 99 mg/dL | [facility] | | | PLASMA | | | [...] | | | DEPARTMENT | | | INDIAN | | | OF | | | [...] | + + + + + | [facility] | [address] | [place] [address] | | | PATHOLOGY | [address] | | | + + + + + documented in this encounter Visit Diagnoses + + | Diagnosis | + + | Hepatitis C, chronic (HCC) Chronic hepatitis C without mention of hepatic coma | + + documented in this encounter"
--- OUTSIDE RECORDS SUMMARY | ~2018-06-22 | XMS | Encounter Summary ---
Demographics + + + | Address | [address] | | | [place] [address] | + + + | Home Phone [...] + + | Author | [facility] | + + + | Organization | [facility] | + + + | Address | Unknown | + + + | Phone | Unavailable | + + + Support + + +---------+ + | Name | Relationship | Address | Phone | + + +---------+ + | Jennfier Cuevas | ECON | Unknown | | + + +---------+ + | Ye Epstein | ECON | Unknown | | + + +---------+ + Care Team Providers + +------+ + | Care District Loss Prevention Manager Name | Role | Phone | [...] | +--------+ + + + + | 11/27/ | Telephone | Dig[facility]ive Health | [place] | | | 2014 | | Center at [facility] [address] | Daniela, [address] | | | | | [address] | [place] [facility] [place] | | | | | Mailcode: [place] | [address] | | | | | for Health and | [phone] | | | | | [facility] [address] | | | | | | [place], [place] | | | | | | [address] | | | | | | [phone] | | | +--------+ + + + [...]
--- OUTSIDE RECORDS SUMMARY | ~2018-06-22 | XMS | Encounter Summary ---
Demographics + + + | Address | [address] | | | [place] [address] | + + + | Home Phone [...] Author + + + | Author | [facility] | + + + | Organization | [facility] | + + + | Address [...] Team Providers + +------+ + | Care Community Services Manager Name | Role | Phone | + +------+ + | Alex Askew MD | PCP | Unavailable | + +------+ + Reason for Visit + + + | Reason | Comments | + + + | Blood Test Results | Outside labs from [facility] 10/31/14. | + + + Encounter Details +--------+ + + + + | Date | Type | Department | Care Team | Description | +--------+ + + + + | 11/04/ | Documentati | Digestive Health | [place] | Blood Test Results | | 2015 | on | Center at [facility] [address] | MD Daniela [address] | (Outside labs from | | | | [address] | [place], [place] | [facility] 10/31/14.) | | | | Mailcode: [place] | [address] | | | | | for Health and | [phone] | | | | | [facility], [place] [address] | | | | | | [place], [place] | | | | | | [address] | | | | | | [phone] | | | +--------+ + + + [...] + + | INR | Routin | 10/31/2014 | | Results for this | | | e | | | procedure are in the | | | | | | results section. | + +--------+ + + + | COMPLETE METABOLIC | Routin | 10/31/2014 | | Results for this | | SET | e | | | procedure are in the | | (NA,K,CL,CO2,BUN,CRE | | | | results section. | | AT,GLUC,CA,AST,ALT,B | | | | | | ENA TOTAL,ALK | | | | | | PHOS,ALB,PROT TOTAL) | | | | | + +--------+ + + + | CBC ONLY | Routin | 10/31/2014 | | Results for this | | | e | | | procedure are in the | | | | | | results section. | + +--------+ + + + documented in this encounter Results INR (10/31/2014) + +-------+ + + + | Component [...] [address] | [place], [place] | [phone] | | [place] | | | | + + + + + COMPLETE METABOLIC SET (NA,K,CL,CO2,BUN,CREAT,GLUC,CA,AST,ALT,BILI TOTAL,ALK PHOS,ALB,PROT TOTAL) (10/31/2014) + +---------+ + + + | Component | Value | Ref Range | Performed | Pathologist | | | | | At | Signature | + +---------+ + + + | GLUCOSE, | 191 (H) | mg/dL | [facility] | | | PLASMA | | | LAB - | | | (LAB) | | | [place] | | + +---------+ + + + | BUN, PLASMA | 13 | mg/dL | [facility] | | | (LAB) | | | LAB - | | | | | | [place] | | + +---------+ + + + | CREATININE | 0.94 | mg/dL | [facility] | | | PLASMA | | | LAB - | | | (LAB) | | | [place] | | + +---------+ + + + | ALBUMIN, | 3.5 | g/dL | [facility] | | | PLASMA | | | LAB - | | | (LAB) | | | [place] | | + +---------+ + + + | BILIRUBIN | 1.1 | Transcutaneous | [facility] | | | TOTAL | | Bilirubinometer | LAB - | | | | | | [place] | | + +---------+ + + + | ALK PHOS | 102 | U/L | [facility] | | | | | | LAB - | | | | | | [place] | | + +---------+ + + + | AST(SGOT) | 31 | U/L | [facility] | | | | | | LAB - | | | | | | [place] | | + +---------+ + + + | SODIUM, | 133 | mmol/L | [facility] | | | [...] + + + | ALT (SGPT) | 28 | U/L | [facility] | | | [...] - | [address] | [place], [place] | [phone] | | [place] | | | | + + + + + CBC ONLY (10/31/2014) + + + + + + | Component | Value | Ref Range | Performed | Pathologist | | | | | At | Signature | + + + + + + | WHITE CELL | 8.6 | K/cu mm | [facility] | | | COUNT | | | LAB - | | | | | | [place] | | + + + + + + | HEMOGLOBIN | 10.4 (L) | g/dL | [facility] | | | | | | LAB - | | | | | | [place] | | + + + + + + | HEMATOCRIT | 32 (L) | % | [facility] | | | | | | LAB - | | | | | | [place] | | + + + + + + | PLATELET | 218 | K/cu mm | [facility] | | [...] [address] | [place], [place] | [phone] | | [place] | | | | + + + + + documented in this encounter Visit Diagnoses Not on filedocumented in this encounter"
--- OUTSIDE RECORDS SUMMARY | ~2018-06-22 | XMS | Encounter Summary ---
Demographics + + + | Address | [address] | | | [place] [address] | + + + | Home Phone | | + + + | Preferred Language | Unknown | + + + | Marital Status | Single | + + + | Synagogue Affiliation | CHR | + + + [...] Team Providers + +------+ + | Care Bullet Casting Operator Name | Role | Phone | + +------+ + | Alex Askew MD | PCP | Unavailable | + +------+ + Encounter Details +--------+ + + + + | Date | Type | Department | Care Team | Description | +--------+ + + + + | 07/28/ | Ancillary | Registration [address] | Cyrus [place], | | | 2005 | [facility] | | | | n | [facility] Mailcode: | | | | | | [address] [place], [place] | | | | | | [address] | | | | | | [phone] | | | +--------+ + + + [...]
--- OUTSIDE RECORDS SUMMARY | ~2018-06-22 | XMS | Encounter Summary ---
Demographics + + + | Address | [address] | | | [place] [address] | + + + | Home Phone [...] Author + + + | Author | [facility] | + + + | Organization | [facility] | + + + | Address [...] Team Providers + +------+ + | Care Food Cashier Name | Role | Phone | + +------+ + | Alex Askew MD | PCP | Unavailable | + +------+ + Reason for Visit + + + | Reason | Comments | + + + | Follow-up encounter | | + + + Encounter Details +--------+ + + + + | Date | Type | Department | Care Team | Description | +--------+ + + + + | 09/22/ | Telephone | Digestive Health | [place] | Follow-up encounter | | 2015 | | Center at [facility] [address] | E, MD [address] | | | | | [address] | [address] [facility] [place] | | | | | Mailcode: [place] | [address] | | | | | for Health and | [phone] | | | | | [place] [address] | | | | | | [place], [place] | | | | | | [address] | | | | | | [phone] | | | +--------+ + + + [...]
--- OUTSIDE RECORDS SUMMARY | ~2018-06-22 | XMS | Encounter Summary ---
Demographics + + + | Address | [address] | | | [place] [address] | + + + | Home Phone [...] Team Providers + +------+ + | Care Scheduling Coordinator Name | Role | Phone | + [...] + + + + | 05/28/ | Abstract | Digestive Health | [place] | Medical Records | | 2016 | | Center at [facility] [address] | MD Daniela [address] | Review | | | | [address] | [place], [place] | | | | | Mailcode: [place] | [address] | | | | | [facility] and | [phone] | | | | | [facility], [place] [address] | | | | | | [place], [place] | | | | | | [address] | | | | | | [phone] | | | +--------+ + + + [...]
--- OUTSIDE RECORDS SUMMARY | ~2018-06-22 | XMS | Encounter Summary ---
Demographics + + + | Address | [address] | | | [place] [address] | + + + | Home Phone [...] + + + | Author | [facility] | + + + | Organization | [facility] | + + + | [...] Team Providers + +------+ + | Care Car Body Inspector Name | Role | Phone | + +------+ + | Alex Askew MD | PCP | Unavailable | + +------+ + Encounter Details +--------+ + + + + | Date | Type | Department | Care Team | Description | +--------+ + + + + | 10/31/ | Document-Sc | UNKNOWN DEPARTMENT | Unknown . | | | 2015 | anned | [address] [facility] | | | | | | [facility] | | | | | | [place], [place] | | | | | | [address] | | | +--------+ + + + [...] + + | LAB REPORTS | | 10/31/2014 | | Results for this | | | | 12:00 AM | | procedure are in the | | | | PDT | | results section. | + +--------+ + + + documented in this encounter Results LAB REPORTS (10/31/2014 12:00 AM PDT) + + + | Narrative | Performed At | + + + | | | + + + documented in this encounter Visit Diagnoses Not on filedocumented in this encounter"
--- OUTSIDE RECORDS SUMMARY | ~2018-06-22 | XMS | Encounter Summary ---
Demographics + + + | Address | [address] | | | [place] [address] | + + + | Home Phone [...] Team Providers + +------+ + | Care Medical Housekeeper Name | Role | Phone | + +------+ + | Alex Askew MD | PCP | Unavailable | + +------+ + Encounter Details +--------+ + + + + | Date | Type | Department | Care Team | Description | +--------+ + + + + | 10/06/ | Document-Sc | UNKNOWN DEPARTMENT | Unknown . | | | 2015 | anned | [address] [facility] | | | | | | [facility] | | | | | | [place], [place] | | | | | | [address] | | | +--------+ + + + [...] + + | LAB REPORTS | | 10/06/2014 | | Results for this | | | | 12:00 AM | | procedure are in the | | | | PDT | | results section. | + +--------+ + + + documented in this encounter Results LAB REPORTS (10/06/2014 12:00 AM PDT) + + + | Narrative | Performed At | + + + | | | + + + documented in this encounter Visit Diagnoses Not on filedocumented in this encounter"
--- OUTSIDE RECORDS SUMMARY | ~2018-06-22 | XMS | Encounter Summary ---
Demographics + + + | Address | [address] | | | [place] [address] | + + + | Home Phone | | + + + | Preferred Language | Unknown | + + + | Marital Status | Single | + + + | Buddhist Affiliation | CHR | + + + [...] Team Providers + +------+ + | Care Supervisor Putty And Caluking Name | Role | Phone | + +------+ + | Alex Askew MD | PCP | Unavailable | + +------+ + Reason for Visit + + + | Reason | Comments | + + + | Blood Test Results | Outside labs from [facility] 04/01/15. | + + + Encounter Details +--------+ + + + + | Date | Type | Department | Care Team | Description | +--------+ + + + + | 04/06/ | Documentati | Digestive Health | [place] | Blood Test Results | | 2016 | on | Center at [facility] [address] | MD Daniela [address] | (Outside labs from | | | | [address] | [place], [place] | [facility] 04/01/15.) | | | | Mailcode: [place] | [address] | | | | | for Health and | [phone] | | | | | [facility], [place] [address] | | | | | | [place], [place] | | | | | | [address] | | | | | | [phone] | | | +--------+ + + + [...] + | HEPATITIS C | Routin | 04/01/2015 | | Results for this | | QUANTITATIVE, PLASMA | e | 1:15 PM | | procedure are in the | | | | PST | | results section. | + +--------+ + + + documented in this encounter Results HEPATITIS C QUANTITATIVE, PLASMA (04/01/2015 1:15 PM PST) + + + + + + | Component | Value | Ref Range | Performed | Pathologist | | | | | At | Signature | + + + + + + | HEP C PCR, | NOT DETECTED | IU/mL | [facility] | | | [...] | + + + + + | [facility] | [address] | [place] | [phone] | | [place] | | | | + + + + + documented in this encounter Visit Diagnoses Not on filedocumented in this encounter"
--- OUTSIDE RECORDS SUMMARY | ~2018-06-22 | XMS | Encounter Summary ---
Demographics + + + | Address | [address] | | | [place] [address] | + + + | Home Phone | | + + + | Preferred Language | Unknown | + + + | Marital Status | Single | + + + | Yarsani Affiliation | CHR | + + + | Race | White | + + + | Ethnic Group | Not or | + + + Author + + + | Author | [facility] | + + + | Organization | [facility] | + + + | Address | Unknown | + + + | Phone | Unavailable | + + + Support + + +---------+ + | Name | Relationship | Address | Phone | + + +---------+ + | Jenniefr Cuevas | ECON | Unknown | | + + +---------+ + | Ye Epstein | ECON | Unknown | | + + +---------+ + Care Team Providers + +------+ + | Care Mri Tech Name | Role | Phone | + +------+ + PCP | Unavailable | + +------+ + Encounter Details +--------+ + + + + | Date | Type | Department | Care Team | Description | +--------+ + + + + | 08/25/ | Abstract | Endoscopic | [facility] | | | 2005 | [facility] | Procedural Unit at | MD Darryn [address] | | | | | Leeanna [address]er [address] | [address] | | | | | [address] [facility] | [place] [address] | | | | | Road Mailcode: | [phone] | | | | | [id number] | | | | | | [address] | | | | | | [place], [place] | | | | | | [address] | | | | | | [phone] | | | +--------+ + + + [...]
--- OUTSIDE RECORDS SUMMARY | ~2018-06-22 | XMS | Encounter Summary ---
Demographics + + + | Address | [address] | | | [place] [address] | + + + | Home Phone | | + + + | Preferred Language | Unknown | + + + | Marital Status | Single | + + + | Shinto Affiliation | CHR | + + + [...] Team Providers + +------+ + | Care Implementation Analyst Name | Role | Phone | + +------+ + | Alex Askew MD | PCP | Unavailable | + +------+ + Encounter Details +--------+ + + + + | Date | Type | Department | Care Team | Description | +--------+ + + + + | 12/17/ | Document-Sc | [facility] | [facility] | | | 2016 | annluis enrique | [facility] [address] | MD Daniela [address] | | | | | [address] | [place], [place] | | | | | Mailcode: Center | [address] | | | | | for Health and | [phone] | | | | | [facility] [address] | | | | | | [place], [place] | | | | | | [address] | | | | | | [phone] | | | +--------+ + + + [...] + + | US HEPATOCELLULAR | | 12/18/2015 | | | | CARCINOMA SCREENING | | 12:00 AM | | | | | | PST | | | + +--------+ + + + documented in this encounter Results HEPATOCELLULAR CARCINOMA SCREENING (12/18/2015 12:00 AM PST) + + + | Narrative | Performed At | + + + | | | + + + documented in this encounter Visit Diagnoses Not on filedocumented in this encounter"
--- OUTSIDE RECORDS SUMMARY | ~2018-06-22 | XMS | Encounter Summary ---
Demographics + + + | Address | [address] | | | [place] [address] | + + + | Home Phone | | + + + | Preferred Language | Unknown | + + + | Marital Status | Single | + + + | Yarsanism Affiliation | CHR | + + + [...] Team Providers + +------+ + | Care It Service Manager Name | Role | Phone | + +------+ + | Alex Askew MD | PCP | Unavailable | + +------+ + Reason for Visit + + + | Reason | Comments | + + + | Discussion | Pt calling about labs | + + + Encounter Details +--------+ + + + + | Date | Type | Department | Care Team | Description | +--------+ + + + + | 03/11/ | Telephone | [facility] | [facility] | Discussion (Pt | | 2016 | | Center at [facility] [address] | MD Daniela [address] | calling about labs ) | | | | [address] | [place], [place] | | | | | Mailcode: [place] | [address] | | | | | for Health and | [phone] | | | | | [facility] [address] | | | | | | [place], [place] | | | | | | [address] | | | | | | [phone] | | | +--------+ + + + [...] + | Diagnosis | + + | Other cirrhosis of liver (HCC) - Primary | + + | Chronic hepatitis C without hepatic coma (HCC) | + + documented in this encounter"
--- OUTSIDE RECORDS SUMMARY | ~2018-06-22 | XMS | Clinical Summary ---
Demographics + + + | Address | [address] | | | [place] [address] | + + + | Home Phone | | + + + | Preferred Language | Unknown | + + + | Marital Status | Single | + + + | Jain Affiliation | CHR | + + + | Race | White | + + + | Ethnic Group | Not or | + + + Author + + + | Author | [facility] | + + + | Organization | [facility] | + + + | [...] Team Providers + +------+ + | Care Crown Ironer Operator Name | Role | Phone | + +------+ + | Alex Askew MD | PP | Unavailable | + +------+ + Source Comments JANINE is fully live on both [facility] and [facility] In[facility] Allergies + + + + + + [...] | + + + + + + Medications + + + +---------+------+------+-------+ | Medication | Sig | Dispensed | Refills | Star | End | Statu | | | | | | t | Date | s | | | | | | Date | | | + + + +---------+------+------+-------+ | XANAX 0.25 MG TAB | take 1 tablet | | 0 | | | Activ | | | (0.25mg) by oral | | | | | e | | | route 3 times per | | | | | | | | day | | | | | | + + + +---------+------+------+-------+ | TRAZODONE 50 MG | 1 tab by mouth once | | 0 | | | Activ | | TAB | daily 100 mg | | | | | e | + + + +---------+------+------+-------+ | ALBUTEROL 90 | inhale 1 puff by | | 0 | | | Activ | | MCG/ACTUATION | inhalation route | | | | | e | | AEROSOL INHALER | every 4-6 hours as | | | | | | | | needed | | | | | | + + + +---------+------+------+-------+ | timolol 10 mg Oral | Take by mouth. Take | | 0 | | | Activ | | Tablet | 2 tabs in the | | | | | e | | | morning and 1 at | | | | | | | | bedtime | | | | | | + + + +---------+------+------+-------+ | hydrOXYzine | Take 25 mg by mouth | | 0 | | | Activ | | pamoate 25 mg Oral | every four hours as | | | | | e | | Capsule | needed. | | | | | | + + + +---------+------+------+-------+ | Tramadol (ULTRAM | Take 50 mg by mouth | | 0 | | | Activ | | ER) 300 mg Oral | once daily at | | | | | e | | Tablet Sustained | bedtime. | | | | | | | Release 24 hr | | | | | | | + + + +---------+------+------+-------+ | ALBUTEROL IN | Inhale 0.85 mg. 4 | | 0 | | | Activ | | | times daily or more | | | | | e | | | as needed | | | | | | + + + +---------+------+------+-------+ | ACETAMINOPHEN, | once daily at | | 0 | | | Activ | | BULK MISC | bedtime. | | | | | e | + + + +---------+------+------+-------+ | meclizine 25 mg | Take 25 mg by mouth | | 0 | | | Activ | | oral tablet | twice daily as | | | | | e | | | needed for | | | | | | | | nausea/vomiting. | | | | | | + + + +---------+------+------+-------+ | DULoxetine 60 mg | Take 60 mg by mouth | | 0 | | | Activ | | oral capsule,delayed | once daily. | | | | | e | | release(DR/EC) | | | | | | | + + + +---------+------+------+-------+ | | Take 10 mg by mouth. | | 0 | | | Activ | | medroxyPROGESTERone | | | | | | e | | 10 mg oral tablet | | | | | | | + + + +---------+------+------+-------+ | naproxen 500 mg | Take 500 mg by mouth | | 0 | | | Activ | | oral tablet | two times daily. | | | | | e | + + + +---------+------+------+-------+ | METOPROLOL | Take by mouth. | | 0 | | | Activ | | SUCCINATE ORAL | | | | | | e | + + + +---------+------+------+-------+ | amLODIPine 5 mg | Take 5 mg by mouth | | 0 | | | Activ | | oral tablet | once daily. | | | | | e | + + + +---------+------+------+-------+ | oxyCODONE, | Take by mouth every | | 0 | | | Activ | | immediate release, 5 | six hours as | | | | | e | | mg oral tablet | needed. | | | | | | + + + +---------+------+------+-------+ | losartan 100 mg | Take 12.5 mg by | | 0 | | | Activ | | oral tablet | mouth once daily. | | | | | e | + + + +---------+------+------+-------+ | cyclobenzaprine 10 | Take 10 mg by mouth | | 0 | | | Activ | | mg oral tablet | three times daily as | | | | | e | | | needed. Do not use | | | | | | | | longer than 2-3 | | | | | | | | weeks. | | | | | | + + + +---------+------+------+-------+ | ribavirin 200 mg | Take 2 capsules by | 112 | 0 | 10/2 | | Activ | | oral capsule | mouth two times | capsule | | 0/20 | | e | | | daily. | | | 15 | | | + + + +---------+------+------+-------+ | metFORMIN 500 mg | Take 500 mg by mouth | | 0 | | | Activ | | oral tablet | two times daily. | | | | | e | + + + +---------+------+------+-------+ | amitriptyline 25 | 25 mg. | | 0 | | | Activ | | mg oral tablet | | | | | | e | + + + +---------+------+------+-------+ | diazepam 5 mg oral | 5 mg. | | 0 | | | Activ | | tablet | | | | | | e | + + + +---------+------+------+-------+ | hydrOXYzine 25 mg | Take 5 mg by mouth. | | 0 | | | Activ | | oral tablet | | | | | | e | + + + +---------+------+------+-------+ Active Problems + + + | Problem | Noted Date | + + + | Hepatitis C, chronic | 07/25/2007 | + + + + + | Overview: 1 Liver biopsy 09/08/08 [facility] G3S3, previously 2004, | | Spencer Palmer, Reviewed at [facility] G2S22 HCV Genotype 1, Well | | compensated, no evidence of ascites, variceal hemorrhage, or | | encephalopathy 3 egd 09/07/[address] [facility], 7[facility] | | hypervascular lesion in [...] | + + + Family History + + +------+ + | Medical History | Relation | Name | Comments | + + +------+ + | Genetic | Neg Hx | | No genetic liver disease | + + +------+ + Social History + +-------+ +--------+ + [...] recent travel history available. | + + Last Filed Vital Signs + + + + + | Vital Sign | Reading | Time Taken | Comments | + + + + + | Blood Pressure | 161/99 | 06/17/2015 8:03 AM | | | | | PDT | | + + + + + | Pulse | 74 | 06/17/2015 8:03 AM | | | | | PDT | | + + + + + | Temperature | 36.8 C (98.2 F) | 06/17/2015 8:03 AM | | | | | PDT | | + + + + + | Respiratory Rate | 15 | 06/17/2015 8:03 AM | | | | | PDT | | + + + + + | Oxygen Saturation | 95% | 06/17/2015 8:03 AM | | | | | PDT | | + + + + + | Inhaled Oxygen | - | - | | | Concentration | | | | + + + + + | Weight | 120.8 kg (266 lb 6.4 | 06/17/2015 8:03 AM | | | | oz) | PDT | | + + + + + | Height | 162.6 cm (5' 4") | 06/17/2015 8:03 AM | | | | | PDT | | + + + + + | Body Mass Index | 45.73 | 06/17/2015 8:03 AM | | | | | PDT | | + + + + + Plan of Treatment + + + + + | Health Maintenance | Due Date | Last Done | Comments | + + + + + | Pneumococcal | | | | | vaccination (1 of | 9 | | | | - PPSV23) | | | | + + + + + | Influenza (Flu) | | | | | vaccination (Season | 9 | | | | Ended) | | | | + + + + + Results Not on filefrom Last 3 Months Insurance + +--------+ +--------+-------+---------+--------+ | Payer | Benefi | Subscriber | Effect | Phone | Address | Type | | | t Plan | ID | darin | | | | | | / | | Dates | | | | | | Group | | | | | | + +--------+ +--------+-------+---------+--------+ | CIRCUIT CLERK MEDICAID | CIRCUIT CLERK | xxxxxxxx | | | | Medica | | | [place] | | 014-[id number] | | | id | | | [place] | | esent | | | | + +--------+ +--------+-------+---------+--------+ + +--------+ +--------+ + + | Guarantor Name | Accoun | Relation to | Date | Phone | Billing Address | | | t Type | Patient | of | | | | | | | | | | + +--------+ +--------+ + + | Rosanna Hernández | Person | Self | [birth year] | [address] | | [place] | kayla/Ras | | 1961 | [phone] | [place] [address] | | | souleymane | | | [address] (Home) | | + +--------+ +--------+ + +
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
--- OUTSIDE RECORDS SUMMARY | ~2018-06-22 | XMS | Encounter Summary ---
Demographics + + + | Address | [address] | | | [place] [address] | + + + | Home Phone | | + + + | Preferred Language | Unknown | + + + | Marital Status | Single | + + + | Sikhism Affiliation | CHR | + + + [...] Team Providers + +------+ + | Care Undergraduate Internship Name | Role | Phone | + +------+ + | Alex Askew MD | PCP | Unavailable | + +------+ + Reason for Visit + + + | Reason | Comments | + + + | Returning Phone Call | | + + + Encounter Details +--------+ + + + + | Date | Type | Department | Care Team | Description | +--------+ + + + + | 08/08/ | Telephone | Digestive Health | Cyrus Huston, | Returning Phone Call | | 2013 | | Center at [facility] [address] | [place] | | | | | [address] | | | | | | Mailcode: [place] | | | | | | [facility] | | | | | | [facility] [place] [address] | | | | | | [place], [place] | | | | | | [address] | | | | | | [phone] | | | +--------+ + + + [...] on filedocumented as of this encounter Results ALPHA-FETOPROTEIN TUMOR MARKER, SERUM [...] | + + + + + | [facility] - | [address] | [place] [address] | | | [place] | | | | + + + + + documented in this encounter Visit Diagnoses + + | Diagnosis | + + | Hepatitis C, chronic (HCC) - Primary Chronic hepatitis C without mention of hepatic | | coma | + + | GERD (gastroesophageal reflux disease) Esophageal reflux | + + documented in this encounter"
--- OUTSIDE RECORDS SUMMARY | ~2018-06-22 | XMS | Encounter Summary ---
Demographics + + + | Address | [address] | | | [place] [address] | + + + | Home Phone [...] Team Providers + +------+ + | Care Small Brake Form Operator Name | Role | Phone | + +------+ + PCP | Unavailable | + +------+ + Encounter Details +--------+ + + + + | Date | Type | Department | Care Team | Description | +--------+ + + + + | 08/30/ | Abstract | [facility] Division of | Cyrus Huston, | | | 2005 | [facility] | Gastroenterology/Hep | [place] | | | | | atology [address] | | | | | | [address] | | | | | | Road Mailcode: | | | | | | [address] [facility] | | | | | | [address] | | | | | | [place], [place] | | | | | | [address] | | | | | | [phone] | | | +--------+ + + + [...]
--- OUTSIDE RECORDS SUMMARY | ~2018-06-22 | XMS | Encounter Summary ---
Demographics + + + | Address | [address] | | | [place] [address] | + + + | Home Phone [...] Author + + + | Author | [facility] | + + + | Organization | [facility] | + + + | [...] Team Providers + +------+ + | Care [facility] Name | Role | Phone | + +------+ + | Alex Askew MD | PCP | Unavailable | + +------+ + Encounter Details +--------+ + + + + | Date | Type | Department | Care Team | Description | +--------+ + + + + | 07/23/ | Results | Digestive Health | Cyrus Huston, | | | 2007 | Only | Center at [address] | [place] | | | | | [address] | | | | | | Mailcode: Center | | | | | | for Health and | | | | | | Healing, [address] | | | | | | [place], [place] | | | | | | [address] | | | | | | [phone] | | | +--------+ + + + [...] + + | DIFFERENTIAL | Routin | 07/24/2007 | | Results for this | | | e | 11:22 AM | | procedure are in the | | | | PDT | | results section. | + +--------+ + + + documented in this encounter Results DIFFERENTIAL (07/24/2007 11:22 AM PDT) + +---------+ + + + | Component | Value | Ref Range | Performed | Pathologist | | | | | At | Signature | + +---------+ + + + | NEUTROPHIL | 57 | 50 - 70 % | [facility] | | | % | | | DEPARTMENT | | | | | | OF | | | | | | PATHOLOGY | | + +---------+ + + + | LYMPHOCYTE | 28 | 18 - 42 % | [facility] | | | % | | | DEPARTMENT | | | | | | OF | | | | | | PATHOLOGY | | + +---------+ + + + | MONOCYTE % | 14 (H) | 2 - 8 % | [...] +---------+ + + + | NEUTROPHIL | 6.5 | 1.8 - 7.7 K/cu | [facility] | | | # | | mm | DEPARTMENT | | | | | | OF | | | | | | PATHOLOGY | | + +---------+ + + + | LYMPHOCYTE | 3.2 | 1.0 - 4.8 K/cu | [facility] | | | # | | mm | DEPARTMENT | | | | | | OF | | | | | | PATHOLOGY | | + +---------+ + + + | MONOCYTE # | 1.6 (H) | <0.9 K/cu mm | [facility] [...] | + + + + + | [facility] | [address] | [place] [address] | | | PATHOLOGY | [address] | | | + + + + + | [facility] DEPARTMENT OF | [address] | [place] [address] | | | PATHOLOGY | [address] | | | + + + + + documented in this encounter Visit Diagnoses Not on filedocumented in this encounter"
--- OUTSIDE RECORDS SUMMARY | ~2018-06-22 | XMS | Encounter Summary ---
Demographics + + + | Address | [address] | | | [place] [address] | + + + | Home Phone | | + + + | Preferred Language | Unknown | + + + | Marital Status | Single | + + + | Mormon Affiliation | CHR | + + + | Race | White | + + + | Ethnic Group | Not or | + + + Author + + + | Author | [facility] | + + + | Organization | [facility] | + + + | Address | [...] Providers + +------+ + | Care Medical Librarian Name | Role | Phone | + [...] | +--------+ + + + + | 05/05/ | Telephone | Digestive Health | [place] Nena Ríos | Discussion | | 2014 | | Center at [facility] [address] | MD Daniela [address] | | | | | [address] | [place], [place] | | | | | Mailcode: [place] | [address] | | | | | for Health and | [phone] | | | | | [place] [address] | | | | | | [place], [place] | | | | | | [address] | | | | | | [phone] | | | +--------+ + + + [...] on filedocumented as of this encounter Results US ABDOMEN COMPLETE (06/03/2014 [...] | | | + +---------+ + + HEPATITIS C QUANTITATIVE, PLASMA (06/03/2014 12:51 PM PDT) + + + + + + | Component | Value | Ref Range | Performed | Pathologist | | | | | At | Signature | + + + + + + | HEP C PCR | 1,700,000 (H) | Undetected | [facility] | | | QUANT, | | IU/mL [...] 12-100,000,000 IU/mL Low levels or serial | [facility] | | declines in the HCV viral [...] | + + + + + | [facility] | [address] | [place] [address] | | | DIAGNOSTIC | [address] [...] + | [facility] - | [address] | [place] [address] | | | [place] | | | | + + + [...] mech. valves (2.5 - 3.5) INR | SERVICES, CORE | + + + + + + + + | Performing | Address | City/State/Zipcode | Phone Number | | Organization | | | | + + + + + | [facility] | [address] | [place] [address] | | | SERVICES, CORE | [address] | | | + [...] | | | LABORATORY | | | [place] | | | SERVICES, | | | [...] the MDRD equation recommended by the | [facility] | | National Kidney Disease Education Program. [...] | + + + + + | [facility] | [address] | [place] [address] | | | SERVICES, CORE | [address] | | | + + + + + documented in this encounter Visit Diagnoses + + | Diagnosis | + + | Hepatitis C, chronic (HCC) - Primary Chronic hepatitis C without mention of hepatic | | coma | + + documented in this encounter"
--- OUTSIDE RECORDS SUMMARY | ~2018-06-22 | XMS | Encounter Summary ---
Demographics + + + | Address | [address] | | | [place] [address] | + + + | Home Phone | | + + + | Preferred Language | Unknown | + + + | Marital Status | Single | + + + | Hoahaoism Affiliation | CHR | + + + [...] Team Providers + +------+ + | Care Wireless Cellular Technician Name | Role | Phone | + +------+ + | Alex Askew MD | PCP | Unavailable | + +------+ + Reason for Visit + + + | Reason | Comments | + + + | Pain | | + + + | Painful swallowing | | + + + | Nausea and vomiting | | + + + Encounter Details +--------+---------+ + + + | Date | Type | Department | Care Team | Description | +--------+---------+ + + + | 09/12/ | Office | [facility] Division of | Cyrus Huston, | Cirrhosis of Liver | | 2005 | Visit | Gastroenterology/Hep | [place] | without Mention of | | | | atology [address] | | Alcohol; Chronic | | | | [address] | | Hepatitis C without | | | | Road Mailcode: | | Mention of Hepatic | | | | [address] | | Coma | | | | [address] | | | | | | [place], [place] | | | | | | [address] | | | | | | [phone] | | | +--------+---------+ + + + [...] + + + | Blood Pressure | 166/90 | 09/12/2005 10:15 AM | | | | | PDT | | + + + + + | Pulse | 84 | 09/12/2005 10:15 AM | | | | | PDT | | + + + + + | Temperature | 36.7 C (98 F) | 09/12/2005 10:15 AM | | | | | PDT | | + + + + + | Respiratory Rate | - | - | | + + + + + | Oxygen Saturation | - | - | | + + + + + | Inhaled Oxygen | - | - | | | Concentration | | | | + + + + + | Weight | 114.3 kg (252 lb) | 09/12/2005 10:15 AM | | | | | PDT | | + + + + + | Height | - | - | | + + + + + | Body Mass Index | - | - | | + + + + + documented in this encounter Progress Notes Huston Cyrus - 09/12/2005 1:24 PM PDTFormatting of this note might be different from magan monroe original. HEPATOLOGY FOLLOW UP VISIT Diagnoses Cirrhosis of the liver related to chronic hepatitis C infection. 1.1 Liver biopsy 2003, Spencer Palmer, Cirrhosis by report 1.3 HCV Genotype 1, Well compensated, no evidence of ascites, variceal hemorrhage, or encep halopathy 1.4 Screening for varices, egd 09/07/[address] abd [facility], 7mm hypervascular lesion in right lobe [...] 5.GERD 5.1 Stable on protonix Current outpatient prescriptions: NAPROXEN 500 MG TAB XANAX 0.25 MG TAB TRAZODONE 50 MG TAB PROTONIX 40 MG TAB ALBUTEROL 90 MCG/ACTUATION AEROSOL INHALER Allergy: Allergies: Vicodin (hydrocodon* Comment: nervousness/paranoia Ampicillin Hives Subjective: Ms. Ruben is seen in Hepatology clinic for follow up of Cirrhosis of Liver, an d Chronic Hepatitis C infection. She continues to do relatively well overall. She completed her CT and EGD last week, she did have a slight sore throat 2 days following the egd that wa s followed by nausea and vomiting for 24 hours the next day but this has now resolved. She states that her current symptoms are mostly memory or concentration changes and fatigue . She denies fluid accumulation in feet/ankles, fluid accumulation in abdomen, blood in bowel movements or black tarry bm's. No past medical history on file. Review of Systems: All other systems otherwise negative. Objective: BP 166/90 | Pulse 84 | Temp (Src) 98 (Oral) | Wt 252 lbs (114.3kg) Social History: Currently smoking: no Current alcohol use: no Currently employed: yes Good social support: yes Rosanna is well nourished and appropriate in appearance. General: healthy, alert and cooperative. HEENT: Normal, sclerae anicteric. Respiration: normal CTAB,and good air exchange. Cardiac: Regular rate and rhythm. Abdomen: Soft, normal bowel sounds, no tenderness, no hepatosplenomegaly. Neuro: normal, alert with no asterixis. Pysch: Normal speech pattern and thought process linear. Extremities: Normal, no edema, or skin discolorations. Skin: Skin color, texture, turgor normal. No rashes or lesions. Warm and dry without rash es, lesions or spider hemangomota. Laboratory Data: SODIUM (LAB) (mmol/L) Date Value 05/25/2005 136 CREATININE (mg/dL) Date Value 05/25/2005 0.8 AST(SGOT) (U/L) Date Value 05/25/2005 42* ALT (SGPT) (U/L) Date Value 05/25/2005 57* BILIRUBIN TOTAL (mg/dL) Date Value 05/25/2005 0.6 ALBUMIN (LAB) (g/dL) Date Value 05/25/2005 3.6 WHITE CELL COUNT (K/cu mm) Date Value 05/25/2005 9.5 HEMOGLOBIN (g/dL) Date Value 05/25/2005 14.7 MCV (fL) Date Value 05/25/2005 90.3 PLATELET COUNT (K/cu mm) Date Value 05/25/2005 303 05/25/[address] and egd reports reviewed with the pt today as outlined above Assessment: 1. Cirrhosis, stable, no decompensation, screening for varices up to date, screening for he patoma done, due to the small indeterminate mass in the right lobe of liver, recommend an re peat afp in 3 months via pcp, will have f/u MRI of liver in 6 months at [facility]. She will continue to avoid etoh and will keep working on slow weight loss, we discussed thi s in detail today. 2. HCV, previously completed peg/ifn for 48 weeks with breakthrough during tx. There is no evidence that he last course of tx was compromised in any way and so we discussed the likely hein of SVR with repeat treatment at this time as being quite low, around 10%. We decided no t to persue additional ifn tx at this time but will await new treatment regimens hopefully i n the next 3 years or so. Plan: 1. defer further ifn tx at this time 2. Repeat AFP in [address] Askew 3. Increased activity, decreased caloric intake with a goal of gradual wt loss of 1-2 lbs/w [place] 3. MRI of liver, cmp,cbc,pt in 6 months at [facility] with F/U in hepatology the following day Cyrus Huston PA-C Custody Officerict trainer [facility] Division of Gastroenterology/Hepatology documented in this encoun ter Plan of Treatment Not on filedocumented as of this encounter Results PROTHROMBIN TIME (03/16/2006 2:13 PM PST) + [...] | + + + + + | [facility] | [address] | [place] [address] | | | PATHOLOGY | [address] | | | + + + + + | [facility] | [address] | [place] [address] | | | PATHOLOGY | [address] [...] | + + + + + | [facility] DEPARTMENT | [address] | [place] [address] | | | PATHOLOGY | [address] | | | + + + + + | [facility] | [address] [facility] [address] | [place] [address] | | | PATHOLOGY | [address] [...] Performed At | + + + | [id number] Estimated GFR > 60 mL/min/1.73 sq m if non- | [facility] | | [id number] Estimated GFR > 60 mL/min/1.73 sq m [...] | + + + + + | [facility] DEPARTMENT | [facility] [facility] | [place] [address] | | | PATHOLOGY | [address] | | | + + + + + | [facility] DEPARTMENT OF | [address] [facility] | [place] [address] | | | PATHOLOGY | [address] | | | + + + + + documented in this encounter Visit Diagnoses + + | Diagnosis | + + | Cirrhosis of liver without mention of alcohol | + + | Chronic hepatitis C without mention of hepatic coma | + + documented in this encounter"
--- OUTSIDE RECORDS SUMMARY | ~2018-06-22 | XMS | Encounter Summary ---
Demographics + + + | Address | [address] | | | [place] [address] | + + + | Home Phone [...] Author + + + | Author | [facility] | + + + | Organization | [facility] | + + + | [...] Team Providers + +------+ + | Care Application Support Administrator Name | Role | Phone | + +------+ + | Alex Askew MD | PCP | Unavailable | + +------+ + Encounter Details +--------+---------+ + + + | Date | Type | Department | Care Team | Description | +--------+---------+ + + + | 03/17/ | Office | [facility] | Cyrus Huston, | Cirrhosis of Liver | | 2006 | Visit | Center at [facility] [address] | [place] | without Mention of | | | | [address] | | Alcohol; Chronic | | | | Mailcode: Center | | Hepatitis C without | | | | for Health and | | Mention of Hepatic | | | | Healing, [address] | | Coma | | | | [place], [place] | | | | | | [address] | | | | | | [phone] | | | +--------+---------+ + + + [...] + + + | Blood Pressure | 110/80 | 03/17/2006 3:30 PM | | | | | PST | | + + + + + | Pulse | 80 | 03/17/2006 3:30 PM | | | | | PST | | + + + + + | Temperature | 36.6 C (97.8 F) | 03/17/2006 3:30 PM | | | | | PST | | + + + + + | Respiratory Rate | 16 | 03/17/2006 3:30 PM | | | | | PST | | + + + + + | Oxygen Saturation | - | - | | + + + + + | Inhaled Oxygen | - | - | | | Concentration | | | | + + + + + | Weight | 112.9 kg (249 lb) | 03/17/2006 3:30 PM | | | | | PST | | + + + + + | Height | 162.6 cm (5' 4") | 03/17/2006 3:30 PM | | | | | PST | | + + + + + | Body Mass Index | 42.74 | 03/17/2006 3:30 PM | | | | | PST | | + + + + + documented in this encounter Progress Notes Cyrus Huston - 03/26/2006 6:36 PM PSTFormatting of this note might be different from th e original. HEPATOLOGY FOLLOW UP VISIT Cirrhosis of the liver related to chronic hepatitis C infection. 1.1 Liver biopsy 2003, Spencer Palmer, Cirrhosis by report 1.3 HCV Genotype 1, Well compensated, no evidence of ascites, variceal hemorrhage, or encep halopathy 1.4 Screening for varices, egd 09/07/[address] of abd [facility], 7mm [...] Stable on protonix Current outpatient prescriptions Medication NAPROXEN 500 MG TAB XANAX 0.25 MG [...] hepatic encephalopathy or hepa tocellular carcinoma. She states that her current symptoms are fatigue. She denies nausea and vomiting, fluid accumulation in feet/ankles, fluid accumulation in ab domen, blood in bowel movements or black tarry bm's, memory or concentration changes, weight loss and early satiety. Past medical history: As above Review of Systems: General: No fatigue, weight loss or gain, fevers, chills or night sweats. Eyes: No jaundice, changes in visual acuity, or eye pain. Respiratory: No cough, chest pain, dyspnea or hemoptysis. Cardiovascular: No chest pain, edema or syncope. Skin: No rashes, lesions or skin changes. All other systems otherwise negative. Social History: Current alcohol use: no Currently employed: no Good social support: yes Objective: BP 110/80 | Pulse 80 | Temp (Src) 97.8 F (36.6 C) (Oral) | Resp 16 | Ht 1.626 m (5' 4") | Wt 112.946 kg (249 lbs) General: Alert, NAD. HEENT: Normal, sclerae anicteric. Respiration: Normal CTAB, and good air exchange. Cardiac: Regular rate and rhythm. Chest: tenderness along R costal margin Abdomen: Soft, non-distended, normal bowel sounds, no [...] WHITE CELL COUNT (K/cu mm) Date Value 03/16/2006 9.6 05/25/2005 9.5 HEMOGLOBIN (g/dL) Date Value 03/16/2006 14.9 05/25/2005 14.7 MCV (fL) Date Value 03/16/2006 90.3 05/25/2005 90.3 PLATELET COUNT (K/cu mm) Date Value 03/16/2006 253 05/25/2005 303 Assessment: 1 Cirrhosis of the liver, stable, repeat hepatic imaging pending, pt had small lesion on pr evious u/s. Otherwise no issues. 2 Hepatitis C infection, non-responder to pegifn/ribavirin, defer tx at this time. Plan: 1 await results of MRI 2 Call for results in 2 weeks 3 Rtc 6 months CYRUS GRUBBS documented in this encoun ter Plan of Treatment Not on filedocumented as of this encounter Visit Diagnoses + + | Diagnosis | + + | Cirrhosis of liver without mention of alcohol | + + | Chronic hepatitis C without mention of hepatic coma | + + documented in this encounter
--- OUTSIDE RECORDS SUMMARY | ~2018-06-22 | XMS | Encounter Summary ---
Demographics + + + | Address | [address] | | | [place] [address] | + + + | Home Phone [...] Team Providers + +------+ + | Care Superintendent Quarry Name | Role | Phone | + +------+ + | Alex Askew MD | PCP | Unavailable | + +------+ + Encounter Details +--------+ + + + + | Date | Type | Department | Care Team | Description | +--------+ + + + + | 10/21/ | Document-Sc | UNKNOWN DEPARTMENT | Unknown . | | | 2015 | anned | [address] | | | | | | [facility] | | | | | | [place], [place] | | | | | | [address] | | | +--------+ + + + [...] + + | LAB REPORTS | | 10/21/2014 | | Results for this | | | | 12:00 AM | | procedure are in the | | | | PDT | | results section. | + +--------+ + + + documented in this encounter Results LAB REPORTS (10/21/2014 12:00 AM PDT) + + + | Narrative | Performed At | + + + | | | + + + documented in this encounter Visit Diagnoses Not on filedocumented in this encounter"
--- OUTSIDE RECORDS SUMMARY | ~2018-06-22 | XMS | Encounter Summary ---
Demographics + + + | Address | [address] | | | [place] [address] | + + + | Home Phone | | + + + | Preferred Language | Unknown | + + + | Marital Status | Single | + + + | Tenriism Affiliation | CHR | + + + [...] Team Providers + +------+ + | Care Professional Advisor Name | Role | Phone | + +------+ + | Alex Askew MD | PCP | Unavailable | + +------+ + Encounter Details +--------+------+ + + + | Date | Type | Department | Care Team | Description | +--------+------+ + + + | 08/07/ | Lab | Laboratory at [facility] | | Hepatitis C, chronic | | 2013 | | [address] | | (HCC) | | | | [place], [place] | | | | | | [address] | | | | | | [phone] | | | +--------+------+ + + + [...] + +--------+ + + + | CBC AND AUTO DIFF | Routin | 08/07/2013 | Hepatitis C, | Results for this | | | e | 8:39 AM | chronic (HCC) | procedure are in the | | | | PDT | | results section. | + +--------+ + + + | INR | Routin | 08/07/2013 | Hepatitis C, | Results for this | | | e | 8:39 AM | chronic (HCC) | procedure are in the | | | | PDT | | results section. | + +--------+ + + + | CBC, WITH | Routin | 08/07/2013 | Hepatitis C, | Results for this | | DIFFERENTIAL | e | 8:39 AM | chronic (HCC) | procedure are in the | | | | PDT | | results section. | + +--------+ + + + | COMPLETE METABOLIC | Routin | 08/07/2013 | Hepatitis C, | Results for this | | SET | e | 8:39 AM | chronic (HCC) | procedure are in the | | (NA,K,CL,CO2,BUN,CRE | | PDT | | results section. | | AT,GLUC,CA,AST,ALT,B | | | | | | ENA TOTAL,ALK | | | | | | PHOS,ALB,PROT TOTAL) | | | | | + +--------+ + + + documented in this encounter Results CBC AND AUTO DIFF (08/07/2013 8:39 AM PDT) + + + + + + | Component | Value | Ref Range | Performed | Pathologist | | | | | At | Signature | + + + + + + | WHITE CELL | 8.95 | 4.40 - 11.00 | [facility] | | | COUNT | | K/cu mm | LABORATORY | | | | | | SERVICES, | | | | | | [facility] | | | | | | [facility] | | + + + + + + | RED CELL | 4.52 | 4.00 - 5.20 | [facility] | | | COUNT | | M/cu mm | LABORATORY | | | | | | SERVICES, | | | | | | [facility] + | | | | | | [facility] | | + + + + + + | HEMOGLOBIN | 14.3 | 12.0 - 16.0 | [facility] | | | | | g/dL | LABORATORY | | | | | | SERVICES, | | | | | | [facility] + | | | | | | [facility] | | + + + + + + | HEMATOCRIT | 39.8 | 36.0 - 46.0 % | [facility] | | | | | | LABORATORY | | | | | | SERVICES, | | | | | | [facility] + | | | | | | [facility] | | + + + + + + | MCV | 88.1 | 80.0 - 96.0 fL | [facility] | | | | | | LABORATORY | | | | | | SERVICES, | | | | | | [facility] + | | | | | | [facility] | | + + + + + + | MCHC | 35.9 | 33.0 - 35.5 | [facility] | | | | | g/dL | LABORATORY | | | | | | SERVICES, | | | | | | [facility] + | | | | | | [facility] | | + + + + + + | RDW SD | 40.0 | 35.1 - 46.3 fL | [facility] | | | | | | LABORATORY | | | | | | SERVICES, | | | | | | [facility] + | | | | | | [facility] | | + + + + + + | PLATELET | 242 | 150 - 400 K/cu | [facility] | | | COUNT | | mm | LABORATORY | | | | | | SERVICES, | | | | | | [facility] + | | | | | | [facility] | | + + + + + + | MPV | 10.5 | 9.7 - 12.3 fL | [facility] | | | | | | LABORATORY | | | | | | SERVICES, | | | | | | [facility] + | | | | | | [facility] | | + + + + + + | NEUTROPHIL | 64.0 | 50.0 - 70.0 % | [facility] | | | % | | | LABORATORY | | | | | | SERVICES, | | | | | | [facility] | [facility] + | | | | | | [facility]ALING | | + + + + + + | LYMPHOCYTE | 23.7 | 18.0 - 42.0 % | [facility] | | | % | | | LABORATORY | | | | | | SERVICES, | | | | | | [facility] + | | | | | | [facility]AL[facility] | | + + + + + + | MONOCYTE % | 10.3 (H) | 3.5 - 9.0 % | [facility] | | | | | | LABORATORY | | | | | | SERVICES, | | | | | | [facility] + | | | | | | [facility]AL[facility] | | + + + + + + | EOS % | 1.6 | 1.0 - 3.0 % | [facility] | | | | | | LABORATORY | | | | | | SERVICES, | | | | | | [facility] + | | | | | | [facility]ALING | | + + + + + + | BASO % | 0.4 | 0.0 - 2.0 % | [facility] | | | | | | LABORATORY | | | | | | SERVICES, | | | | | | [facility] + | | | | | | [facility]ALING | | + + + + + + | NEUTROPHIL | 5.73 | 1.80 - 7.70 | [facility] | | | # | | K/cu mm | LABORATORY | | | | | | SERVICES, | | | | | | [facility] + | | | | | | HEALING | | + + + + + + | LYMPHOCYTE | 2.12 | 1.00 - 4.80 | [facility] | | | # | | K/cu mm | LABORATORY | | | | | | SERVICES, | | | | | | [facility] + | | | | | | [facility]ALING | | + + + + + + | MONOCYTE # | 0.92 (H) | 0.10 - 0.90 | [facility] | | | | | K/cu mm | LABORATORY | | | | | | SERVICES, | | | | | | [facility] + | | | | | | [facility]ALING | | + + + + + + | EOS # | 0.14 | 0.00 - 0.50 | [facility] | | | | | K/cu mm | LABORATORY | | | | | | SERVICES, | | | | | | [facility] | [facility] + | | | | | | [facility]ALING | | + + + + + + | BASO # | 0.04 | 0.00 - 0.10 | [facility] | | | | | K/cu mm | LABORATORY | | | | | | SERVICES, | | | | | | [facility] | | [facility] + | | | | | | HEALING | | + + + + + + + + | Specimen | + + | Blood - Blood | + + + + + + + | Performing | Address | City/State/Zipcode | Phone Number | | Organization | | | | + + + + + | [facility] | [address] | [place] [address] | | | [facility] | | | | [facility] + [facility]ALING | | | | + + + + + INR (08/07/2013 8:39 AM PDT) + +-------+ [...] + | [facility] | [address] | [place] [address] | | | SERVICES, [facility] [address] | | | + [...] | | | LABORATORY | | | [place] | | | SERVICES, | | | [...] + + + + + | [facility] | [address] | [place] [address] | | | SERVICES, CORE | [address] | | | + + + + + documented in this encounter Visit Diagnoses + + | Diagnosis | + + | Hepatitis C, chronic (HCC) Chronic hepatitis C without mention of hepatic coma | + + documented in this encounter"
--- OUTSIDE RECORDS SUMMARY | ~2018-06-22 | XMS | Encounter Summary ---
Demographics + + + | Address | [address] | | | [place] [address] | + + + | Home Phone | | + + + | Preferred Language | Unknown | + + + | Marital Status | Single | + + + | Muslim Affiliation | Unknown | + + + | Race | Unknown | + + + | Ethnic Group | Unknown | + + + Author + + + | Author | [facility] | + + + | Organization | [facility] | + + + | Address | Unknown | + + + | Phone | Unavailable | + + + Support + + +---------+ + | Name | Relationship | Address | Phone | + + +---------+ + | Ramos Oconnor | ECON | Unknown | | + + +---------+ + | Gus Miranda | ECON | Unknown | | + + +---------+ + | Bernabe Hernández | ECON | Unknown | | + + +---------+ + Care Team Providers + +------+ + | Care Feedmobile Driver Name | Role | Phone | + +------+ + | Alex Askew MD | PCP | | + +------+ + Encounter Details +--------+ + + + + | Date | Type | Department | Care Team | Description | +--------+ + + + + | 04/16/ | Telephone | [facility] [place] | Silas, Betzy Church, NICOLASA | | | 2018 | | [facility] | | | | | | [address] | | | | | | [address] | | | | | | [place] [address] | | | | | | [phone] | | | +--------+ + + + + Social History + + + +--------+ + | Tobacco Use | Types | Packs/Day | Years | Date | | | | | Used | | + + + +--------+ + | Former Smoker | Cigarettes | 4 | 2 | 02/06/1978 - | | | | | | 02/07/1980 | + + + +--------+ + + +---+---+---+ | Smokeless Tobacco: | | | | | Never Used | | | | + +---+---+---+ + + +---------+ + | Alcohol Use | Drinks/We | oz/Week | Comments | | | ek | | | + + +---------+ + | No | 0 | 0.0 | heavy drinker in past hx., quit @ age: 26 | | | Standard | | years | | | drinks or | | | | | | | | | | equivalen | | | | | t | | | + + +---------+ + + + + | Sex Assigned at | Date Recorded | | | | + + + | Not on file | | + + + as of this encounter Plan of Treatment Not on fileas of this encounter Visit Diagnoses Not on filein this encounter"
--- OUTSIDE RECORDS SUMMARY | ~2018-06-22 | XMS | Encounter Summary ---
Demographics + + + | Address | [address] | | | [place] [address] | + + + | Home Phone [...] Author + + + | Author | [facility] | + + + | Organization | [facility] | + + + | [...] Providers + +------+ + | Care Supervisor Boat Outfitting Name | Role | Phone | + +------+ + | Alex Askew MD | PCP | Unavailable | + +------+ + Reason for Visit AUTH/CERT +--------+--------+ + + + + | Status | Reason | Specialty | Diagnoses / | Referred By | Referred To | | | | | Procedures | Contact | Contact | +--------+--------+ + + + + | Closed | | | | | | +--------+--------+ + + + + Encounter Details +--------+ + + + + | Date | Type | Department | Care Team | Description | +--------+ + + + + | 08/22/ | Hospital | [facility] | Kristian Taveras MD | | | 2013 | Encounter | [address] | [address] | | | | | [facility] | Deja Dougherty [place], | | | | | [facility] AND | [place] [address] | | | | | HEALING [place], | [phone] | | | | | [place] [address] | | | | | | [phone] | | | +--------+ + + + [...] + + + | Blood Pressure | 127/65 | 08/22/2013 10:07 AM | | | | | PDT | | + + + + + | Pulse | 71 | 08/22/2013 10:07 AM | | | | | PDT | | + + + + + | Temperature | 36.6 C (97.8 F) | 08/22/2013 8:52 AM | | | | | PDT | | + + + + + | Respiratory Rate | 16 | 08/22/2013 10:07 AM | | | | | PDT | | + + + + + | Oxygen Saturation | 98% | 08/22/2013 10:07 AM | | | | | PDT | | + + + + + | Inhaled Oxygen | - | - | | | Concentration | | | | + + + + + | Weight | 113.4 kg (250 lb) | 08/22/2013 8:52 AM | | | | | PDT | | + + + + + | Height | - | - | | + + + + + | Body Mass Index | 42.91 | 08/07/2013 9:12 AM | | | | | PDT | | + + + + + documented in this encounter Discharge Instructions Instructions Sis Hancock RN - 08/22/2013 Home Care Instructions after EGD (Upper Endoscopy) & Colonoscopy You may resume your normal diet and medications unless told otherwise. Medications The medications you received for your procedure can cause you to be forgetful and drowsy an d will take the remainder of the day to wear off. DO NOT drink alcohol, drive, operate heavy machinery, sign legal documents, or make major d ecisions until tomorrow. Common After Effects Sore throat. You may treat it with throat lozenges and/or gargle with warm salt water. You may bruise at your IV site. If you have pain, redness, or swelling at your IV site, apply a warm compress. Mild abdominal pain, bloating, and excessive gas. This is caused by the air that was put in your colon during the procedure. These symptoms will improve as you pass gas. Activity Light activity such as walking will help you pass the air that was put into your colon. Complications Call your GI doctor if you have: Abnormal pain or any new unexplained symptoms. Bright red rectal bleeding Shortness of breath, chest or neck pain. Vomiting blood or rectal bleeding. Fever above 101.5 Redness, pain, or swelling at your IV site that is not relieved with warm compress. For any questions related to your procedure, call Monday- Monday 8:00- 4:30 Endoscopy Toll Free ext [phone] or After business hours, or on weekends and holiday Hospital OperatorToll Free [phone] ext. [phone] and have the GI doctor web operations manager paged. The provider who performed your procedure is: Dr. Taveras Results of your EGD: No Varices, no ulcers, biopsies to rule our huff's esophagus Results of your Colonoscopy: Poor prep. You will need another gallon of Golytely and come back tomorrow if possible Recommended follow up Colonoscopy: years Biopsies were taken, they will be sent to the laboratory. You and your referring doctor will get a letter with biopsy results in approximately 2 week s. Follow up Appointments with: Your primary care provider or Referring provider will receive copies of the procedure repo rt and all the pathology reports with recommendations for treatment if needed. AttachmentsThe following attachments cannot be sent through Care Everywhere.HUFF'S ESOPH REGINALD (HUNGARIAN)documented in this encounter Medications at Time of [...] daily. | | | | | | release(/EC) | | | | | | + [...] +---------+--------+ + documented as of this encounter Progress Notes Kristian Taveras MD - 08/22/2013 8:46 AM PDTFormatting of this note might be different from th e original. PRE PROCEDURE NOTE: Subjective: Rosanna Hernández is a 53 y.o. female MR# [id number] presents today for EGD + colonoscopy. PARQ held and all questions addressed. Objective: Vital Signs: There were no vitals taken for this visit. Neuro: patient is Patient oriented X3. Mental status clear and intact Neck negative Respiratory Lungs clear to auscultation bilaterally with good air exchange Cardiac Regular Rate and Rhythm. Abdomen: soft, normal active bowel sounds, nontender, no masses, no organomegaly Medications: Meds reviewed Allergies: Allergies as of 08/15/2013 - Fully Reviewed 08/07/2013 Allergen Reaction Noted Cephalexin Pruritis, Rash, and Edema 05/22/2009 Lisinopril Wheez/Dyspnea, Cough, and Edema 05/22/2009 Ampicillin Hives 09/12/2005 See procedure note 08/22/2013 documented in this encoun ter Plan of Treatment Not on filedocumented as of this encounter Procedures + +--------+ + + + | Procedure Name | Priori | Date/Time | Associated Diagnosis | Comments | | | ty | | | | + +--------+ + + + | COLONOSCOPY | | 08/22/2013 | | Results for this | | | | 12:00 AM | | procedure are in the | | | | PDT | | results section. | + +--------+ + + + | EGD | | 08/22/2013 | | Results for this | | | | 12:00 AM | | procedure are in the | | | | PDT | | results section. | + +--------+ + + + | SURGICAL PATHOLOGY | Routin | 08/22/2013 | | Results for this | | | e | | | procedure are in the | | | | | | results section. | + +--------+ + + + documented in this encounter Results COLONOSCOPY (08/22/2013 12:00 AM PDT) + + + | Narrative | Performed At | + + + | | | | | | + + + + + | Procedure Note | + + | Other, Faculty - 08/22/2013 9:39 AM PDT | + + EGD (08/22/2013 12:00 AM PDT) + + + | Narrative | Performed At | + + + | | | | | | + + + + + | Procedure Note | + + | Ld Faculty - 08/22/2013 9:29 AM PDT | + + SURGICAL PATHOLOGY (08/22/2013) + + + + + + | Component | Value | Ref Range | Performed | Pathologist | | | | | At | Signature | + + + + + + | SURGICAL | SOURCE OF SPECIMEN:A | | [facility] | | | PATHOLOGY | Antral biopsySOURCE OF | | DEPARTMENT | | | | SPECIMEN:B Esophagus | | OF | | | | biopsy Final | | PATHOLOGY | | | | Pathologic | | | | | | Diagnosis:A: Antrum, | | | | | | biopsy: - | | | | | | Antral-type gastric | | | | | | mucosa with no | | | | | | diagnostic | | | | | | abnormality | | | | | | B: Esophagus, | | | | | | biopsy: - | | | | | | Squamocolumnar junction | | | | | | mucosa, negative for | | | | | | intestinal metaplasiaand | | | | | | dysplasia Case | | | | | | seen by:Ori Pagan | | | | | | Mannie/Student | | | | | | Grabiel Owen, | | | | | | Ronen/PathologistT: | | | | | | 4:kaia Clinical | | | | | | History:The patient is a | | | | | | 53-year-old female with | | | | | | gastritis, rule out | | | | | | Huff's. Gross | | | | | | Description:Received | | | | | | are 2 specimens in | | | | | | formalin in containers | | | | | | labeled with the | | | | | | patientname (initials | | | | | | CG) and: | | | | | | A: Antral | | | | | | biopsy: Received is a | | | | | | mendez-pink fragment of | | | | | | soft tissuemeasuring 0.5 | | | | | | cm in greatest | | | | | | dimension. The entire | | | | | | specimen is | | | | | | submitted. | | | | | | B: Esophagus | | | | | | biopsy: Received are | | | | | | 2 mendez-pink fragments of | | | | | | soft tissuemeasuring 0.1 | | | | | | cm and 0.3 cm in | | | | | | greatest | | | | | | dimension. The entire | | | | | | specimen | | | | | | issubmitted. | | | | | | Cassette | | | | | | Index:A: Antral | | | | | | biopsy:A1B: Esophagus | | | | | | biopsy:[id number]:tp | | | | | | My electronic signature | | | | | [...] | | | | | | Diagnostician: Radha Suarez | | | | | | Lexie | | | | | | RonenPathologistAlexandriai | | | | | | marry Signed | | | | | | 08/27/2013 4:52PM | | | | + + + + + + + + | Specimen | + + | Tissue - Biopsy | + + + + + + + | Performing | Address | City/State/Zipcode | Phone Number | | Organization | | | | + + + + + | [facility] | [address] | [place] [address] | | | PATHOLOGY | [address] | | | + + + + + documented in this encounter Visit Diagnoses Not on filedocumented in this encounter"
--- OUTSIDE RECORDS SUMMARY | ~2018-06-22 | XMS | Encounter Summary ---
Demographics + + + | Address | [address] | | | [place] [address] | + + + | Home Phone | | + + + | Preferred Language | Unknown | + + + | Marital Status | Single | + + + | Anglican Affiliation | CHR | + + + | Race | White | + + + | Ethnic Group | Not or | + + + Author + + + | Author | [facility] | + + + | Organization | [facility] | + + + | [...] Team Providers + +------+ + | Care Biostatistics Professor Name | Role | Phone | + [...] | +--------+ + + + + | 09/18/ | Telephone | [facility] | [place] | Follow-up encounter | | 2015 | | Center at [facility] [address] | E, MD [address] | | | | | [address] | [address] [facility] [place] | | | | | Mailcode: [place] | [address] | | | | | for Health and | [phone] | | | | | [place] [address] | | | | | | [place], [place] | | | | | | [address] | | | | | | [phone] | | | +--------+ + + + [...]
--- OUTSIDE RECORDS SUMMARY | ~2018-06-22 | XMS | Encounter Summary ---
Demographics + + + | Address | [address] | | | [place] [address] | + + + | Home Phone | | + + + | Preferred Language | Unknown | + + + | Marital Status | Single | + + + | Baptist Affiliation | CHR | + + + [...] Team Providers + +------+ + | Care Master Brewer Name | Role | Phone | + +------+ + | Alex Askew MD | PCP | Unavailable | + +------+ + Encounter Details +--------+ + + + + | Date | Type | Department | Care Team | Description | +--------+ + + + + | 04/01/ | Telephone | [facility] | [place] | | | 2015 | | Center at [facility] [address] Bryce Suarez MD [address] | | | | | [address] | [facility] [place] | | | | | Mailcode: [place] | [address] | | | | | for Health and | [phone] | | | | | Healing, [address] | | | | | | [place], [place] | | | | | | [address] | | | | | | [phone] | | | +--------+ + + + [...]
--- OUTSIDE RECORDS SUMMARY | ~2018-06-22 | XMS | Encounter Summary ---
Demographics + + + | Address | [address] | | | [place] [address] | + + + | Home Phone | | + + + | Preferred Language | Unknown | + + + | Marital Status | Single | + + + | Gnosticist Affiliation | CHR | + + + [...] Team Providers + +------+ + | Care Explosive Man Name | Role | Phone | + +------+ + | Alex Askew MD | PCP | Unavailable | + +------+ + Encounter Details +--------+ + + + + | Date | Type | Department | Care Team | Description | +--------+ + + + + | 12/26/ | Results/Int | Neurology at | Hemalatha Lazo | | | 2017 | erpretation | [facility] | MD Cassandra,[facility] [address] | | | | | Healing [address] | [address] [place], | | | | | [address] [place] Mail Code: | [place] [address] | | | | | [address] | [phone] | | | | | Health and Healing, | | | | | | [address]th floor [place], | | | | | | [place] [address] | | | | | | [phone] | | | +--------+ + + + [...] | + +--------+ + + + | EEG ROUTINE | Routin | 12/26/2016 | | Results for this | | | e | 1:05 PM | | procedure are in the | | | | PST | | results section. | + +--------+ + + + documented in this encounter Results EEG ROUTINE (12/26/2016 1:05 PM PST) + + + | Narrative | Performed At | + + + | Patient Name: Rosanna Hernández Date of : 1960 | [facility] | | Date of Test: 12/26/2016 | HOSPITAL | | Place of Service: [facility] Department: [facility] EEG TELEMEDICINE - | | | [phone] [facility] ROUTINE EEG Reason for Exam: | | | Assess seizure risk. History: Rosanna Hernández is a 56 | | | year old woman presenting with syncope. State: Awake, drowsy | | | Medications: ALBUTEROL 90 MCG/ACTUATION AEROSOL INHALER | | | ALBUTEROL IN amitriptyline 25 mg oral tablet amLODIPine 5 mg oral | | | tablet cyclobenzaprine 10 mg oral tablet diazepam 5 mg oral tablet | | | DULoxetine 60 mg oral capsule,delayed release(DR/EC) hydrOXYzine 25 | | | mg oral tablet hydrOXYzine pamoate 25 mg Oral Capsule losartan 100 | | | mg oral tablet meclizine 25 mg oral tablet medroxyPROGESTERone 10 mg | | | oral tablet metFORMIN 500 mg oral tablet METOPROLOL SUCCINATE ORAL | | | naproxen 500 mg oral tablet oxyCODONE, immediate release, 5 mg oral | | | tablet ribavirin 200 mg oral capsule timolol 10 mg Oral Tablet | | | Tramadol (ULTRAM ER) 300 mg Oral Tablet Sustained Release 24 hr | | | TRAZODONE 50 MG TAB XANAX 0.25 MG TAB | | | | | | Methods: This study was a Routine EEG with a duration of 29 minutes. | | | The recording was performed with routine electrodes applied | | | according to the 10-20 electrode placement system. Video, EKG, and EOG | | | monitoring were utilized. The recording was obtained on a digital | | | system. EEG computer review was utilized. Automated digital spike and | | | seizure detection analysis was used, along with patient-activated | | | alarms and nursing observations. The record was moderately limited | | | by movement artifact and impedence mismatch of some temporal leads, | | | particularly over the right. EEG Description: | | | Background: The background is symmetric, variable, reactive, and | | | with overall normal voltage. In the maximally alert state, there is | | | a well-modulated posterior dominant rhythm of 10 Hz that attenuates | | | with eye opening. Symmetric diffuse frontocentral beta range | | | activity was present. As the patient becomes drowsy, there is | | | diffuse slowing and attenuation of the background. No sleep was | | | captured. Focal slowing: None. Epileptiform | | | activity: None. Ictal activity: No seizures were recorded. | | | Clinical Events: No push-button events. | | | Activation: Sensory stimulation performed. | | | Hyperventilation: Performed for 3 minutes with fair effort that | | | was without pathological response. Intermittent Photic Stimulation | | | (IPS): Bilateral symmetric physiological driving of the occipital | | | rhythms was noted without pathological response. | | | EKG: Single EKG lead showed a normal sinus rhythm. | | | | | | Impression: This is a normal EEG capturing wakefulness and | | | drowsiness. No seizures, lateralizing or epileptiform | | | abnormalities were seen. Clinical Correlation: A normal EEG | | | does not rule out a clinical diagnosis of epilepsy. If clinically | | | indicated, a repeat tracing recording natural sleep may be helpful. | | | | | | Electronically signed on 12/26/2016 at 1:03 PM Hem[facility] Lazo, | | | ,[facility]. Reminders (can be deleted): Select "Urgent" in addition | | | to the EEG CPT if the study is an urgent request. Add "Telemedicine" | | | modifier Suggested Modifier: GT - Telemedicine Suggested CPT: | | | 29569 - EEG Routine Awake Only Suggested Dx: R55 Syncope and collapse | | | | | + + + + +---------+ + + | Performing | Address | City/State/Zipcode | Phone Number | | Organization | | | | + +---------+ + + | [facility] | | | [phone] | | [facility] | | | | + +---------+ + + | [facility] | | [place], [place] | [phone] | | HOSPITAL | | | | + +---------+ + + documented in this encounter Visit Diagnoses Not on filedocumented in this encounter
--- OUTSIDE RECORDS SUMMARY | ~2018-06-22 | XMS | Encounter Summary ---
Demographics + + + | Address | [address] | | | [place] [address] | + + + | Home Phone [...] Author + + + | Author | [facility] | + + + | Organization | [facility] | + + + | [...] Team Providers + +------+ + | Care Zoo Director Name | Role | Phone | [...] | | | | [facility] for | [place] [facility] | | | | | | Health and | Health and | | | | | | Healing, | Healing, | | | | | | Building 2 | [address] | | | | | | [place], [place] | [place], [place] | | | | | | [address] | [address] | | | | | | Phone: | Phone: | | | | | | [phone] | [phone] | | | | | | Fax: | Fax: | | | | | | [phone] | [phone] | +--------+--------+ + + + + Encounter Details +--------+---------+ + + + | Date | Type | Department | Care Team | Description | +--------+---------+ + + + | 10/18/ | Office | [facility] | Cyrus Huston, | Hepatitis c, chronic | | 2009 | Visit | [facility] [address] | [place] | (HCC) (Primary Dx) | | | | [address] | | | | | | Mailcode: Center | | | | | | for Health and | | | | | | Healing, [address] | | | | | | [place], [place] | | | | | | [address] | | | | | | [phone] | | | +--------+---------+ + + + [...] + + + | Blood Pressure | 137/74 | 11/23/2009 11:02 AM | | | | | PDT | | + + + + + | Pulse | 59 | 11/23/2009 11:02 AM | | | | | PDT | | + + + + + | Temperature | 36.4 C (97.6 F) | 11/23/2009 11:02 AM | | | | | PDT | | + + + + + | Respiratory Rate | 16 | 11/23/2009 11:02 AM | | | | | PDT | | + + + + + | Oxygen Saturation | - | - | | + + + + + | Inhaled Oxygen | - | - | | | Concentration | | | | + + + + + | Weight | 115.2 kg (253 lb | 11/23/2009 11:02 AM | | | | 14.4 oz) | PDT | | + + + + + | Height | - | - | | + + + + + | Body Mass Index | 43.58 | 05/22/2009 1:26 PM | | | | | PDT | | + + + + + documented in this encounter Progress Notes Cyrus Huston PA - 11/28/2009 9:05 PM PDTFormatting of this note might be different fro m the original. 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 Previo [...] GERD 3 Low back pain 4 COPD 5 DM Current outpatient prescriptions Medication Sig ALBUTEROL 90 MCG/ACTUATION AEROSOL INHALER inhale 1 puff by inhalation route every 4-6 hours as needed ALBUTEROL IN Inhale 0.85 mg. 4 times daily or more as needed diclofenac EC 75 mg Oral Tablet, Delayed Release (E.C.) Take 75 mg by mouth two times d aily. gabapentin 300 mg Oral Capsule Take 300 mg by mouth once daily at bedtime. For spasms hydrOXYzine pamoate 25 mg Oral Capsule Take 25 mg by mouth every four hours as needed. irbesartan (AVAPRO) 300 mg Oral Tablet Take 150 mg by mouth once daily. PROMETRIUM OR 4 tabs daily on the and the of each month timolol 10 mg Oral Tablet Take by [...] She states that her current symptoms are mild fatigue. She denies abdominal pain , nausea and vomiting, fluid accumulation in feet/ankles, fluid a ccumulation in abdomen, blood in bowel movements or black tarry bm's, memory or concentratio n changes and early satiety. Review of Systems: All other systems negative. Social History: Currently smoking: no Current alcohol use: no Currently employed: yes Good social support: yes Objective: BP 137/74 | Pulse 59 | Temp (Src) 36.4 C (97.6 F) (Oral) | RR 16 | Wt 115.168 kg (253 l b 14.4 oz) General: Alert, NAD. HEENT: Normal, sclerae [...] Laboratory Data: SODIUM (LAB) (mmol/L) Date Value 11/23/2009 134 05/22/2009 137 09/22/2008 140 CREATININE,PLASMA (mg/dL) Date Value 11/23/2009 1.12* 05/22/2009 0.85 09/22/2008 0.84 AST(SGOT) (U/L) Date Value 11/23/2009 44* 05/22/2009 116* 09/22/2008 84* ALT (SGPT) (U/L) Date Value 11/23/2009 61* 05/22/2009 141* 09/22/2008 88* BILIRUBIN TOTAL (mg/dL) Date Value 11/23/2009 0.8 05/22/2009 0.7 09/22/2008 0.7 ALBUMIN (LAB) (g/dL) Date Value 11/23/2009 3.6 05/22/2009 3.5 09/22/2008 3.3* WHITE CELL COUNT (K/cu mm) Date Value 11/23/2009 9.5 05/22/2009 9.0 09/22/2008 10.3 HEMOGLOBIN (g/dL) Date Value 11/23/2009 14.9 05/22/2009 15.0 09/22/2008 15.1 MCV (fL) Date Value 11/23/2009 97.3* 05/22/2009 91.7 09/22/2008 94.6 PLATELET COUNT (K/cu mm) Date Value 11/23/2009 198 05/22/2009 233 09/22/2008 268 Assessment/Plan: 070.54C Hepatitis c, chronic (primary encounter diagnosis) Comment Currently working on losing wt, new dx of dm, previous non-responder to pegifn/riba virin, discussed tx options, will monitor for progression and await DAA's, encouraged wt los s as method of improving svr rates Plan: COMPLETE METABOLIC SET (NA,K,CL,CO2,BUN,CREAT,GLUC,CA,AST,ALT,BILI TOTAL,ALK PHOS,ALB,PROT TOTAL), CBC, WITH DIFFERENTIAL, INR Counseling Time: I spent more than 25 minutes with this patient, over half of which was sp ent in education and counseling the patient regarding the natural history and prognosis of t heir disease. ROMIE AZUL documented in this en counter Plan of Treatment Not on filedocumented as of this encounter Results INR (11/23/2009 11:34 AM PDT) + + + + + + | Component | Value | Ref Range | Performed | Pathologist | | | | | At | Signature | + + + + + + | INR | 1.25 (H)Comment: | 0.90 - 1.20 INR | [facility] [...] | + + + + + | [facility] DEPARTMENT OF | [address] | [place] [address] | | | PATHOLOGY | [address] | | | + + + + + CBC, WITH DIFFERENTIAL (11/23/2009 11:34 AM PDT) + + + + + + | Component | Value | Ref Range | Performed | Pathologist | | | | | At | Signature | + + + + + + | WHITE CELL | 9.5 | 4.4 - 11.0 K/cu | [facility] | | | COUNT | | mm | DEPARTMENT | | | | | | OF | | | | | | PATHOLOGY | | + + + + + + | RED CELL | 4.43 | 4.00 - 5.20 | [facility] | | | COUNT | | M/cu mm | DEPARTMENT | | | | | | OF | | | | | | PATHOLOGY | | + + + + + + | HEMOGLOBIN | 14.9 | 12.0 - 16.0 | [facility] | | | | | g/dL | DEPARTMENT | | | | | | OF | | | | | | PATHOLOGY | | + + + + + + | HEMATOCRIT | 43.1 | 36.0 - 46.0 % | [facility] | | | | | | DEPARTMENT | | | | | | OF | | | | | | PATHOLOGY | | + + + + + + | MCV | 97.3 (H) | 80.0 - 96.0 fL | [facility] | | | | | | DEPARTMENT | | | | | | OF | | | | | | PATHOLOGY | | + + + + + + | MCHC | 34.6 | 33.4 - 35.5 | [facility] | | | | | g/dL | DEPARTMENT | | | | | | OF | | | | | | PATHOLOGY | | + + + + + + | RDW | 12.5 | 11.5 - 15.0 % | [facility] | | | | | | DEPARTMENT | | | | | | OF | | | | | | PATHOLOGY | | + + + + + + | PLATELET | 198 | 150 - 400 K/cu | [facility] [...] | + + + + + | [facility] | [address] | [place] [address] | | | PATHOLOGY | [address] | | | + + + + + COMPLETE METABOLIC SET (NA,K,CL,CO2,BUN,CREAT,GLUC,CA,AST,ALT,BILI TOTAL,ALK PHOS,ALB,PROT TOTAL) (11/23/2009 11:34 AM PDT) + + + + + + | Component | Value | Ref Range | Performed | Pathologist | | | | | At | Signature | + + + + + + | GLUCOSE, | 112 (H) | 60 - 99 mg/dL | [...] + + + + | CREATININE | 1.12 (H) | 0.60 - 1.10 | [facility] | | | PLASMA | | mg/dL | DEPARTMENT | | | (LAB) | | | OF | | | | | | PATHOLOGY | | + + + + + + | TOTAL | 7.6 [...] + + + + | CALCIUM, | 9.2 [...] + + + | ALK PHOS | 101 (H) | 42 - 98 U/L | [facility] | | | | | | DEPARTMENT | | | | | | OF | | | | | | PATHOLOGY | | + + + + + + | AST(SGOT) | 44 (H) | 15 - 41 U/L | [facility] | | | | | | DEPARTMENT | | | | | | OF | | | | | | PATHOLOGY | | + + + + + + | SODIUM, | 134 | 134 - 143 | [facility] | | | PLASMA | | mmol/L | DEPARTMENT | | | (LAB) | | | OF | | | | | | PATHOLOGY | | + + + + + + | POTASSIUM, | 3.6 | 3.4 - 5.0 | [facility] | | | PLASMA | | mmol/L | DEPARTMENT | | | (LAB) | | | OF | | | | | | PATHOLOGY | | + + + + + + | CHLORIDE, | 96 (L) | 97 - 108 mmol/L | [facility] | | | PLASMA | | | DEPARTMENT | | | (LAB) | | | OF | | | | | | PATHOLOGY | | + + + + + + | TOTAL CO2, | 32 (H) | 23 - 31 mmol/L | [facility] | | | PLASMA | | | DEPARTMENT | | | (LAB) | | | OF | | | | | | PATHOLOGY | | + + + + + + | ALT (SGPT) | 61 (H) | 13 - 48 U/L | [facility] | | | | | | DEPARTMENT | | | | | | OF | | | | | | PATHOLOGY | | + + + + + + | EGFR | > 60 | >60 mL/min | [facility] | | | - | | | DEPARTMENT | | | [place] | | | OF | | | | | | PATHOLOGY | | + + + + + + | EGFR NON | 52 (L)Comment: GFR is | >60 mL/min | [...] + + + | ANION GAP | 6 | 4 - 11 mmol/L | [facility] | | | | | | DEPARTMENT | | | | | | OF | | | | | | PATHOLOGY | | + + + + + + | ANION | 7 | 4 - 11 mmol/L [...] | + + + + + | [facility] | [address] | [place] [address] | | | PATHOLOGY | [address] | | | + + + + + documented in this encounter Visit Diagnoses + + | Diagnosis | + + | Hepatitis C, chronic (HCC) - Primary Chronic hepatitis C without mention of hepatic | | coma | + + documented in this encounter"
--- OUTSIDE RECORDS SUMMARY | ~2018-06-22 | XMS | Encounter Summary ---
Demographics + + + | Address | [address] | | | [place] [address] | + + + | Home Phone [...] Author | [facility] | + + + | Organization | [facility] | + + + | Address | [...] Team Providers + +------+ + | Care In House Cra Name | Role | Phone | + +------+ + | Alex Askew MD | PCP | Unavailable | + +------+ + Reason for Visit + + + | Reason | Comments | + + + | MRI Results | | + + + Encounter Details +--------+ + + + + | Date | Type | Department | Care Team | Description | +--------+ + + + + | 02/15/ | Telephone | [facility]ive [facility] | Cyrus Huston, | MRI Results | | 2006 | | [place] [facility] [address] | [place] | | | | | [address] | | | | | | Mailcode: [place] | | | | | | for Health and | | | | | | [facility] [address] | | | | | | [place], [place] | | | | | | [address] | | | | | | [phone] | | | +--------+ + + + [...]
--- OUTSIDE RECORDS SUMMARY | ~2018-06-22 | XMS | Encounter Summary ---
Demographics + + + | Address | [address] | | | [place] [address] | + + + | Home Phone [...] Team Providers + +------+ + | Care Mixer Slagman Name | Role | Phone | + +------+ + | Alex Askew MD | PCP | Unavailable | + +------+ + Encounter Details +--------+ + + + + | Date | Type | Department | Care Team | Description | +--------+ + + + + | 10/06/ | Document-Sc | UNKNOWN DEPARTMENT | Unknown . | | | 2015 | anned | [address] | | | | | | [facility] | | | | | | [place], [place] | | | | | | [address] | | | +--------+ + + + [...]
--- OUTSIDE RECORDS SUMMARY | ~2018-06-22 | XMS | Encounter Summary ---
Demographics + + + | Address | [address] | | | [place] [address] | + + + | Home Phone | | + + + | Preferred Language | Unknown | + + + | Marital Status | Single | + + + | Judaism Affiliation | CHR | + + + [...] Team Providers + +------+ + | Care End Frazer Name | Role | Phone | + +------+ + | Alex Askew MD | PCP | Unavailable | + +------+ + Encounter Details +--------+------+ + + + | Date | Type | Department | Care Team | Description | +--------+------+ + + + | 11/23/ | Lab | Laboratory at [facility] | | Hepatitis c, chronic | | 2009 | | [address] | | (HCC) | | | | [place], [place] | | | | | | [address] | | | | | | [phone] | | | +--------+------+ + + + [...] + + | DIFFERENTIAL | Routin | 11/23/2009 | | Results for this | | | e | 11:34 AM | | procedure are in the | | | | PDT | | results section. | + +--------+ + + + | INR | Routin | 11/23/2009 | Hepatitis c, | Results for this | | | e | 11:34 AM | chronic (HCC) | procedure are in the | | | | PDT | | results section. | + +--------+ + + + | CBC, WITH | Routin | 11/23/2009 | Hepatitis c, | Results for this | | DIFFERENTIAL | e | 11:34 AM | chronic (HCC) | procedure are in the | | | | PDT | | results section. | + +--------+ + + + | COMPLETE METABOLIC | Routin | 11/23/2009 | Hepatitis c, | Results for this | | SET | e | 11:34 AM | chronic (HCC) | procedure are in the | | (NA,K,CL,CO2,BUN,CRE | | PDT | | results section. | | AT,GLUC,CA,AST,ALT,B | | | | | | ENA TOTAL,ALK | | | | | | PHOS,ALB,PROT TOTAL) | | | | | + +--------+ + + + documented in this encounter Results DIFFERENTIAL (11/23/2009 11:34 AM PDT) + +---------+ + + + | Component | Value | Ref Range | Performed | Pathologist | | | | | At | Signature | + +---------+ + + + | NEUTROPHIL | 62 | 50 - 70 % | [facility] | | | % | | | DEPARTMENT | | | | | | OF | | | | | | PATHOLOGY | | + +---------+ + + + | LYMPHOCYTE | 24 | 18 - 42 % | [facility] | | | % | | | DEPARTMENT | | | | | | OF | | | | | | PATHOLOGY | | + +---------+ + + + | MONOCYTE % | 13 (H) | 2 - 8 % | [...] +---------+ + + + | NEUTROPHIL | 5.9 | 1.8 - 7.7 K/cu | [facility] | | | # | | mm | DEPARTMENT | | | | | | OF | | | | | | PATHOLOGY | | + +---------+ + + + | LYMPHOCYTE | 2.3 | 1.0 - 4.8 K/cu | [facility] | | | # | | mm | DEPARTMENT | | | | | | OF | | | | | | PATHOLOGY | | + +---------+ + + + | MONOCYTE # | 1.2 (H) | <0.9 K/cu mm | [facility] [...] + + + + | [facility] | [address] | [place] [address] | | | PATHOLOGY | [address] | | | + + + + + INR (11/23/2009 11:34 AM PDT) + + [...] DEPARTMENT OF | [address] | [place] [address] | | | PATHOLOGY | [address] [...] | + + + + + | [facility] DEPARTMENT OF | [address] | [place] [address] | | | PATHOLOGY | [address] [...] (H) | 60 - 99 mg/dL | [facility] | | | PLASMA | | [...] | | | DEPARTMENT | | | [place] | | | OF | | | [...] + + + + | [facility] | [address] | [place] [address] | | | PATHOLOGY | [address] | | | + + + + + documented in this encounter Visit Diagnoses + + | Diagnosis | + + | Hepatitis C, chronic (HCC) Chronic hepatitis C without mention of hepatic coma | + + documented in this encounter"
--- OUTSIDE RECORDS SUMMARY | ~2018-06-22 | XMS | Encounter Summary ---
Demographics + + + | Address | [address] | | | [place] [address] | + + + | Home Phone [...] Team Providers + +------+ + | Care Sexual Assault Nurse Name | Role | Phone | + +------+ + | Alex Askew MD | PCP | Unavailable | + +------+ + Encounter Details +--------+ + + + + | Date | Type | Department | Care Team | Description | +--------+ + + + + | 08/19/ | [employer] Director | Endoscopic | Kristian Taveras MD | | | 2013 | | Procedural Unit at | [address] | | | | | [facility] | [facility], | | | | | [address] | [place] [address] | | | | | Mailcode: [facility] | [phone] | | | | | [facility] | | | | | | and Healing, | | | | | | [address] | | | | | | [place], [place] | | | | | | [address] | | | | | | [phone] | | | +--------+ + + + [...]
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
--- OUTSIDE RECORDS SUMMARY | ~2018-06-22 | XMS | Encounter Summary ---
Demographics + + + | Address | [address] | | | [place] [address] | + + + | Home Phone [...] Team Providers + +------+ + | Care Instructional Leader Name | Role | Phone | + [...] Digestive Health | [place]os | Other | | 2014 | | Center at [facility] [address] | [address], [address] | | | | | [address] | [facility] [place] | | | | | Mailcode: [place] | [address] | | | | | for Health and | [phone] | | | | | [facility] [address] | | | | | | [place], [place] | | | | | | [address] | | | | | | [phone] | | | +--------+ + + + [...]
--- OUTSIDE RECORDS SUMMARY | ~2018-06-22 | XMS | Encounter Summary ---
Demographics + + + | Address | [address] | | | [place] [address] | + + + | Home Phone | | + + + | Preferred Language | Unknown | + + + | Marital Status | Single | + + + | Hinduism Affiliation | CHR | + + + | Race | White | + + + | Ethnic Group | Not or | + + + Author + + + | Author | [facility] | + + + | Organization | [facility] | + + + | [...] Team Providers + +------+ + | Care Bass Fisher Name | Role | Phone | + +------+ + | Alex Askew MD | PCP | Unavailable | + +------+ + Encounter Details +--------+ + + + + | Date | Type | Department | Care Team | Description | +--------+ + + + + | 08/23/ | Documentati | Digestive Health | Kristian Taveras MD | | | 2013 | on | [facility] at [facility] [address] | [address] | | | | | [address] | [facility], | | | | | Mailcode: Center | [place] [address] | | | | | for Health and | [phone] | | | | | Healing, [address] | | | | | | [place], [place] | | | | | | [address] | | | | | | [phone] | | | +--------+ + + + [...]
--- OUTSIDE RECORDS SUMMARY | ~2018-06-22 | XMS | Encounter Summary ---
Demographics + + + | Address | [address] | | | [place] [address] | + + + | Home Phone [...] Team Providers + +------+ + | Care Auto Body Painter Name | Role | Phone | + +------+ + | Alex Askew MD | PCP | Unavailable | + +------+ + Encounter Details +--------+ + + + + | Date | Type | Department | Care Team | Description | +--------+ + + + + | 11/21/ | Document-Sc | UNKNOWN DEPARTMENT | Unknown . | | | 2015 | anned | [address] | | | | | | [facility] | | | | | | [place], [place] | | | | | | [address] | | | +--------+ + + + [...] + + | LAB REPORTS | | 11/21/2014 | | Results for this | | | | 12:00 AM | | procedure are in the | | | | PDT | | results section. | + +--------+ + + + documented in this encounter Results LAB REPORTS (11/21/2014 12:00 AM PDT) + + + | Narrative | Performed At | + + + | | | + + + documented in this encounter Visit Diagnoses Not on filedocumented in this encounter"
--- OUTSIDE RECORDS SUMMARY | ~2018-06-22 | XMS | Encounter Summary ---
Demographics + + + | Address | [address] | | | [place] [address] | + + + | Home Phone | | + + + | Preferred Language | Unknown | + + + | Marital Status | Single | + + + | Yazdanism Affiliation | CHR | + + + | Race | White | + + + | Ethnic Group | Not or | + + + Author + + + | Author | [facility] | + + + | Organization | [facility] | + + + | Address [...] Team Providers + +------+ + | Care Branch Billing Payroll Clerk Name | Role | Phone | [...] | +--------+ + + + + | 10/01/ | Telephone | Digestive Health | [place] | Lab Results | | 2014 | | Center at [facility] [address] | MD Daniela [address] | | | | | [address] | [place], [place] | | | | | Mailcode: [place] | [address] | | | | | for Health and | [phone] | | | | | [facility] [address] | | | | | | [place], [place] | | | | | | [address] | | | | | | [phone] | | | +--------+ + + + [...]
--- OUTSIDE RECORDS SUMMARY | ~2018-06-22 | XMS | Encounter Summary ---
Demographics + + + | Address | [address] | | | [place] [address] | + + + | Home Phone [...] Team Providers + +------+ + | Care Systems Security Analyst Name | Role | Phone | [...] | | 2015 | anned | [address] | | | | | | [facility] | | | | | | [place], [place] | | | | | | [address] | | | +--------+ + + + [...]
--- OUTSIDE RECORDS SUMMARY | ~2018-06-22 | XMS | Encounter Summary ---
Demographics + + + | Address | [address] | | | [place] [address] | + + + | Home Phone [...] Team Providers + +------+ + | Care Media Production Operator Name | Role | Phone | + +------+ + | Alex Askew MD | PCP | Unavailable | + +------+ + Encounter Details +--------+ + + + + | Date | Type | Department | Care Team | Description | +--------+ + + + + | 03/15/ | Results | Digestive Health | Cyrus Huston, | | | 2006 | Only | Center at [facility] [address] | [place] | | | | | [address] | | | | | | Mailcode: Center | | | | | | for Health and | | | | | | Healing, [address] | | | | | | [place], [place] | | | | | | [address] | | | | | | [phone] | | | +--------+ + + + [...] | + +--------+ + + + | MRI ABDOMEN WWO | Routin | 03/16/2006 | | Results for this | | CONTRAST | e | 6:05 PM | | procedure are in the | | | | PST | | results section. | + +--------+ + + + documented in this encounter Results MRI ABDOMEN WWO CONTRAST (03/16/2006 6:05 PM PST) + + + + + + | Component | Value | Ref Range | Performed | Pathologist | | | | | At | Signature | + + + + + + | MR ABDOMEN | Radiologist 1: LEONILA, | | | | | WWO | Jose NICOLE, | | | | | CONTRAST | M.D.Examination: MRI | | | | | | of the abdomen without | | | | | | and with | | | | | | intravenouscontrast. | | | | | | Comparison: CT scan | | | | | | dated September 07, 2005. | | | | | | Clinical | | | | | | indication: Cirrhosis | | | | | | . Technique: A 1.5 | | | | | | Viji MRI of the abdomen | | | | | | was performed | | | | | | withoutand with | | | | | | intravenous gadolinium | | | | | | contrast utilizing the | | | | | | followingsequences: T | | | | | | hree plane T2 signal | | | | | | shot fast spin echo, | | | | | | coronal 3-DFIESTA, axial | | | | | | 2-D FIESTA, axial in | | | | | | phase and out of phase | | | | | | spoiledgradient echo T1, | | | | | | axial T2 fast spin echo | | | | | | with fat | | | | | | saturation,axial pre- | | | | | | and postcontrast 3-D | | | | | | LAVA and postcontrast | | | | | | axial [id number] gradient | | | | | | echo with fat | | | | | | saturation. | | | | | | ABDOMEN: The liver | | | | | | morphology is | | | | | | normal. There is | | | | | | equivocaldiffuse loss of | | | | | | signal within the liver | | | | | | which suggests | | | | | | hepaticsteatosis. The | | | | | | previously described 7 | | | | | | mm hypervascular lesion | | | | | | inthe periphery the | | | | | | right lobe of liver is | | | | | | not seen on the | | | | | | currentstudy. There | | | | | | are no arterial phase | | | | | | enhancing liver lesions. | | | | | | Thereis a 6 mm foci of | | | | | | T2 hyperintensity seen | | | | | | only on the axial | | | | | | F2fcownmps (series 5 | | | | | | image 9) that is without | | | | | | correlating lesion | | | | | | onany other | | | | | | sequence. This may be | | | | | | related to | | | | | | artifact. The | | | | | | hepaticarterial anatomy | | | | | | is conventional. The | | | | | | main, right and left | | | | | | portalveins are | | | | | | patent. The main | | | | | | portal vein diameter is | | | | | | 1.3 CM. Thereis no | | | | | | ascites. The spleen | | | | | | is normal in | | | | | | size. There are | | | | | | novarices. There is no | | | | | | mass or lymphadenopathy. | | | | | | The pancreas, adrenal | | | | | | glands, gallbladder and | | | | | | kidneys are normal. | | | | | | There is no bone marrow | | | | | | edema. IMPRESSION: | | | | | | 1. No morphologic | | | | | | changes of cirrhosis or | | | | | | portal hypertension.The | | | | | | previously described 7 | | | | | | mm focus of arterial | | | | | | phase enhancementin the | | | | | | right lobe of liver is | | | | | | not seen on the current | | | | | | examination. | | | | | | 2. Equivocal hepatic | | | | | | steatosis. | | | | + + + + + + + + | Specimen | + + | | + + + +---------+ + + | Performing | Address | City/State/Zipcode | Phone Number | | Organization | | | | + +---------+ + + | [facility] DEPARTMENT OF | | | | | RADIOLOGY | | | | + +---------+ + + documented in this encounter Visit Diagnoses Not on filedocumented in this encounter"
--- OUTSIDE RECORDS SUMMARY | ~2018-06-22 | XMS | Encounter Summary ---
Demographics + + + | Address | [address] | | | [place] [address] | + + + | Home Phone | | + + + | Preferred Language | Unknown | + + + | Marital Status | Single | + + + | Pentecostal Affiliation | CHR | + + + [...] Team Providers + +------+ + | Care Biomedical Engineering Internship Name | Role | Phone | + +------+ + | Alex Askew MD | PCP | Unavailable | + +------+ + Encounter Details +--------+------+ + + + | Date | Type | Department | Care Team | Description | +--------+------+ + + + | 07/23/ | Lab | Laboratory at [facility] | | Chronic Hepatitis C | | 2007 | | [address] | | without Mention of | | | | [place] | | Hepatic Coma | | | | [address] | | | | | | [phone] | | | +--------+------+ + + + [...] + + | INR | Routin | 07/24/2007 | Chronic Hepatitis | Results for this | | | e | 11:22 AM | C without Mention of | procedure are in the | | | | PDT | Hepatic Coma | results section. | + +--------+ + + + | CBC, WITH | Routin | 07/24/2007 | Chronic Hepatitis | Results for this | | DIFFERENTIAL | e | 11:22 AM | C without Mention of | procedure are in the | | | | PDT | Hepatic Coma | results section. | + +--------+ + + + | COMPLETE METABOLIC | Routin | 07/24/2007 | Chronic Hepatitis | Results for this | | SET | e | 11:22 AM | C without Mention of | procedure are in the | | (NA,K,CL,CO2,BUN,CRE | | PDT | Hepatic Coma | results section. | | AT,GLUC,CA,AST,ALT,B | | | | | | ENA TOTAL,ALK | | | | | | PHOS,ALB,PROT TOTAL) | | | | | + +--------+ + + + documented in this encounter Results INR (PT) (07/24/2007 11:22 [...] + + | [facility] | [facility] | [place] [address] | | | PATHOLOGY | [address] | | | + + + + + | [facility] DEPARTMENT OF | [facility] | [place] [address] | | | PATHOLOGY | [address] [...] + | [place] DEPARTMENT OF | [address] | [place] [address] | | | PATHOLOGY | [address] | | | + + + + + | [place] DEPARTMENT OF | [address] | [place] [address] | | | PATHOLOGY | [address] [...] Performed At | + + + | [id number] Estimated GFR > 60 mL/min/1.73 sq m if non- | [facility] | | [place]ian [id number] Estimated GFR > 60 mL/min/1.73 sq m if | DEPARTMENT OF | | [place] GFR is estimated using the MDRD equation [...] [facility] | [address] | [place] [address] | | | PATHOLOGY | [address] | | | + + + + + | [facility] | [address] | [place] [address] | | | PATHOLOGY | [address] | | | + + + + + documented in this encounter Visit Diagnoses + + | Diagnosis | + + | Chronic hepatitis C without mention of hepatic coma | + + documented in this encounter"
--- OUTSIDE RECORDS SUMMARY | ~2018-06-22 | XMS | Encounter Summary ---
Demographics + + + | Address | [address] | | | [place] [address] | + + + | Home Phone | | + + + | Preferred Language | Unknown | + + + | Marital Status | Single | + + + | Restoration Affiliation | CHR | + + + [...] Team Providers + +------+ + | Care Chucking And Boring Machine Operator Name | Role | Phone | + +------+ + | Alex Askew MD | PCP | Unavailable | + +------+ + Encounter Details +--------+ + + + + | Date | Type | Department | Care Team | Description | +--------+ + + + + | 10/06/ | Document-Sc | Health Information | Unknown . | | | 2015 | anned | Services [address] | | | | | | [address] | | | | | | Road Mailcode: | | | | | | [address] | | | | | | [facility] | | | | | | [place], [place] | | | | | | [address] | | | | | | [phone] | | | +--------+ + + + [...] + | HEPATITIS C | Routin | 10/06/2014 | | Results for this | | QUANTITATIVE, PLASMA | e | 1:53 PM | | procedure are in the | | | | PDT | | results section. | + +--------+ + + + documented in this encounter Results HEPATITIS C QUANTITATIVE, PLASMA (10/06/2014 1:53 PM PDT) + +--------+ + + + | Component | Value | Ref Range | Performed | Pathologist | | | | | At | Signature | + +--------+ + + + | HEP C PCR, | 25 (H) | IU/mL | [facility] | | | QUANT | | | LAB - | | | | | | [place] | | + +--------+ + + + + + | Specimen | + + | Blood - Blood | + + + + + + + | Performing | Address | City/State/Zipcode | Phone Number | | Organization | | | | + + + + + | [facility] - | [address] | [place] | [phone] | | [place] | | | | + + + + + documented in this encounter Visit Diagnoses Not on filedocumented in this encounter"
--- OUTSIDE RECORDS SUMMARY | ~2018-06-22 | XMS | Encounter Summary ---
Demographics + + + | Address | [address] | | | [place] [address] | + + + | Home Phone | | + + + | Preferred Language | Unknown | + + + | Marital Status | Single | + + + | Mormonism Affiliation | CHR | + + + [...] Team Providers + +------+ + | Care Shirt Ironer Supervisor Name | Role | Phone | [...] | +--------+ + + + + | 06/07/ | Abstract | [facility] | [place] [facility] | Medical Records | | 2017 | | Center at [facility] [address] | MD Daniela [address] | Review | | | | [address] | [place], [place] | | | | | Mailcode: [place] | [address] | | | | | [facility] and | [phone] | | | | | [facility], [place] [address] | | | | | | [place], [place] | | | | | | [address] | | | | | | [phone] | | | +--------+ + + + [...]
--- OUTSIDE RECORDS SUMMARY | ~2018-06-22 | XMS | Encounter Summary ---
Demographics + + + | Address | [address] | | | [place] [address] | + + + | Home Phone [...] Team Providers + +------+ + | Care Salvage Determiner Name | Role | Phone | + +------+ + | Alex Askew MD | PCP | Unavailable | + +------+ + Encounter Details +--------+------+ + + + | Date | Type | Department | Care Team | Description | +--------+------+ + + + | 12/29/ | Lab | Laboratory at [facility] | | Abdominal pain | | 2010 | | [address] | | | | | | [place], [place] | | | | | | [address] | | | | | | [phone] | | | +--------+------+ + + + [...] | + +--------+ + + + | [facility] - COMPLETE | Routin | 12/29/2010 | Abdominal pain | Results for this | | METABOLIC SET | e | 2:47 PM | | procedure are in the | | | | PST | | results section. | + +--------+ + + + | [facility] CBC W | Routin | 12/29/2010 | Abdominal pain | Results for this | | DIFFERENTIAL | e | 2:47 PM | | procedure are in the | | | | PST | | results section. | + +--------+ + + + | [facility] - INR | Routin | 12/29/2010 | Abdominal pain | Results for this | | (PROTHROMBINTIME) | e | 2:47 PM | | procedure are in the | | | | PST | | results section. | + +--------+ + + + documented in this encounter Results [facility] CBC W DIFFERENTIAL (12/29/2010 2:47 PM PST) [...] + + + | Test performed by: [facility] | [facility] | | Outpatient Lab [facility] [address] [id number] | DEPARTMENT OF | | Sent to [facility]. | PATHOLOGY | + + + + + + + + | Performing | Address | City/State/Zipcode | Phone Number | | Organization | | | | + + + + + | [facility] DEPARTMENT | [address] | [place] [address] | | | PATHOLOGY | [address] [...] + + | Test performed by: [facility] | [facility] | | Outpatient Lab [facility] [place], [place] [address] | DEPARTMENT OF | | | PATHOLOGY | + + + + + + + + | Performing | Address | City/State/Zipcode | Phone Number | | Organization | | | | + + + + + | [facility] | [address] | [place] [address] | | | PATHOLOGY | [address] | | | + + + + + [facility] - COMPLETE METABOLIC SET (12/29/2010 2:47 PM [...] + + + | Test performed by: [facility] | [facility] | | Outpatient Lab [facility] [address] [place], [place] [address] | DEPARTMENT OF | | | PATHOLOGY | + + + + + + + + | Performing | Address | City/State/Zipcode | Phone Number | | Organization | | | | + + + + + | [facility] DEPARTMENT OF | [address] [facility] [address] | [place] [address] | | | PATHOLOGY | [address] | | | + + + + + documented in this encounter Visit Diagnoses + + | Diagnosis | + + | Abdominal pain Abdominal pain, unspecified site | + + documented in this encounter"
--- OUTSIDE RECORDS SUMMARY | ~2018-06-22 | XMS | Encounter Summary ---
Demographics + + + | Address | [address] | | | [place] [address] | + + + | Home Phone [...] + + + | Author | [facility] | + + + | Organization | [facility] | + + + | [...] Team Providers + +------+ + | Care Churn Driller Name | Role | Phone | + +------+ + | Alex Askew MD | PCP | Unavailable | + +------+ + Encounter Details +--------+ + + + + | Date | Type | Department | Care Team | Description | +--------+ + + + + | 06/03/ | Document-Sc | [facility] | [place] | | | 2017 | anned | Simone at [facility] [address] | MD Daniela [address] | | | | | [address] | [place], [place] | | | | | Mailcode: [place] | [address] | | | | | for Health and | [phone] | | | | | [facility] [address] | | | | | | [place], [place] | | | | | | [address] | | | | | | [phone] | | | +--------+ + + + [...] + + | US HEPATOCELLULAR | | 06/03/2016 | | | | CARCINOMA SCREENING | | 12:00 AM | | | | | | PDT | | | + +--------+ + + + documented in this encounter Results HEPATOCELLULAR CARCINOMA SCREENING (06/03/2016 12:00 AM PDT) + + + | Narrative | Performed At | + + + | | | + + + documented in this encounter Visit Diagnoses Not on filedocumented in this encounter"
--- OUTSIDE RECORDS SUMMARY | ~2018-06-22 | XMS | Encounter Summary ---
Demographics + + + | Address | [address] | | | [place] [address] | + + + | Home Phone | | + + + | Preferred Language | Unknown | + + + | Marital Status | Single | + + + | Religion Affiliation | CHR | + + + [...] Team Providers + +------+ + | Care Ux Developer Designer Name | Role | Phone | + [...] | | | | | Procedures | [place], [place] | Road | | | | | [address] A[address]OMEN | [address] | Mailcode: | | | | | WWO IV | | [address] [facility] | | | | | CONTRAST | | Hospital | | | | | | | [place], [place] | | | | | | | [address] | | | | | | | Phone: | | | | | | | [phone] | | | | | | | Fax: | | | | | | | [phone] | +--------+--------+ + + + + Diagnostic [...] | | Hepatitis | [address] | [address] | | | | | C, chronic | [address] | | | | | (HCC) | [address] | [address] | | | | | Procedures | [place], [place] | Road | | | | | CT ABDOMEN | [address] | Mailcode: | | | | | [address] IV | | [address] [facility] | | | | | CONTRAST | | Hospital | | | | | | | [place], [place] | | | | | | | [address] | | | | | | | Phone: | | | | | | | [phone] | | | | | | | Fax: | | | | | | | [phone] | +--------+--------+ + + + + Reason [...] | | | | | Procedures | [place], [place] | Road | | | | | CT ABDOMEN | [address] | Mailcode: | | | | | WWO IV | | [address] [facility] | | | | | CONTRAST | | Hospital | | | | | | | [place], [place] | | | | | | | [address] | | | | | | | Phone: | | | | | | | [phone] | | | | | | | Fax: | | | | | | | [phone] | +--------+--------+ + + + + Encounter Details +--------+ + + + + | Date | Type | Department | Care Team | Description | +--------+ + + + + | 12/29/ | Hospital | Radiology/Imaging | | | | 2010 | Encounter | Lab at [facility] [address] | | | | | | [address] | | | | | | Mailcode: CH3[facility] | | | | | | [facility] | | | | | | and [facility], 3rd | | | | | | Floor [place], [place] | | | | | | [address] | | | | | | [phone] | | | +--------+ + + + [...] CT ABDOMEN WWO IV | Routin | 12/29/2010 | Hepatitis c, | Results for this | | CONTRAST | e | 1:25 PM | chronic (HCC) | procedure are in the | | | | PST | | results section. | + +--------+ + + + | CREATININE, POC | Routin | 12/29/2010 | | Results for this | | | e | 1:13 PM | | procedure are in the | | | | PST | | results section. | + +--------+ + + + documented in this encounter Results CT ABDOMEN WWO IV [...] | | + +---------+ + + | [facility] DEPARTMENT OF | | | | | RADIOLOGY | | | | + +---------+ + + ROUTINE CHEMISTRY TESTS (RADIOLOGY), POC (12/29/2010 1:13 PM PST) + +-------+ + + + | Component | Value | Ref Range | Performed | Pathologist | | | | | At | Signature | + +-------+ + + + | BUN, POC | 14 | 6 - 20 mg/dL | [facility], | | | | | | POINT OF | | | | | | CARE TESTS | | + +-------+ + + + | CREATININE, | 0.9 | 0.6 - 1.1 mg/dL | [facility], | | | POC | | | [...] + + + | [facility] | [address] | [place] [address] | | | OF CARE TESTS | | | | + + + + + documented in this encounter Visit Diagnoses + + | Diagnosis | + + | Hepatitis C, chronic (HCC) Chronic hepatitis C without mention of hepatic coma | + + documented in this encounter"
--- OUTSIDE RECORDS SUMMARY | ~2018-06-22 | XMS | Encounter Summary ---
Demographics + + + | Address | [address] | | | [place] [address] | + + + | Home Phone | | + + + | Preferred Language | Unknown | + + + | Marital Status | Single | + + + | Church Affiliation | CHR | + + + [...] Team Providers + +------+ + | Care Business Quality Assurance Analyst Name | Role | Phone | + +------+ + | Alex Askew MD | PCP | Unavailable | + +------+ + Encounter Details +--------+ + + + + | Date | Type | Department | Care Team | Description | +--------+ + + + + | 04/01/ | Document-Sc | UNKNOWN DEPARTMENT | Unknown . | | | 2016 | anned | [address] [facility] | | | | | | [facility] | | | | | | [place], [place] | | | | | | [address] | | | +--------+ + + + [...] + + | LAB REPORTS | | 04/01/2015 | | Results for this | | | | 12:00 AM | | procedure are in the | | | | PST | | results section. | + +--------+ + + + documented in this encounter Results LAB REPORTS (04/01/2015 12:00 AM PST) + + + | Narrative | Performed At | + + + | | | + + + documented in this encounter Visit Diagnoses Not on filedocumented in this encounter"
--- OUTSIDE RECORDS SUMMARY | ~2018-06-22 | XMS | Encounter Summary ---
Demographics + + + | Address | [address] | | | [place] [address] | + + + | Home Phone | | + + + | Preferred Language | Unknown | + + + | Marital Status | Single | + + + | Orthodoxy Affiliation | CHR | + + + [...] Team Providers + +------+ + | Care Clinical Athletic Instructor Name | Role | Phone | + +------+ + | Alex Askew MD | PCP | Unavailable | + +------+ + Reason for Visit + + + | Reason | Comments | + + + | Follow-up visit | HCV, abdominal pain | + + + Benefits Check (Routine) +--------+--------+ + + + + | Status | Reason | Specialty | Diagnoses / | Referred By | Referred To | | | | | Procedures | Contact | Contact | +--------+--------+ + + + + | Closed | | Hepatology | Diagnoses | Azar, | Khushbu, | | | | | Chronic | [place]ava[place]er | [place]ena [place]arez, | | | | | hepatitis C | Rachelle, [address] | | | | | without | [address] | [address] | | | | | mention of | [place], | [place], [place] | | | | | hepatic coma | [place] [address] | [address] | | | | | Special | Phone: | Phone: | | | | | screening | [phone] | [phone] | | | | | for | Fax: | Fax: | | | | | malignant | [phone] | [phone] | | | | | neoplasms, | | | | | | | colon | | | +--------+--------+ + + + + Encounter Details +--------+---------+ + + + | Date | Type | Department | Care Team | Description | +--------+---------+ + + + | 06/04/ | Office | [facility] | [place] [facility] | Cirrhosis of liver | | 2015 | Visit | Center at [facility] [address] | MD Daniela [address] | without ascites, | | | | [address] | Ave [place], [place] | unspecified hepatic | | | | Mailcode: Center | [address] | cirrhosis type (HCC) | | | | for Health and | [phone] | (Primary Dx); | | | | Healing, [address] | | Chronic hepatitis C | | | | [place], [place] | | without hepatic coma | | | | [address] | | (HCC) | | | | [phone] | | | +--------+---------+ + + + [...] + + + | Blood Pressure | 158/85 | 06/04/2014 8:27 AM | | | | | PDT | | + + + + + | Pulse | 79 | 06/04/2014 8:27 AM | | | | | PDT | | + + + + + | Temperature | 36.7 C (98 F) | 06/04/2014 8:27 AM | | | | | PDT | | + + + + + | Respiratory Rate | 17 | 06/04/2014 8:27 AM | | | | | PDT | | + + + + + | Oxygen Saturation | 100% | 06/04/2014 8:27 AM | | | | | PDT | | + + + + + | Inhaled Oxygen | - | - | | | Concentration | | | | + + + + + | Weight | 120.1 kg (264 lb | 06/04/2014 8:27 AM | | | | 11.2 oz) | PDT | | + + + + + | Height | 162.6 cm (5' 4") | 06/04/2014 8:27 AM | | | | | PDT | | + + + + + | Body Mass Index | 45.44 | 06/04/2014 8:27 AM | | | | | PDT | | + + + + + documented in this encounter Patient Instructions Patient Instructions La Nena Ríos MD - 06/04/2014 9:58 AM PDT1. Seek authorizat ion for Harvoni + RBV x 12 weeks for treatment experienced HCV cirrhosis 2. Blood work and US every 6 months for HCC surveillance 3. Plan on EGD for varices screening 08/2016 4. Return to see me 6-12 months or sooner if problems documented in this encounter Progress Notes La Nena Ríos MD - 06/04/2014 9:48 AM PDTFormatting of this note might be differen t from the original. 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 HCV infection, GT 1a 2.1 Previously treated with Peg IFN and Ribavirin in 2003, breakthrough of virus during tx 3. HTN 4 . GERD Chief Complaint: Can I get the new HCV treatment? Subjective: Ms. Rosanna Hernández is a 54 y.o. female who presents for f/u of HCV cir rhosis. She's recently been in the ED for abdominal pain, work-up of which was unrevealing. She's had no swelling, confusion, or bleeding. She's heard that there are new HCV medication s, and she'd really like to try them. Impression 54 y.o. female presents for f/u for HCV cirrhosis. She has no evidence of hepatic decompens ation. I think she would be a good candidate for HCV treatment at this time, would suggest 1 2 weeks of Harvoni + RBV, and we will seek authorization for such. I told her that I did not think the abdominal pain was from the HCV (and thus would not expect it to improve with HCV eradication, but we can hope). She is uptodate on her HCC surveillance, needs another scan (US) in 6 months, and given how good her liver function is, would not repeat EGD to screen f or varices until 08/22. Recommendations 1. Seek authorization for Harvoni + RBV x 12 weeks for treatment experienced HCV cirrhosi s 2. Blood work and US every 6 months for HCC surveillance 3. Plan on EGD for varices screening 08/2016 4. Return to see me 6-12 months or sooner if problems PE Filed Vitals: 06/04/2014 8:27 AM Height: 1.626 m (5' 4") Weight: 120.067 kg (264 lb 11.2 oz) BP: 158/85 Pulse: 79 Temp: 36.7 C (98 F) TempSrc: Oral Resp: 17 SpO2: 100% PainSc: 06 - Severe PainLoc: Abdominal (Generalized) BMI: 45.41 kg/(m^2) Gen: Pleasant female in NAD HEENT: No scleral icterus; no lesions OP/OC Neck: Supple, no PHUONG CV: Reg S1S2 Pulm: Clear B Abd: Soft, NT, overweight, +BS all quads; no masses; no shifting dullness Ext: No edema Skin: Few spider angiomata; + palmar erythema Neuro: No asterixis ROS: Gen: No malaise, mild fatigue, no chills, no fevers Eyes: No double vision, no yellowness Mouth: No pain on swallowing, no sores, no sticking of food Resp: No shortness of breath, no cough CV: No CP, no palpitations Abd: No constipation, no diarrhea, no black or red stools, no nausea/vomiting; pain as abo ve Ext: No swelling of legs, no joint pains : No pain on urination or increased frequency of urination Neuro: No new weakness, tingling, or confusion Psych: No depression, no anxiety All other systems otherwise negative Recent Labs 06/03/14 1251 CR 0.90 AST 79* ALT 89* TBILI 0.6 ALB 3.4* WBC 10.60 HCT 40.5 PLT 192 INRPT 1.17 Past Surgical History Procedure Laterality Date section Family History Problem Relation Genetic Neg Hx No genetic liver disease Allergies Allergen Reactions Cephalexin Pruritis, Rash and Edema Lisinopril Wheez/Dyspnea, Cough and Edema Ampicillin Hives Current Outpatient Prescriptions Medication Sig ACETAMINOPHEN, BULK, [...] n ot use longer than 2-3 weeks. DULoxetine 60 mg oral capsule,delayed release(DR/EC) Take 60 mg by mouth once daily. hydrOXYzine pamoate 25 mg Oral Capsule Take 25 mg by mouth every four hours as needed. losartan 100 mg oral tablet Take 100 [...] No current facility-administered medications for this visit. History Alcohol Use No History Smoking status Former Smoker -- 4 years Quit date: 08/22/1981 Smokeless tobacco Not on file SH: In clinic alone documented in th is encounter Plan of Treatment Not on filedocumented as of this encounter Visit Diagnoses + + | Diagnosis | + + | Cirrhosis of liver without ascites, unspecified hepatic cirrhosis type (HCC) - Primary | + + | Chronic hepatitis C without hepatic coma (HCC) | + + documented in this encounter
--- OUTSIDE RECORDS SUMMARY | ~2018-06-22 | XMS | Encounter Summary ---
Demographics + + + | Address | [address] | | | [place] [address] | + + + | Home Phone [...] Team Providers + +------+ + | Care Sheeter Waxer Operator Name | Role | Phone | + +------+ + | Aelx Askew MD | PCP | Unavailable | + +------+ + Encounter Details +--------+ + + + + | Date | Type | Department | Care Team | Description | +--------+ + + + + | 09/21/ | Orders Only | Digestive Health | Cyrus Huston, | Cirrhosis of Liver | | 2006 | | Center at [facility] [address] | [place] | without Mention of | | | | [address] | | Alcohol; Chronic | | | | Mailcode: Center | | Hepatitis C without | | | | for Health and | | Mention of Hepatic | | | | Healing, Building [address] | | Coma | | | | [place], [place] | | | | | | [address] | | | | | | [phone] | | | +--------+ + + + [...] | | + +------+--------+ + + | [facility] - SPECIMEN | Lab | Routin | Cirrhosis of Liver | Ordered: 09/21/2006 | | COLLECT, | | e | without Mention of | | | VENIPUNCTURE | | | Alcohol | | + +------+--------+ + + documented as of this encounter Procedures + +--------+ + + + | Procedure Name | Priori | Date/Time | Associated Diagnosis | Comments | | | ty | | | | + +--------+ + + + | DIFFERENTIAL | Routin | 09/21/2006 | | Results for this | | | e | 10:25 AM | | procedure are in the | | | | PDT | | results section. | + +--------+ + + + | INR | Routin | 09/21/2006 | Cirrhosis of Liver | Results for this | | | e | 10:25 AM | without Mention of | procedure are in the | | | | PDT | Alcohol Chronic | results section. | | | | | Hepatitis C without | | | | | | Mention of Hepatic | | | | | | Coma | | + +--------+ + + + | CBC, WITH | Routin | 09/21/2006 | Cirrhosis of Liver | Results for this | | DIFFERENTIAL | e | 10:25 AM | without Mention of | procedure are in the | | | | PDT | Alcohol Chronic | results section. | | | | | Hepatitis C without | | | | | | Mention of Hepatic | | | | | | Coma | | + +--------+ + + + | ALPHA-FETOPROTEIN | Routin | 09/21/2006 | Cirrhosis of Liver | Results for this | | TUMOR MARKER, SERUM | e | 10:25 AM | without Mention of | procedure are in the | | | | PDT | Alcohol | results section. | + +--------+ + + + documented in this encounter Results DIFFERENTIAL (09/21/2006 10:25 AM PDT) + +-------+ + + + | Component | Value | Ref Range | Performed | Pathologist | | | | | At | Signature | + +-------+ + + + | NEUTROPHIL | 65 | 50 - 70 % | [facility] | | | % | | | DEPARTMENT | | | | | | OF | | | | | | PATHOLOGY | | + +-------+ + + + | LYMPHOCYTE | 26 | 18 - 42 % | [facility] | | | % | | | DEPARTMENT | | | | | | OF | | | | | | PATHOLOGY | | + +-------+ + + + | MONOCYTE % | 8 | 2 - 8 % | [facility] | | | | | | DEPARTMENT | | | | | | OF | | | | | | PATHOLOGY | | + +-------+ + + + | EOS % | 1 | 1 - 3 % | [facility] | | | | | | DEPARTMENT | | | | | | OF | | | | | | PATHOLOGY | | + +-------+ + + + | BASO % | 1 | <3 % | [facility] | | | | | | DEPARTMENT | | | | | | OF | | | | | | PATHOLOGY | | + +-------+ + + + | NEUTROPHIL | 5.2 | 1.8 - 7.7 K/cu | [facility] | | | # | | mm | DEPARTMENT | | | | | | OF | | | | | | PATHOLOGY | | + +-------+ + + + | LYMPHOCYTE | 2.1 | 1.0 - 4.8 K/cu | [facility] | | | # | | mm | DEPARTMENT | | | | | | OF | | | | | | PATHOLOGY | | + +-------+ + + + | MONOCYTE # | 0.6 | <0.9 K/cu mm | [facility] | | | | | | DEPARTMENT | | | | | | OF | | | | | | PATHOLOGY | | + +-------+ + + + | EOS # | 0.1 | <0.6 K/cu mm | [facility] | | | | | | DEPARTMENT | | | | | | OF | | | | | | PATHOLOGY | | + +-------+ + + + | BASO # | [...] + + + + | [facility] DEPARTMENT | [address] | [place] [address] | | | PATHOLOGY | [address] | | | + + + + + | [facility] | [address] | [place] [address] | | | PATHOLOGY | [address] | | | + + + + + ALPHA-FETOPROTEIN, TUMOR MKR (09/21/2006 10:25 AM PDT) + + + + + + | Component | Value | Ref Range | Performed | Pathologist | | | | | At | Signature | + + + + + + | AFP, TUMOR | 5Comment: Test | ng/mL | [facility] | | | MARKER, | performed by [facility] | | DEPARTMENT | | | SERUM | [facility] | | OF | | | | Laboratories. | | PATHOLOGY | | + + + + + + + + | Specimen | + + | | + + + + + + + | Performing | Address | City/State/Zipcode | Phone Number | | Organization | | | | + + + + + | [facility] DEPARTMENT OF | [address] | [place] [address] | | | PATHOLOGY | [address] | | | + + + + + | [facility] DEPARTMENT OF | [address] | [place] [address] | | | PATHOLOGY | [address] | | | + + + + + PROTHROMBIN TIME (09/21/2006 10:25 AM PDT) + + + + + + | Component | Value | Ref Range | Performed | Pathologist | | | | | At | Signature | + + + + + + | INR | 1.03Comment: | 0.90 - 1.20 INR | [facility] | | | | PT INR | [...] + + + | [facility] | [address] | [place] [address] | | | PATHOLOGY | [address] | | | + + + + + | [facility] | [facility] | [place] [address] | | | PATHOLOGY | [address] [...] + + + + | [facility] DEPARTMENT OF | [address] | [place] [address] | | | PATHOLOGY | [address] | | | + + + + + | [facility] DEPARTMENT OF | [address] | [place] [address] | | | PATHOLOGY | [address] | | | + + + + + documented in this encounter Visit Diagnoses + + | Diagnosis | + + | Cirrhosis of liver without mention of alcohol | + + | Chronic hepatitis C without mention of hepatic coma | + + documented in this encounter"
--- OUTSIDE RECORDS SUMMARY | ~2018-06-22 | XMS | Encounter Summary ---
Demographics + + + | Address | [address] | | | [place] [address] | + + + | Home Phone [...] Author + + + | Author | [facility] | + + + | Organization | [facility] | + + + | [...] Team Providers + +------+ + | Care Organ Builder Name | Role | Phone | + +------+ + | Alex Askew MD | PCP | Unavailable | + +------+ + Encounter Details +--------+ + + + + | Date | Type | Department | Care Team | Description | +--------+ + + + + | 09/08/ | Telephone | Digestive Health | Cyrus Huston, | | | 2008 | | [place] at [facility] [address] | [place] | | | | | [address] | | | | | | Mailcode: [place] | | | | | | for Health and | | | | | | Healing, [address] | | | | | | [facility] [place] | | | | | | [address] | | | | | | [phone] | | | +--------+ + + + [...]
--- OUTSIDE RECORDS SUMMARY | ~2018-06-22 | XMS | Encounter Summary ---
Demographics + + + | Address | [address] | | | [place] [address] | + + + | Home Phone [...] Team Providers + +------+ + | Care Insulation Packer Name | Role | Phone | + +------+ + PCP | Unavailable | + +------+ + Encounter Details +--------+ + + + + | Date | Type | Department | Care Team | Description | +--------+ + + + + | 07/28/ | Abstract | Endoscopic | Arsalan Casper MD | | | 2005 | [facility] | Procedural Unit at | [address] | | | | | Leeanna Stringer [address] | [facility] [place] | | | | | [address] | [address] | | | | | Road Mailcode: | [phone] | | | | | [id number] | | | | | | [address] | | | | | | [place], [place] | | | | | | [address] | | | | | | [phone] | | | +--------+ + + + [...]
--- OUTSIDE RECORDS SUMMARY | ~2018-06-22 | XMS | Encounter Summary ---
Demographics + + + | Address | [address] | | | [place] [address] | + + + | Home Phone [...] Team Providers + +------+ + | Care Vocational Counselor Name | Role | Phone | + +------+ + | Alex Askew MD | PCP | Unavailable | + +------+ + Reason for Visit +--------+ + | Reason | Comments | +--------+ + | Pain | | +--------+ + Encounter Details +--------+ + + + + | Date | Type | Department | Care Team | Description | +--------+ + + + + | 08/30/ | Telephone | Digestive Health | Cyrus Huston | Pain | | 2013 | | [place] at [facility] [address] | [place] | | | | | [address] | | | | | | Mailcode: [place] | | | | | | [facility] Health and | | | | | | Healing, [address] | | | | | | [place], [place] | | | | | | [address] | | | | | | [phone] | | | +--------+ + + + [...]
--- OUTSIDE RECORDS SUMMARY | ~2018-06-22 | XMS | Encounter Summary ---
Demographics + + + | Address | [address] | | | [place] [address] | + + + | Home Phone | | + + + | Preferred Language | Unknown | + + + | Marital Status | Single | + + + | Latter-Day Affiliation | CHR | + + + [...] Team Providers + +------+ + | Care Negative Assembler Name | Role | Phone | + +------+ + | Alex Askew MD | PCP | Unavailable | + +------+ + Encounter Details +--------+ + + + + | Date | Type | Department | Care Team | Description | +--------+ + + + + | 09/07/ | Ancillary | Registration [id number] | Cyrus Huston, | | | 2005 | [address] | | | | n | [facility] Mailcode: | | | | | | [address] [place], [place] | | | | | | [address] | | | | | | [phone] | | | +--------+ + + + [...]
--- OUTSIDE RECORDS SUMMARY | ~2018-06-22 | XMS | Encounter Summary ---
Demographics + + + | Address | [address] | | | [place] [address] | + + + | Home Phone [...] | | + + +---------+ + | eY Epstein | ECON | Unknown | | + + +---------+ + Care Team Providers + +------+ + | Care Packing Machine Inspector Name | Role | Phone | + +------+ + | Alex Askew MD | PCP | Unavailable | + +------+ + Reason for Visit + + + | Reason | Comments | + + + | Lab findings, | | | teaching, guidance, | | | and counseling | | + + + Encounter Details +--------+ + + + + | Date | Type | Department | Care Team | Description | +--------+ + + + + | 12/29/ | Telephone | Digestive Health | Cyrus Huston, | Lab findings, | | 2010 | | Center at [facility] [address] | [place] | teaching, guidance, | | | | [address] | | and counseling | | | | Mailcode: [place] | | | | | | [facility] Health and | | | | | | Healing, [address] | | | | | | [place], [place] | | | | | | [address] | | | | | | [phone] | | | +--------+ + + + [...]
--- OUTSIDE RECORDS SUMMARY | ~2018-06-22 | XMS | Encounter Summary ---
Demographics + + + | Address | [address] | | | [place] [address] | + + + | Home Phone | | + + + | Preferred Language | Unknown | + + + | Marital Status | Single | + + + | Latter Day Affiliation | CHR | + + + [...] Team Providers + +------+ + | Care Molding Fitter Name | Role | Phone | + [...] + + + + | 11/28/ | Telephone | Digestive Health | Luis A Ríosbrayden | Medication | | 2014 | | Center at [facility] [address] | MD Daniela [address] | management | | | | [address] | [place], [place] | | | | | Mailcode: [place] | [address] | | | | | for Health and | [phone] | | | | | [facility] 2 | | | | | | [place], [place] | | | | | | [address] | | | | | | [phone] | | | +--------+ + + + [...]
--- OUTSIDE RECORDS SUMMARY | ~2018-06-22 | XMS | Encounter Summary ---
Demographics + + + | Address | [address] | | | [place] [address] | + + + | Home Phone [...] Team Providers + +------+ + | Care Glazing Department Supervisor Name | Role | Phone | + +------+ + | Alex Askew MD | PCP | Unavailable | + +------+ + Encounter Details +--------+ + + + + | Date | Type | Department | Care Team | Description | +--------+ + + + + | 12/20/ | Results | Digestive Health | Cyrus Huston, | | | 2010 | Only | Center at [address] | [place] | | | | | [address] | | | | | | Mailcode: Center | | | | | | for Health and | | | | | | Healing, [address] | | | | | | [place], [place] | | | | | | [address] | | | | | | [phone] | | | +--------+ + + + [...] + + | DIFFERENTIAL | Routin | 12/20/2010 | | Results for this | | | e | 5:19 PM | | procedure are in the | | | | PST | | results section. | + +--------+ + + + documented in this encounter Results DIFFERENTIAL (12/20/2010 5:19 PM PST) + +---------+ + + + | Component | Value | Ref Range | Performed | Pathologist | | | | | At | Signature | + +---------+ + + + | NEUTROPHIL | 64 | 50 - 70 % | [facility] [...] + + + | MONOCYTE % | 11 (H) | 2 - 8 % | [...] +---------+ + + + | NEUTROPHIL | 8.3 (H) | 1.8 - 7.7 K/cu | [facility] [...] + + + | MONOCYTE # | 1.4 (H) | <0.9 K/cu mm | [facility] [...] [facility] | [address] | [place] [address] | | | PATHOLOGY | [address] | | | + + + + + documented in this encounter Visit Diagnoses Not on filedocumented in this encounter"
--- OUTSIDE RECORDS SUMMARY | ~2018-06-22 | XMS | Encounter Summary ---
Demographics + + + | Address | [address] | | | [place] [address] | + + + | Home Phone [...] Team Providers + +------+ + | Care Casting Inspector Name | Role | Phone | + +------+ + | Alex Askew MD | PCP | Unavailable | + +------+ + Encounter Details +--------+ + + + + | Date | Type | Department | Care Team | Description | +--------+ + + + + | 09/11/ | Telephone | Diabetes Education | Cyrus Huston, | | | 2006 | | [address] | | | | | [facility] | | | | | | Mailcode: [facility] | | | | | | Outpatient Clinic | | | | | | [facility], | | | | | | [place] [address] | | | | | | [phone] | | | +--------+ + + + [...]
--- OUTSIDE RECORDS SUMMARY | ~2018-06-22 | XMS | Encounter Summary ---
Demographics + + + | Address | [address] | | | [place] [address] | + + + | Home Phone [...] Team Providers + +------+ + | Care Cabin Worker Name | Role | Phone | + +------+ + | Alex Askew MD | PCP | Unavailable | + +------+ + Encounter Details +--------+ + + + + | Date | Type | Department | Care Team | Description | +--------+ + + + + | 11/20/ | Telephone | Digestive Health | La Nena Ríos | | | 2014 | | Center at [facility] [address] Bryce Suarez MD [address] | | | | | [address] | [facility] [place] | | | | | Mailcode: [place] | [address] | | | | | for Health and | [phone] | | | | | Healing, [address] | | | | | | [place], [place] | | | | | | [address] | | | | | | [phone] | | | +--------+ + + + [...]
--- OUTSIDE RECORDS SUMMARY | ~2018-06-22 | XMS | Encounter Summary ---
Demographics + + + | Address | [address] | | | [place] [address] | + + + | Home Phone | | + + + | Preferred Language | Unknown | + + + | Marital Status | Single | + + + | Confucianism Affiliation | CHR | + + + [...] | + + +---------+ + | Jennifer uCevas | ECON | Unknown | | + + +---------+ + | Ye Epstein | ECON | Unknown | | + + +---------+ + Care Team Providers + +------+ + | Care Manager Merchandising Name | Role | Phone | + +------+ + | Alex Askew MD | PCP | Unavailable | + +------+ + Reason for Visit + + + | Reason | Comments | + + + | Medication Education | Kehinde + [employer] | + + + Encounter Details +--------+ + + + + | Date | Type | Department | Care Team | Description | +--------+ + + + + | 09/10/ | Telephone | Digestive Health | Tam Yu, | Medication Education | | 2015 | | Center at [facility] [address] | [place]D [place], [place] | (Harv[place] + [facility] | | | | [address] | [address] | Teach) | | | | Mailcode: [place] | | | | | | [facility] Health and | | | | | | [facility] [place] [address] | | | | | | [place], [place] | | | | | | [address] | | | | | | [phone] | | | +--------+ + + + [...]
--- OUTSIDE RECORDS SUMMARY | ~2018-06-22 | XMS | Encounter Summary ---
Demographics + + + | Address | [address] | | | [place] [address] | + + + | Home Phone [...] Team Providers + +------+ + | Care Computer Typesetter Keyliner Name | Role | Phone | + [...] | +--------+ + + + + | 10/27/ | Telephone | Digestive Health | Huston Cyrus, | Treatment Planning | | 2008 | | Center at [facility] [address] | [place] | | | | | [address] | | | | | | Mailcode: [place] | | | | | | [facility] Health and | | | | | | [place] [address] | | | | | | [place], [place] | | | | | | [address] | | | | | | [phone] | | | +--------+ + + + [...]
--- OUTSIDE RECORDS SUMMARY | ~2018-06-22 | XMS | Encounter Summary ---
Demographics + + + | Address | [address] | | | [place] [address] | + + + | Home Phone [...] Team Providers + +------+ + | Care Director Of Collections And Archives Name | Role | Phone | + [...] [address] | | | | n | [facility] Mailcode: | | | | | | [address] [place], [place] | | | | | | [address] | | | | | | [phone] | | | +--------+ + + + [...]
--- OUTSIDE RECORDS SUMMARY | ~2018-06-22 | XMS | Encounter Summary ---
Demographics + + + | Address | [address] | | | [place] [address] | + + + | Home Phone | | + + + | Preferred Language | Unknown | + + + | Marital Status | Single | + + + | Temple Affiliation | CHR | + + + | Race | White | + + + | Ethnic Group | Not or | + + + Author + + + | Author | [facility] | + + + | Organization | [facility] | + + [...] Team Providers + +------+ + | Care Government Employee Name | Role | Phone | + +------+ + | Alex Askew MD | PCP | Unavailable | + +------+ + Reason for Visit + + + | Reason | Comments | + + + | Return Patient | HCV cirrhosis | + + + Benefits Check (Routine) +--------+--------+ + + + + | Status | Reason | Specialty | Diagnoses / | Referred By | Referred To | | | | | Procedures | Contact | Contact | +--------+--------+ + + + + | Closed | | Hepatology | Diagnoses | Azar, | Khushbu, | | | | | Unspecified | Alex | La Nena Suarez, | | | | | cirrhosis | Rachelle, [address] | | | | | of liver | [address] | [address] | | | | | Chronic | [place], | [place], [place] | | | | | viral | [place] [address] | [address] | | | | | hepatitis C | Phone: | Phone: | | | | | | [phone] | [phone] | | | | | | Fax: | Fax: | | | | | | [phone] | [phone] | +--------+--------+ + + + + Encounter Details +--------+---------+ + + + | Date | Type | Department | Care Team | Description | +--------+---------+ + + + | 06/16/ | Office | Dig[facility] | La Nena Ríos | Cirrhosis of liver | | 2016 | Visit | [facility] [address] | Daniela, [address] | without ascites, | | | | [address] | Ave [place], [place] | unspecified hepatic | | | | Mailcode: [place] | [address] | cirrhosis type (HCC) | | | | for Health and | [phone] | (Primary Dx); BROWER | | | | [facility] 2 | | (nonalcoholic | | | | [place], [place] | | steatohepatitis); | | | | [address] | | Metabolic syndrome | | | | [phone] | | | +--------+---------+ + + + [...] Patient Instructions La Nena Ríos MD - 06/17/2015 8:34 AM PDT1. Continue weight loss and better control of diabetes 2. Ultrasound and labs for liver function (including AFP) every 6 months 3. Return to see me in one year, send reports of scans and labs to me documented in this encounter Progress Notes La Nena Ríos MD - 06/17/2015 8:25 AM PDTFormatting of this note might be differen t from the original. 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 HCV infection, GT 1a 2.1 Previously treated with Peg IFN and Ribavirin in 2003, breakthrough of virus during tx 2.2 SOF/LDP/RBV x 12 weeks, ending 12/18/14; HCV RNA undetectable 04/01/15 (SVR) 3. HTN 4 . GERD 5. Diabetes Mellitus 6. Obesity Chief Complaint: How is my liver doing? Subjective: Ms. Rosanna Hernández is a 55 y.o. female who presents for f/u of HCV cir rhosis. Since I last saw the patient, she underwent 12 weeks of treatment for HCV, ending No 2014. She tolerated treatment fairly well, and is now feeling well, without any i ntervening symptoms of confusion swelling or bleeding. She tells me she is changed her diet completely, and has begun to lose weight. Her diabetes and high cholesterol are under better control. Impression 55 y.o. female presents for f/u for HCV cirrhosis. I told the patient that she has been cur ed of her HCV infection. She has no clinically evident liver disease, and I discussed with h er our findings that scar tissue seems to be regressing slowly after HCV eradication. She ma y be slightly different, as I feel there is likely an element of BROWER in addition to the now -eradicated HCV infection. We discussed the contributors to Brower, including most notably ju ments of the metabolic syndrome. She seems to be making some headway in this direction, and I encouraged her to do further, mostly by losing weight. Recommendations 1. Continue weight loss and better control of diabetes 2. Ultrasound and labs for liver function (including AFP) every 6 months 3. Return to see me in one year, send reports of scans and labs to me PE Filed Vitals: 06/17/2015 8:03 AM Height: 1.626 m (5' 4") Weight: 120.838 kg (266 lb 6.4 oz) BP: 161/99 Pulse: 74 Temp: 36.8 C (98.2 F) TempSrc: Oral Resp: 15 SpO2: 95% PainSc: 10 - Worst Possible Pain PainLoc: Shoulder (Bilateral) BMI: 45.7 kg/(m^2) Gen: Pleasant female in NAD HEENT: No scleral icterus; no lesions OP/OC Neck: Supple, no PHUONG CV: Reg S1S2 Pulm: Clear B Abd: Soft, NT, obese, +BS all quads; no masses; no shifting dullness Ext: No edema Skin: No spider angiomata Neuro: No asterixis ROS: Gen: No malaise, mild fatigue, no chills, no fevers Eyes: No double vision, no yellowness Mouth: No pain on swallowing, no sores, no sticking of food Resp: No shortness of breath, no cough CV: No CP, no palpitations Abd: No constipation, no diarrhea, no black or red stools, no nausea/vomiting Ext: No swelling of legs, diffuse joint pains : No pain on urination or increased frequency of urination Neuro: No new weakness, tingling, or confusion Psych: No depression, no anxiety All other systems otherwise negative Past Surgical History Procedure Laterality Date section Family History Problem Relation Genetic Neg Hx No genetic liver disease Allergies Allergen Reactions Cephalexin Pruritis, Rash and Edema Lisinopril Wheez/Dyspnea, Cough and Edema Latex Rash Peanut Butter Flavor Throat Swelling / Closing Ampicillin Hives Current Outpatient Prescriptions Medication Sig ACETAMINOPHEN, BULK, MISC once daily at bedtime. ALBUTEROL 90 MCG/ACTUATION AEROSOL INHALER inhale 1 puff by inhalation route every 4-6 hours as needed ALBUTEROL IN Inhale 0.85 mg. 4 times daily or more as needed amitriptyline 25 mg oral tablet 25 mg. amLODIPine 5 mg oral tablet Take 5 mg by mouth once daily. cyclobenzaprine 10 mg oral tablet Take 10 mg by mouth three times daily as needed. Do n ot use longer than 2-3 weeks. diazepam 5 mg oral tablet 5 mg. DULoxetine 60 mg oral capsule,delayed release(DR/EC) Take 60 mg by mouth once daily. hydrOXYzine 25 mg oral tablet Take 5 mg by mouth. hydrOXYzine pamoate 25 mg Oral Capsule Take 25 mg by mouth every four hours as needed. losartan 100 mg oral tablet Take 12.5 mg by mouth once daily. meclizine 25 mg oral tablet Take 25 mg by mouth twice daily as needed for nausea/vomiti ng. medroxyPROGESTERone 10 mg oral tablet Take 10 mg by mouth. metFORMIN 500 mg oral tablet Take 500 mg by mouth two times daily. METOPROLOL SUCCINATE ORAL Take by mouth. naproxen 500 mg oral tablet Take 500 mg by mouth two times daily. oxyCODONE, immediate release, 5 mg oral tablet Take by mouth every six hours as needed . ribavirin 200 mg oral capsule Take 2 capsules by mouth two times daily. timolol 10 mg Oral Tablet Take by mouth. Take 2 tabs in the morning and 1 at bedtime Tramadol (ULTRAM ER) 300 mg Oral Tablet Sustained Release 24 hr Take 50 mg by mouth onc e daily at bedtime. TRAZODONE 50 MG TAB 1 tab by mouth once daily 100 mg XANAX 0.25 MG TAB take 1 tablet [...] (HCC) - Primary | + + | BROWER (nonalcoholic steatohepatitis) Other chronic nonalcoholic liver disease | + + | Metabolic syndrome Dysmetabolic Syndrome X | + + documented in this encounter
--- OUTSIDE RECORDS SUMMARY | ~2018-06-22 | XMS | Encounter Summary ---
Demographics + + + | Address | [address] | | | [place] [address] | + + + | Home Phone [...] Providers + +------+ + | Care Business Machine Mechanic Name | Role | Phone | + +------+ + | Alex Askew MD | PCP | Unavailable | + +------+ + Encounter Details +--------+------+ + + + | Date | Type | Department | Care Team | Description | +--------+------+ + + + | 08/21/ | Lab | Laboratory at [facility] | | | | 2013 | | [address] | | examination or test, | | | | [place], [place] | | | | | | [address] | | unconfirmed | | | | [phone] | | | +--------+------+ + + + [...] +--------+ + + + | [facility] - HCG URINE, | Routin | 08/21/2013 | | Results for this | | QUAL | e | 9:28 AM | examination or test, | procedure are in the | | | | PDT | | results section. | | | | | unconfirmed | | + +--------+ + + + documented in this encounter Results [facility] - HCG URINE, QUAL (08/21/2013 9:28 AM PDT) + + + + + + | Component | Value | Ref Range | Performed | Pathologist | | | | | At | Signature | + + + + + + | HCG QUAL | NegativeComment: HCG= | mIU/mL | [facility] | | | URINE | <20mIU/mL. | | LABORATORY | | | | | | SERVICES, | | | | | | [facility] | [facility] | | [facility] + | | | | | | HEALING | | + + + + + + + + | Specimen | + + | Urine - Urine | + + + + + + + | Performing | Address | City/State/Zipcode | Phone Number | | Organization | | | | + + + + + | [facility] | [address] | [place] [address] | | | SERVICES, [facility] [place] | | | | | [facility] + HEALING | | | | + + + + + documented in this encounter Visit Diagnoses + + | Diagnosis | + + | examination or test, unconfirmed | + + documented in this encounter"
--- OUTSIDE RECORDS SUMMARY | ~2018-06-22 | XMS | Encounter Summary ---
Demographics + + + | Address | [address] | | | [place] [address] | + + + | Home Phone [...] + + + | Author | [facility] | + + + | Organization | [facility] | + + + | Address | [...] Team Providers + +------+ + | Care Balance Wheel Facer Name | Role | Phone | + +------+ + | Alex Askew MD | PCP | Unavailable | + +------+ + Encounter Details +--------+ + + + + | Date | Type | Department | Care Team | Description | +--------+ + + + + | 12/29/ | Results | [facility] | Cyrus Huston, | | | 2010 | Only | Center at [address] | [place] | | | | | [address] | | | | | | Mailcode: Center | | | | | | for Health and | | | | | | Healing, [address] | | | | | | [place], [place] | | | | | | [address] | | | | | | [phone] | | | +--------+ + + + [...] + + | DIFFERENTIAL | Routin | 12/29/2010 | | Results for this | | | e | 3:01 PM | | procedure are in the | | | | PST | | results section. | + +--------+ + + + | CBC, WITH | Routin | 12/29/2010 | | Results for this | | DIFFERENTIAL | e | 3:01 PM | | procedure are in the | | | | PST | | results section. | + +--------+ + + + documented in this encounter Results DIFFERENTIAL (12/29/2010 3:01 PM PST) + +---------+ + + + | Component | Value | Ref Range | Performed | Pathologist | | | | | At | Signature | + +---------+ + + + | NEUTROPHIL | 70 | 50 - 70 % | [facility] | | | % | | | DEPARTMENT | | | | | | OF | | | | | | PATHOLOGY | | + +---------+ + + + | LYMPHOCYTE | 20 | 18 - 42 % | [facility] [...] +---------+ + + + | NEUTROPHIL | 9.0 (H) | 1.8 - 7.7 K/cu | [facility] | | | # | | mm | DEPARTMENT | | | | | | OF | | | | | | PATHOLOGY | | + +---------+ + + + | LYMPHOCYTE | 2.6 | 1.0 - 4.8 K/cu | [facility] | | | # | | mm | DEPARTMENT | | | | | | OF | | | | | | PATHOLOGY | | + +---------+ + + + | MONOCYTE # | 1.0 (H) | <0.9 K/cu mm | [facility] [...] DEPARTMENT OF | [address] | [place] [address] | | | PATHOLOGY | [address] | | | + + + + + CBC, WITH DIFFERENTIAL (12/29/2010 3:01 PM PST) + + + + + + | Component | Value | Ref Range | Performed | Pathologist | | | | | At | Signature | + + + + + + | WHITE CELL | 12.8 (H) | 4.4 - 11.0 K/cu | [facility] | | | COUNT | | mm | DEPARTMENT | | | | | | OF | | | | | | PATHOLOGY | | + + + + + + | RED CELL | 4.49 | 4.00 - 5.20 | [facility] | [...] + + + + | HEMATOCRIT | 42.9 | 36.0 - 46.0 % | [facility] | | | | | | DEPARTMENT | | | | | | OF | | | | | | PATHOLOGY | | + + + + + + | MCV | 95.4 | 80.0 - 96.0 fL | [facility] | | | | | | DEPARTMENT | | | | | | OF | | | | | | PATHOLOGY | | + + + + + + | MCHC | 34.8 | 33.4 - 35.5 | [facility] | [...] + + + + | PLATELET | 206 | 150 - 400 K/cu | [facility] [...] DEPARTMENT OF | [address] | [place] [address] | | | PATHOLOGY | [address] | | | + + + + + documented in this encounter Visit Diagnoses Not on filedocumented in this encounter"
--- OUTSIDE RECORDS SUMMARY | ~2018-06-22 | XMS | Encounter Summary ---
Demographics + + + | Address | [address] | | | [place] [address] | + + + | Home Phone [...] Team Providers + +------+ + | Care Airline Operations Agent Name | Role | Phone | + +------+ + | Alex Askew MD | PCP | Unavailable | + +------+ + Encounter Details +--------+ + + + + | Date | Type | Department | Care Team | Description | +--------+ + + + + | 07/28/ | Procedure - | | Endoscopy, Gi | OP Report-Endoscopy | | 2005 | | | | | | | Transcribed | | | | +--------+ + + [...] | + +--------+ + + + | ENDOSCOPY | | 07/28/2005 | | | + +--------+ + + + documented in this encounter Visit Diagnoses Not on filedocumented in this encounter"
--- OUTSIDE RECORDS SUMMARY | ~2018-06-22 | XMS | Encounter Summary ---
Demographics + + + | Address | [address] | | | [place] [address] | + + + | Home Phone [...] Team Providers + +------+ + | Care Group Therapy Counselor Name | Role | Phone | [...] | +--------+ + + + + | 01/13/ | Abstract | Dig[facility]ive [facility] | La Nena Ríos | Medical Records | | 2016 | | Center at [facility] [address] | MD Daniela [address] | Review | | | | [address] | [place], [place] | | | | | Mailcode: [place] | [address] | | | | | [facility] and | [phone] | | | | | [facility] [address] | | | | | | [place], [place] | | | | | | [address] | | | | | | [phone] | | | +--------+ + + + [...]
--- OUTSIDE RECORDS SUMMARY | ~2018-06-22 | XMS | Encounter Summary ---
Demographics + + + | Address | [address] | | | [place] [address] | + + + | Home Phone [...] + + + | Author | [facility] | + + + | Organization | [facility] | + + + | [...] Team Providers + +------+ + | Care Pot Press Operator Name | Role | Phone | + +------+ + | Alex Askew MD | PCP | Unavailable | + +------+ + Encounter Details +--------+ + + + + | Date | Type | Department | Care Team | Description | +--------+ + + + + | 08/21/ | Inside | Radiology/Imaging | Jeni Michelle MD | | | 2014 | Referral | Lab at [facility] [address] | | | | | Order | [address] | | | | | | Mailcode: CH3G | | | | | | [facility] | | | | | | and [facility] | | | | | | [place], [place] | | | | | | [address] | | | | | | [phone] | | | +--------+ + + + [...] filedocumented as of this encounter Results [facility] - HCG URINE, [...] + + + | [facility] | [address] | [place] [address] | | | [facility] | | | | | HEALTH + HEALING | | | | + + + + + documented in this encounter Visit Diagnoses + + | Diagnosis | + + | examination or test, unconfirmed - Primary | + + documented in this encounter"
--- OUTSIDE RECORDS SUMMARY | ~2018-06-22 | XMS | Encounter Summary ---
Demographics + + + | Address | [address] | | | [place] [address] | + + + | Home Phone [...] + + + | Author | [facility] | + + + | Organization | [facility] | + + + | [...] Team Providers + +------+ + | Care Cigar Machine Feeder Name | Role | Phone | + +------+ + | Alex Askew MD | PCP | Unavailable | + +------+ + Reason for Visit + + + | Reason | Comments | + + + | Medical Records | C - Outside communication: Kehinde Lamar 07/24/14 | | Review | | + + + Encounter Details +--------+ + + + + | Date | Type | Department | Care Team | Description | +--------+ + + + + | 08/04/ | Abstract | Dig[facility]ive Health | La Nena Ríos | Medical Records | | 2014 | | Center at [facility] [address] | MD Daniela [address] | Review ([facility] | | | [address] | [place], [place] | Outside | | | | Mailcode: [place] | [address] | communication: | | | | for Health and | [phone] | Kehinde Lamar | | | | [facility] | | 07/24/14 ) | | | | [place], [place] | | | | | | [address] | | | | | | [phone] | | | +--------+ + + + [...]
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
--- OUTSIDE RECORDS SUMMARY | ~2018-06-22 | XMS | Clinical Summary ---
Demographics + + + | Address | [address] | | | [place] [address] | + + + | Home Phone | | + + + | Preferred Language | Unknown | + + + | Marital Status | Single | + + + | Samaritan Affiliation | 1041 | + + + | Race | Unknown | + + + | Ethnic Group | Unknown | + + + Author + + + | Author | [facility] | | | and [place] | + + + | Organization | [facility] | | | and [place] | + + + | Address | Unknown | + + + | Phone | Unavailable | + + + Support + + +---------+ + | Name | Relationship | Address | Phone | + + +---------+ + | Ramos Oconnor | ECON | Unknown | | + + +---------+ + | RubenGus | ECON | Unknown | | + + +---------+ + Care Team Providers + +------+ + | Care Cryptologic Support Specialist Name | Role | Phone | + +------+ + | Alex Askew MD | PP | Unavailable | + +------+ + Allergies + + + + + + | Active Allergy | Reactions | Severity | Noted | Comments | | | | | Date | | + + + + + + | Bee Venom | Anaphylaxis | High | 03/19/19 | | | | | | 15 | | + + + + + + | Penicillins | Shortness Of Breath, | High | | | | | Rash | | | | + + + + + + Medications + + + +---------+------+------+-------+ | Medication | Sig | Dispensed | Refills | Star | End | Statu | | | | | | t | Date | s | | | | | | Date | | | + + + +---------+------+------+-------+ | naproxen | Take 500 mg by mouth | | 0 | | | Activ | | (NAPROSYN) 500 mg | 2 times daily (with | | | | | e | | tablet | breakfast & | | | | | | | | dinner). | | | | | | + + + +---------+------+------+-------+ | hydrOXYzine | Take 25 mg by mouth | | 0 | | | Activ | | hydrochloride | every 6 hours as | | | | | e | | (ATARAX) 25 mg | needed. | | | | | | | tablet | | | | | | | + + + +---------+------+------+-------+ | cyclobenzaprine | Take 10 mg by mouth | | 0 | | | Activ | | (FLEXERIL) 10 mg | Twice daily as | | | | | e | | tablet | needed. | | | | | | + + + +---------+------+------+-------+ | diazepam (VALIUM) | Take 5 mg by mouth | | 0 | | | Activ | | 5 mg tablet | nightly. | | | | | e | + + + +---------+------+------+-------+ | traMADol (ULTRAM) | Take 50 mg by mouth | | 0 | | | Activ | | 50 mg tablet | every 6 hours as | | | | | e | | | needed. | | | | | | + + + +---------+------+------+-------+ | amLODIPine | Take 5 mg by mouth | | 0 | | | Activ | | (NORVASC) 5 mg | Daily. | | | | | e | | tablet | | | | | | | + + + +---------+------+------+-------+ | ALPRAZolam (XANAX) | Take 0.25 mg by | | 0 | | | Activ | | 0.25 mg tablet | mouth 2 times daily. | | | | | e | + + + +---------+------+------+-------+ | meclizine | Take 12.5 mg by | | 0 | | | Activ | | (ANTIVERT) 25 mg | mouth as needed. | | | | | e | | tablet | | | | | | | + + + +---------+------+------+-------+ | metoprolol | Take 100 mg by mouth | | 0 | | | Activ | | succinate | Daily. | | | | | e | | (TOPROL-XL) 100 mg | | | | | | | | ER tablet | | | | | | | + + + +---------+------+------+-------+ | trazodone | Take 150 mg by mouth | | 0 | | | Activ | | (DESYREL) 150 MG | nightly. | | | | | e | | tablet | | | | | | | + + + +---------+------+------+-------+ | losartan (COZAAR) | Take 100 mg by mouth | | 0 | | | Activ | | 100 MG tablet | Daily. | | | | | e | + + + +---------+------+------+-------+ | amitriptyline | Take 50 mg by mouth | | 0 | | | Activ | | (ELAVIL) 25 mg | nightly. | | | | | e | | tablet | | | | | | | + + + +---------+------+------+-------+ | albuterol 2.5 mg/3 | Take 2.5 mg by | | 0 | | | Activ | | mL nebulizer | nebulization every 6 | | | | | e | | solution | hours as needed for | | | | | | | | Wheezing. | | | | | | + + + +---------+------+------+-------+ | albuterol 90 | Inhale 2 puffs into | | 0 | | | Activ | | mcg/puff inhaler | the lungs every 6 | | | | | e | | | hours as needed for | | | | | | | | Wheezing. | | | | | | + + + +---------+------+------+-------+ | | Take 1 tablet by | 10 | 0 | 05/0 | | Activ | | medroxyPROGESTERone | mouth once daily on | tablet | | 7/20 | | e | | (PROVERA) 10 mg | days 1 to 10 of each | | | 18 | | | | tablet | month. | | | | | | + + + +---------+------+------+-------+ Active Problems + + + | Problem | Noted Date | + + + | Cervical spondylosis with radiculopathy | 03/19/2014 | + + + | Cervical spinal stenosis | 03/19/2014 | + + + | Degenerative disc disease, cervical | 03/19/2014 | + + + | Foraminal stenosis of cervical region | 03/19/2014 | + + + Family History + + +------+ + | Medical History | Relation | Name | Comments | + + +------+ + | Arthritis | Father | | | + + +------+ + | Diabetes | Father | | | + + +------+ + | Heart disease | Father | | | + + +------+ + | Hypertension | Father | | | + + +------+ + | Stroke | Father | | | + + +------+ + | Alcohol abuse | Mother | | | + + +------+ + | Arthritis | Mother | | | + + +------+ + | Heart disease | Mother | | | + + +------+ + | Hypertension | Mother | | | + + +------+ + | Stroke | Mother | | | + + +------+ + + +------+ + + | Relation | Name | Status | Comments | + +------+ + + | Father | | | | + +------+ + + | Mother | | | | + +------+ + + Social History + +-------+ +--------+------+ | Tobacco Use | Types | Packs/Day | Years | Date | | | | | Used | | + +-------+ +--------+------+ | Never Smoker | | | | | + [...] + + + | Blood Pressure | 166/76 | 10/20/20151306 PDT | + + + + | Pulse | 67 | 10/20/20151306 PDT | + + + + | Temperature | - | - | + + + + | Respiratory Rate | 16 | 10/20/20151306 PDT | + + + + | Oxygen Saturation | - | - | + + + + | Inhaled Oxygen | - | - | | Concentration | | | + + + + | Weight | 116.1 kg (256 lb) | 10/20/20151306 PDT | + + + + | Height | 162 cm (5' 3.78") | 10/20/20151306 PDT | + + + + | Body Mass Index | 44.25 | 10/20/20151306 PDT | + + + + Plan of Treatment + + + + + | Health Maintenance | Due Date | Last Done | Comments | + + + + + | Hepatitis C | | | | | Screening | 3 | | | + + + + + | Vaccine: | | | | | Dtap/Tdap/Td (1 - | 2 | | | | Tdap) | | | | + + + + + | Breast Cancer | | | | | Screening (Ages | 3 | | | | 50-74) | | | | + + + + + | Colorectal Cancer | | | | | Screening | 3 | | | | (Colonoscopy) | | | | + + + + + | Vaccine: Zoster (1 | | | | | of 2) | 3 | | | + + + + + | Adult Annual | | | | | Wellness Visit | 5 | | | + + + + + | Vaccine: Influenza | | | | | (Season Ended) | 9 | | | + + + + + | Cervical Cancer | | 10/20/2015, 10/07/2014 | | | Screening (Pap) | 1 | | | + + + + + Results Not on filefrom Last 3 Months Insurance + +--------+ +--------+ +---------+--------+ | Payer | Benefi | Subscriber | Effect | Phone | Address | Type | | | t Plan | ID | darin | | | | | | / | | Dates | | | | | | Group | | | | | | + +--------+ +--------+ +---------+--------+ | [employer] | [employer] | [id number] | 02/06/19 | | | Medica | | | HEALTH | | 17-Pre | | | re | | | MDCR | | sent | | | | + +--------+ +--------+ +---------+--------+ | [employer] | [employer] | [id number] | | [phone] | | Medica | | MEDICAID HMO | HEALTH | | 014-Pr | 1 | | id | | | MDCD | | esent | | | | | | [place] | | | | | | + +--------+ +--------+ +---------+--------+ + +--------+ +--------+ + + | Guarantor Name | Accoun | Relation to | Date | Phone | Billing Address | | | t Type | Patient | of | | | | | | | | | | + +--------+ +--------+ + + | Rosanna Hernández | Person | Self | [birth year] | [address] | | | al/Fam | | 1960 | | [place], [place] | | | souleymane | | | 1 (Home) | [phone] | + +--------+ +--------+ + + | Rosanna Hernández | Person | Self | [birth year] | [address] | | | al/Fam | | 1961 | | [place] | | | sou[place]ymane | | | 1 (Home) | [phone] | + +--------+ +--------+ + + Advance Directives Patient has advance care planning documents on file. For more information, please contact:[facility] [place] [address]
[~2018-06-22 13:15] MED LIST changes: -ALBUTEROL0.63 MG/3 INH; +ALBUTEROL1.25 MG/3 INH; +LIDODERM1 EACH TOP; +ONDANSETRON ODT4 MG SL; +ZANAFLEX2 M1 PO
[2018-06-25] MEDS ORDERED: ALPRAZOLAM0.25 MG PO (10:12)
[2018-06-25] MEDS ORDERED: HYDROXYZINE HCL10 MG PO (10:14)
[2018-06-25] MEDS ORDERED: METFORMIN HCL500 MG PO (10:15)
[2018-06-25] MEDS ORDERED: MEDROXYPROGESTE10 MG PO (10:15)
--- NOTE | 2018-06-25 10:42 | NUR ---
PATIENT HERE TODAY FOR PREADMISSION APPOINTMENT. SHE IS SCHEDULED ON 07/03/18 FOR A RIGHT TOTAL KNEE ARTHROPLASTY. SHE HAS BEEN TO PHYSICAL THERAPY FOR A PREOP APPOINTMENT ALREADY THIS MORNING AND STATES HER FIRST APPOINTMENTS ARE SET UP. SHE HAS 5 STEPS INTO THE HOME AND 2 STEPS INSIDE THE HOME THAT GO INTO THE BEDROOM. THERE IS A WALK IN SHOWER AND SHE STATES SHE ALREADY HAS A SHOWER BENCH TO USE. SHE WOULD LIKE CASE MANAGEMENT TO LOOK INTO OBTAINING A WALKER FOR HER. HER SON TIMOTHY WILL BE THE ONE TO TRANSPORT HER HOME WHEN SHE IS DISCHARGED AND TO APPOINTMENTS NEEDED. THIS INFORMATION WILL BE SENT TO DR GRIFFITH OFFICE AND CASE MANAGEMENT FOR FURTHER FOLLOW UP.
[2018-07-03] MEDS ORDERED: OMEPRAZOLE20 MG PO (08:45)
--- NOTE | 2018-07-03 09:03 | NUR ---
CHG ORAL RINSE AND NASAL SWAB COMPLETE.
--- NOTE | 2018-07-03 15:25 | NUR ---
07/03/18 1525 Sheets,Barb 1420 PT ARRIVED TO PACU, AWAKE AND TALKING TO RN. PT ON RA AND RESP EVEN AND UNLABORED. PT DENIES PAIN AND SPINAL LEVEL AT T-11. PT ABLE TO MOVE TOES BUT THEY ARE NUMB. 1441 X-RAY AT BEDSIDE. PT CONTINUES TO DENY PAIN AND NAUSEA. PLAN OF CARE DISCUSSED. PT ASKED RN TO CALL SISTER AND LET HER KNOW HOW SURGERY WENT. 1500 VSS. PT READY FOR TRANSFER.
--- NOTE | 2018-07-03 15:25 | NUR ---
NEW ADMIT TO THE FLOOR. PT AWAKE, ALERT AND ORIENTED X3. SPINAL RESOLVING, AT L1. PT HAS GOOD PEDAL PULSE, CMS INTACT TO RIGHT LOWER LEG. ICE OVER INCISION SITE. BROOKE WRAP CDI. PT DENIES PAIN AT THIS TIME. PT ON RA, RESP NON LABORED, 02 SAT LEVEL 94% ON RA. PT ORIENTED TO ROOM AND CALL LIGHT. NO NEEDS AT THIS TIME. PT DUE TO VOID.
--- NOTE | 2018-07-03 16:05 | NUR ---
BENADRYL 12.5MG IVP ADMIN FOR REPORTS OF ITCHING TO FACE.
--- NOTE | 2018-07-03 16:24 | NUR ---
PT AWAKE, ALERT AND ORIENTED X3. PT ON RA. VS STABLE, OXYGEN SAT LEVEL 92% ON RA, RESP NON LABORED. PT DENIES PAIN. SPINAL RESOLVING AT L3 APPROX. CMS INTACT TO RIGHT LEG. BROOKE WRAP CDI. PT TOLERATING ICE. PT ABLE TO MOVE TOES AND FREELY. PT TOLERATING WATER AT THIS TIME. LUNCH ORDERD. NO NEEDS AT THIS TIME. CALL LIGHT WITHIN REACH. PT EDUCATED ON SAFETY.
[2018-07-03] MEDS ORDERED: ACETAMINOPHEN-1 EAC1 PO (16:42)
[2018-07-03] MEDS ORDERED: NADOLOL80 MG PO (16:47)
--- NOTE | 2018-07-03 17:22 | NUR ---
PT ALERT AND ORIENTED X3. PT'S VS STABLE, SAT LEVEL 95% ON RA. CPOX INTACT. SPINAL RESOLVED. PT REPORTS FULL SENSATION TO RIGHT LOWER LEG. CMS INTACT. DRESSING TO RLL IS CDI. PERSONAL SUPPLIES AND CALL LIGHT WITHIN REACH. NO NEEDS.
--- NOTE | 2018-07-03 18:28 | NUR ---
SPINAL RESOLVED. CMS INTACT TO RLL. DRESSING CDI. ICER OVER INCISION. PT REPORTED NAUSEA, ADMIN ZOFRAN IVP AT THIS TIME. PT VOIDED. PT REPORTS PAIN LEVEL 1/10 TO RIGHT LOWER LEG. PERSONAL SUPPLIES AND CALL LIGHT WITHIN REACH.
--- NOTE | 2018-07-03 18:51 | NUR ---
SPOKE WITH DWAYNE COHEN REGARDING SPINAL NARCOTIC HOLD ORDERS. PER VICKI, PT IS OK TO TAKE ORDERED PO OXYCODONE AT THIS TIME. ORDER FOR CPOX THROUGHOUT THE NIGHT AT VICKI'S REQUEST.
--- NOTE | 2018-07-03 19:05 | NUR ---
SHIFT REPORT RECEIVED. PATIENT RESTING IN BED. REPORTS GOOD PAIN CONTROL. DENIES ANY NEEDS AT THIS TIME.
--- NOTE | 2018-07-03 19:55 | NUR ---
ANSWERED CALL LIGHT WANTING ICE WATER, PROVIDED.
--- NOTE | 2018-07-03 21:30 | NUR ---
EVENING MEDS GIVEN PER ORDER. PATIENT REPORTS HER PAIN 08/15. SCHEDULE PAIN MEDS PROVIDED. ICE PACKS IN PLACE. POSITIONED FOR COMFORT. PATIENT TOLERATING DIET. POST-OP INSTRUCTIONS DISCUSSED WITH A FOCUS ON PAIN MANAGEMENT. PATIENT REPORTS HISTORY OF SLEEP APNEA, O2 SAT 88% AT REST ON ROOM AIR. 1L NC PLACED ON PATIENT FOR NIGHT. LUNGS ARE CLEAR, UPPER AIRWAY WHEEZE AUDIBLE WITH ACTIVITY. ENCOURAGE IS USE. CMS INTACT ON RIGHT LEG. NO DRAINAGE NOTED ON DRESSING. SCDS AND HEEL PROTECTORS IN PLACE. PATIENT DENIES FURTHER NEEDS.
--- NOTE | 2018-07-03 22:30 | NUR ---
PATIENT PROVIDED OXY X2 FOR 9/10 PAIN IN RIGHT KNEE. PATIENT UP TO THE BATHROOM. TOLERATED AMBULATING WELL, 1PA W/FWW. ASSISTED PATIENT BACK TO BED. FRESH ICE PACKS IN PLACE. ASSISTED PATIENT TO POSITION FOR COMFORT. CALL LIGHT IN REACH.
--- NOTE | 2018-07-04 02:30 | NUR ---
PATIENT APPEARED TO BE SLEEPING SOUNDLY. WOKE EASILY TO VOICE. SCHEDULED MEDS PROVIDED WITH PRN OXY X1. PATIENT DENIES NEED FOR THE BATHROOM AT THIS TIME. DRESSING APPEARS CDI. ICE IN PLACE.
--- NOTE | 2018-07-04 06:00 | NUR ---
PATIENT PROVIDED WITH PRN OXY X1 FOR 7/10 PAIN. PATIENT UP TO BATHROOM WITH 1PA W/FWW. PATIENT TOLERATED WELL. ASSISTED PATIENT TO THE RECLINER. PATIENT ORDERING BREAKFAST.
--- NOTE | 2018-07-04 06:45 | NUR ---
PATIENT SLEPT WELL THIS SHIFT. PRN PAIN MEDS X3. SCHEDULED MEDS PER ORDER. TOLERATING DIET. IV SL WITH GOOD ORAL INTAKE. 1PA W/FWW. VS STABLE. MEPILEX, GAUZE AND BROOKE WRAP TO RIGHT KNEE. NO DRAINAGE. ICE PACKS PRN. HEEL PROTECTORS AND SCDS. 1-2L NC WHILE SLEEPING. TOLERATED WELL OVERNIGHT.
--- NOTE | 2018-07-04 07:30 | NUR ---
Pt sitting up in chair. Per pt reports pain is tolerable to right lower leg. Pt denies needs at this time. Personal supplies and call light within reach.
--- NOTE | 2018-07-04 08:49 | OR ---
[facility] [address], [place] [address] Signed DATE OF OPERATION: 07/03/2018 SURGEON: Jade Will MD PREOPERATIVE DIAGNOSIS: End-stage arthritis, right knee. POSTOPERATIVE DIAGNOSIS: End-stage arthritis, right knee. PROCEDURE: Right total knee arthroplasty. ANESTHESIA: Spinal with sedation. SPECIMENS AND COMPLICATIONS: There were no specimens or complications. TOURNIQUET TIME: About 85 minutes. IMPLANTS: An Attune, size 6, narrow femoral component, PS, size 5 tibial component with a 6 mm PS poly insert and 35 mm poly patellar button. WHAT WAS DONE: The patient was taken to the operating room. After anesthesia was induced, the patient's right lower extremity was positioned, prepped, and draped in a routine sterile fashion. The leg was exsanguinated with an Esmarch bandage. Pneumatic tourniquet was inflated to 300 mmHg pressure. A straight anterior approach was made, centered over the patella. Skin was divided sharply. Subcutaneous tissue was bluntly spread. A small medial flap was created. An anteromedial arthrotomy was performed. The patella was turned on edge and about 10 mm were trimmed off the posterior aspect of the patella. Drill holes were made for a 35 mm all-poly patella. The patella was then slid into the lateral recess. The knee was flexed. Using the [employer] navigation system, we digitized the distal femur and then resected the distal femur taking off 11 mm in neutral varus valgus and about 3 degrees of flexion. Femoral wafers were then removed. The navigation system was then transitioned to the proximal tibia. Again, following the prompts, we digitized the proximal tibia and then resected the proximal tibia in neutral Electronically Signed By: JADE WILL MD 07/04/18 0849 PATIENT NAME: CHARLA LUCAS OPERATIVE REPORT DATE OF : 64 REPORT #: [id number] PHYSICIAN: JADE WILL MD PCP: JAX NGO MD REPORT IS CONFIDENTIAL AND NOT TO BE RELEASED WITHOUT AUTHORIZATION [facility] [address], [place] [address] Signed varus valgus, 3 degrees of posterior tilt as per the Attune protocol and removed about 5 mm off the medial side. We then resected the proximal tibia. We removed the tibial wafer along with remnants of the medial lateral meniscus. We then sized the distal femur to a size 6, but clearly had to be a six in narrow. We then placed the four-in-one cutting block in place and I resected anteriorly posteriorly and made the chamfer cuts. We then placed the notch cutting block on the distal femur, cut out the notch and removed it along with remnants of the ACL and PCL. We then placed the femoral trial on the distal femur. I placed a size five tibial tray on the proximal tibia with a 5 mm poly insert and reduced the knee. We had good extension and good flexion, and we were stable. The wounds were gently irrigated. We marked the rotation of the tibial block and we drilled the lug holes for the femoral component and we drilled the holes for the femoral component and then I removed the tibial tray. We then prepared the femur with a standard reamer and broach. The knee was copiously irrigated and meticulously dried. The tibial tray and the femoral component were then cemented into place. Marginal cement was sought and removed. We then reduced the knee with a 5 mm poly and held the knee in full extension while the cement cured. We also cemented the patella into place at this time. Once all the cement had cured, we sought cementophytes and removed them. We then copiously irrigated the knee. We removed the 5 mm poly, trialed to six and were actually slightly happier with the stability and we still had full extension. We therefore snap-fit the 6 mm poly into the tibial tray. The knee was copiously irrigated and then closed in a standard fashion. A sterile dressing was applied. The patient was awakened and taken to the recovery room, where she arrived in stable condition. Counts were correct and antibiotic protocols were followed. Jade Will MD WFB/MODL /[id number] Copies: ~ Electronically Signed By: JADE WILL MD 07/04/18 0849 PATIENT NAME: CHARLA LUCAS OPERATIVE REPORT DATE OF : 64 REPORT #: [id number] PHYSICIAN: JADE WILL MD PCP: JAX NGO MD REPORT IS CONFIDENTIAL AND NOT TO BE RELEASED WITHOUT AUTHORIZATION
--- NOTE | 2018-07-04 10:14 | NUR ---
PT WORKED WITH PT, TOLERTED WELL PER PT REPORT. PT NOW BACK IN BED COMPLAINING FOR NAUSEA AND PAIN. ADMIN OXYCODONE 5MG PO AND PHENERGAN 12.5MG PO. PT ABLE TO TOLERATE PO AT THIS TIME. PT HAS NO NEEDS AT THIS TIME. CALL LIGHT WITHIN REACH.
--- NOTE | 2018-07-04 11:07 | NUR ---
PATIENT UP IN CHAIR. PHYSICAL THERAPY WORKED WITH HER. CALL LIGHT IN REACH. WATER REFRESHED. NO FURTHER NEEDS AT THIS TIME.
--- NOTE | 2018-07-04 13:45 | NUR ---
PT SITTING IN BED ALERT, ORIENTED AND VISITOR AT . PT HAS RETAINED HER SINSE OF HUMOR, AND WHEN I ASKED ABOUT HER PAIN-SHE STATED IT AT 8. PT STATED THAT IT WAS JUST ABOUT THAT BAD BEFORE P.T. I SHARED THIS WITH KIERRA GEORGES, SHE WILL CHECK HER CHART. EXTENDED A BLESSING, PT THANKED ME. WILL FOLLOW NEEDED
--- NOTE | 2018-07-04 13:50 | NUR ---
PATIENT IN BED RESTING. WATER REFRESHED. CALL LIGHT IN REACH. NO FURTHER NEEDS AT THIS TIME.
--- NOTE | 2018-07-04 18:39 | NUR ---
PT A&OX3. 2L WITH SLEEP D/T SLEEP APNEA. PT TOLERATING 60G CARB DIET. STANDBY ASSIST WITH WALKER. DID WELL WITH PT. CMS INTACT. BROOKE WRAP TO RLE WITH ICE.
--- NOTE | 2018-07-04 18:48 | NUR ---
ADMIN OXYCODONE 10MG PO FOR REPORTS OF 6/10 RIGHT KNEE PAIN.
--- NOTE | 2018-07-04 20:30 | NUR ---
PATIENT RESTING IN BED WATCHING TV. RIGHT KNE DRESSING CDI. PATIENT NOT HAVING PAIN AT THIS TIME. CALL LIGHT IN REACH.
--- NOTE | 2018-07-04 22:54 | NUR ---
CONT. PULSE OX ALARMING, PT DESATURATING TO 86% ON RA. OXYGEN REAPPLIED 2L BY NC TO PT. SPO2 INCREASES TO 93%. PT BACK TO SLEEP, EYES CLOSED BREATHING NON-LABORED. LIGHTS OFF IN ROOM.
--- NOTE | 2018-07-04 23:48 | NUR ---
PATIENT UP TO THE BATHROOM WITH 1PA FROM QUALITY CONTROL INSPECTOR.
--- NOTE | 2018-07-05 00:30 | NUR ---
PATIENT RESTING QUIETLY ON HER LEFT SIDE, EYES CLOSED, RESPIRATIONS REGULAR AND EVEN AT 16. 93% ON 2L/NC AND PULSE OF 72.
--- NOTE | 2018-07-05 02:34 | NUR ---
PATIENT RESTING QUIETLY ON HER LEFT SIDE, RESPIRATIONS REGULAR AND EVEN AT 16. EYES CLOSED. SATS=92% AND HEART RATE OF 73.
--- NOTE | 2018-07-05 05:09 | NUR ---
PATIENT RESTED QUIETLY MOST THE NIGHT ON 2L/NC SATS 90-92% WITH A HEART RATE IN THE 70'S. RIGHT KNEE DRESSING IS CLEAN DRY AND INTACT. NEW ICE BAGS IN PLACE PAIN HAS BEEN UNDER CONTROL WITH SCHEDULED MEDS. PATIENT STILL RESTING EYES CLOSED RESPIRATIONS EVEN AND REGULAR AT 16.
--- NOTE | 2018-07-05 07:17 | NUR ---
PT GOT UP TO BATHROOM, CALLED APPROPRIATE, HAD THE PT. WIPE HERSELF. UP TO THE CHAIR WAITING FOR BREAKFAST. CALL LIGHT IN PLACE
--- NOTE | 2018-07-05 07:50 | NUR ---
REPORT RECEIVED FROM MOHEL RN. PT UP IN CHAIR. LEGS ELEVATED. REPORTS PAIN 10/10 2 TABS OXYCODONE GIVEN. ICE APPLIED TO RIGHT KNEE. DRESSING C/D/I. BREAKFAST ORDERED. CALL LIGHT IN REACH. NO OTHER NEEDS
--- NOTE | 2018-07-05 10:00 | NUR ---
PT WORKIG WITH PHYSICAL THERAPY IN THE MENESES. TOLERATIGN WELL.
--- NOTE | 2018-07-05 11:50 | NUR ---
DR WILL CALLED TO UPDATE ON PT. NO ANSWER. MESSAGE LEFT.
--- NOTE | 2018-07-05 12:03 | NUR ---
DR WILL [facility]. UPDATED ON IV ACCESS. OK'D TO LEAVE IV OUT. NO OTHER ORDERS.
--- NOTE | 2018-07-05 12:18 | NUR ---
DID BLOOD SUGAR CHECK ALSO NURSE ASKED ME TO REMOVE PATIENT IV. PATIENT IS SITTING UP IN CHAIR EATING HER LUNCH.
--- NOTE | 2018-07-05 13:26 | NUR ---
MET PT IN MENESES WAS SHE WAS AMBULATING WITH P.T. HEAVY RELIANCE ON FWW, BUT SEEMS TO BE WORKING HARD. GAVE ENCOURAGEMENT, SHE THANKED ME. WILL FOLLOW NEEDED
--- NOTE | 2018-07-05 16:56 | NUR ---
ROUNDED WITH DR SIMEON. PLAN OF CARE DISCUSSED. QUESTIONS ANSWERED. SBA TO BATHROOM. VAIDED 500ML. REPORTING FEELING DIZZY WITH AMBULATION. 2L NC IN PLACE. UP TO CHAIR FOR DINNER. CALL LIGHT IN REACH.
--- NOTE | 2018-07-05 17:55 | NUR ---
PATIENT SITTING UP IN WHEELCHAIR. VITAL SIGNS AND I&O DONE. HIGH BLOOD PRESSURE. RN NOTIFIED. NO OTHER NEEDS AT THIS TIME
--- NOTE | 2018-07-05 17:57 | NUR ---
PT OFF FLOOR TO IMAGING
--- NOTE | 2018-07-05 19:39 | NUR ---
IV STARTED. NS STARTED AT 500ML/HR. PT TOLERATED WELL.
--- NOTE | 2018-07-05 20:07 | NUR ---
PATIENT UP TO THE RESTROOM AT THIS TIME, INDEPENDENT. NO C/O PAIN. CALL LIGHT IN REACH.
--- NOTE | 2018-07-05 20:59 | NUR ---
DR. SIMEON CALLED AND ASKED THAT LAB BE CALLED TO DRAW BLOOD NOW. LAB ON THE WAY. ALSO AVTAR OK TO HOLD EVENING FSBS.
--- NOTE | 2018-07-05 21:39 | NUR ---
LABS JUST DRAWN AND PM MEDS GIVEN.
--- NOTE | 2018-07-05 21:50 | NUR ---
CALL LIGHT ANSWERED, SBA WITH FWW TO RESTROOM FOR VOID. PT BACK IN BED, ICE PACKS, VENOUS FOOT PUMPS IN PLACE. SPO2 WNL ON 2L OXYGEN BY NC. CONT. PULSE OX ON. CALL LIGHT AND PERSONAL SUPPLIES IN REACH.
--- NOTE | 2018-07-06 00:20 | NUR ---
HELPED PT TO THE BATHROOM AND BACK TO BED. BEDSIDE TABLE AND CALL LIGHT IN REACH. 3 NEW ICE PACKS GIVEN FOR HER KNEE. PT NEEDS NOTHING MORE AT THIS TIME.
--- NOTE | 2018-07-06 02:36 | NUR ---
UP TO BR 1PA AND FWW. INCISION R KNEE WELL APPROXIMATED, OPEN TO AIR. VOIDING QS, YELLOW URINE. BACK TO BED, TOLERATD WELL. ICE TO R KNEE, FOOT SCDS IN PLACE. NO OTHER REQUESTS, CPOX INPLACE, PT IN ROOM AIR
--- NOTE | 2018-07-06 03:51 | NUR ---
PATIENT JUST UP TO THE BATHROOM 1PSBA AND VOIDED 450MLS. AMBULATED WELL TO AND FROM THE BATHROOM. BACK IN BED NOW, CALL LIGHT IN REACH, FOOT PUMPS ON. IV INFUSING WNL.
--- NOTE | 2018-07-06 05:11 | NUR ---
PATIENT SLEPT PRETTTY WELL THROUGH THE NIGHT, UP TO THE BATHROOM A COUPLE TIMES. RT KNEE INCISION OPEN TO THE AIR, WELL APPROXIMATED AND LOOKS GOOD. PATIENT AMBULATING WELL. NS RUNNING AT 75MLS/HR. IV WNL. PATIENT DESATS WHILE ASLEEP SO IS ON 2L/NC. FOOT PUMPS IN PLACE. 210MG OXYCODONE GIVEN FOR RT KNEE PAIN 09/15.
--- NOTE | 2018-07-06 07:40 | NUR ---
PATIENT SLEEPING. CALL LIGHT WITHIN REACH. NO OTHER NEEDS AT THIS TIME
--- NOTE | 2018-07-06 07:49 | NUR ---
REPORT RECEIVED FROM CHAMPAGNE MAKER RN. PT IN BEDWITH EYES CLOSED. CPOX IN PLACE. 2L NC IN PLACE 92%. HEART RATE 72. RESPIRATIONS EQUAL AND NONLABORED. NS AT 75ML/HR INFUSING.
--- NOTE | 2018-07-06 08:10 | NUR ---
CALL LIGHT ANSWERED. PATIENT RESTING IN BED. PATIENT GOES TO USE BATHROOM. PATIENT USES A WALKER. ONE PERSON ASSISTING. LINENS CHANGED. PATIENT BACKS TO CHAIR. SETS UP TABLE FOR BREAKFAST. WARM BLANKET PROVIDED. CALL LIGHT WITHIN REACH. NO OTHER NEEDS AT THIS TIME
--- NOTE | 2018-07-06 09:06 | NUR ---
PATIENT SITTING UP IN CHAIR. VITAL SIGNS AND I&O DONE. CALL LIGHT WITHIN REACH. NO OTHER NEEDS AT THIS TIME
--- NOTE | 2018-07-06 09:20 | NUR ---
RT IN FOR BREATHING TREATMENT. PHYSICAL THERAPY IN TO WALK PT.
--- NOTE | 2018-07-06 09:45 | NUR ---
REVIEWED DC INFORMATION WITH THE PT, WE TALKED ABOUT HER USING HER IS AND THE IMPROTANCE OF THAT ESPECIALLY BECAUSE SHE WASN'T ACTIVE SHE NORMALLY MAY BE AND THE WAY THAT CAN AFFECT THE EXCHANGE OF FLUIDS IN THE LUNGS. ALSO TALKED ABOUT THE IMPORTANCE OF HER EITHER GETTING HER RECORDS FOR HER SLEEP STUDY OR HAVING ANOTHER SLEEP STUDY DONE HER STAY HERE SHOWED THAT THIS IS A VERY NEEDED ISSUE. ALSO TOLD HER I WOULD SEND OFF CHART NOTES FOR HER PT WHICH IS SET TO BEGIN AT [facility] OP PT ON MONDAY. SHE STATED UNDERSTANDING OF THESE THINGS, STATING SHE NEVER REALLY UNDERSTOOD THAT IT WAS THAT IMPORTANT ABOUT THE SLEEP STUDY AND THE NEED FOR THE CPAP. SHE SAID SHE APPRECIATED ALL THE INFORMATION AND MY BEING SO UPFRONT WITH HER.
[2018-07-06] MEDS ORDERED: VENTOLIN HFA18 GM INH (10:06)
[2018-07-06] MEDS ORDERED: PREDNISONE20 MG PO (10:07)
--- NOTE | 2018-07-06 10:30 | NUR ---
ROUNDED WITH DR SIMEON. PLAN OF CARE DISCUSSED. QUESTIONS AND CONCERNS ADRESSED.
--- NOTE | 2018-07-06 12:31 | NUR ---
PT SITTING IN CHAIR, FAMILY PRESENT. PT IS WAITING FOR DC, WENT OVER SOME QUESTIONS TO ASK. PT IN GOOD MOOD, THANKED ME FOR COMING IN. EXTENDED A BLESSING, WILL FOLLOW NEEDED
[2018-07-06] MEDS ORDERED: XARELTO10 MG PO (14:25)
[2018-07-06] MEDS ORDERED: TYLENOL EXTRA500 MG (14:26)
[2018-07-06] MEDS ORDERED: OXYCODONE HCL10 MG PO (14:29)
--- NOTE | 2018-07-06 17:15 | NUR ---
FAXED CHART NOTES INCLUDING FACE SHEET, ORDERS, H AND P, OP NOTE, CONSULT, PT EVAL AND NOTES TO [facility] OP PT. RECIEVED FAX CONFIRMATION.
== END 2018-07-06 14:35 | disposition home or self-care (01) | DRG 470 ==
LOC: DSVR 07-03 08:20 → MS 07-03 08:20
PROVIDERS: ADMIT Orthopaedic Surgery
PROC: 8E0YXBZ Computer Assisted Procedure of Lower Extremity (ICD-10-PCS; 2018-07-03)
PROC: 0SRC0J9 Replacement of Right Knee Joint with Synthetic Substitute, Cemented, Open Approach (ICD-10-PCS; principal; 2018-07-03 11:00)
DX: M17.0 Bilateral primary osteoarthritis of knee (principal); E87.1 Hypo-osmolality and hyponatremia; J45.901 Unspecified asthma with (acute) exacerbation; I10 Essential (primary) hypertension; E11.9 Type 2 diabetes mellitus without complications; I48.91 Unspecified atrial fibrillation; I45.81 Long QT syndrome; R09.02 Hypoxemia; Z87.891 Personal history of nicotine dependence; Z86.19 Personal history of other infectious and parasitic diseases; Z88.1 Allergy status to other antibiotic agents; Z88.0 Allergy status to penicillin; Z79.84 Long term (current) use of oral hypoglycemic drugs; Z79.899 Other long term (current) drug therapy
CPT/HCPCS: 01402; 36415; 71046; 73560; 80048; 81001; 82803; 83880; 83935; 84295; 84300; 84550; 85025; 94640; 94761; 94762; 97110; 97116; 97161; 97530; C1713; C1776; J1200; J1885; J2250; J2274; J2405; J2704; J3010; J3370; J7030; J7060; J7120; J7512

== ENCOUNTER 2018-07-11 08:44 | Emergency (ER) | payer MEDICARE ==
[~2018-07-11] VITALS: Ht 162.6 cm; Wt 120.2 kg
[~2018-07-11 08:44] MED LIST changes: +HYDROXYZINE HCL10 MG PO; +OMEPRAZOLE20 MG PO; +OXYCODONE HCL10 MG PO; +TYLENOL EXTRA500 MG; +XARELTO10 MG PO
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
== END 2018-07-11 09:22 | disposition home or self-care (01) ==
LOC: ED 08:44
DX: G89.18 Other acute postprocedural pain (principal); M25.561 Pain in right knee; I10 Essential (primary) hypertension; F41.9 Anxiety disorder, unspecified; J45.909 Unspecified asthma, uncomplicated; E66.9 Obesity, unspecified; Z86.19 Personal history of other infectious and parasitic diseases; G35 Multiple sclerosis; Z88.8 Allergy status to other drugs, medicaments and biological substances; Z91.010 Allergy to peanuts; Z91.038 Other insect allergy status; Z88.0 Allergy status to penicillin; Z79.52 Long term (current) use of systemic steroids; Z79.84 Long term (current) use of oral hypoglycemic drugs; Z79.899 Other long term (current) drug therapy
CPT/HCPCS: 93971; 99283-25

== ENCOUNTER 2018-10-03 16:33 | Emergency (ER) | payer MEDICARE, MEDICAID ==
[~2018-10-03] VITALS: Ht 162.6 cm; Wt 120.2 kg
[~2018-10-03 16:33] MED LIST changes: +MELOXICAM7.5 MG PO
--- OUTSIDE RECORDS SUMMARY | 2018-10-03 16:36 | XMS ---
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 E.D. VISIT COUNT (12 MO.) 4 [facility] Romero TOTAL 4 NOTE: Visits indicate total known visits. ED/UCC VISIT TRACKING (12 MO.) 10/03/2018 16:34 [facility] [place] TYPE: Emergency COMPLAINT: - LEFT KNEE INJURY 08/16/2018 11:08 [facility] [place] TYPE: Emergency COMPLAINT: - CHEST PAIN, BLOOD PRESSURE PROBLEM, POST OP PROB DIAGNOSES: - Allergy status to penicillin - Allergy status to other antibiotic agents status - Other acute postprocedural pain - Unspecified asthma, uncomplicated - Bee allergy status - Essential (primary) hypertension - Pain in right knee - Allergy status to other drugs, medicaments and biological substances status - Anxiety disorder, unspecified - Other long term care phlebotomist (current) drug therapy - Allergy to other foods - Other chest pain 07/11/2018 08:45 [facility] [place] TYPE: Emergency COMPLAINT: - POST OP PROBLEM DIAGNOSES: - Allergy to peanuts - Other acute postprocedural pain - Essential (primary) hypertension - editor news (current) use of oral hypoglycemic drugs - Unspecified asthma, uncomplicated - Allergy status to other drugs, medicaments and biological substances status - Multiple sclerosis - Pain in right knee - Obesity, unspecified - Other insect allergy status - Anxiety disorder, unspecified - Allergy status to penicillin - Other group home (current) drug therapy - USP (current) use of systemic steroids - Personal history of other infectious and parasitic diseases 01/04/2018 13:33 [facility] [place] TYPE: Emergency [...] status - Allergy to peanuts - Other group home (current) drug therapy INPATIENT VISIT TRACKING (12 MO.) 07/03/2018 08:20 [facility] [place] TYPE: Medical Surgical COMPLAINT: - RIGHT TOTAL KNEE ARHTROPLASTY DIAGNOSES: - Allergy status to other antibiotic agents status - Personal history of other infectious and parasitic diseases - Hypoxemia - Allergy status to penicillin - Hypoxemia - Unspecified atrial fibrillation - Essential (primary) hypertension - Long QT syndrome - editor news (current) use of oral hypoglycemic drugs - editor news (current) use of oral hypoglycemic drugs - Hypo-osmolality and hyponatremia - Unspecified asthma with (acute) exacerbation - Hypo-osmolality and hyponatremia - Other group home (current) drug therapy - Personal history of other infectious and parasitic diseases - Essential (primary) hypertension - Personal history of nicotine dependence - Allergy status to penicillin - Type 2 diabetes mellitus without complications - Unilateral primary osteoarthritis, right knee - Other long term care phlebotomist (current) drug therapy - Allergy status to other antibiotic agents status - Unspecified atrial fibrillation - Unspecified asthma with (acute) exacerbation - Personal history of nicotine dependence - Long QT syndrome - Bilateral primary osteoarthritis of knee - Type 2 diabetes mellitus without complications [email or web address]
== END 2018-10-03 19:00 | disposition home or self-care (01) ==
LOC: ED 16:33
DX: M66.0 Rupture of popliteal cyst (principal); I10 Essential (primary) hypertension; F41.9 Anxiety disorder, unspecified; J45.909 Unspecified asthma, uncomplicated; E66.9 Obesity, unspecified; F43.10 Post-traumatic stress disorder, unspecified; Z87.891 Personal history of nicotine dependence; Z88.8 Allergy status to other drugs, medicaments and biological substances; Z91.030 Bee allergy status; Z88.1 Allergy status to other antibiotic agents; Z79.899 Other long term (current) drug therapy; Z79.84 Long term (current) use of oral hypoglycemic drugs
CPT/HCPCS: 93971; 99283-25

== ENCOUNTER 2019-12-26 06:10 | Day surgery (SDC) | payer MEDICARE, MEDICAID ==
[~2019-12-26] VITALS: Ht 162.6 cm; Wt 117.2 kg
[2019-12-26] MEDS ORDERED: COZAAR100 MG PO (06:30)
[2019-12-26] MEDS ORDERED: ACTOS15 MG PO (06:32)
[2019-12-26] MEDS ORDERED: JANUVIA100 MG PO (06:32)
[2019-12-26] MEDS ORDERED: CHLORTHALIDONE25 MG PO (06:33)
--- NOTE | 2019-12-26 09:39 | NUR ---
12/26/19 0938 Sabi Esteban 0933- PT TO PACU IN SUPINE POSITION. EYES CLOSED SLEEPING WITH ORAL AIRWAY IN PLACE. BREATHING EASY AND UNLBORED. SPO2 >95% ON 6 L O2 VIA SIMPLE MASK. DRESSING CDI, TREVOR DRAIN IN PLACE TO BULB SUCTION . IV FLUIDS TKO.
[2019-12-26] MEDS ORDERED: IBUPROFEN600 MG PO (09:59)
[2019-12-26] MEDS ORDERED: OXYCODON-ACETA1 EAC2 PO (10:00)
[2019-12-26] MEDS ORDERED: ACETAMINOPHEN500 MG PO (10:00)
--- NOTE | 2019-12-26 10:15 | NUR ---
ICED WATER AND JELLO GIVEN. CALL LIGHT IS WITHIN REACH. CONTINUOUS PULSE OXIMETER IN PLACE. SISTER AT THE BEDSIDE.
--- NOTE | 2019-12-26 11:16 | NUR ---
2ND JELLO GIVEN. MORE ICE GIVEN. OXYGEN REMAINS 95% ON 2L VIA NC. OXYGEN IS TURNED OFF AT THIS TIME. CONTINUOUS PULSE OXIMETER REMAINS IN PLACE. OXYGEN SATURATION DROPS TO 88% ON RA. PATIENT IS REQUESTING COOL AIR. THIS IS GIVEN. OXYGEN INCREASED TO 2L DUE TO SATURATION STAYING BELOW 90%
--- NOTE | 2019-12-26 13:11 | NUR ---
PATIENT CONTINUES TO C/O UPPER ABDOMINAL PAIN. NEW ORDER RECEIVED. PATIENT'S OXYGEN IS 97% ON 2L VIA NC. OXYGEN IS TURNED OFF AT THIS TIME AND ALMOST IMMEDIATELY DROPS TO 87% ON RA. CONTINUOUS PULSE OXIMETER REMAINS IN PLACE. OXYGEN INCREASED TO 2L VIA NC.
--- NOTE | 2019-12-26 13:59 | NUR ---
OXYGEN TURNED OFF WHEN I ENTERED THE ROOM. CONTINUOUS PULSE OXIMETER IN PLACE. PATIENT DROPS QUICKLY TO 90% ON RA AND STAYS THERE THROUGHOUT MY DURATION IN THE ROOM. MORE ICE IS GIVEN. PATIENT DENIES ADDITIONAL NEEDS AT THIS TIME.
--- NOTE | 2019-12-26 14:10 | NUR ---
PT USES CALL LIGHT TO ALERT DS STAFF OF URGE TO VOID. PT ENC TO SIT AT SIDE OF BED PRIOR TO STANDING. PT STATES "FEELING A LITTLE WOBBLY" WITH AMBULATION, RN ASSIST TO BATHROOM. PT ABLE TO VOID APPROX 700 MLS YELLOW URINE WITH NO PROBLEMS. PT BACK TO DS RM 5, SCD'S PUMPING AND IV CONTINUOUS. TREVOR DRAIN EMPTIED OF APPROX 50 MLS RED DRAINAGE. PT PROVIDED ICED CHIPS PER REQUEST. NHAN MORGANGGER ON COOL, CALL LIGHT WITHIN REACH.
--- NOTE | 2019-12-26 16:23 | NUR ---
DR VEGA AT THE BEDSIDE OBSERVING RIGHT ABDOMINAL TREVOR DRAIN WITH SEROSANGUINOUS DRAINAGE. HE PULLS THE DRAIN. PATIENT TOLERATES THAT WELL. BANDAID PLACED OVER DRAIN SITE. SMALL AMOUNT OF DRAINAGE NOTED THROUGH THE BANDAID.
--- NOTE | 2019-12-30 08:12 | OR ---
[facility] [address] [place], [place] [address] Signed DATE OF OPERATION: 12/26/2019 SURGEON: Naldo Vega MD PREOPERATIVE DIAGNOSES: 1. Chronic calculous cholecystitis. 2. History of hepatitis C with treatment. 3. Morbid obesity. POSTOPERATIVE DIAGNOSES: 1. Cirrhotic changes of liver, low-grade. 2. Chronic calculous cholecystitis; normal cholangiogram. PROCEDURES: 1. Laparoscopic cholecystectomy with intraoperative cholangiogram (difficult). 2. Surgeon-directed fluoroscopy. 3. Laparoscopic liver biopsy. ANESTHESIA: General endotracheal; [place] Selene, EMERGENCY DISPATCH OPERATOR and local 20 mL of 0.25% Marcaine with epinephrine. INDICATION: This morbidly obese 59-year-old white woman was seen by me on October 28, [address] Beverley Jimenes with problems of subcostal pain. She has prior history of hepatitis C, which was treated with Harvoni at [facility]. She said to have had cured. The patient has typical biliary colic type symptoms including right upper abdominal pain and gallbladder ultrasound was performed on April 09, 2019, showing several gallstones. The liver had a heterogeneous echotexture, but no nodular changes and no sign of ascites. She is admitted at this time to undergo laparoscopic cholecystectomy with intraoperative cholangiogram and other indicated procedures. She understands the risks of bleeding, infection, bile duct injury, need for open procedure and other unforeseen complications and wished to proceed. FINDINGS: Considerable amount of intraabdominal obesity was noted. She did have early cirrhotic changes of her liver. Liver was stiff and elevation of the gallbladder was challenging on that basis. The gallbladder was somewhat distended. The gallbladder had several yellow soft gallstones. Cholangiogram was normal. A drain was left in place considering the extent of dissection. The operation was prolonged, complicated, and Electronically Signed By: NALDO VEGA MD 12/30/19 0812 PATIENT NAME: CHARLA LUCAS OPERATIVE REPORT DATE OF : 64 REPORT #: [id number] PHYSICIAN: NALDO VEGA MD PCP: BEVERLEY JIMENES MD REPORT IS CONFIDENTIAL AND NOT TO BE RELEASED WITHOUT AUTHORIZATION [facility] [address] [place], [place] [address] Signed difficult on the basis of her obesity, cirrhotic changes and so on. A liver biopsy was obtained to assess the current status of her liver disease. DESCRIPTION OF PROCEDURE: The patient was brought to the operating room, given a general endotracheal anesthetic. Preoperative antibiotic Ancef was given. Sequential compression device stockings were used and heparin subcutaneously administered. The abdomen was prepared with chlorhexidine solution and draped sterilely. An infraumbilical incision was made and using an open Shirin cannula technique, pneumoperitoneum was achieved to a level of 14 mmHg with carbon dioxide gas. Intraabdominal inspection showed no sign of ascites though there were some nodular changes of the liver consistent with cirrhosis. The gallbladder was somewhat distended. Three additional trocars were placed in usual configuration in the subxiphoid, right midclavicular, and right anterior axillary line. The table was elevated and turned left side down. The gallbladder was grasped and elevated, which provided scant exposure unfortunately. Various manipulations were taken to grasp the gallbladder more fully to allow for elevation, but given the size and stiffness of her liver, this was not forthcoming. Ultimately, the gallbladder was decompressed allowing for better visualization of the entire gallbladder. Using blunt and electrocautery dissection, the triangle of Calot was dissected free, staying close to the gallbladder and maintaining good hemostasis throughout. Ultimately, the cystic duct, which was relatively generous was dissected free. Entry into the gallbladder required closure with an Endoloop, but retrograde milking of the cystic duct showed no stones within the cystic duct itself. The clips were applied across gallbladder cystic duct junction and transverse choledochotomy was made in the cystic duct. Milking of the duct again was undertaken and although some stones have been spilled previously, they were all gathered up. A cholangiogram was performed with surgeon-directed fluoroscopy showing free flow of contrast in the biliary tree, but without retrograde filling. On that basis, morphine 4 mg was given to her after an interval of time, re-examination undertaken showing good proximal filling of the biliary tree. Conventional biliary anatomy was noted. There was no sign of filling defect and there was contrast passage into the duodenum. The catheter was removed and cystic duct milked and clips applied. Given the size of the cystic duct and mindful to avoid bile leak, an Endoloop was applied to the area as well. The gallbladder was then dissected free in a retrograde fashion using electrocautery. The gallbladder was placed in an endobag and extracted through the infraumbilical port site without problem, opened on the back table, found to have profound cholesterolosis and some remaining stone and debris. Irrigation was undertaken in subhepatic space. There was no sign of bile leak, but given the extent of dissection, her obesity, cirrhosis of the liver and so on, a drain was deemed advisable and was placed through a right-sided trocar site in the subhepatic space. The liver biopsy was indicated on the basis of her cirrhotic changes. Percutaneously, this was accomplished with a Biopty gun in medial segment of left lobe of the liver. Electronically Signed By: NALDO VEGA MD 12/30/19 0812 PATIENT NAME: CHARLA LUCAS OPERATIVE REPORT DATE OF : 64 REPORT #: [id number] PHYSICIAN: NALDO VEGA MD PCP: BEVERLEY JIMENES MD REPORT IS CONFIDENTIAL AND NOT TO BE RELEASED WITHOUT AUTHORIZATION [address] [place], [place] [address] Signed Hemostasis was assured at both the puncture site and the liver itself. Irrigation was undertaken. There was no sign of bile leak in the subhepatic space. Excess irrigation of fluid was suctioned free. The trocars removed under direct visualization showing no sign of bleeding. The infraumbilical fascial incision was reapproximated with interrupted 0 Vicryl suture. A 20 mL of 0.25% Marcaine with epinephrine was injected locally. The skin was closed with interrupted 3-0 Vicryl. Steri-Strips were applied. The patient was ultimately extubated and transferred to the recovery room in good condition having suffered no complications. Sponge, needle, and instrument counts were reported as correct x3. MD XANDER Ward/ANALYL /[id number] cc: Beverley Jimenes MD Copies: BEVERLEY JIMENES DMD ~ Electronically Signed By: NALDO VEGA MD 12/30/19 0812 PATIENT NAME: CHARLA LUCAS OPERATIVE REPORT DATE OF : 64 REPORT #: [id number] PHYSICIAN: NALDO VEGA MD PCP: BEVERLEY JIMENES MD REPORT IS CONFIDENTIAL AND NOT TO BE RELEASED WITHOUT AUTHORIZATION
--- NOTE | 2019-12-30 12:17 | PATH ---
[facility] [address] [place], [place] [address] Signed SPECIMEN(S): A GALLBLADDER AND STONES SPECIMEN(S): B LIVER NEEDLE BIOPSY SPECIMEN SOURCE: A. GALLBLADDER AND STONES B. LIVER NEEDLE BIOPSY CLINICAL HISTORY: 59 year old female with right upper quandrant pain and history of hepatitis C status post Harvoni treatment with cure. AST, ALT, Alk Phos, TBili all within normal limits 11/26/2019. A) Laparoscopic cholecystectomy. Symptomatic gallstones. B) Cirrhosis of liver. FINAL PATHOLOGIC DIAGNOSIS: A. Gallbladder, cholecystectomy: - Chronic cholecystitis with cholesterolosis. - Cholelithiasis. B. Liver, biopsy: - Macrovesicular steatosis (20%) with bridging fibrosis. - Portal lymphocytic inflammation with few eosinophils and focal interface change. - see Comment. COMMENT: Regarding specimen B: The provided clinical history of Hepatitis C virus (HCV) infeciton status post Harvoni treatment with cure is noted. Sections demontstrate large-droplet macrovesicular steatosis (20%) and portal lymphocytic inflammation with scattered, few eosinophils with focal interface change; lymphoid aggregates are not seen. Bile ducts are normal in number and are not injured. No hepatocyte ballooning, lobular necroinflammation, or Katty hyaline is seen. Bridging fibrosis and mild perisinusoidal fibrosis is seen with trichrome and reticulin stains. There is no evidence of alpha-1 antitrypsin disease with PAS/D stain. Focal subcapsular hemosiderin deposition is highlighted with iron stain, but no abnormal hepatocyte or Kupffer cell iron accumulation is seen. The presence of eosinophils can be found in a variety of conditions, including infection, drug-induced injury, or systemic conditions with eosinophilia. Eosinophils have been reported in rare cases of HCV treatment with the direct-acting antivirals such as Harvoni. However, due PATIENT NAME: CHARLA LUCAS PATHOLOGY DATE OF : 64 REPORT #: [id number] PHYSICIAN: LUCIE PATHOLOGY PCP: BEVERLEY JIMENES MD REPORT IS CONFIDENTIAL AND NOT TO BE RELEASED WITHOUT AUTHORIZATION [facility] [address] [place], [place] [address] Signed to the low number of eosinophils, this is considered to be a non-specific finding. As part of [facility]' Quality Improvement Program, this case was reviewed by another member of our pathology staff. NAL:cml:C2NR MICROSCOPIC EXAMINATION: Histologic sections of all submitted blocks are examined by light microscopy. Iron, trichrome, retiuclin, and PAS/D stains were all performed on the liver biopsy (B) with appropriately staining controls and resulted in Comment section of report. These findings, together with the gross examination, support the pathologic diagnosis. GROSS DESCRIPTION: Two specimens are received in two containers, labeled "CG." A. The specimen, labeled "CG, A.," and designated on the requisition "gallbladder plus stones," is received in formalin and consists of Specimen: Previously-opened gallbladder. Dimensions: 7.0 x 5.2 x 1.4 cm. Serosa: Weatherly-mendez, smooth. Cystic Duct: Obstruction cannot be determined. Calculi: One yellow, friable calculus (0.8 x 0.7 x 0.6 cm). Mucosa: Weatherly-mendez and velvety with yellow stippling. Wall thickness: 0.7 cm. Lymph node: No pericystic lymph nodes are grossly identified. Additional: None. Public Service Representative sections are submitted in cassette (A1). B. The specimen, labeled "CG, B.," and designated on the requisition "liver biopsy," is received in formalin and consists of one core of brown-mendez tissue (1.6 cm in length x 0.1 cm in diameter). The tissue is inked black and submitted entirely in cassette (B1). AC (under the direct supervision of a pathologist) The Gross Description was prepared using a voice recognition system. The report was reviewed for accuracy; however, sound-alike word errors, addition and/or deletions may occur. If there is any question about this report, please contact Client Services. PERFORMING LABORATORY: The technical component was performed by [facility], [address] [place] [id number] (Digital Producer: Kayce Moody MD; CLIA# [id number]). Professional interpretation was performed by PATIENT NAME: CHARLA LUCAS PATHOLOGY DATE OF : 64 REPORT #: [id number] PHYSICIAN: LUCIE MOORE PCP: BEVERLEY JIMENES MD REPORT IS CONFIDENTIAL AND NOT TO BE RELEASED WITHOUT AUTHORIZATION [facility] [address] [place], [place] [address] Signed [facility] branch, [address] [facility], [address] [address] (CLIA# [id number]). Diagnostician: Staci Greer MD Pathologist Electronically Signed 12/30/2019 Copies: ~ PATIENT NAME: SHAYYCHARLA DHEERAJ PATHOLOGY DATE OF : 64 REPORT #: [id number] PHYSICIAN: LUCIE PATHOLOGY PCP: BEVERLEY JIMENES MD REPORT IS CONFIDENTIAL AND NOT TO BE RELEASED WITHOUT AUTHORIZATION
== END 2019-12-26 16:50 | disposition home or self-care (01) ==
LOC: DS 06:10
PROVIDERS: ATTEND Surgery
PROC: 0FB24ZX Excision of Left Lobe Liver, Percutaneous Endoscopic Approach, Diagnostic (ICD-10-PCS; 2019-12-26)
PROC: 0FT44ZZ Resection of Gallbladder, Percutaneous Endoscopic Approach (ICD-10-PCS; principal; 2019-12-26 06:45)
PROC: BF13YZZ Fluoroscopy of Gallbladder and Bile Ducts using Other Contrast (ICD-10-PCS; 2019-12-26 06:45)
DX: K80.10 Calculus of gallbladder with chronic cholecystitis without obstruction (principal); K76.0 Fatty (change of) liver, not elsewhere classified; K74.60 Unspecified cirrhosis of liver; I10 Essential (primary) hypertension; E11.9 Type 2 diabetes mellitus without complications; J45.909 Unspecified asthma, uncomplicated; F32.9 Major depressive disorder, single episode, unspecified; K21.9 Gastro-esophageal reflux disease without esophagitis; G43.909 Migraine, unspecified, not intractable, without status migrainosus; E66.01 Morbid (severe) obesity due to excess calories; G47.33 Obstructive sleep apnea (adult) (pediatric); Z91.010 Allergy to peanuts; Z88.1 Allergy status to other antibiotic agents; Z88.8 Allergy status to other drugs, medicaments and biological substances; Z88.0 Allergy status to penicillin; Z91.030 Bee allergy status; Z79.899 Other long term (current) drug therapy; Z79.84 Long term (current) use of oral hypoglycemic drugs; Z86.19 Personal history of other infectious and parasitic diseases; Z96.651 Presence of right artificial knee joint; Z87.891 Personal history of nicotine dependence; Z68.42 Body mass index [BMI] 45.0-49.9, adult
CPT/HCPCS: 00790; 74300; 88304; 88307; 88313; J0690; J1100; J1644; J1885; J2001; J2270; J2405; J2704; J3010; J7121; Q9967

== ENCOUNTER 2020-02-27 11:29 | Emergency (ER) | payer MEDICARE, MEDICAID ==
[~2020-02-27] VITALS: Ht 162.6 cm; Wt 120.2 kg
[~2020-02-27 11:29] MED LIST changes: +ACETAMINOPHEN500 MG PO; +ACTOS15 MG PO; +CHLORTHALIDONE25 MG PO; +COZAAR100 MG PO; +IBUPROFEN600 MG PO; +JANUVIA100 MG PO; +OXYCODON-ACETA1 EAC2 PO
[2020-02-27] MEDS ORDERED: NADOLOL80 MG PO (11:40)
[2020-02-27] MEDS ORDERED: ONDANSETRON ODT8 MG PO (17:15)
== END 2020-02-27 17:33 | disposition home or self-care (01) ==
LOC: ED 11:29
DX: R42 Dizziness and giddiness (principal); I10 Essential (primary) hypertension; E11.9 Type 2 diabetes mellitus without complications; J45.909 Unspecified asthma, uncomplicated; Z88.8 Allergy status to other drugs, medicaments and biological substances; Z88.0 Allergy status to penicillin; Z88.1 Allergy status to other antibiotic agents; Z91.030 Bee allergy status; Z91.010 Allergy to peanuts; Z79.899 Other long term (current) drug therapy; Z79.84 Long term (current) use of oral hypoglycemic drugs
CPT/HCPCS: 70553; 80053; 85025; 99284-25; A9577; J2405; J7030

== ENCOUNTER 2020-08-04 15:12 | Emergency (ER) | payer MEDICARE, OTHER ==
[~2020-08-04] VITALS: Ht 162.6 cm; Wt 120.2 kg
[~2020-08-04 15:12] MED LIST changes: +ONDANSETRON ODT8 MG PO
--- OUTSIDE RECORDS SUMMARY | 2020-08-04 15:14 | XMS ---
PreManage Notification: CHARLA LUCAS Security Call Center Assistant Events No recent Security Events currently on file CRITERIA MET - [facility] CARE PROVIDERS [facility] 05/07/2020-Current PHONE: [phone] [facility] PHONE: [phone] Care Guidelines exist for the following facilities: Jennifer Ball ( 03/23/2020 ) [place] VISIT COUNT (12 MO.) [address] [facility] TOTAL 2 NOTE: Visits indicate total known visits. 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
[2020-08-04] MEDS ORDERED: ALBUTEROL2.5 MG/3 M INH (17:14)
[2020-08-04] MEDS ORDERED: VENTOLIN HFA18 GM INH (17:14)
[2020-08-04] MEDS ORDERED: PREDNISONE20 MG PO (17:14)
== END 2020-08-04 17:22 | disposition home or self-care (01) ==
LOC: ED 15:12
DX: J45.901 Unspecified asthma with (acute) exacerbation (principal); I10 Essential (primary) hypertension; E66.9 Obesity, unspecified; Z87.891 Personal history of nicotine dependence; Z88.8 Allergy status to other drugs, medicaments and biological substances; Z91.010 Allergy to peanuts; Z91.030 Bee allergy status; Z88.1 Allergy status to other antibiotic agents; Z88.0 Allergy status to penicillin; Z79.899 Other long term (current) drug therapy; Z79.84 Long term (current) use of oral hypoglycemic drugs
CPT/HCPCS: 71046; 94640; 99284-25; J7512

== ENCOUNTER 2021-03-17 14:04 | Emergency (ER) | payer MEDICARE, OTHER ==
[~2021-03-17] VITALS: Ht 162.6 cm; Wt 120.2 kg
[~2021-03-17 14:04] MED LIST changes: +ALBUTEROL2.5 MG/3 M INH
[2021-03-17] MEDS ORDERED: DULOXETINE HCL40 MG PO (14:25)
[2021-03-17] MEDS ORDERED: GLIPIZIDE ER2.5 MG PO (14:25)
[2021-03-17] MEDS ORDERED: PREDNISONE20 MG PO (15:49)
[2021-03-17] MEDS ORDERED: HYDROCODON-ACE1 EA10 PO (15:49)
== END 2021-03-17 16:07 | disposition home or self-care (01) ==
LOC: ED 14:04
DX: M54.2 Cervicalgia (principal); I10 Essential (primary) hypertension; J45.909 Unspecified asthma, uncomplicated; E66.9 Obesity, unspecified; E11.40 Type 2 diabetes mellitus with diabetic neuropathy, unspecified; Z87.891 Personal history of nicotine dependence; Z88.0 Allergy status to penicillin; Z88.1 Allergy status to other antibiotic agents; Z88.8 Allergy status to other drugs, medicaments and biological substances; Z91.018 Allergy to other foods; Z91.030 Bee allergy status; Z79.899 Other long term (current) drug therapy; Z79.84 Long term (current) use of oral hypoglycemic drugs; W22.8XXA Striking against or struck by other objects, initial encounter
CPT/HCPCS: 72040; 72070; 99283-25

== ENCOUNTER 2021-10-21 20:06 | Emergency (ER) | payer OTHER, MEDICARE, MEDICAID ==
[~2021-10-21] VITALS: Ht 162.6 cm; Wt 113.4 kg
[~2021-10-21 20:06] MED LIST changes: +DULOXETINE HCL40 MG PO; +GLIPIZIDE ER2.5 MG PO; +HYDROCODON-ACE1 EA10 PO
[2021-10-21] MEDS ORDERED: JARDIANCE10 MG PO (21:47)
[2021-10-21] MEDS ORDERED: MELOXICAM15 MG PO ×2 (22:09→22:23)
[2021-10-21] MEDS ORDERED: CYCLOBENZAPRINE10 MG PO ×2 (22:09→22:23)
== END 2021-10-21 22:34 | disposition home or self-care (01) ==
LOC: ED 20:06
DX: S80.02XA Contusion of left knee, initial encounter (principal); W01.198A Fall on same level from slipping, tripping and stumbling with subsequent striking against other object, initial encounter; I10 Essential (primary) hypertension; J44.9 Chronic obstructive pulmonary disease, unspecified; F43.10 Post-traumatic stress disorder, unspecified; E11.40 Type 2 diabetes mellitus with diabetic neuropathy, unspecified; Z87.891 Personal history of nicotine dependence; Z88.8 Allergy status to other drugs, medicaments and biological substances; Z88.0 Allergy status to penicillin; Z91.010 Allergy to peanuts; Z79.899 Other long term (current) drug therapy; Z79.84 Long term (current) use of oral hypoglycemic drugs
CPT/HCPCS: 73560; 99283-25; A9270

== ENCOUNTER 2021-12-29 20:09 | Emergency (ER) | payer MEDICARE, OTHER ==
[~2021-12-29] VITALS: Ht 162.6 cm; Wt 117.5 kg
[~2021-12-29 20:09] MED LIST changes: +JARDIANCE10 MG PO; +MELOXICAM15 MG PO
[2021-12-29] MEDS ORDERED: HYDROXYZINE HCL10 MG PO (20:53)
[2021-12-29] MEDS ORDERED: BACTRIM DS TAB1 EACH PO (20:59)
[2021-12-29] MEDS ORDERED: SILVADENE20 GM TOP (20:59)
== END 2021-12-29 21:23 | disposition home or self-care (01) ==
LOC: ED 20:09
DX: L08.9 Local infection of the skin and subcutaneous tissue, unspecified (principal); I10 Essential (primary) hypertension; E11.40 Type 2 diabetes mellitus with diabetic neuropathy, unspecified; J45.909 Unspecified asthma, uncomplicated; Z87.891 Personal history of nicotine dependence; Z91.018 Allergy to other foods; Z88.1 Allergy status to other antibiotic agents; Z88.8 Allergy status to other drugs, medicaments and biological substances; Z79.899 Other long term (current) drug therapy
CPT/HCPCS: 73630; 99283-25; A9270

== ENCOUNTER 2022-07-14 13:39 | Emergency (ER) | payer MEDICARE, OTHER ==
[~2022-07-14] VITALS: Ht 162.6 cm; Wt 116.1 kg
[~2022-07-14 13:39] MED LIST changes: +SILVADENE20 GM TOP
[2022-07-14 14:28] LABS: BASOPHILS 0.7 % (0-2); HEMATOCRIT 40.3 % (35.0-50.0); HEMOGLOBIN 13.4 g/dL (12.0-18.0); LYMPHOCYTES 23.5 % (24-44); MCH 26.3 (27-36); MCHC 33.3 g/dl (30-36); MCV 79.1 fl (81-99); MONOCYTES 8.5 % (0-12); NEUTROPHILS 65.3 % (39-80); PLATELET COUNT 266 K/uL (140-440); RBC 5.09 M/ul (4.3-5.7); RDW 15.1 (10.5-15.0)
[2022-07-14 14:46] LABS: ALBUMIN 3.3 g/dL (3.4-5.0); ALBUMIN/GLOBULIN RATIO 0.77 (1.1-2.4); ANION GAP 10.3 (7-21); BILIRUBIN, TOTAL 0.3 ng/dL (0.2-1.0); BUN/CREATININE RATIO 14.4 (6.0-28.6); CALCIUM 9.1 mg/dL (8.5-10.1); CREATININE, SERUM 1.25 mg/dL (0.55-1.02); MAGNESIUM 1.9 mg/dL (1.8-2.4); POTASSIUM 4.3 mmol/L (3.5-5.1); PROTEIN, TOTAL 7.6 g/dL (6.4-8.2)
[2022-07-14] MEDS ORDERED: ONDANSETRON ODT8 MG PO (16:17)
[2022-07-14] MEDS ORDERED: MECLIZINE HCL25 MG PO (16:17)
[2022-07-14 16:29] VITALS: BP 154/83
--- NOTE | 2022-07-14 21:29 | EKG ---
[facility] [address] [facility] [place] [address] Signed Sinus bradycardia Otherwise normal ECG When compared with ECG of 05-DEC-2019 16:38, Vent. rate has decreased BY 33 BPM Nonspecific T wave abnormality, improved in Anterolateral leads Confirmed by ELISEO MORRIS MD ([id number]) on 07/14/2022 9:29:16 PM Electronically Signed By: ELISEO MORRIS MD 07/14/222128 PATIENT NAME: LUCASCHARLA Electrocardiogram DATE OF : 64 PHYSICIAN: ELISEO MORRIS MD REPORT #: [id number] REPORT IS CONFIDENTIAL AND NOT TO BE RELEASED WITHOUT AUTHORIZATION
[2022-07-26] MEDS ORDERED: FLUTICASONE-VI1 EAC1 IH (09:09)
[2022-07-26] MEDS ORDERED: CYCLOBENZAPRINE10 MG PO (09:27)
[2022-07-26] MEDS ORDERED: RIZATRIPTAN10 M1 PO (09:30)
[2022-07-26] MEDS ORDERED: PAROXETINE HCL10 MG PO (09:32)
[2022-07-26] MEDS ORDERED: PAROXETINE HCL40 MG PO (09:33)
[2022-07-26] MEDS ORDERED: CELECOXIB200 MG PO (09:34)
[2022-07-26] MEDS ORDERED: AMLODIPINE BESY10 MG PO (09:35)
[2022-07-26] MEDS ORDERED: JARDIANCE25 MG PO (09:36)
[2022-07-26] MEDS ORDERED: QUETIAPINE FUMA25 MG PO (09:36)
[2022-07-26] MEDS ORDERED: PIOGLITAZONE HC15 MG PO (09:37)
[2022-07-26] MEDS ORDERED: OMEPRAZOLE20 MG PO (09:38)
[2022-07-26] MEDS ORDERED: MULTI VITAMIN1 EACH PO (10:00)
[2022-07-26] MEDS ORDERED: VITAMIN D325 MCG PO (10:00)
[2022-07-26] MEDS ORDERED: FISH OIL 1,0001 EAC5 PO (10:01)
[2022-07-27] MEDS ORDERED: OXYGEN XX (11:33)
[2022-07-27] MEDS ORDERED: PREDNISONE20 MG PO (11:36)
[2022-07-27] MEDS ORDERED: LASIX20 MG PO (11:36)
[2022-09-21] MEDS ORDERED: OZEMPIC0.25 MG/01 SQ (13:49)
[2022-09-21] MEDS ORDERED: METHOCARBAMOL750 MG PO (15:57)
== END 2022-07-14 16:40 | disposition home or self-care (01) ==
LOC: ED 13:39
PROVIDERS: Emergency Medicine
DX: H81.09 Meniere's disease, unspecified ear (principal); I10 Essential (primary) hypertension; B18.2 Chronic viral hepatitis C; E11.9 Type 2 diabetes mellitus without complications; J45.909 Unspecified asthma, uncomplicated; Z88.8 Allergy status to other drugs, medicaments and biological substances; Z91.010 Allergy to peanuts; Z91.030 Bee allergy status; Z88.1 Allergy status to other antibiotic agents; Z88.0 Allergy status to penicillin; Z79.899 Other long term (current) drug therapy; Z87.891 Personal history of nicotine dependence; W19.XXXA Unspecified fall, initial encounter
CPT/HCPCS: 36415; 70450; 80053; 83735; 84484; 85025; 93005; 93010; 99284-25; A9270

== ENCOUNTER 2022-10-07 18:24 | Emergency (ER) | payer MEDICARE, OTHER ==
[~2022-10-07] VITALS: Ht 162.6 cm; Wt 112.3 kg
--- OUTSIDE RECORDS SUMMARY | ~2022-10-07 | XMS | Continuity of Care Document ---
Demographics + + + | Address | [address] | | | [place] [address] | + + + | Preferred Language | Unknown | + + + | Marital Status | | + + + | Christian Affiliation | Unknown | + + + | Race | White | + + + | Ethnic Group | Not or | + + + Author + + + | Author | [facility] | + + + | Organization | [facility] | + + + | Address | [address] | | | [place] [address] | + + + | Phone | | + + + Care Team Providers + + + + | Care Centrifugal Spinner Name | Role | Phone | + + + + Unavailable | Unavailable | + + + + Unavailable | Unavailable | + + + + Unavailable | Unavailable | + + + + Unavailable | Unavailable | + + + + Unavailable | Unavailable | + + + + Allergies and Intolerances + + + + + + | date | description | facility | reaction | severity | + + + + + + | (no date) | Gabapentin | [facility] | (no reaction) | (no severity) | | | [facility] | | | + + + + + + | (no date) | VENOM-HONEY | [facility] | (no reaction) | (no severity) | | | [facility] | [facility] | | | | | | Allergy | | | + + + + + + | (no date) | Hives | [facility] | (no reaction) | (no severity) | | | | [facility] | | | | | | Allergy | | | + + + + + + | (no date) | Urticaria | [facility] | (no reaction) | (no severity) | | | | [facility] | | | + + + + + + | (no date) | CEPHALEXIN | [facility] | (no reaction) | (no severity) | | | | ENT and | | | | | | Allergy | | | + + + + + + | (no date) | LATEX | [facility] | (no reaction) | (no severity) | | | | ENT and | | | | | | Allergy | | | + + + + + + | (no date) | | [facility] | (no reaction) | (no severity) | | | OXYCODONE-ACETA | [facility] | | | | | MINOPHEN | Allergy | | | + + + + + + | (no date) | | [facility] | (no reaction) | (no severity) | | | OXYCODONE-ACETA | ENT and | | | | | MINOPHEN | Allergy | | | + + + + + + | (no date) | HYDROCODONE | [facility] | (no reaction) | (no severity) | | | | ENT and | | | | | | Allergy | | | + + + + + + | (no date) | | [facility] | (no reaction) | (no severity) | | | OXYCODONE-ACETA | ENT and | | | | | MINOPHEN | Allergy | | | + + + + + + | (no date) | LISINOPRIL | [facility] | (no reaction) | (no severity) | | | | ENT and | | | | | | Allergy | | | + + + + + + | (no date) | | [facility] | (no reaction) | (no severity) | | | OXYCODONE-ACETA | ENT and | | | | | MINOPHEN | Allergy | | | + + + + + + | (no date) | LISINOPRIL | [facility] | (no reaction) | (no severity) | | | | ENT and | | | | | | Allergy | | | + + + + + + | (no date) | LISINOPRIL | [facility] | (no reaction) | (no severity) | | | | ENT and | | | | | | Allergy | | | + + + + + + | (no date) | CEPHALEXIN | [facility] | (no reaction) | (no severity) | | | | ENT and | | | | | | Allergy | | | + + + + + + | (no date) | LISINOPRIL | [facility] | (no reaction) | (no severity) | | | | ENT and | | | | | | Allergy | | | + + + + + + | (no date) | | [facility] | (no reaction) | (no severity) | | | OXYCODONE-ACETA | ENT and | | | | | MINOPHEN | Allergy | | | + + + + + + | (no date) | AMPICILLIN | [facility] | (no reaction) | (no severity) | | | | ENT and | | | | | | Allergy | | | + + + + + + | (no date) | CEPHALEXIN | [facility] | (no reaction) | (no severity) | | | | ENT and | | | | | | Allergy | | | + + + + + + | (no date) | LISINOPRIL | [facility] | (no reaction) | (no severity) | | | | ENT and | | | | | | Allergy | | | + + + + + + | (no date) | | [facility] | (no reaction) | (no severity) | | | OXYCODONE-ACETA | ENT and | | | | | MINOPHEN | Allergy | | | + + + + + + | (no date) | | [facility] | (no reaction) | (no severity) | | | OXYCODONE-ACETA | ENT and | | | | | MINOPHEN | Allergy | | | + + + + + + | (no date) | CEPHALEXIN | [facility] | (no reaction) | (no severity) | | | | ENT and | | | | | | Allergy | | | + + + + + + | (no date) | | [facility] | (no reaction) | (no severity) | | | OXYCODONE-ACETA | ENT and | | | | | MINOPHEN | Allergy | | | + + + + + + | (no date) | AMPICILLIN | [facility] | (no reaction) | (no severity) | | | | ENT and | | | | | | Allergy | | | + + + + + + | (no date) | | [facility] | (no reaction) | (no severity) | | | OXYCODONE-ACETA | ENT and | | | | | MINOPHEN | Allergy | | | + + + + + + | (no date) | | [facility] | (no reaction) | (no severity) | | | OXYCODONE-ACETA | ENT and | | | | | MINOPHEN | Allergy | | | + + + + + + | (no date) | AMPICILLIN | [facility] | (no reaction) | (no severity) | | | | ENT and | | | | | | Allergy | | | + + + + + + | (no date) | HYDROCODONE | [facility] | (no reaction) | (no severity) | | | | ENT and | | | | | | Allergy | | | + + + + + + | (no date) | CEPHALEXIN | [facility] | (no reaction) | (no severity) | | | | ENT and | | | | | | Allergy | | | + + + + + + | (no date) | | [facility] | (no reaction) | (no severity) | | | OXYCODONE-ACETA | ENT and | | | | | MINOPHEN | Allergy | | | + + + + + + | (no date) | HYDROCODONE | [facility] | (no reaction) | (no severity) | | | | ENT and | | | | | | Allergy | | | + + + + + + | (no date) | Headache | [facility] | (no reaction) | (no severity) | | | | ENT and | | | | | | Allergy | | | + + + + + + | (no date) | Gabapentin | [facility] | (no reaction) | (no severity) | | | | [facility] | | | + + + + + + | (no date) | Mild | [facility] | (no reaction) | (no severity) | | | | [facility] | | | + + + + + + | (no date) | Mild | [facility] | (no reaction) | (no severity) | | | | ENT and | | | | | | Allergy | | | + + + + + + | (no date) | Wasp venom | [facility] | (no reaction) | (no severity) | | | | [facility] | | | + + + + + + | (no date) | Wheez/Dyspnea | [facility] | (no reaction) | (no severity) | | | | [facility] and | | | | | | Allergy | | | + + + + + + | (no date) | Rash | [facility] | (no reaction) | (no severity) | | | | ENT and | | | | | | Allergy | | | + + + + + + | (no date) | Pruritus | [facility] | (no reaction) | (no severity) | | | | ENT and | | | | | | Allergy | | | + + + + + + | (no date) | CEPHALEXIN | [facility] | (no reaction) | (no severity) | | | | ENT and | | | | | | Allergy | | | + + + + + + | (no date) | LISINOPRIL | [facility] | (no reaction) | (no severity) | | | | ENT and | | | | | | Allergy | | | + + + + + + | (no date) | Ampicillin | [facility] | (no reaction) | (no severity) | | | | [facility] | | | + + + + + + | (no date) | HYDROCODONE | [facility] | (no reaction) | (no severity) | | | | ENT and | | | | | | Allergy | | | + + + + + + | (no date) | Penicillin g | [facility] | (no reaction) | (no severity) | | | | [facility] | | | + + + + + + | (no date) | Anaphylaxis | [facility] | (no reaction) | (no severity) | | | | [facility] | | | + + + + + + | (no date) | Anaphylaxis | [facility] | (no reaction) | (no severity) | | | | [facility] and | | | | | | Allergy | | | + + + + + + | (no date) | | [facility] | (no reaction) | (no severity) | | | OXYCODONE-ACETA | [facility] | | | | | MINOPHEN | Allergy | | | + + + + + + | (no date) | | [facility] | (no reaction) | (no severity) | | | OXYCODONE-ACETA | ENT and | | | | | MINOPHEN | Allergy | | | + + + + + + | (no date) | CEPHALEXIN | [facility] | (no reaction) | (no severity) | | | | ENT and | | | | | | Allergy | | | + + + + + + | (no date) | HYDROCODONE | [facility] | (no reaction) | (no severity) | | | | ENT and | | | | | | Allergy | | | + + + + + + | (no date) | HYDROCODONE | [facility] | (no reaction) | (no severity) | | | | ENT and | | | | | | Allergy | | | + + + + + + | (no date) | | [facility] | (no reaction) | (no severity) | | | OXYCODONE-ACETA | [facility] and | | | | | MINOPHEN | Allergy | | | + + + + + + | (no date) | | [facility] | (no reaction) | (no severity) | | | OXYCODONE-ACETA | ENT and | | | | | MINOPHEN | Allergy | | | + + + + + + | (no date) | | [facility] | (no reaction) | (no severity) | | | OXYCODONE-ACETA | ENT and | | | | | MINOPHEN | Allergy | | | + + + + + + | (no date) | Gabapentin | [facility] | (no reaction) | (no severity) | | | | [facility] | | | + + + + + + | (no date) | HYDROCODONE | [facility] | (no reaction) | (no severity) | | | | ENT and | | | | | | Allergy | | | + + + + + + | (no date) | AMPICILLIN | [facility] | (no reaction) | (no severity) | | | | ENT and | | | | | | Allergy | | | + + + + + + | (no date) | Ampicillin | [facility] | (no reaction) | (no severity) | | | | [facility] | | | + + + + + + | (no date) | Cephalosporins | [facility] | (no reaction) | (no severity) | | | | [facility] | | | + + + + + + | (no date) | Penicillin g | [facility] | (no reaction) | (no severity) | | | | [facility] | | | + + + + + + | (no date) | AMPICILLIN | [facility] | (no reaction) | (no severity) | | | | ENT and | | | | | | Allergy | | | + + + + + + | (no date) | Ampicillin | [facility] | (no reaction) | (no severity) | | | | [facility] | | | + + + + + + | (no date) | AMPICILLIN | [facility] | (no reaction) | (no severity) | | | | ENT and | | | | | | Allergy | | | + + + + + + | (no date) | | [facility] | (no reaction) | (no severity) | | | OXYCODONE-ACETA | ENT and | | | | | MINOPHEN | Allergy | | | + + + + + + | (no date) | LISINOPRIL | [facility] | (no reaction) | (no severity) | | | | ENT and | | | | | | Allergy | | | + + + + + + | (no date) | Cephalosporins | [facility] | (no reaction) | (no severity) | | | | | | | + + + + + + | (no date) | peanut oil | [facility] | (no reaction) | (no severity) | + + + + + + | (no date) | ampicillin | [facility] | (no reaction) | (no severity) | + + + + + + | (no date) | gabapentin | [facility] | (no reaction) | (no severity) | + + + + + + | (no date) | penicillin G | [facility] | (no reaction) | (no severity) | + + + + + + | (no date) | venom-wasp | [facility] | (no reaction) | (no severity) | + + + + + + | (no date) | Cephalosporins | [facility] | (no reaction) | (no severity) | | | | [facility] | | | + + + + + + | (no date) | AMPICILLIN | [facility] | (no reaction) | (no severity) | [facility] | | | + + + + + + | (no date) | AMPICILLIN | [facility] | (no reaction) | (no severity) | | | [facility] | | | + + + + + + | (no date) | CEPHALEXIN | [facility] | (no reaction) | (no severity) | | | | [facility] | | | | | | Hospital | | | + + + + + + | (no date) | CEPHALEXIN | [facility] | (no reaction) | (no severity) | | | | [facility] | | | + + + + + + | (no date) | HYDROCODONE | [facility] | (no reaction) | (no severity) | | | | [facility] | | | | | | Hospital | | | + + + + + + | (no date) | HYDROCODONE | [facility] | (no reaction) | (no severity) | | | | [facility] | | | + + + + + + | (no date) | LATEX | [facility] | (no reaction) | (no severity) | | | | [facility] | | | | | | Hospital | | | + + + + + + | (no date) | LATEX | [facility] | (no reaction) | (no severity) | | | | [facility] | | | + + + + + + | (no date) | LISINOPRIL | [facility] | (no reaction) | (no severity) | | | | [facility] | | | | | | Hospital | | | + + + + + + | (no date) | LISINOPRIL | [facility] | (no reaction) | (no severity) | | | | [facility] | | | + + + + + + | (no date) | | [facility] | (no reaction) | (no severity) | | | OXYCODONE-ACETA | [facility] | | | | | MINOPHEN | Hospital | | | + + + + + + | (no date) | | [facility] | (no reaction) | (no severity) | | | OXYCODONE-ACETA | [facility] | | | | | [facility] | | | | + + + + + + | (no date) | VENOM-HONEY | [facility] | (no reaction) | (no severity) | | | BEE | [facility] Hospital | | | + + + + + + | (no date) | VENOM-HONEY | [facility] | (no reaction) | (no severity) | | | BEE | [facility] | | | + + + + + + | (no date) | FLAVORING | [facility] | (no reaction) | (no severity) | | | AGENT | [facility] | | | | | | Hospital | | | + + + + + + | (no date) | FLAVORING | [facility] | (no reaction) | (no severity) | | | AGENT | [facility] | | | + + + + + + | (no date) | PEANUT BUTTER | [facility] | (no reaction) | (no severity) | | | FLAVOR | [facility] | | | | | Hospital | | | + + + + + + | (no date) | PEANUT BUTTER | [facility] | (no reaction) | (no severity) | | | FLAVOR | [facility] | | | + + + + + + | (no date) | CEPHALEXIN | [facility] | (no reaction) | (no severity) | | | | ENT and | | | | | | Allergy | | | + + + + + + | (no date) | Penicillin g | [facility] | (no reaction) | (no severity) | | | | [facility] | | | + + + + + + | (no date) | Wasp venom | [facility] | (no reaction) | (no severity) | | | | [facility] | | | + + + + + + Encounters No information. Functional Status No information. Immunizations No information. Medications + + + + | date | description | facility | + + + + | 2021-10-21 00:00 | MEDROXYPROGESTERONE | [facility] | | | ACETATE | | + + + + | 2021-12-29 00:00 | MEDROXYPROGESTERONE | [facility] | | | ACETATE | | + + + + | 2022-07-14 00:00 | MEDROXYPROGESTERONE | [facility] | | | ACETATE | | + + + + | 2022-07-27 00:00 | MEDROXYPROGESTERONE | [facility] | | | ACETATE | | + + + + | 2022-09-21 00:00 | MEDROXYPROGESTERONE | [facility] | | | ACETATE | | + + + + | 2021-04-24 00:00 | medroxyprogesterone | [facility] | | | acetate 10 mg oral tablet | Allergy | + + + + | 2017-05-08 00:00 | Lidocaine | [facility] | + + + + | 2017-05-08 00:00 | Lidocaine | [facility] | + + + + | 2021-10-21 00:00 | DIAZEPAM | [facility] | + + + + | 2021-12-29 00:00 | DIAZEPAM | [facility] | + + + + | 2022-07-14 00:00 | DIAZEPAM | [facility] | + + + + | 2022-07-27 00:00 | DIAZEPAM | [facility] | + + + + | 2022-09-21 00:00 | DIAZEPAM | [facility] | + + + + | 2017-05-08 00:00 | ONDANSETRON | [facility] | + + + + | 2017-05-08 00:00 | ONDANSETRON | [facility] | + + + + | 2019-12-26 00:00 | OXYCODONE | [facility] | | | HCL/ACETAMINOPHEN | | + + + + | 2019-12-26 00:00 | OXYCODONE | [facility] | | | HCL/ACETAMINOPHEN | | + + + + | 2021-10-21 00:00 | OXYCODONE | [facility] | | | HCL/ACETAMINOPHEN | | + + + + | 2021-12-29 00:00 | OXYCODONE | [facility] | | | HCL/ACETAMINOPHEN | | + + + + | 2022-07-14 00:00 | OXYCODONE | [facility] | | | HCL/ACETAMINOPHEN | | + + + + | 2022-07-27 00:00 | OXYCODONE | [facility] | | | HCL/ACETAMINOPHEN | | + + + + | 2022-09-21 00:00 | OXYCODONE | [facility] | | | HCL/ACETAMINOPHEN | | + + + + | 2021-10-21 00:00 | OXYCODONE HCL | [facility] | + + + + | 2021-12-29 00:00 | OXYCODONE HCL | [facility] | + + + + | 2022-07-14 00:00 | OXYCODONE HCL | [facility] | + + + + | 2022-07-27 00:00 | OXYCODONE HCL | [facility] | + + + + | 2022-09-21 00:00 | OXYCODONE HCL | [facility] | + + + + | 2012-09-10 00:00 | DIPHENHYDRAMINE HCL | [facility] | + + + + | 2012-09-10 00:00 | DIPHENHYDRAMINE HCL | [facility] | + + + + | 2021-10-21 00:00 | RIVAROXABAN | [facility] | + + + + | 2021-12-29 00:00 | RIVAROXABAN | [facility] | + + + + | 2022-07-14 00:00 | RIVAROXABAN | [facility] | + + + + | 2022-07-27 00:00 | RIVAROXABAN | [facility] | + + + + | 2022-09-21 00:00 | RIVAROXABAN | [facility] | + + + + | 2021-10-21 00:00 | MELOXICAM | [facility] | + + + + | 2021-10-21 00:00 | MELOXICAM | [facility] | + + + + | 2021-10-21 00:00 | EMPAGLIFLOZIN | [facility] | + + + + | 2021-12-29 00:00 | EMPAGLIFLOZIN | [facility] | + + + + | 2022-07-14 00:00 | EMPAGLIFLOZIN | [facility] | + + + + | 2022-07-27 00:00 | EMPAGLIFLOZIN | [facility] | + + + + | 2022-09-21 00:00 | EMPAGLIFLOZIN | [facility] | + + + + | 2022-07-27 00:00 | Fluticasone/Vilanterol | [facility] | + + + + | 2022-09-21 00:00 | Fluticasone/Vilanterol | [facility] | + + + + | 2022-07-27 00:00 | PAROXETINE HCL | [facility] | + + + + | 2022-09-21 00:00 | PAROXETINE HCL | [facility] | + + + + | 2021-10-21 00:00 | PAROXETINE HCL | [facility] | + + + + | 2021-12-29 00:00 | PAROXETINE HCL | [facility] | + + + + | 2022-07-14 00:00 | PAROXETINE HCL | [facility] | + + + + | 2022-07-27 00:00 | PAROXETINE HCL | [facility] | + + + + | 2022-09-21 00:00 | PAROXETINE HCL | [facility] | + + + + | 2020-04-16 00:00 | paroxetine hydrochloride | [facility] | | | 40 mg oral tablet | Allergy | + + + + | 2021-10-21 00:00 | AMLODIPINE BESYLATE | [facility] | + + + + | 2021-12-29 00:00 | AMLODIPINE BESYLATE | [facility] | + + + + | 2022-07-14 00:00 | AMLODIPINE BESYLATE | [facility] | + + + + | 2017-05-05 00:00 | BACLOFEN | [facility] | + + + + | 2017-05-05 00:00 | BACLOFEN | [facility] | + + + + | 2021-10-21 00:00 | CHLORTHALIDONE | [facility] | + + + + | 2020-04-21 00:00 | chlorthalidone 25 mg oral | [facility] and | | | tablet | Allergy | + + + + | 2021-10-21 00:00 | DIAZEPAM | [facility] | + + + + | 2021-12-29 00:00 | DIAZEPAM | [facility] | + + + + | 2022-07-14 00:00 | DIAZEPAM | [facility] | + + + + | 2022-07-27 00:00 | DIAZEPAM | [facility] | + + + + | 2022-09-21 00:00 | DIAZEPAM | [facility] | + + + + | 2019-12-26 00:00 | IBUPROFEN | [facility] | + + + + | 2022-09-21 00:00 | METHOCARBAMOL | [facility] | + + + + | 2021-10-21 00:00 | NADOLOL | [facility] | + + + + | 2021-12-29 00:00 | NADOLOL | [facility] | + + + + | 2022-07-14 00:00 | NADOLOL | [facility] | + + + + | 2022-07-27 00:00 | NADOLOL | [facility] | + + + + | 2022-09-21 00:00 | NADOLOL | [facility] | + + + + | 2021-04-24 00:00 | nadolol 80 mg oral tablet | [facility] | | | | Allergy | + + + + | 2021-10-21 00:00 | NAPROXEN | [facility] | + + + + | 2021-12-29 00:00 | NAPROXEN | [facility] | + + + + | 2022-07-14 00:00 | NAPROXEN | [facility] | + + + + | 2022-07-27 00:00 | NAPROXEN | [facility] | + + + + | 2022-09-21 00:00 | NAPROXEN | [facility] | + + + + | 2021-10-21 00:00 | OMEPRAZOLE | [facility] | + + + + | 2022-07-27 00:00 | OMEPRAZOLE | [facility] | + + + + | 2022-09-21 00:00 | OMEPRAZOLE | [facility] | + + + + | 2021-04-24 00:00 | omeprazole 20 mg (as | [facility] | | | omeprazole magnesium 20.6 | Allergy | | | mg) delayed release oral | | | | capsule | | + + + + | 2021-01-28 00:00 | hctz 25 mg / triamterene | [facility] | | | 37.5 mg oral capsule | Allergy | + + + + | 2021-04-23 00:00 | hctz 25 mg / triamterene | [facility] | | | 37.5 mg oral capsule | Allergy | + + + + | 2019-12-26 00:00 | ACETAMINOPHEN | [facility] | + + + + | 2021-10-21 00:00 | ACETAMINOPHEN | [facility] | + + + + | 2021-12-29 00:00 | ACETAMINOPHEN | [facility] | + + + + | 2022-07-14 00:00 | ACETAMINOPHEN | [facility] | + + + + | 2022-07-27 00:00 | ACETAMINOPHEN | [facility] | + + + + | 2022-09-21 00:00 | ACETAMINOPHEN | [facility] | + + + + | 2021-10-21 00:00 | MAGNESIUM OXIDE | [facility] | + + + + | 2021-12-29 00:00 | MAGNESIUM OXIDE | [facility] | + + + + | 2022-07-14 00:00 | MAGNESIUM OXIDE | [facility] | + + + + | 2022-07-27 00:00 | MAGNESIUM OXIDE | [facility] | + + + + | 2022-09-21 00:00 | MAGNESIUM OXIDE | [facility] | + + + + | 2022-07-27 00:00 | Cholecalciferol (Vitamin | [facility] | | | D3) | | + + + + | 2022-09-21 00:00 | Cholecalciferol (Vitamin | [facility] | | | D3) | | + + + + | 2022-07-27 00:00 | FUROSEMIDE | [facility] | + + + + | 2022-07-27 00:00 | FUROSEMIDE | [facility] | + + + + | 2022-07-27 00:00 | CELECOXIB | [facility] | + + + + | 2022-09-21 00:00 | CELECOXIB | [facility] | + + + + | 2021-12-29 00:00 | SILVER SULFADIAZINE | [facility] | + + + + | 2021-10-21 00:00 | PRAZOSIN HCL | [facility] | + + + + | 2021-12-29 00:00 | PRAZOSIN HCL | [facility] | + + + + | 2022-07-14 00:00 | PRAZOSIN HCL | [facility] | + + + + | 2022-07-27 00:00 | PRAZOSIN HCL | [facility] | + + + + | 2022-09-21 00:00 | PRAZOSIN HCL | [facility] | + + + + | 2021-10-21 00:00 | PIOGLITAZONE HCL | [facility] | + + + + | 2021-12-29 00:00 | PIOGLITAZONE HCL | [facility] | + + + + | 2022-07-14 00:00 | PIOGLITAZONE HCL | [facility] | + + + + | 2022-07-27 00:00 | PIOGLITAZONE HCL | [facility] | + + + + | 2022-09-21 00:00 | PIOGLITAZONE HCL | [facility] | + + + + | 2022-09-21 00:00 | Semaglutide | [facility] | + + + + | 2013-11-14 00:00 | CLINDAMYCIN HCL | [facility] | + + + + | 2013-11-14 00:00 | CLINDAMYCIN HCL | [facility] | + + + + | 2021-10-21 00:00 | CLINDAMYCIN HCL | [facility] | + + + + | 2021-12-29 00:00 | CLINDAMYCIN HCL | [facility] | + + + + | 2022-07-14 00:00 | CLINDAMYCIN HCL | [facility] | + + + + | 2022-07-27 00:00 | CLINDAMYCIN HCL | [facility] | + + + + | 2022-09-21 00:00 | CLINDAMYCIN HCL | [facility] | + + + + | 2021-10-21 00:00 | ALPRAZOLAM | [facility] | + + + + | 2021-12-29 00:00 | ALPRAZOLAM | [facility] | + + + + | 2022-07-14 00:00 | ALPRAZOLAM | [facility] | + + + + | 2022-07-27 00:00 | ALPRAZOLAM | [facility] | + + + + | 2022-09-21 00:00 | ALPRAZOLAM | [facility] | + + + + | 2021-10-21 00:00 | ALPRAZOLAM | [facility] | + + + + | 2021-12-29 00:00 | ALPRAZOLAM | [facility] | + + + + | 2022-07-14 00:00 | ALPRAZOLAM | [facility] | + + + + | 2022-07-27 00:00 | ALPRAZOLAM | [facility] | + + + + | 2022-09-21 00:00 | ALPRAZOLAM | [facility] | + + + + | 2022-07-27 00:00 | AMLODIPINE BESYLATE | [facility] | + + + + | 2022-09-21 00:00 | AMLODIPINE BESYLATE | [facility] | + + + + | 2020-04-21 00:00 | amlodipine (as amlodipine | [facility]ul[facility]MOND and | | | besylate) 10 mg oral tablet | Allergy | | | | | + + + + | 2021-10-21 00:00 | CLOTRIMAZOLE/BETAMETHASONE | [facility] | | | DIP | | + + + + | 2021-12-29 00:00 | CLOTRIMAZOLE/BETAMETHASONE | [facility] | | | DIP | | + + + + | 2022-07-14 00:00 | CLOTRIMAZOLE/BETAMETHASONE | [facility] | | | DIP | | + + + + | 2022-07-27 00:00 | CLOTRIMAZOLE/BETAMETHASONE | [facility] | | | DIP | | + + + + | 2022-09-21 00:00 | CLOTRIMAZOLE/BETAMETHASONE | [facility] | | | DIP | | + + + + | 2021-10-21 00:00 | GLIPIZIDE | [facility] | + + + + | 2021-12-29 00:00 | GLIPIZIDE | [facility] | + + + + | 2022-07-14 00:00 | GLIPIZIDE | [facility] | + + + + | 2021-10-21 00:00 | NEOMYCIN/POLYMYXIN B | [facility] | | | SULF/HC | | + + + + | 2021-12-29 00:00 | NEOMYCIN/POLYMYXIN B | [facility] | | | SULF/HC | | + + + + | 2022-07-14 00:00 | NEOMYCIN/POLYMYXIN B | [facility] | | | SULF/HC | | + + + + | 2022-07-27 00:00 | NEOMYCIN/POLYMYXIN B | [facility] | | | SULF/HC | | + + + + | 2022-09-21 00:00 | NEOMYCIN/POLYMYXIN B | [facility] | | | SULF/HC | | + + + + | 2018-08-16 00:00 | MELOXICAM | [facility] | + + + + | 2018-08-16 00:00 | MELOXICAM | [facility] | + + + + | 2020-05-06 00:00 | ondansetron 8 mg oral | [facility]D and | | | tablet | Allergy | + + + + | 2020-02-27 00:00 | ONDANSETRON | [facility] | + + + + | 2020-02-27 00:00 | ONDANSETRON | [facility] | + + + + | 2022-07-14 00:00 | ONDANSETRON | [facility] | + + + + | 2022-07-14 00:00 | ONDANSETRON | [facility] | + + + + | 2021-10-21 00:00 | POTASSIUM CHLORIDE | [facility] | + + + + | 2021-12-29 00:00 | POTASSIUM CHLORIDE | [facility] | + + + + | 2022-07-14 00:00 | POTASSIUM CHLORIDE | [facility] | + + + + | 2022-07-27 00:00 | POTASSIUM CHLORIDE | [facility] | + + + + | 2022-09-21 00:00 | POTASSIUM CHLORIDE | [facility] | + + + + | 2020-04-11 00:00 | prazosin 2 mg oral capsule | [facility] and | | | | Allergy | + + + + | 2012-09-10 00:00 | predniSONE | [facility] | + + + + | 2012-09-10 00:00 | predniSONE | [facility] | + + + + | 2018-07-06 00:00 | predniSONE | [facility] | + + + + | 2018-07-06 00:00 | predniSONE | [facility] | + + + + | 2020-08-04 00:00 | predniSONE | [facility] | + + + + | 2020-08-04 00:00 | predniSONE | [facility] | + + + + | 2021-03-17 00:00 | predniSONE | [facility] | + + + + | 2022-07-27 00:00 | predniSONE | [facility] | + + + + | 2022-07-27 00:00 | QUETIAPINE FUMARATE | [facility] | + + + + | 2022-09-21 00:00 | QUETIAPINE FUMARATE | [facility] | + + + + | 2020-04-11 00:00 | quetiapine 25 mg oral | [facility] and | | | tablet | Allergy | + + + + | 2022-07-27 00:00 | RIZATRIPTAN BENZOATE | [facility] | + + + + | 2022-09-21 00:00 | RIZATRIPTAN BENZOATE | [facility] | + + + + | 2022-07-27 00:00 | PIOGLITAZONE HCL | [facility] | + + + + | 2022-09-21 00:00 | PIOGLITAZONE HCL | [facility] | + + + + | 2020-04-21 00:00 | pioglitazone 15 mg oral | [facility]issa REDMOND and | | | tablet | Allergy | + + + + | 2021-10-21 00:00 | ALBUTEROL SULFATE | [facility] | + + + + | 2021-12-29 00:00 | ALBUTEROL SULFATE | [facility] | + + + + | 2022-07-14 00:00 | ALBUTEROL SULFATE | [facility] | + + + + | 2022-07-27 00:00 | ALBUTEROL SULFATE | [facility] | + + + + | 2022-09-21 00:00 | ALBUTEROL SULFATE | [facility] | + + + + | 2014-02-09 00:00 | NYSTATIN | [facility] | + + + + | 2014-02-09 00:00 | NYSTATIN | [facility] | + + + + | 2017-05-08 00:00 | TIZANIDINE HCL | [facility] | + + + + | 2017-05-08 00:00 | TIZANIDINE HCL | [facility] | + + + + | 2021-10-21 00:00 | DULOXETINE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 [facility] | | | | + + + +--------+ + + + + | Result panel 26 | + + + + + +-------+---------+ + | | 2022-07-14 | [facility] | 9.1 | mg/dL | (missing) | | (unavailable | 14:18:07 [facility] | | | | + + + +-------+---------+ + + + | Result panel 27 | + + + + + +-------+---------+ + | | 2022-07-14 | [facility] | 1.9 | mg/dL | (missing) | | (unavailable | 14:18:07 [facility] | | | | + + + +-------+---------+ + + + | Result panel 28 | + + + + + +-------+ + + | | 2022-07-14 | [facility] | 7.6 | (missing) | (missing) | | (unavailable | 14:18:07 [facility] | | | | + + + +-------+ + + + + | Result panel 29 | + + + + + +-------+ + + | | 2022-07-14 | [facility] | 3.3 | (missing) | (missing) | | (unavailable | 14:18:07 [facility] | | | | + + + +-------+ + + + + | Result panel 30 | + + + + + +-------+ + + | | 2022-07-14 | [facility] | 4.3 | (missing) | (missing) | | (unavailable | 14:18:07 [facility] | | | | + + + +-------+ + + + + | Result panel 31 | + + + + + +--------+ + + | | 2022-07-14 | [facility] | 0.77 | (missing) | (missing) | | (unavailable | 14:18:07 [facility] | | | | + + + +--------+ + + + + | Result panel 32 | + + + + + +-------+ + + | | 2022-07-14 | [facility] | 0.3 | (missing) | (missing) | | (unavailable | 14:18:07 [facility] | | | | + + + +-------+ + + + + | Result panel 33 | + + + + + +------+ + + | | 2022-07-14 | [facility] | 15 | (missing) | (missing) | | (unavailable | 14:18:07 [facility] | | | | + + + +------+ + + + + | Result panel 34 | + + + + + +------+ + + | | 2022-07-14 | [facility] | 21 | (missing) | (missing) | | (unavailable | 14:18:07 [facility] | | | | + + + +------+ + + + + | Result panel 35 | + + + + + +-------+ + + | | 2022-07-14 | [facility] | 116 | (missing) | (missing) | | (unavailable | 14:18:07 [facility] | | | | + + + +-------+ + + + + | Result panel 36 | + + + + + +-------+ + + | | 2022-07-14 | [facility] | 5.8 | (missing) | (missing) | | (unavailable | 14:18:07 [facility] | | | | + + + +-------+ + + + + | Result panel 37 | + + + + + + + + + | | 2022-07-25 | [facility] | NEGATIVE | (missing) | (missing) | | (unavailable | 21:35:07 [facility] | | | | + + + + + + + + + | Result panel 38 | + + + + + + + + + | | 2022-07-25 | [facility] | NEGATIVE | (missing) | (missing) | | (unavailable | 21:35:07 [facility] | | | | + + + + + + + + + | Result panel 39 | + + + + + + + + + | | 2022-07-25 | [facility] | NEGATIVE | (missing) | (missing) | | (unavailable | 21:35:07 [facility] | | | | + + + + + + + + + | Result panel 40 | + + + + + + + + + | | 2022-07-25 | [facility] | NEGATIVE | (missing) | (missing) | | (unavailable | 21:35:07 [facility] | | | | + + + + + + + + + | Result panel 41 | + + + + + +--------+ + + | | 2022-07-25 | [facility] | 10.7 | (missing) | (missing) | | (unavailable | 21:45:07 [facility] | | | | + + + +--------+ + + + + | Result panel 42 | + + + + + +--------+ + + | | 2022-07-27 | [facility] | 79.6 | (missing) | (missing) | | (unavailable | 05:32:07 [facility] | | | | + + + +--------+ + + + + | Result panel 43 | + + + + + +--------+ + + | | 2022-07-27 | [facility] | 25.5 | (missing) | (missing) | | (unavailable | 05:32:07 [facility] | | | | + + + +--------+ + + + + | Result panel 44 | + + + + + +--------+ + + | | 2022-07-27 | [facility] | 32.1 | (missing) | (missing) | | (unavailable | 05:32:07 [facility] | | | | + + + +--------+ + + + + | Result panel 45 | + + + + + +--------+ + + | | 2022-07-27 | [facility] | 15.5 | (missing) | (missing) | | (unavailable | 05:32:07 [facility] | | | | + + + +--------+ + + + + | Result panel 46 | + + + + + +-------+ + + | | 2022-07-27 | [facility] | 306 | (missing) | (missing) | | (unavailable | 05:32:07 [facility] | | | | + + + +-------+ + + + + | Result panel 47 | + + + + + +--------+ + + | | 2022-07-27 | [facility] | 83.0 | (missing) | (missing) | | (unavailable | 05:32:07 [facility] | | | | + + + +--------+ + + + + | Result panel 48 | + + + + + +-------+ + + | | 2022-07-27 | [facility] | 9.6 | (missing) | (missing) | | (unavailable | 05:32:07 [facility] | | | | + + + +-------+ + + + + | Result panel 49 | + + + + + +-------+ + + | | 2022-07-27 | [facility] | 7.0 | (missing) | (missing) | | (unavailable | 05:32:07 [facility] | | | | + + + +-------+ + + + + | Result panel 50 | + + + + + +-------+ + + | | 2022-07-27 | [facility] | 0.0 | (missing) | (missing) | | (unavailable | 05:32:07 [facility] | | | | + + + +-------+ + + + + | Result panel 51 | + + + + + +-------+ + + | | 2022-07-27 | [facility] | 0.4 | (missing) | (missing) | | (unavailable | 05:32:07 [facility] | | | | + + + +-------+ + + + + | Result panel 52 | + + + + + +-------+---------+ + | | 2022-07-27 | [facility] | 240 | mg/dL | (missing) | | (unavailable | 05:32:07 [facility] | | | | + + + +-------+---------+ + + + | Result panel 53 | + + + + + +------+---------+ + | | 2022-07-27 | [facility] | 39 | mg/dL | (missing) | | (unavailable | 05:32:07 [facility] | | | | + + + +------+---------+ + + + | Result panel 54 | + + + + + +--------+---------+ + | | 2022-07-27 | [facility] | 1.41 | mg/dL | (missing) | | (unavailable | 05:32:07 [facility] | | | | + + + +--------+---------+ + + + | Result panel 55 | + + + + + +------+ + + | | 2022-07-27 | [facility] | 43 | (missing) | (missing) | | (unavailable | 05:32:07 [facility] | | | | + + + +------+ + + + + | Result panel 56 | + + + + + +---------+ + + | | 2022-07-27 | [facility] | 27.65 | (missing) | (missing) | | (unavailable | 05:32:07 [facility] | | | | + + + +---------+ + + + + | Result panel 57 | + + + + + +-------+ + + | | 2022-07-27 | [facility] | 135 | (missing) | (missing) | | (unavailable | 05:32:07 [facility] | | | | + + + +-------+ + + + + | Result panel 58 | + + + + + +-------+ + + | | 2022-07-27 | [facility] | 3.6 | (missing) | (missing) | | (unavailable | 05:32:07 [facility] | | | | + + + +-------+ + + + + | Result panel 59 | + + + + + +------+ + + | | 2022-07-27 | [facility] | 99 | (missing) | (missing) | | (unavailable | 05:32:07 [facility] | | | | + + + +------+ + + + + | Result panel 60 | + + + + + +------+ + + | | 2022-07-27 | [facility] | 31 | (missing) | (missing) | | (unavailable | 05:32:07 [facility] | | | | + + + +------+ + + + + | Result panel 61 | + + + + + +-------+ + + | | 2022-07-27 | [facility] | 8.6 | (missing) | (missing) | | (unavailable | 05:32:07 [facility] | | | | + + + +-------+ + + + + | Result panel 62 | + + + + + +-------+---------+ + | | 2022-07-27 | [facility] | 8.6 | mg/dL | (missing) | | (unavailable | 05:32:07 [facility] | | | | + + + +-------+---------+ + + + | Result panel 63 | + + + + + +-------+---------+ + | | 2022-07-27 | [facility] | 4.0 | mg/dL | (missing) | | (unavailable | 05:32:07 [facility] | | | | + + + +-------+---------+ + + + | Result panel 64 | + + + + + +-------+---------+ + | | 2022-07-27 | [facility] | 2.1 | mg/dL | (missing) | | (unavailable | 05:32:07 [facility] | | | | + + + +-------+---------+ + + + | Result panel 65 | + + + + + +-------+ + + | | 2022-07-27 | [facility] | 7.3 | (missing) | (missing) | | (unavailable | 05:32:07 [facility] | | | | + + + +-------+ + + + + | Result panel 66 | + + + + + +-------+ + + | | 2022-07-27 | [facility] | 3.0 | (missing) | (missing) | | (unavailable | 05:32:07 [facility] | | | | + + + +-------+ + + + + | Result panel 67 | + + + + + +-------+ + + | | 2022-07-27 | [facility] | 4.3 | (missing) | (missing) | | (unavailable | 05:32:07 [facility] | | | | + + + +-------+ + + + + | Result panel 68 | + + + + + +--------+ + + | | 2022-07-27 | [facility] | 0.70 | (missing) | (missing) | | (unavailable | 05:32:07 [facility] | | | | + + + +--------+ + + + + | Result panel 69 | + + + + + +-------+ + + | | 2022-07-27 | [facility] | 0.4 | (missing) | (missing) | | (unavailable | 05:32:07 [facility] | | | | + + + +-------+ + + + + | Result panel 70 | + + + + + +------+ + + | | 2022-07-27 | [facility] | 12 | (missing) | (missing) | | (unavailable | 05:32:07 [facility] | | | | + + + +------+ + + + + | Result panel 71 | + + + + + +------+ + + | | 2022-07-27 | [facility] | 16 | (missing) | (missing) | | (unavailable | 05:32:07 [facility] | | | | + + + +------+ + + + + | Result panel 72 | + + + + + +------+ + + | | 2022-07-27 | [facility] | 95 | (missing) | (missing) | | (unavailable | 05:32:07 [facility] | | | | + + + +------+ + + + + | Result panel 73 | + + + + + +--------+ + + | | 2022-07-27 | [facility] | 16.0 | (missing) | (missing) | | (unavailable | 05:32:07 [facility] | | | | + + + +--------+ + + + + | Result panel 74 | + + + + + +--------+ + + | | 2022-07-27 | [facility] | 4.88 | (missing) | (missing) | | (unavailable | 05:32:07 [facility] | | | | + + + +--------+ + + + + | Result panel 75 | + + + + + +--------+ + + | | 2022-07-27 | [facility] | 12.5 | (missing) | (missing) | | (unavailable | 05:32:07 [facility] | | | | + + + +--------+ + + + + | Result panel 76 | + + + + + +--------+ + + | | 2022-07-27 | [facility] | 38.8 | (missing) | (missing) | | (unavailable | 05:32:07 [facility] | | | | + + + +--------+ + + + + | Result panel 77 | + + + + + +-------+ + + | | 2022-07-27 | [facility] | 271 | (missing) | (missing) | | (unavailable | 11:36:07 [facility] | | | | + + + +-------+ + + Social History + + + + | date | description | facility | + + + + | 2021-04-24 00:00 | Current smoker | [facility] | | | | [facility] | + + + + | 2021-04-24 00:00 | Smoker | [facility] | | | | [facility] | + + + + | 2021-04-24 00:00 | Ex-smoker | [facility] | | | | [facility]ergy | + + + + Vital Signs + + + +---------+ | date | measurement | value | units | + + + +---------+ | 2021-04-23 00:00 | BMI | 46.35 | kg/m2 | + + + +---------+ | 2021-04-23 00:00 | BP_diastolic | 76 | mmHg | + + + +---------+ | 2021-04-23 00:00 | BP_systolic | 134 | mmHg | + + + +---------+ | 2021-04-23 00:00 | heart_rate | 79 | /min | + + + +---------+ | 2021-04-23 00:00 | temperature_metric | 36.28 | C | | | | | | + + + +---------+ | 2021-04-23 00:00 | | 97.3 | F | | | temperature_standar | | | | | d | | | + + + +---------+ | 2021-04-23 00:00 | weight_metric | 122.47 | kg | + + + +---------+ | 2021-04-23 00:00 | weight_standard | 270 | lb | + + + +---------+ | 2021-10-21 00:00 | BMI | 42.9 | kg/m2 | + + + +---------+ | 2021-10-21 00:00 | BP_diastolic | 75 | mmHg | + + + +---------+ | 2021-10-21 00:00 | BP_systolic | 153 | mmHg | + + + +---------+ | 2021-10-21 00:00 | heart_rate | 83 | /min | + + + +---------+ | 2021-10-21 00:00 | height_metric | 162.56 | cm | + + + +---------+ | 2021-10-21 00:00 | height_standard | 64 | in | + + + +---------+ | 2021-10-21 00:00 | o2_saturation | 96 | % | + + + +---------+ | 2021-10-21 00:00 | respiration_rate | 16 | /min | + + + +---------+ | 2021-10-21 00:00 | temperature_metric | 37 | C | | | | | | + + + +---------+ | 2021-10-21 00:00 | | 98.6 | F | | | temperature_standar | | | | | d | | | + + + +---------+ | 2021-10-21 00:00 | weight_metric | 113.4 | kg | + + + +---------+ | 2021-10-21 00:00 | weight_standard | 250 | lb | + + + +---------+ | 2021-12-29 00:00 | BMI | 44.5 | kg/m2 | + + + +---------+ | 2021-12-29 00:00 | BP_diastolic | 84 | mmHg | + + + +---------+ | 2021-12-29 00:00 | BP_systolic | 160 | mmHg | + + + +---------+ | 2021-12-29 00:00 | heart_rate | 75 | /min | + + + +---------+ | 2021-12-29 00:00 | height_metric | 162.56 | cm | + + + +---------+ | 2021-12-29 00:00 | height_standard | 64 | in | + + + +---------+ | 2021-12-29 00:00 | o2_saturation | 98 | % | + + + +---------+ | 2021-12-29 00:00 | respiration_rate | 16 | /min | + + + +---------+ | 2021-12-29 00:00 | temperature_metric | 36.89 | C | | | | | | + + + +---------+ | 2021-12-29 00:00 | | 98.4 | F | | | temperature_standar | | | | | d | | | + + + +---------+ | 2021-12-29 00:00 | weight_metric | 117.48 | kg | + + + +---------+ | 2021-12-29 00:00 | weight_standard | 259 | lb | + + + +---------+ | 2022-07-14 00:00 | BMI | 43.9 | kg/m2 | + + + +---------+ | 2022-07-14 00:00 | BP_diastolic | 83 | mmHg | + + + +---------+ | 2022-07-14 00:00 | BP_systolic | 154 | mmHg | + + + +---------+ | 2022-07-14 00:00 | heart_rate | 66 | /min | + + + +---------+ | 2022-07-14 00:00 | height_metric | 162.56 | cm | + + + +---------+ | 2022-07-14 00:00 | height_standard | 64 | in | + + + +---------+ | 2022-07-14 00:00 | o2_saturation | 99 | % | + + + +---------+ | 2022-07-14 00:00 | respiration_rate | 16 | /min | + + + +---------+ | 2022-07-14 00:00 | temperature_metric | 36.67 | C | | | | | | + + + +---------+ | 2022-07-14 00:00 | | 98 | F | | | temperature_standar | | | | | d | | | + + + +---------+ | 2022-07-14 00:00 | weight_metric | 116.12 | kg | + + + +---------+ | 2022-07-14 00:00 | weight_standard | 256 | lb | + + + +---------+ | 2022-07-27 00:00 | BMI | 45.8 | kg/m2 | + + + +---------+ | 2022-07-27 00:00 | BP_diastolic | 78 | mmHg | + + + +---------+ | 2022-07-27 00:00 | BP_systolic | 150 | mmHg | + + + +---------+ | 2022-07-27 00:00 | heart_rate | 67 | /min | + + + +---------+ | 2022-07-27 00:00 | height_metric | 162.56 | cm | + + + +---------+ | 2022-07-27 00:00 | height_standard | 64 | in | + + + +---------+ | 2022-07-27 00:00 | o2_saturation | 96 | % | + + + +---------+ | 2022-07-27 00:00 | respiration_rate | 17 | /min | + + + +---------+ | 2022-07-27 00:00 | temperature_metric | 36.83 | C | | | | | | + + + +---------+ | 2022-07-27 00:00 | | 98.3 | F | | | temperature_standar | | | | | d | | | + + + +---------+ | 2022-07-27 00:00 | weight_metric | 121 | kg | + + + +---------+ | 2022-07-27 00:00 | weight_standard | 266.76 | lb | + + + +---------+ | 2022-09-21 00:00 | BMI | 95.7 | kg/m2 | + + + +---------+ | 2022-09-21 00:00 | BP_diastolic | 80 | mmHg | + + + +---------+ | 2022-09-21 00:00 | BP_systolic | 138 | mmHg | + + + +---------+ | 2022-09-21 00:00 | heart_rate | 74 | /min | + + + +---------+ | 2022-09-21 00:00 | height_metric | 162.56 | cm | + + + +---------+ | 2022-09-21 00:00 | height_standard | 64 | in | + + + +---------+ | 2022-09-21 00:00 | o2_saturation | 100 | % | + + + +---------+ | 2022-09-21 00:00 | respiration_rate | 15 | /min | + + + +---------+ | 2022-09-21 00:00 | temperature_metric | 36.11 | C | | | | | | + + + +---------+ | 2022-09-21 00:00 | | 97 | F | | | temperature_standar | | | | | d | | | + + + +---------+ | 2022-09-21 00:00 | weight_metric | 252.8 | kg | + + + +---------+ | 2022-09-21 00:00 | weight_standard | 557.33 | lb | + + + +---------+"
--- OUTSIDE RECORDS SUMMARY | ~2022-10-07 | XMS | Continuity of Care Document ---
Demographics + + + | Address | [address] | | | [place] [address] | + + + | Preferred Language | Unknown | + + + | Marital Status | | + + + | Mandaeism Affiliation | Unknown | + + + | Race | White | + + + | Ethnic Group | Not or | + + + Author + + + | Author | [facility] | + + + | Organization | [facility] | + + + | Address | [address] | | | [place] [address] | + + + | Phone | | + + + Care Team Providers + + + + | Care Machinist Outside Name | Role | Phone | + [...] + | (no date) | VENOM-HONEY | [facility] | (no reaction) | (no severity) | | | BEE | ENT and | | | | | | Allergy | | | + + + + + + | (no date) | Hives | [facility] | (no reaction) | (no severity) [...] + | (no date) | CEPHALEXIN | [facility] | (no reaction) | (no severity) | | | | ENT and | | | | | | Allergy | | | + + + + + + | (no date) | LATEX | [facility] | (no reaction) | (no severity) | | | | ENT and | | | | | | Allergy | | | + + + + + + | (no date) | | [facility] | (no reaction) | (no severity) | | | OXYCODONE-ACETA | ENT and | | | | | MINOPHEN | Allergy | | | + + + + + + | (no date) | | [facility] | (no reaction) | (no severity) | | | OXYCODONE-ACETA | ENT and | | | | | MINOPHEN | Allergy | | | + + + + + + | (no date) | HYDROCODONE | [facility] | (no reaction) | (no severity) | | | | ENT and | | | | | | Allergy | | | + + + + + + | (no date) | | [facility] | (no reaction) | (no severity) | | | OXYCODONE-ACETA | ENT and | | | | | MINOPHEN | Allergy | | | + + + + + + | (no date) | LISINOPRIL | [facility] | (no reaction) | (no severity) | | | | ENT and | | | | | | Allergy | | | + + + + + + | (no date) | | [facility] | (no reaction) | (no severity) | | | OXYCODONE-ACETA | ENT and | | | | | MINOPHEN | Allergy | | | + + + + + + | (no date) | LISINOPRIL | [facility] | (no reaction) | (no severity) | | | | ENT and | | | | | | Allergy | | | + + + + + + | (no date) | LISINOPRIL | [facility] | (no reaction) | (no severity) | | | | ENT and | | | | | | Allergy | | | + + + + + + | (no date) | CEPHALEXIN | [facility] | (no reaction) | (no severity) | | | | ENT and | | | | | | Allergy | | | + + + + + + | (no date) | LISINOPRIL | [facility] | (no reaction) | (no severity) | | | | ENT and | | | | | | Allergy | | | + + + + + + | (no date) | | [facility] | (no reaction) | (no severity) | | | OXYCODONE-ACETA | ENT and | | | | | MINOPHEN | Allergy | | | + + + + + + | (no date) | AMPICILLIN | [facility] | (no reaction) | (no severity) | | | | ENT and | | | | | | Allergy | | | + + + + + + | (no date) | CEPHALEXIN | [facility] | (no reaction) | (no severity) | | | | ENT and | | | | | | Allergy | | | + + + + + + | (no date) | LISINOPRIL | [facility] | (no reaction) | (no severity) | | | | ENT and | | | | | | Allergy | | | + + + + + + | (no date) | | [facility] | (no reaction) | (no severity) | | | OXYCODONE-ACETA | ENT and | | | | | MINOPHEN | Allergy | | | + + + + + + | (no date) | | [facility] | (no reaction) | (no severity) | | | OXYCODONE-ACETA | ENT and | | | | | MINOPHEN | Allergy | | | + + + + + + | (no date) | CEPHALEXIN | [facility] | (no reaction) | (no severity) | | | | ENT and | | | | | | Allergy | | | + + + + + + | (no date) | | [facility] | (no reaction) | (no severity) | | | OXYCODONE-ACETA | ENT and | | | | | MINOPHEN | Allergy | | | + + + + + + | (no date) | AMPICILLIN | [facility] | (no reaction) | (no severity) | | | | ENT and | | | | | | Allergy | | | + + + + + + | (no date) | | [facility] | (no reaction) | (no severity) | | | OXYCODONE-ACETA | ENT and | | | | | MINOPHEN | Allergy | | | + + + + + + | (no date) | | [facility] | (no reaction) | (no severity) | | | OXYCODONE-ACETA | ENT and | | | | | MINOPHEN | Allergy | | | + + + + + + | (no date) | AMPICILLIN | [facility] | (no reaction) | (no severity) | | | | ENT and | | | | | | Allergy | | | + + + + + + | (no date) | HYDROCODONE | [facility] | (no reaction) | (no severity) | | | | ENT and | | | | | | Allergy | | | + + + + + + | (no date) | CEPHALEXIN | [facility] | (no reaction) | (no severity) | | | | ENT and | | | | | | Allergy | | | + + + + + + | (no date) | | [facility] | (no reaction) | (no severity) | | | OXYCODONE-ACETA | ENT and | | | | | MINOPHEN | Allergy | | | + + + + + + | (no date) | HYDROCODONE | [facility] | (no reaction) | (no severity) | | | | ENT and | | | | | | Allergy | | | + + + + + + | (no date) | Headache | [facility] | (no reaction) | (no severity) [...] + | (no date) | Mild | [facility] | (no reaction) | (no severity) [...] + | (no date) | Wheez/Dyspnea | [facility] | (no reaction) | (no severity) | | | | ENT and | | | | | | Allergy | | | + + + + + + | (no date) | Rash | [facility] | (no reaction) | (no severity) | | | | ENT and | | | | | | Allergy | | | + + + + + + | (no date) | Pruritus | [facility] | (no reaction) | (no severity) | | | | ENT and | | | | | | Allergy | | | + + + + + + | (no date) | CEPHALEXIN | [facility] | (no reaction) | (no severity) | | | | ENT and | | | | | | Allergy | | | + + + + + + | (no date) | LISINOPRIL | [facility] | (no reaction) | (no severity) [...] + | (no date) | HYDROCODONE | [facility] | (no reaction) | (no severity) [...] + | (no date) | Anaphylaxis | [facility] | (no reaction) | (no severity) | | | | ENT and | | | | | | Allergy | | | + + + + + + | (no date) | | [facility] | (no reaction) | (no severity) | | | OXYCODONE-ACETA | ENT and | | | | | MINOPHEN | Allergy | | | + + + + + + | (no date) | | [facility] | (no reaction) | (no severity) | | | OXYCODONE-ACETA | ENT and | | | | | MINOPHEN | Allergy | | | + + + + + + | (no date) | CEPHALEXIN | [facility] | (no reaction) | (no severity) | | | | ENT and | | | | | | Allergy | | | + + + + + + | (no date) | HYDROCODONE | [facility] | (no reaction) | (no severity) | | | | ENT and | | | | | | Allergy | | | + + + + + + | (no date) | HYDROCODONE | [facility] | (no reaction) | (no severity) | | | | ENT and | | | | | | Allergy | | | + + + + + + | (no date) | | [facility] | (no reaction) | (no severity) | | | OXYCODONE-ACETA | ENT and | | | | | MINOPHEN | Allergy | | | + + + + + + | (no date) | | [facility] | (no reaction) | (no severity) | | | OXYCODONE-ACETA | ENT and | | | | | MINOPHEN | Allergy | | | + + + + + + | (no date) | | [facility] | (no reaction) | (no severity) [...] + | (no date) | HYDROCODONE | [facility] | (no reaction) | (no severity) [...] + | (no date) | AMPICILLIN | [facility] | (no reaction) | (no severity) [...] + | (no date) | AMPICILLIN | [facility] | (no reaction) | (no severity) | | | | ENT and | | | | | | Allergy | | | + + + + + + | (no date) | | [facility] | (no reaction) | (no severity) | | | OXYCODONE-ACETA | ENT and | | | | | MINOPHEN | Allergy | | | + + + + + + | (no date) | LISINOPRIL | [facility] | (no reaction) | (no severity) [...] + | (no date) | AMPICILLIN | [facility] | (no reaction) | (no severity) | [facility] | [facility] | | | + + + + + + | (no date) | AMPICILLIN | [facility] | (no reaction) | (no severity) | | | [facility] | | | + + + + + + | (no date) | CEPHALEXIN | [facility] | (no reaction) | (no severity) | | [facility] | | | | | | Hospital | | | + + + + + + | (no date) | CEPHALEXIN | [facility] | (no reaction) | (no severity) | | | | [facility] | | | + + + + + + | (no date) | HYDROCODONE | [facility] | (no reaction) | (no severity) | | [facility] | | | | | | Hospital | | | + + + + + + | (no date) | HYDROCODONE | [facility] | (no reaction) | (no severity) | | | | [facility] | | | + + + + + + | (no date) | LATEX | [facility] | (no reaction) | (no severity) | | [facility] | | | | | | Hospital | | | + + + + + + | (no date) | LATEX | [facility] | (no reaction) | (no severity) | | | | [facility] | | | + + + + + + | (no date) | LISINOPRIL | [facility] | (no reaction) | (no severity) | | | [facility] | | | | | | Hospital | | | + + + + + + | (no date) | LISINOPRIL | [facility] | (no reaction) | (no severity) | | | | [facility] | | | + + + + + + | (no date) | | [facility] | (no reaction) | (no severity) | [...] + | (no date) | VENOM-HONEY | [facility] | (no reaction) | (no severity) | [...] + | (no date) | FLAVORING | [facility] | (no reaction) | (no severity) | [...] | (no date) | PEANUT BUTTER | [facility] | (no reaction) | (no severity) | [...] + | (no date) | CEPHALEXIN | [facility] | (no reaction) | (no severity) [...] + | 2021-10-21 00:00 | MEDROXYPROGESTERONE | [facility] | | | ACETATE | | + + + + | 2021-12-29 00:00 | MEDROXYPROGESTERONE | [facility] | | | ACETATE | | + + + + | 2022-07-14 00:00 | MEDROXYPROGESTERONE | [facility] | | | ACETATE | | + + + + | 2022-07-27 00:00 | MEDROXYPROGESTERONE | [facility] | | | ACETATE | | + + + + | 2022-09-21 00:00 | MEDROXYPROGESTERONE | [facility] | | | ACETATE | | + + + + | 2021-04-24 00:00 | medroxyprogesterone | Yulissa REDMOND and | | | acetate 10 mg oral tablet | Allergy | + + + + | 2017-05-08 00:00 | Lidocaine | [facility] | + + + + | 2017-05-08 00:00 | Lidocaine | [facility] | + + + + | 2021-10-21 00:00 | DIAZEPAM | [facility] | + + + + | 2021-12-29 00:00 | DIAZEPAM | [facility] | + + + + | 2022-07-14 00:00 | DIAZEPAM | [facility] | + + + + | 2022-07-27 00:00 | DIAZEPAM | [facility] | + + + + | 2022-09-21 00:00 | DIAZEPAM | [facility] | + + + + | 2017-05-08 00:00 | ONDANSETRON | [facility] | + + + + | 2017-05-08 00:00 | ONDANSETRON | [facility] | + + + + | 2019-12-26 00:00 | OXYCODONE | [facility] | | | HCL/ACETAMINOPHEN | | + + + + | 2019-12-26 00:00 | OXYCODONE | [facility] | | | HCL/ACETAMINOPHEN | | + + + + | 2021-10-21 00:00 | OXYCODONE | [facility] | | | HCL/ACETAMINOPHEN | | + + + + | 2021-12-29 00:00 | OXYCODONE | [facility] | | | HCL/ACETAMINOPHEN | | + + + + | 2022-07-14 00:00 | OXYCODONE | [facility] | | | HCL/ACETAMINOPHEN | | + + + + | 2022-07-27 00:00 | OXYCODONE | [facility] | | | HCL/ACETAMINOPHEN | | + + + + | 2022-09-21 00:00 | OXYCODONE | [facility] | | | HCL/ACETAMINOPHEN | | + + + + | 2021-10-21 00:00 | OXYCODONE HCL | [facility] | + + + + | 2021-12-29 00:00 | OXYCODONE HCL | [facility] | + + + + | 2022-07-14 00:00 | OXYCODONE HCL | [facility] | + + + + | 2022-07-27 00:00 | OXYCODONE HCL | [facility] | + + + + | 2022-09-21 00:00 | OXYCODONE HCL | [facility] | + + + + | 2012-09-10 00:00 | DIPHENHYDRAMINE HCL | [facility] | + + + + | 2012-09-10 00:00 | DIPHENHYDRAMINE HCL | [facility] | + + + + | 2021-10-21 00:00 | RIVAROXABAN | [facility] | + + + + | 2021-12-29 00:00 | RIVAROXABAN | [facility] | + + + + | 2022-07-14 00:00 | RIVAROXABAN | [facility] | + + + + | 2022-07-27 00:00 | RIVAROXABAN | [facility] | + + + + | 2022-09-21 00:00 | RIVAROXABAN | [facility] | + + + + | 2021-10-21 00:00 | MELOXICAM | [facility] | + + + + | 2021-10-21 00:00 | MELOXICAM | [facility] | + + + + | 2021-10-21 00:00 | EMPAGLIFLOZIN | [facility] | + + + + | 2021-12-29 00:00 | EMPAGLIFLOZIN | [facility] | + + + + | 2022-07-14 00:00 | EMPAGLIFLOZIN | [facility] | + + + + | 2022-07-27 00:00 | EMPAGLIFLOZIN | [facility] | + + + + | 2022-09-21 00:00 | EMPAGLIFLOZIN | [facility] | + + + + | 2022-07-27 00:00 | Fluticasone/Vilanterol | [facility] | + + + + | 2022-09-21 00:00 | Fluticasone/Vilanterol | [facility] | + + + + | 2022-07-27 00:00 | PAROXETINE HCL | [facility] | + + + + | 2022-09-21 00:00 | PAROXETINE HCL | [facility] | + + + + | 2021-10-21 00:00 | PAROXETINE HCL | [facility] | + + + + | 2021-12-29 00:00 | PAROXETINE HCL | [facility] | + + + + | 2022-07-14 00:00 | PAROXETINE HCL | [facility] | + + + + | 2022-07-27 00:00 | PAROXETINE HCL | [facility] | + + + + | 2022-09-21 00:00 | PAROXETINE HCL | [facility] | + + + + | 2020-04-16 00:00 | paroxetine hydrochloride | Yulissa REDMOND and | | | 40 mg oral tablet | Allergy | + + + + | 2021-10-21 00:00 | AMLODIPINE BESYLATE | [facility] | + + + + | 2021-12-29 00:00 | AMLODIPINE BESYLATE | [facility] | + + + + | 2022-07-14 00:00 | AMLODIPINE BESYLATE | [facility] | + + + + | 2017-05-05 00:00 | BACLOFEN | [facility] | + + + + | 2017-05-05 00:00 | BACLOFEN | [facility] | + + + + | 2021-10-21 00:00 | CHLORTHALIDONE | [facility] | + + + + | 2020-04-21 00:00 | chlorthalidone 25 mg oral | Yulissa REDMOND and | | | tablet | Allergy | + + + + | 2021-10-21 00:00 | DIAZEPAM | [facility] | + + + + | 2021-12-29 00:00 | DIAZEPAM | [facility] | + + + + | 2022-07-14 00:00 | DIAZEPAM | [facility] | + + + + | 2022-07-27 00:00 | DIAZEPAM | [facility] | + + + + | 2022-09-21 00:00 | DIAZEPAM | [facility] | + + + + | 2019-12-26 00:00 | IBUPROFEN | [facility] | + + + + | 2022-09-21 00:00 | METHOCARBAMOL | [facility] | + + + + | 2021-10-21 00:00 | NADOLOL | [facility] | + + + + | 2021-12-29 00:00 | NADOLOL | [facility] | + + + + | 2022-07-14 00:00 | NADOLOL | [facility] | + + + + | 2022-07-27 00:00 | NADOLOL | [facility] | + + + + | 2022-09-21 00:00 | NADOLOL | [facility] | + + + + | 2021-04-24 00:00 | nadolol 80 mg oral tablet | Yulissa Westkamar REDMOND and | | | | Allergy | + + + + | 2021-10-21 00:00 | NAPROXEN | [facility] | + + + + | 2021-12-29 00:00 | NAPROXEN | [facility] | + + + + | 2022-07-14 00:00 | NAPROXEN | [facility] | + + + + | 2022-07-27 00:00 | NAPROXEN | [facility] | + + + + | 2022-09-21 00:00 | NAPROXEN | [facility] | + + + + | 2021-10-21 00:00 | OMEPRAZOLE | [facility] | + + + + | 2022-07-27 00:00 | OMEPRAZOLE | [facility] | + + + + | 2022-09-21 00:00 | OMEPRAZOLE | [facility] | + + + + [...] + | 2019-12-26 00:00 | ACETAMINOPHEN | [facility] | + + + + | 2021-10-21 00:00 | ACETAMINOPHEN | [facility] | + + + + | 2021-12-29 00:00 | ACETAMINOPHEN | [facility] | + + + + | 2022-07-14 00:00 | ACETAMINOPHEN | [facility] | + + + + | 2022-07-27 00:00 | ACETAMINOPHEN | [facility] | + + + + | 2022-09-21 00:00 | ACETAMINOPHEN | [facility] | + + + + | 2021-10-21 00:00 | MAGNESIUM OXIDE | [facility] | + + + + | 2021-12-29 00:00 | MAGNESIUM OXIDE | [facility] | + + + + | 2022-07-14 00:00 | MAGNESIUM OXIDE | [facility] | + + + + | 2022-07-27 00:00 | MAGNESIUM OXIDE | [facility] | + + + + | 2022-09-21 00:00 | MAGNESIUM OXIDE | [facility] | + + + + | 2022-07-27 00:00 | Cholecalciferol (Vitamin | [facility] | | | D3) | | + + + + | 2022-09-21 00:00 | Cholecalciferol (Vitamin | [facility] | | | D3) | | + + + + | 2022-07-27 00:00 | FUROSEMIDE | [facility] | + + + + | 2022-07-27 00:00 | FUROSEMIDE | [facility] | + + + + | 2022-07-27 00:00 | CELECOXIB | [facility] | + + + + | 2022-09-21 00:00 | CELECOXIB | [facility] | + + + + | 2021-12-29 00:00 | SILVER SULFADIAZINE | [facility] | + + + + | 2021-10-21 00:00 | PRAZOSIN HCL | [facility] | + + + + | 2021-12-29 00:00 | PRAZOSIN HCL | [facility] | + + + + | 2022-07-14 00:00 | PRAZOSIN HCL | [facility] | + + + + | 2022-07-27 00:00 | PRAZOSIN HCL | [facility] | + + + + | 2022-09-21 00:00 | PRAZOSIN HCL | [facility] | + + + + | 2021-10-21 00:00 | PIOGLITAZONE HCL | [facility] | + + + + | 2021-12-29 00:00 | PIOGLITAZONE HCL | [facility] | + + + + | 2022-07-14 00:00 | PIOGLITAZONE HCL | [facility] | + + + + | 2022-07-27 00:00 | PIOGLITAZONE HCL | [facility] | + + + + | 2022-09-21 00:00 | PIOGLITAZONE HCL | [facility] | + + + + | 2022-09-21 00:00 | Semaglutide | [facility] | + + + + | 2013-11-14 00:00 | CLINDAMYCIN HCL | [facility] | + + + + | 2013-11-14 00:00 | CLINDAMYCIN HCL | [facility] | + + + + | 2021-10-21 00:00 | CLINDAMYCIN HCL | [facility] | + + + + | 2021-12-29 00:00 | CLINDAMYCIN HCL | [facility] | + + + + | 2022-07-14 00:00 | CLINDAMYCIN HCL | [facility] | + + + + | 2022-07-27 00:00 | CLINDAMYCIN HCL | [facility] | + + + + | 2022-09-21 00:00 | CLINDAMYCIN HCL | [facility] | + + + + | 2021-10-21 00:00 | ALPRAZOLAM | [facility] | + + + + | 2021-12-29 00:00 | ALPRAZOLAM | [facility] | + + + + | 2022-07-14 00:00 | ALPRAZOLAM | [facility] | + + + + | 2022-07-27 00:00 | ALPRAZOLAM | [facility] | + + + + | 2022-09-21 00:00 | ALPRAZOLAM | [facility] | + + + + | 2021-10-21 00:00 | ALPRAZOLAM | [facility] | + + + + | 2021-12-29 00:00 | ALPRAZOLAM | [facility] | + + + + | 2022-07-14 00:00 | ALPRAZOLAM | [facility] | + + + + | 2022-07-27 00:00 | ALPRAZOLAM | [facility] | + + + + | 2022-09-21 00:00 | ALPRAZOLAM | [facility] | + + + + | 2022-07-27 00:00 | AMLODIPINE BESYLATE | [facility] | + + + + | 2022-09-21 00:00 | AMLODIPINE BESYLATE | [facility] | + + + + | 2020-04-21 00:00 | amlodipine (as amlodipine | Yulissa REDMOND and | | | besylate) 10 mg oral tablet | Allergy | | | | | + + + + | 2021-10-21 00:00 | CLOTRIMAZOLE/BETAMETHASONE | [facility] | | | DIP | | + + + + | 2021-12-29 00:00 | CLOTRIMAZOLE/BETAMETHASONE | [facility] | | | DIP | | + + + + | 2022-07-14 00:00 | CLOTRIMAZOLE/BETAMETHASONE | [facility] | | | DIP | | + + + + | 2022-07-27 00:00 | CLOTRIMAZOLE/BETAMETHASONE | [facility] | | | DIP | | + + + + | 2022-09-21 00:00 | CLOTRIMAZOLE/BETAMETHASONE | [facility] | | | DIP | | + + + + | 2021-10-21 00:00 | GLIPIZIDE | [facility] | + + + + | 2021-12-29 00:00 | GLIPIZIDE | [facility] | + + + + | 2022-07-14 00:00 | GLIPIZIDE | [facility] | + + + + | 2021-10-21 00:00 | NEOMYCIN/POLYMYXIN B | [facility] | | | SULF/HC | | + + + + | 2021-12-29 00:00 | NEOMYCIN/POLYMYXIN B | [facility] | | | SULF/HC | | + + + + | 2022-07-14 00:00 | NEOMYCIN/POLYMYXIN B | [facility] | | | SULF/HC | | + + + + | 2022-07-27 00:00 | NEOMYCIN/POLYMYXIN B | [facility] | | | SULF/HC | | + + + + | 2022-09-21 00:00 | NEOMYCIN/POLYMYXIN B | [facility] | | | SULF/HC | | + + + + | 2018-08-16 00:00 | MELOXICAM | [facility] | + + + + | 2018-08-16 00:00 | MELOXICAM | [facility] | + + + + | 2020-05-06 00:00 | ondansetron 8 mg oral | Yulissa REDMOND and | | | tablet | Allergy | + + + + | 2020-02-27 00:00 | ONDANSETRON | [facility] | + + + + | 2020-02-27 00:00 | ONDANSETRON | [facility] | + + + + | 2022-07-14 00:00 | ONDANSETRON | [facility] | + + + + | 2022-07-14 00:00 | ONDANSETRON | [facility] | + + + + | 2021-10-21 00:00 | POTASSIUM CHLORIDE | [facility] | + + + + | 2021-12-29 00:00 | POTASSIUM CHLORIDE | [facility] | + + + + | 2022-07-14 00:00 | POTASSIUM CHLORIDE | [facility] | + + + + | 2022-07-27 00:00 | POTASSIUM CHLORIDE | [facility] | + + + + | 2022-09-21 00:00 | POTASSIUM CHLORIDE | [facility] | + + + + | 2020-04-11 00:00 | prazosin 2 mg oral capsule | Yulissa REDMOND and | | | | Allergy | + + + + | 2012-09-10 00:00 | predniSONE | [facility] | + + + + | 2012-09-10 00:00 | predniSONE | [facility] | + + + + | 2018-07-06 00:00 | predniSONE | [facility] | + + + + | 2018-07-06 00:00 | predniSONE | [facility] | + + + + | 2020-08-04 00:00 | predniSONE | [facility] | + + + + | 2020-08-04 00:00 | predniSONE | [facility] | + + + + | 2021-03-17 00:00 | predniSONE | [facility] | + + + + | 2022-07-27 00:00 | predniSONE | [facility] | + + + + | 2022-07-27 00:00 | QUETIAPINE FUMARATE | [facility] | + + + + | 2022-09-21 00:00 | QUETIAPINE FUMARATE | [facility] | + + + + | 2020-04-11 00:00 | quetiapine 25 mg oral | Yulissa REDMOND and | | | tablet | Allergy | + + + + | 2022-07-27 00:00 | RIZATRIPTAN BENZOATE | [facility] | + + + + | 2022-09-21 00:00 | RIZATRIPTAN BENZOATE | [facility] | + + + + | 2022-07-27 00:00 | PIOGLITAZONE HCL | [facility] | + + + + | 2022-09-21 00:00 | PIOGLITAZONE HCL | [facility] | + + + + | 2020-04-21 00:00 | pioglitazone 15 mg oral | Yulissa REDMOND and | | | tablet | Allergy | + + + + | 2021-10-21 00:00 | ALBUTEROL SULFATE | [facility] | + + + + | 2021-12-29 00:00 | ALBUTEROL SULFATE | [facility] | + + + + | 2022-07-14 00:00 | ALBUTEROL SULFATE | [facility] | + + + + | 2022-07-27 00:00 | ALBUTEROL SULFATE | [facility] | + + + + | 2022-09-21 00:00 | ALBUTEROL SULFATE [facility] [facility] | + + + + | 2014-02-09 00:00 | NYSTATIN | [facility] | + + + + | 2014-02-09 00:00 | NYSTATIN | [facility] | + + + + | 2017-05-08 00:00 | TIZANIDINE HCL | [facility] | + + + + | 2017-05-08 00:00 | TIZANIDINE HCL | [facility] | + + + + | 2021-10-21 00:00 | DULOXETINE HCL | [facility] | + + + + | 2021-12-29 00:00 | DULOXETINE HCL | [facility] | + + + + | 2022-07-14 00:00 | DULOXETINE HCL | [facility] | + + + + | 2020-08-04 00:00 | ALBUTEROL SULFATE | [facility] | + + + + | 2020-08-04 00:00 | ALBUTEROL SULFATE | [facility] | + + + + | 2021-04-24 00:00 | sitagliptin 100 mg (as | [facility] | | | sitagliptin phosphate | Allergy | | | monohydrate 128.5 mg) oral | | | | tablet | | + + + + | 2021-10-21 00:00 | SITAGLIPTIN PHOSPHATE | [facility] | + + + + | 2021-12-29 00:00 | SITAGLIPTIN PHOSPHATE | [facility] | + + + + | 2022-07-14 00:00 | SITAGLIPTIN PHOSPHATE | [facility] | + + + + | 2022-07-27 00:00 | SITAGLIPTIN PHOSPHATE | [facility] | + + + + [...] + | 2013-09-28 00:00 | AZITHROMYCIN | [facility] | + + + + | 2013-09-28 00:00 | AZITHROMYCIN | [facility] | + + + + | 2021-10-21 00:00 | CYCLOBENZAPRINE HCL | [facility] | + + + + | 2021-10-21 00:00 | CYCLOBENZAPRINE HCL | [facility] | + + + + | 2022-07-27 00:00 | CYCLOBENZAPRINE HCL | [facility] | + + + + | 2022-09-21 00:00 | CYCLOBENZAPRINE HCL | [facility] | + + + + | 2021-04-24 00:00 | cyclobenzaprine | [facility] and | | | hydrochloride 10 mg oral | Allergy | | | tablet | | + + + + | 2022-07-27 00:00 | OMEGA-3/DHA/EPA/FISH OIL | [facility] | + + + + | 2022-09-21 00:00 | OMEGA-3/DHA/EPA/FISH OIL | [facility] | + + + + | 2017-05-05 00:00 | KETOROLAC TROMETHAMINE | [facility] | + + + + | 2017-05-05 00:00 | KETOROLAC TROMETHAMINE | [facility] | + + + + | 2021-10-21 00:00 | TRAMADOL HCL | [facility] | + + + + | 2021-12-29 00:00 | TRAMADOL HCL | [facility] | + + + + | 2022-07-14 00:00 | TRAMADOL HCL | [facility] | + + + + | 2022-07-27 00:00 | TRAMADOL HCL | [facility] | + + + + | 2022-09-21 00:00 | TRAMADOL HCL | [facility] | + + + + | 2014-02-09 00:00 | | [facility] | | | SULFAMETHOXAZOLE/TRIMETHOPR | | | | IM DS | | + + + + | 2014-02-09 00:00 | | [facility] | | | SULFAMETHOXAZOLE/TRIMETHOPR | | | | IM DS | | + + + + | 2021-12-29 00:00 | | [facility] | | | SULFAMETHOXAZOLE/TRIMETHOPR | | | | IM DS | | + + + + | 2021-10-21 00:00 | Quetiapine Fumarate | [facility] | + + + + | 2021-12-29 00:00 | Quetiapine Fumarate | [facility] | + + + + | 2022-07-14 00:00 | Quetiapine Fumarate | [facility] | + + + + | 2021-10-21 00:00 | TRAZODONE HCL | [facility] | + + + + | 2021-12-29 00:00 | TRAZODONE HCL | [facility] | + + + + | 2022-07-14 00:00 | TRAZODONE HCL | [facility] | + + + + | 2022-07-27 00:00 | TRAZODONE HCL | [facility] | + + + + | 2022-09-21 00:00 | TRAZODONE HCL | [facility] | + + + + | 2021-10-21 00:00 | TRAZODONE HCL | [facility] | + + + + | 2021-12-29 00:00 | TRAZODONE HCL | [facility] | + + + + | 2022-07-14 00:00 | TRAZODONE HCL | [facility] | + + + + | 2022-07-27 00:00 | TRAZODONE HCL | [facility] | + + + + | 2022-09-21 00:00 | TRAZODONE HCL | [facility] | + + + + | 2021-10-21 00:00 | AMITRIPTYLINE HCL | [facility] | + + + + | 2021-12-29 00:00 | AMITRIPTYLINE HCL | [facility] | + + + + | 2022-07-14 00:00 | AMITRIPTYLINE HCL | [facility] | + + + + | 2022-07-27 00:00 | AMITRIPTYLINE HCL | [facility] | + + + + | 2022-09-21 00:00 | AMITRIPTYLINE HCL | [facility] | + + + + | 2021-03-17 00:00 | HYDROCODONE | [facility] | | | BIT/ACETAMINOPHEN | | + + + + | 2013-02-24 00:00 | HYDROCODONE | [facility] | | | BIT/ACETAMINOPHEN | | + + + + | 2013-02-24 00:00 | HYDROCODONE | [facility] | | | BIT/ACETAMINOPHEN | | + + + + | 2014-05-14 00:00 | HYDROCODONE | [facility] | | | BIT/ACETAMINOPHEN | | + + + + | 2014-05-14 00:00 | HYDROCODONE | [facility] | | | BIT/ACETAMINOPHEN | | + + + + | 2018-07-06 00:00 | ALBUTEROL SULFATE | [facility] | + + + + | 2018-07-06 00:00 | ALBUTEROL SULFATE | [facility] | + + + + | 2020-08-04 00:00 | ALBUTEROL SULFATE | [facility] | + + + + | 2020-08-04 00:00 | ALBUTEROL SULFATE | [facility] | + + + + | 2021-10-21 00:00 | ALBUTEROL SULFATE | [facility] | + + + + | 2021-12-29 00:00 | ALBUTEROL SULFATE | [facility] | + + + + | 2022-07-14 00:00 | ALBUTEROL SULFATE | [facility] | + + + + | 2022-07-27 00:00 | ALBUTEROL SULFATE | [facility] | + + + + | 2022-09-21 00:00 | ALBUTEROL SULFATE | [facility] | + + + + | 2020-05-01 00:00 | metformin hcl 750 mg 24hr | [facility] and | | | extended release oral | Allergy | | | tablet | | + + + + | 2021-10-21 00:00 | METFORMIN HCL | [facility] | + + + + | 2021-12-29 00:00 | METFORMIN HCL | [facility] | + + + + | 2022-07-14 00:00 |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
[~2022-10-07 18:24] MED LIST changes: +AMLODIPINE BESY10 MG PO; +CELECOXIB200 MG PO; +FISH OIL 1,0001 EAC5 PO; +FLUTICASONE-VI1 EAC1 IH; +JARDIANCE25 MG PO; +LASIX20 MG PO; +MECLIZINE HCL25 MG PO; +METHOCARBAMOL750 MG PO; +MULTI VITAMIN1 EACH PO; +OXYGEN XX; +OZEMPIC0.25 MG/01 SQ; +PAROXETINE HCL10 MG PO; +PAROXETINE HCL40 MG PO; +PIOGLITAZONE HC15 MG PO; +QUETIAPINE FUMA25 MG PO; +RIZATRIPTAN10 M1 PO; +VITAMIN D325 MCG PO
[2022-10-07] MEDS ORDERED: POTASSIUM CHLO10 ME2 PO (19:54)
[2022-10-07 21:27] LABS: BASOPHILS 0.7 % (0-2); EOSINOPHILS 1.6 % (0-6); HEMATOCRIT 41.3 % (35.0-50.0); HEMOGLOBIN 13.5 g/dL (12.0-18.0); LYMPHOCYTES 14.6 % (24-44); MCH 26.8 (27-36); MCHC 32.7 g/dl (30-36); MCV 81.8 fl (81-99); MONOCYTES 6.6 % (0-12); NEUTROPHILS 76.5 % (39-80); PLATELET COUNT 292 K/uL (140-440); RBC 5.05 M/ul (4.3-5.7)
[2022-10-07 21:45] LABS: ALBUMIN 3.6 g/dL (3.4-5.0); ALBUMIN/GLOBULIN RATIO 0.82 (1.1-2.4); ANION GAP 13.5 (7-21); BILIRUBIN, TOTAL 0.5 ng/dL (0.2-1.0); BUN/CREATININE RATIO 17.32 (6.0-28.6); CALCIUM 9.4 mg/dL (8.5-10.1); CREATININE, SERUM 1.27 mg/dL (0.55-1.02); POTASSIUM 3.5 mmol/L (3.5-5.1)
[2022-10-07 23:46] VITALS: BP 142/69
--- NOTE | 2022-10-08 21:38 | EKG ---
[facility] [address] [facility] [place] [address] Signed Normal sinus rhythm Normal ECG When compared with ECG of 25-JUL-2022 20:45, No significant change was found Confirmed by Amelia Bowden MD () on 10/08/2022 9:37:52 PM Electronically Signed By: AMELIA BOWDEN MD 10/08/22 [id number] PATIENT NAME: LUCASCHARLA Electrocardiogram DATE OF : 64 PHYSICIAN: AMELIA BOWDEN MD REPORT #: [id number] REPORT IS CONFIDENTIAL AND NOT TO BE RELEASED WITHOUT AUTHORIZATION
== END 2022-10-07 23:46 | disposition home or self-care (01) ==
LOC: ED 18:24
PROVIDERS: Internal Medicine
DX: S50.11XA Contusion of right forearm, initial encounter (principal); R07.89 Other chest pain; R51.9 Headache, unspecified; M54.2 Cervicalgia; M25.551 Pain in right hip; Y04.2XXA Assault by strike against or bumped into by another person, initial encounter; I11.0 Hypertensive heart disease with heart failure; I50.9 Heart failure, unspecified; E11.40 Type 2 diabetes mellitus with diabetic neuropathy, unspecified; J44.9 Chronic obstructive pulmonary disease, unspecified; E66.9 Obesity, unspecified; Z68.41 Body mass index [BMI] 40.0-44.9, adult; Z86.19 Personal history of other infectious and parasitic diseases; Z87.891 Personal history of nicotine dependence; Z88.0 Allergy status to penicillin; Z88.8 Allergy status to other drugs, medicaments and biological substances; Z88.1 Allergy status to other antibiotic agents; Z91.030 Bee allergy status; Z91.010 Allergy to peanuts; Z79.899 Other long term (current) drug therapy
CPT/HCPCS: 36415; 70450; 71045; 72125; 73090; 73502; 80053; 84484; 85025; 93005; 93010; 99284-25; A9270

== ENCOUNTER 2022-10-08 14:05 | Emergency (ER) | payer MEDICARE, OTHER ==
[~2022-10-08] VITALS: Ht 162.6 cm; Wt 112.3 kg
--- OUTSIDE RECORDS SUMMARY | ~2022-10-08 | XMS | Continuity of Care Document ---
Demographics + + + | Address | [address] | | | [place] [address] | + + + | Preferred Language | Unknown | + + + | Marital Status | | + + + | Mandaen Affiliation | Unknown | + + + | Race | White | + + + | Ethnic Group | Not or | + + + Author + + + | Author | [facility] | + + + | Organization | [facility] | + + + | Address | [address] [facility] | | | [place] [address] | + + + | Phone | | + + + Care Team Providers + + + + | Care Hot Header Operator Name | Role | Phone | [...] + | (no date) | VENOM-HONEY | [facility] | (no reaction) | (no severity) | | | BEE | ENT and | | | | | | Allergy | | | + + + + + + | (no date) | Hives | [facility] | (no reaction) | (no severity) [...] + | (no date) | CEPHALEXIN | [facility] | (no reaction) | (no severity) | | | | ENT and | | | | | | Allergy | | | + + + + + + | (no date) | LATEX | [facility] | (no reaction) | (no severity) | | | | ENT and | | | | | | Allergy | | | + + + + + + | (no date) | | [facility] | (no reaction) | (no severity) | | | OXYCODONE-ACETA | ENT and | | | | | MINOPHEN | Allergy | | | + + + + + + | (no date) | | [facility] | (no reaction) | (no severity) | | | OXYCODONE-ACETA | ENT and | | | | | MINOPHEN | Allergy | | | + + + + + + | (no date) | HYDROCODONE | [facility] | (no reaction) | (no severity) | | | | ENT and | | | | | | Allergy | | | + + + + + + | (no date) | | [facility] | (no reaction) | (no severity) | | | OXYCODONE-ACETA | ENT and | | | | | MINOPHEN | Allergy | | | + + + + + + | (no date) | LISINOPRIL | [facility] | (no reaction) | (no severity) | | | | ENT and | | | | | | Allergy | | | + + + + + + | (no date) | | [facility] | (no reaction) | (no severity) | | | OXYCODONE-ACETA | ENT and | | | | | MINOPHEN | Allergy | | | + + + + + + | (no date) | LISINOPRIL | [facility] | (no reaction) | (no severity) | | | | ENT and | | | | | | Allergy | | | + + + + + + | (no date) | LISINOPRIL | [facility] | (no reaction) | (no severity) | | | | ENT and | | | | | | Allergy | | | + + + + + + | (no date) | CEPHALEXIN | [facility] | (no reaction) | (no severity) | | | | ENT and | | | | | | Allergy | | | + + + + + + | (no date) | LISINOPRIL | [facility] | (no reaction) | (no severity) | | | | ENT and | | | | | | Allergy | | | + + + + + + | (no date) | | [facility] | (no reaction) | (no severity) | | | OXYCODONE-ACETA | ENT and | | | | | MINOPHEN | Allergy | | | + + + + + + | (no date) | AMPICILLIN | [facility] | (no reaction) | (no severity) | | | | ENT and | | | | | | Allergy | | | + + + + + + | (no date) | CEPHALEXIN | [facility] | (no reaction) | (no severity) | | | | ENT and | | | | | | Allergy | | | + + + + + + | (no date) | LISINOPRIL | [facility] | (no reaction) | (no severity) | | | | ENT and | | | | | | Allergy | | | + + + + + + | (no date) | | [facility] | (no reaction) | (no severity) | | | OXYCODONE-ACETA | ENT and | | | | | MINOPHEN | Allergy | | | + + + + + + | (no date) | | [facility] | (no reaction) | (no severity) | | | OXYCODONE-ACETA | ENT and | | | | | MINOPHEN | Allergy | | | + + + + + + | (no date) | CEPHALEXIN | [facility] | (no reaction) | (no severity) | | | | ENT and | | | | | | Allergy | | | + + + + + + | (no date) | | [facility] | (no reaction) | (no severity) | | | OXYCODONE-ACETA | ENT and | | | | | MINOPHEN | Allergy | | | + + + + + + | (no date) | AMPICILLIN | [facility] | (no reaction) | (no severity) | | | | ENT and | | | | | | Allergy | | | + + + + + + | (no date) | | [facility] | (no reaction) | (no severity) | | | OXYCODONE-ACETA | ENT and | | | | | MINOPHEN | Allergy | | | + + + + + + | (no date) | | [facility] | (no reaction) | (no severity) | | | OXYCODONE-ACETA | ENT and | | | | | MINOPHEN | Allergy | | | + + + + + + | (no date) | AMPICILLIN | [facility] | (no reaction) | (no severity) | | | | ENT and | | | | | | Allergy | | | + + + + + + | (no date) | HYDROCODONE | [facility] | (no reaction) | (no severity) | | | | ENT and | | | | | | Allergy | | | + + + + + + | (no date) | CEPHALEXIN | [facility] | (no reaction) | (no severity) | | | | ENT and | | | | | | Allergy | | | + + + + + + | (no date) | | [facility] | (no reaction) | (no severity) | | | OXYCODONE-ACETA | ENT and | | | | | MINOPHEN | Allergy | | | + + + + + + | (no date) | HYDROCODONE | [facility] | (no reaction) | (no severity) | | | | ENT and | | | | | | Allergy | | | + + + + + + | (no date) | Headache | [facility] | (no reaction) | (no severity) [...] + | (no date) | Mild | [facility] | (no reaction) | (no severity) [...] + | (no date) | Wheez/Dyspnea | [facility] | (no reaction) | (no severity) | | | | ENT and | | | | | | Allergy | | | + + + + + + | (no date) | Rash | [facility] | (no reaction) | (no severity) | | | | ENT and | | | | | | Allergy | | | + + + + + + | (no date) | Pruritus | [facility] | (no reaction) | (no severity) | | | | ENT and | | | | | | Allergy | | | + + + + + + | (no date) | CEPHALEXIN | [facility] | (no reaction) | (no severity) | | | | ENT and | | | | | | Allergy | | | + + + + + + | (no date) | LISINOPRIL | [facility] | (no reaction) | (no severity) [...] + | (no date) | HYDROCODONE | [facility] | (no reaction) | (no severity) [...] + | (no date) | Anaphylaxis | [facility] | (no reaction) | (no severity) | | | | ENT and | | | | | | Allergy | | | + + + + + + | (no date) | | [facility] | (no reaction) | (no severity) | | | OXYCODONE-ACETA | ENT and | | | | | MINOPHEN | Allergy | | | + + + + + + | (no date) | | [facility] | (no reaction) | (no severity) | | | OXYCODONE-ACETA | ENT and | | | | | MINOPHEN | Allergy | | | + + + + + + | (no date) | CEPHALEXIN | [facility] | (no reaction) | (no severity) | | | | ENT and | | | | | | Allergy | | | + + + + + + | (no date) | HYDROCODONE | [facility] | (no reaction) | (no severity) | | | | ENT and | | | | | | Allergy | | | + + + + + + | (no date) | HYDROCODONE | [facility] | (no reaction) | (no severity) | | | | ENT and | | | | | | Allergy | | | + + + + + + | (no date) | | [facility] | (no reaction) | (no severity) | | | OXYCODONE-ACETA | ENT and | | | | | MINOPHEN | Allergy | | | + + + + + + | (no date) | | [facility] | (no reaction) | (no severity) | | | OXYCODONE-ACETA | ENT and | | | | | MINOPHEN | Allergy | | | + + + + + + | (no date) | | [facility] | (no reaction) | (no severity) [...] + | (no date) | HYDROCODONE | [facility] | (no reaction) | (no severity) [...] + | (no date) | AMPICILLIN | [facility] | (no reaction) | (no severity) [...] + | (no date) | AMPICILLIN | [facility] | (no reaction) | (no severity) | | | | ENT and | | | | | | Allergy | | | + + + + + + | (no date) | | [facility] | (no reaction) | (no severity) | | | OXYCODONE-ACETA | ENT and | | | | | MINOPHEN | Allergy | | | + + + + + + | (no date) | LISINOPRIL | [facility] | (no reaction) | (no severity) [...] + | (no date) | AMPICILLIN | [facility] | (no reaction) | (no severity) | | [facility] | | | | [facility] | | | + + + + + + | (no date) | AMPICILLIN | [facility] | (no reaction) | (no severity) | | | | [facility] | | | + + + + + + | (no date) | CEPHALEXIN | [facility] | (no reaction) | (no severity) | | | [facility] | | | | | | Hospital | | | + + + + + + | (no date) | CEPHALEXIN | [facility] | (no reaction) | (no severity) | | | | [facility] | | | + + + + + + | (no date) | HYDROCODONE | [facility] | (no reaction) | (no severity) | | | [facility] | | | | | | Hospital | | | + + + + + + | (no date) | HYDROCODONE | [facility] | (no reaction) | (no severity) | | | | [facility] | | | + + + + + + | (no date) | LATEX | [facility] | (no reaction) | (no severity) | | | [facility] | | | | | | Hospital | | | + + + + + + | (no date) | LATEX | [facility] | (no reaction) | (no severity) | | | | [facility] | | | + + + + + + | (no date) | LISINOPRIL | [facility] | (no reaction) | (no severity) | | | [facility] | | | | | | Hospital | | | + + + + + + | (no date) | LISINOPRIL | [facility] | (no reaction) | (no severity) | | | | [facility] | | | + + + + + + | (no date) | | [facility] | (no reaction) | (no severity) | [...] + | (no date) | VENOM-HONEY | [facility] | (no reaction) | (no severity) | [...] + | (no date) | FLAVORING | [facility] | (no reaction) | (no severity) | [...] | (no date) | PEANUT BUTTER | [facility] | (no reaction) | (no severity) | [...] + | (no date) | CEPHALEXIN | [facility] | (no reaction) | (no severity) [...] + | 2021-10-21 00:00 | MEDROXYPROGESTERONE | [facility] | | | ACETATE | | + + + + | 2021-12-29 00:00 | MEDROXYPROGESTERONE | [facility] | | | ACETATE | | + + + + | 2022-07-14 00:00 | MEDROXYPROGESTERONE | [facility] | | | ACETATE | | + + + + | 2022-07-27 00:00 | MEDROXYPROGESTERONE | [facility] | | | ACETATE | | + + + + | 2022-09-21 00:00 | MEDROXYPROGESTERONE | [facility] | | | ACETATE | | + + + + | 2022-10-07 00:00 | MEDROXYPROGESTERONE | [facility] | | | ACETATE | | + + + + | 2021-04-24 00:00 | medroxyprogesterone | Yulissa REDMOND and | | | acetate 10 mg oral tablet | Allergy | + + + + | 2017-05-08 00:00 | Lidocaine | [facility] | + + + + | 2017-05-08 00:00 | Lidocaine | [facility] | + + + + | 2021-10-21 00:00 | DIAZEPAM | [facility] | + + + + | 2021-12-29 00:00 | DIAZEPAM | [facility] | + + + + | 2022-07-14 00:00 | DIAZEPAM | [facility] | + + + + | 2022-07-27 00:00 | DIAZEPAM | [facility] | + + + + | 2022-09-21 00:00 | DIAZEPAM | [facility] | + + + + | 2022-10-07 00:00 | DIAZEPAM | [facility] | + + + + | 2017-05-08 00:00 | ONDANSETRON | [facility] | + + + + | 2017-05-08 00:00 | ONDANSETRON | [facility] | + + + + | 2019-12-26 00:00 | OXYCODONE | [facility] | | | HCL/ACETAMINOPHEN | | + + + + | 2019-12-26 00:00 | OXYCODONE | [facility] | | | HCL/ACETAMINOPHEN | | + + + + | 2021-10-21 00:00 | OXYCODONE | [facility] | | | HCL/ACETAMINOPHEN | | + + + + | 2021-12-29 00:00 | OXYCODONE | [facility] | | | HCL/ACETAMINOPHEN | | + + + + | 2022-07-14 00:00 | OXYCODONE | [facility] | | | HCL/ACETAMINOPHEN | | + + + + | 2022-07-27 00:00 | OXYCODONE | [facility] | | | HCL/ACETAMINOPHEN | | + + + + | 2022-09-21 00:00 | OXYCODONE | [facility] | | | HCL/ACETAMINOPHEN | | + + + + | 2022-10-07 00:00 | OXYCODONE | [facility] | | | HCL/ACETAMINOPHEN | | + + + + | 2021-10-21 00:00 | OXYCODONE HCL | [facility] | + + + + | 2021-12-29 00:00 | OXYCODONE HCL | [facility] | + + + + | 2022-07-14 00:00 | OXYCODONE HCL | [facility] | + + + + | 2022-07-27 00:00 | OXYCODONE HCL | [facility] | + + + + | 2022-09-21 00:00 | OXYCODONE HCL | [facility] | + + + + | 2022-10-07 00:00 | OXYCODONE HCL | [facility] | + + + + | 2012-09-10 00:00 | DIPHENHYDRAMINE HCL | [facility] | + + + + | 2012-09-10 00:00 | DIPHENHYDRAMINE HCL | [facility] | + + + + | 2021-10-21 00:00 | RIVAROXABAN | [facility] | + + + + | 2021-12-29 00:00 | RIVAROXABAN | [facility] | + + + + | 2022-07-14 00:00 | RIVAROXABAN | [facility] | + + + + | 2022-07-27 00:00 | RIVAROXABAN | [facility] | + + + + | 2022-09-21 00:00 | RIVAROXABAN | [facility] | + + + + | 2022-10-07 00:00 | RIVAROXABAN | [facility] | + + + + | 2021-10-21 00:00 | MELOXICAM | [facility] | + + + + | 2021-10-21 00:00 | MELOXICAM | [facility] | + + + + | 2021-10-21 00:00 | EMPAGLIFLOZIN | [facility] | + + + + | 2021-12-29 00:00 | EMPAGLIFLOZIN | [facility] | + + + + | 2022-07-14 00:00 | EMPAGLIFLOZIN | [facility] | + + + + | 2022-07-27 00:00 | EMPAGLIFLOZIN | [facility] | + + + + | 2022-09-21 00:00 | EMPAGLIFLOZIN | [facility] | + + + + | 2022-10-07 00:00 | EMPAGLIFLOZIN | [facility] | + + + + | 2022-07-27 00:00 | Fluticasone/Vilanterol | [facility] | + + + + | 2022-09-21 00:00 | Fluticasone/Vilanterol | [facility] | + + + + | 2022-10-07 00:00 | Fluticasone/Vilanterol | [facility] | + + + + | 2022-07-27 00:00 | PAROXETINE HCL | [facility] | + + + + | 2022-09-21 00:00 | PAROXETINE HCL | [facility] | + + + + | 2022-10-07 00:00 | PAROXETINE HCL | [facility] | + + + + | 2021-10-21 00:00 | PAROXETINE HCL | [facility] | + + + + | 2021-12-29 00:00 | PAROXETINE HCL | [facility] | + + + + | 2022-07-14 00:00 | PAROXETINE HCL | [facility] | + + + + | 2022-07-27 00:00 | PAROXETINE HCL | [facility] | + + + + | 2022-09-21 00:00 | PAROXETINE HCL | [facility] | + + + + | 2022-10-07 00:00 | PAROXETINE HCL | [facility] | + + + + | 2020-04-16 00:00 | paroxetine hydrochloride | Yulissa [facility]MOND and | | | 40 mg oral tablet | Allergy | + + + + | 2022-10-07 00:00 | POTASSIUM CHLORIDE | [facility] | + + + + | 2021-10-21 00:00 | AMLODIPINE BESYLATE | [facility] | + + + + | 2021-12-29 00:00 | AMLODIPINE BESYLATE | [facility] | + + + + | 2022-07-14 00:00 | AMLODIPINE BESYLATE | [facility] | + + + + | 2017-05-05 00:00 | BACLOFEN | [facility] | + + + + | 2017-05-05 00:00 | BACLOFEN | [facility] | + + + + | 2021-10-21 00:00 | CHLORTHALIDONE | [facility] | + + + + | 2020-04-21 00:00 | chlorthalidone 25 mg oral | Yulissa [facility] and | | | tablet | Allergy | + + + + | 2021-10-21 00:00 | DIAZEPAM | [facility] | + + + + | 2021-12-29 00:00 | DIAZEPAM | [facility] | + + + + | 2022-07-14 00:00 | DIAZEPAM | [facility] | + + + + | 2022-07-27 00:00 | DIAZEPAM | [facility] | + + + + | 2022-09-21 00:00 | DIAZEPAM | [facility] | + + + + | 2022-10-07 00:00 | DIAZEPAM | [facility] | + + + + | 2019-12-26 00:00 | IBUPROFEN | [facility] | + + + + | 2022-09-21 00:00 | METHOCARBAMOL | [facility] | + + + + | 2021-10-21 00:00 | NADOLOL | [facility] | + + + + | 2021-12-29 00:00 | NADOLOL | [facility] | + + + + | 2022-07-14 00:00 | NADOLOL | [facility] | + + + + | 2022-07-27 00:00 | NADOLOL | [facility] | + + + + | 2022-09-21 00:00 | NADOLOL | [facility] | + + + + | 2022-10-07 00:00 | NADOLOL | [facility] | + + + + | 2021-04-24 00:00 | nadolol 80 mg oral tablet | Yulissa REDMOND and | | | | Allergy | + + + + | 2021-10-21 00:00 | NAPROXEN | [facility] | + + + + | 2021-12-29 00:00 | NAPROXEN | [facility] | + + + + | 2022-07-14 00:00 | NAPROXEN | [facility] | + + + + | 2022-07-27 00:00 | NAPROXEN | [facility] | + + + + | 2022-09-21 00:00 | NAPROXEN | [facility] | + + + + | 2022-10-07 00:00 | NAPROXEN | [facility] | + + + + | 2021-10-21 00:00 | OMEPRAZOLE | [facility] | + + + + | 2022-07-27 00:00 | OMEPRAZOLE | [facility] | + + + + | 2022-09-21 00:00 | OMEPRAZOLE | [facility] | + + + + | 2022-10-07 00:00 | OMEPRAZOLE | [facility] | + + + + | 2021-04-24 00:00 | omeprazole 20 mg (as | Yulissa REDMOND and | | | omeprazole magnesium 20.6 | Allergy | | | mg) delayed release oral | | | | capsule | | + + + + | 2021-01-28 00:00 | hctz 25 mg / triamterene | [facility] | | | 37.5 mg oral capsule | Allergy | + + + + | 2021-04-23 00:00 | hctz 25 mg / triamterene | [facility] | | | 37.5 mg oral capsule | Allergy | + + + + | 2019-12-26 00:00 | ACETAMINOPHEN | [facility] | + + + + | 2021-10-21 00:00 | ACETAMINOPHEN | [facility] | + + + + | 2021-12-29 00:00 | ACETAMINOPHEN | [facility] | + + + + | 2022-07-14 00:00 | ACETAMINOPHEN | [facility] | + + + + | 2022-07-27 00:00 | ACETAMINOPHEN | [facility] | + + + + | 2022-09-21 00:00 | ACETAMINOPHEN | [facility] | + + + + | 2022-10-07 00:00 | ACETAMINOPHEN | [facility] | + + + + | 2021-10-21 00:00 | MAGNESIUM OXIDE | [facility] | + + + + | 2021-12-29 00:00 | MAGNESIUM OXIDE | [facility] | + + + + | 2022-07-14 00:00 | MAGNESIUM OXIDE | [facility] | + + + + | 2022-07-27 00:00 | MAGNESIUM OXIDE | [facility] | + + + + | 2022-09-21 00:00 | MAGNESIUM OXIDE | [facility] | + + + + | 2022-10-07 00:00 | MAGNESIUM OXIDE | [facility] | + + + + | 2022-07-27 00:00 | Cholecalciferol (Vitamin | [facility] | | | D3) | | + + + + | 2022-09-21 00:00 | Cholecalciferol (Vitamin | [facility] | | | D3) | | + + + + | 2022-10-07 00:00 | Cholecalciferol (Vitamin | [facility] | | | D3) | | + + + + | 2022-07-27 00:00 | FUROSEMIDE | [facility] | + + + + | 2022-07-27 00:00 | FUROSEMIDE | [facility] | + + + + | 2022-07-27 00:00 | CELECOXIB | [facility] | + + + + | 2022-09-21 00:00 | CELECOXIB | [facility] | + + + + | 2021-12-29 00:00 | SILVER SULFADIAZINE | [facility] | + + + + | 2021-10-21 00:00 | PRAZOSIN HCL | [facility] | + + + + | 2021-12-29 00:00 | PRAZOSIN HCL | [facility] | + + + + | 2022-07-14 00:00 | PRAZOSIN HCL | [facility] | + + + + | 2022-07-27 00:00 | PRAZOSIN HCL | [facility] | + + + + | 2022-09-21 00:00 | PRAZOSIN HCL | [facility] | + + + + | 2022-10-07 00:00 | PRAZOSIN HCL | [facility] | + + + + | 2021-10-21 00:00 | PIOGLITAZONE HCL | [facility] | + + + + | 2021-12-29 00:00 | PIOGLITAZONE HCL | [facility] | + + + + | 2022-07-14 00:00 | PIOGLITAZONE HCL | [facility] | + + + + | 2022-07-27 00:00 | PIOGLITAZONE HCL | [facility] | + + + + | 2022-09-21 00:00 | PIOGLITAZONE HCL | [facility] | + + + + | 2022-10-07 00:00 | PIOGLITAZONE HCL | [facility] | + + + + | 2022-09-21 00:00 | Semaglutide | [facility] | + + + + | 2022-10-07 00:00 | Semaglutide | [facility] | + + + + | 2013-11-14 00:00 | CLINDAMYCIN HCL | [facility] | + + + + | 2013-11-14 00:00 | CLINDAMYCIN HCL | [facility] | + + + + | 2021-10-21 00:00 | CLINDAMYCIN HCL | [facility] | + + + + | 2021-12-29 00:00 | CLINDAMYCIN HCL | [facility] | + + + + | 2022-07-14 00:00 | CLINDAMYCIN HCL | [facility] | + + + + | 2022-07-27 00:00 | CLINDAMYCIN HCL | [facility] | + + + + | 2022-09-21 00:00 | CLINDAMYCIN HCL | [facility] | + + + + | 2022-10-07 00:00 | CLINDAMYCIN HCL | [facility] | + + + + | 2021-10-21 00:00 | ALPRAZOLAM | [facility] | + + + + | 2021-12-29 00:00 | ALPRAZOLAM | [facility] | + + + + | 2022-07-14 00:00 | ALPRAZOLAM | [facility] | + + + + | 2022-07-27 00:00 | ALPRAZOLAM | [facility] | + + + + | 2022-09-21 00:00 | ALPRAZOLAM | [facility] | + + + + | 2022-10-07 00:00 | ALPRAZOLAM | [facility] | + + + + | 2021-10-21 00:00 | ALPRAZOLAM | [facility] | + + + + | 2021-12-29 00:00 | ALPRAZOLAM | [facility] | + + + + | 2022-07-14 00:00 | ALPRAZOLAM | [facility] | + + + + | 2022-07-27 00:00 | ALPRAZOLAM | [facility] | + + + + | 2022-09-21 00:00 | ALPRAZOLAM | [facility] | + + + + | 2022-10-07 00:00 | ALPRAZOLAM | [facility] | + + + + | 2022-07-27 00:00 | AMLODIPINE BESYLATE | [facility] | + + + + | 2022-09-21 00:00 | AMLODIPINE BESYLATE | [facility] | + + + + | 2022-10-07 00:00 | AMLODIPINE BESYLATE | [facility] | + + + + | 2020-04-21 00:00 | amlodipine (as amlodipine | Yulissa REDMOND and | | | besylate) 10 mg oral tablet | Allergy | | | | | + + + + | 2021-10-21 00:00 | CLOTRIMAZOLE/BETAMETHASONE | [facility] | | | DIP | | + + + + | 2021-12-29 00:00 | CLOTRIMAZOLE/BETAMETHASONE | [facility] | | | DIP | | + + + + | 2022-07-14 00:00 | CLOTRIMAZOLE/BETAMETHASONE | [facility] | | | DIP | | + + + + | 2022-07-27 00:00 | CLOTRIMAZOLE/BETAMETHASONE | [facility] | | | DIP | | + + + + | 2022-09-21 00:00 | CLOTRIMAZOLE/BETAMETHASONE | [facility] | | | DIP | | + + + + | 2022-10-07 00:00 | CLOTRIMAZOLE/BETAMETHASONE | [facility] | | | DIP | | + + + + | 2021-10-21 00:00 | GLIPIZIDE | [facility] | + + + + | 2021-12-29 00:00 | GLIPIZIDE | [facility] | + + + + | 2022-07-14 00:00 | GLIPIZIDE | [facility] | + + + + | 2021-10-21 00:00 | NEOMYCIN/POLYMYXIN B | [facility] | | | SULF/HC | | + + + + | 2021-12-29 00:00 | NEOMYCIN/POLYMYXIN B | [facility] | | | SULF/HC | | + + + + | 2022-07-14 00:00 | NEOMYCIN/POLYMYXIN B | [facility] | | | SULF/HC | | + + + + | 2022-07-27 00:00 | NEOMYCIN/POLYMYXIN B | [facility] | | | SULF/HC | | + + + + | 2022-09-21 00:00 | NEOMYCIN/POLYMYXIN B | [facility] | | | SULF/HC | | + + + + | 2022-10-07 00:00 | NEOMYCIN/POLYMYXIN B | [facility] | | | SULF/HC | | + + + + | 2018-08-16 00:00 | MELOXICAM | [facility] | + + + + | 2018-08-16 00:00 | MELOXICAM | [facility] | + + + + | 2020-05-06 00:00 | ondansetron 8 mg oral | Yulissa REDMOND and | | | tablet | Allergy | + + + + | 2020-02-27 00:00 | ONDANSETRON | [facility] | + + + + | 2020-02-27 00:00 | ONDANSETRON | [facility] | + + + + | 2022-07-14 00:00 | ONDANSETRON | [facility] | + + + + | 2022-07-14 00:00 | ONDANSETRON | [facility] | + + + + | 2021-10-21 00:00 | POTASSIUM CHLORIDE | [facility] | + + + + | 2021-12-29 00:00 | POTASSIUM CHLORIDE | [facility] | + + + + | 2022-07-14 00:00 | POTASSIUM CHLORIDE | [facility] | + + + + | 2022-07-27 00:00 | POTASSIUM CHLORIDE | [facility] | + + + + | 2022-09-21 00:00 | POTASSIUM CHLORIDE | [facility] | + + + + | 2022-10-07 00:00 | POTASSIUM CHLORIDE | [facility] | + + + + | 2020-04-11 00:00 | prazosin 2 mg oral capsule | Yulissa REDMOND and | | | | Allergy | + + + + | 2012-09-10 00:00 | predniSONE | [facility] | + + + + | 2012-09-10 00:00 | predniSONE | [facility] | + + + + | 2018-07-06 00:00 | predniSONE | [facility] | + + + + | 2018-07-06 00:00 | predniSONE | [facility] | + + + + | 2020-08-04 00:00 | predniSONE | [facility] | + + + + | 2020-08-04 00:00 | predniSONE | [facility] | + + + + | 2021-03-17 00:00 | predniSONE | [facility] | + + + + | 2022-07-27 00:00 | predniSONE | [facility] | + + + + | 2022-07-27 00:00 | QUETIAPINE FUMARATE | [facility] | + + + + | 2022-09-21 00:00 | QUETIAPINE FUMARATE | [facility] | + + + + | 2022-10-07 00:00 | QUETIAPINE FUMARATE | [facility] | + + + + | 2020-04-11 00:00 | quetiapine 25 mg oral | [facility] | | | tablet | Allergy | + + + + | 2022-07-27 00:00 | RIZATRIPTAN BENZOATE | [facility] | + + + + | 2022-09-21 00:00 | RIZATRIPTAN BENZOATE | [facility] | + + + + | 2022-10-07 00:00 | RIZATRIPTAN BENZOATE | [facility] | + + + + | 2022-07-27 00:00 | PIOGLITAZONE HCL | [facility] | + + + + | 2022-09-21 00:00 | PIOGLITAZONE HCL | [facility] | + + + + | 2020-04-21 00:00 | pioglitazone 15 mg oral | [facility] and | | | tablet | Allergy | + + + + | 2021-10-21 00:00 | ALBUTEROL SULFATE | [facility] | + + + + | 2021-12-29 00:00 | ALBUTEROL SULFATE | [facility] | + + + + | 2022-07-14 00:00 | ALBUTEROL SULFATE | [facility] | + + + + | 2022-07-27 00:00 | ALBUTEROL SULFATE | [facility] | + + + + | 2022-09-21 00:00 | ALBUTEROL SULFATE | [facility] | + + + + | 2022-10-07 00:00 | ALBUTEROL SULFATE | [facility] | + + + + | 2014-02-09 00:00 | NYSTATIN | [facility] | + + + + | 2014-02-09 00:00 | NYSTATIN | [facility] | + + + + | 2017-05-08 00:00 | TIZANIDINE HCL | [facility] | + + + + | 2017-05-08 00:00 | TIZANIDINE HCL | [facility] | + + + + | 2021-10-21 00:00 | DULOXETINE HCL | [facility] | + + + + | 2021-12-29 00:00 | DULOXETINE HCL | [facility] | + + + + | 2022-07-14 00:00 | DULOXETINE HCL | [facility] | + + + + | 2020-08-04 00:00 | ALBUTEROL SULFATE | [facility] | + + + + | 2020-08-04 00:00 | ALBUTEROL SULFATE | [facility] | + + + + | 2021-04-24 00:00 | sitagliptin 100 mg (as | [facility] | | | sitagliptin phosphate | Allergy | | | monohydrate 128.5 mg) oral | | | | tablet | | + + + + | 2021-10-21 00:00 | SITAGLIPTIN PHOSPHATE | [facility] | + + + + | 2021-12-29 00:00 | SITAGLIPTIN PHOSPHATE | [facility] | + + + + | 2022-07-14 00:00 | SITAGLIPTIN PHOSPHATE | [facility] | + + + + | 2022-07-27 00:00 | SITAGLIPTIN PHOSPHATE | [facility] | + + + + | 2021-04-24 00:00 | januvia 100 mg (as | [facility] | | | sitagliptin [...] + | 2013-09-28 00:00 | AZITHROMYCIN | [facility] | + + + + | 2013-09-28 00:00 | AZITHROMYCIN | [facility] | + + + + | 2021-10-21 00:00 | CYCLOBENZAPRINE HCL | [facility] | + + + + | 2021-10-21 00:00 | CYCLOBENZAPRINE HCL | [facility] | + + + + | 2022-07-27 00:00 | CYCLOBENZAPRINE HCL | [facility] | + + + + | 2022-09-21 00:00 | CYCLOBENZAPRINE HCL | [facility] | + + + + | 2022-10-07 00:00 | CYCLOBENZAPRINE HCL | [facility] | + + + + | 2021-04-24 00:00 | cyclobenzaprine | [facility] and | | | hydrochloride 10 mg oral | Allergy | | | tablet | | + + + + | 2022-07-27 00:00 | OMEGA-3/DHA/EPA/FISH OIL | [facility] | + + + + | 2022-09-21 00:00 | OMEGA-3/DHA/EPA/FISH OIL | [facility] | + + + + | 2022-10-07 00:00 | OMEGA-3/DHA/EPA/FISH OIL | [facility] | + + + + | 2017-05-05 00:00 | KETOROLAC TROMETHAMINE | [facility] | + + + + | 2017-05-05 00:00 | KETOROLAC TROMETHAMINE | [facility] | + + + + | 2021-10-21 00:00 | TRAMADOL HCL | [facility] | + + + + | 2021-12-29 00:00 | TRAMADOL HCL | [facility] | + + + + | 2022-07-14 00:00 | TRAMADOL HCL | [facility] | + + + + | 2022-07-27 00:00 | TRAMADOL HCL | [facility] | + + + + | 2022-09-21 00:00 | TRAMADOL HCL | [facility] | + + + + | 2022-10-07 00:00 | TRAMADOL HCL | [facility] | + + + + | 2014-02-09 00:00 | | [facility] | | | SULFAMETHOXAZOLE/TRIMETHOPR | | | | IM DS | | + + + + |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 + + + + + +-------+ + + | | 2022-10-07 | [facility] | 1.6 | (missing) | (missing) | | (unavailable | 21:20:07 | [facility] | | | | + + + +-------+ + + + + | Result panel 83 | + + + + + +-------+ + + | | 2022-10-07 | [facility] | 0.7 | (missing) | (missing) | | (unavailable | 21:20:07 | [facility] | | | | + + + +-------+ + + + + | Result panel 84 | + + + + + +-------+---------+ + | | 2022-10-07 | [facility] | 195 | mg/dL | (missing) | | (unavailable | 21:20:07 | [facility] | | | | + + + +-------+---------+ + + + | Result panel 85 | + + + + + +------+---------+ + | | 2022-10-07 | [facility] | 22 | mg/dL | (missing) | | (unavailable | 21:20:07 | [facility] | | | | + + + +------+---------+ + + + | Result panel 86 | + + + + + +--------+---------+ + | | 2022-10-07 | [facility] | 1.27 | mg/dL | (missing) | | (unavailable | 21:20:07 | [facility] | | | | + + + +--------+---------+ + + + | Result panel 87 | + + + + + +------+ + + | | 2022-10-07 | [facility] | 48 | (missing) | (missing) | | (unavailable | 21:20:07 | [facility] | | | | + + + +------+ + + + + | Result panel 88 | + + + + + +---------+ + + | | 2022-10-07 | [facility] | 17.32 | (missing) | (missing) | | (unavailable | 21:20:07 | [facility] | | | | + + + +---------+ + + + + | Result panel 89 | + + + + + +--------+ + + | | 2022-10-07 | [facility] | 5.05 | (missing) | (missing) | | (unavailable | 21:20:07 | [facility] | | | | + + + +--------+ + + + + | Result panel 90 | + + + + + +-------+ + + | | 2022-10-07 | [facility] | 137 | (missing) | (missing) | | (unavailable | 21:20:07 | [facility] | | | | + + + +-------+ + + + + | Result panel 91 | + + + + + +-------+ + + | | 2022-10-07 | [facility] | 3.5 | (missing) | (missing) | | (unavailable | 21:20:07 | [facility] | | | | + + + +-------+ + + + + | Result panel 92 | + + + + + +------+ + + | | 2022-10-07 | [facility] | 97 | (missing) | (missing) | | (unavailable | 21:20:07 | [facility] | | | | + + + +------+ + + + + | Result panel 93 | + + + + + +------+ + + | | 2022-10-07 | [facility] | 30 | (missing) | (missing) | | (unavailable | 21:20:07 | [facility] | | | | + + + +------+ + + + + | Result panel 94 | + + + + + +--------+ + + | | 2022-10-07 | [facility] | 13.5 | (missing) | (missing) | | (unavailable | 21:20:07 | [facility] | | | | + + + +--------+ + + + + | Result panel 95 | + + + + + +-------+---------+ + | | 2022-10-07 | [facility] | 9.4 | mg/dL | (missing) | | (unavailable | 21:20:07 | [facility] | | | | + + + +-------+---------+ + + + | Result panel 96 | + + + + + +-------+ + + | | 2022-10-07 | [facility] | 8.0 | (missing) | (missing) | | (unavailable | 21:20:07 | [facility] | | | | + + + +-------+ + + + + | Result panel 97 | + + + + + +-------+ + + | | 2022-10-07 | [facility] | 3.6 | (missing) | (missing) | | (unavailable | 21:20:07 | [facility] | | | | + + + +-------+ + + + + | Result panel 98 | + + + + + +-------+ + + | | 2022-10-07 | [facility] | 4.4 | (missing) | (missing) | | (unavailable | 21:20:07 | [facility] | | | | + + + +-------+ + + + + | Result panel 99 | + + + + + +--------+ + + | | 2022-10-07 | [facility] | 0.82 | (missing) | (missing) | | (unavailable | 21:20:07 | [facility] | | | | + + + +--------+ + + + + | Result panel 100 | + + + + + +--------+ + + | | 2022-10-07 | [facility] | 13.5 | (missing) | (missing) | | (unavailable | 21:20:07 | [facility] | | | | + + + +--------+ + + + + | Result panel 101 | + + + + + +-------+ + + | | 2022-10-07 | [facility] | 0.5 | (missing) | (missing) | | (unavailable | 21:20:07 | [facility] | | | | + + + +-------+ + + + + | Result panel 102 | + + + + + +------+ + + | | 2022-10-07 | [facility] | 26 | (missing) | (missing) | | (unavailable | 21:20:07 | [facility] | | | | + + + +------+ + + + + | Result panel 103 | + + + + + +------+ + + | | 2022-10-07 | [facility] | 27 | (missing) | (missing) | | (unavailable | 21:20:07 | [facility] | | | | + + + +------+ + + + + | Result panel 104 | + + + + + +-------+ + + | | 2022-10-07 | [facility] | 117 | (missing) | (missing) | | (unavailable | 21:20:07 | [facility] | | | | + + + +-------+ + + + + | Result panel 105 | + + + + + +--------+ + + | | 2022-10-07 | [facility] | 41.3 | (missing) | (missing) | | (unavailable | 21:20:07 | [facility] | | | | + + + +--------+ + + + + | Result panel 106 | + + + + + +--------+ + + | | 2022-10-07 | [facility] | 81.8 | (missing) | (missing) | | (unavailable | 21:20:07 | [facility] | | | | + + + +--------+ + + + + | Result panel 107 | + + + + + +--------+ + + | | 2022-10-07 | [facility] | 26.8 | (missing) | (missing) | | (unavailable | 21:20:07 | [facility] | | | | + + + +--------+ + + + + | Result panel 108 | + + + + + +--------+ + + | | 2022-10-07 | [facility] | 32.7 | (missing) | (missing) | | (unavailable | 21:20:07 | [facility] | | | | + + + +--------+ + + + + | Result panel 109 | + + + + + +--------+ + + | | 2022-10-07 | [facility] | 15.0 | (missing) | (missing) | | (unavailable | 21:20:07 | [facility] | | | | + + + +--------+ + + + + | Result panel 110 | + + + + + +-------+ + + | | 2022-10-07 | [facility] | 292 | (missing) | (missing) | | (unavailable | 21:20:07 | [facility] | | | | + + + +-------+ + + + + | Result panel 111 | + + + + + +-------+ + + | | 2022-10-07 | [facility] | 6.5 | (missing) | (missing) | | (unavailable | 22:54:07 | [facility] | | | | + + + +-------+ + + Social History + + + + | date | description | facility | + + + + | 2021-04-24 00:00 | Current smoker | [facility] | | | [facility] | + + + + | 2021-04-24 00:00 | Smoker | [facility] | | | | [facility] | + + + + | 2021-04-24 00:00 | Ex-smoker | [facility] | | | | [...] 557.33 | lb | + + + +---------+ | 2022-10-07 00:00 | BMI | 42.5 | kg/m2 | + + + +---------+ | 2022-10-07 00:00 | BP_diastolic | 69 | mmHg | + + + +---------+ | 2022-10-07 00:00 | BP_systolic | 142 | mmHg | + + + +---------+ | 2022-10-07 00:00 | heart_rate | 72 | /min | + + + +---------+ | 2022-10-07 00:00 | height_metric | 162.56 | cm | + + + +---------+ | 2022-10-07 00:00 | height_standard | 64 | in | + + + +---------+ | 2022-10-07 00:00 | o2_saturation | 98 | % | + + + +---------+ | 2022-10-07 00:00 | respiration_rate | 18 | /min | + + + +---------+ | 2022-10-07 00:00 | temperature_metric | 36.89 | C | | | | | | + + + +---------+ | 2022-10-07 00:00 | | 98.4 | F | | | temperature_standar | | | | | d | | | + + + +---------+ | 2022-10-07 00:00 | weight_metric | 112.3 | kg | + + + +---------+ | 2022-10-07 00:00 | weight_standard | 247.58 | lb | + + + +---------+"
--- OUTSIDE RECORDS SUMMARY | ~2022-10-08 | XMS | Continuity of Care Document ---
Demographics + + + | Address | [address] | | | [place] [address] | + + + | Preferred Language | Unknown | + + + | Marital Status | | + + + | Church Affiliation | Unknown | + + + | Race | White | + + + | Ethnic Group | Not or | + + + Author + + + | Author | [facility] | + + + | Organization | [facility] | + + + | Address | [address] [facility] [address] | | | [place] [address] | + + + | Phone | | + + + Care Team Providers + + + + | Care Reed Maker Name | Role | Phone | + [...] + | (no date) | VENOM-HONEY | [facility] Gorge | (no reaction) | (no severity) | | | BEE | ENT and | | | | | | Allergy | | | + + + + + + | (no date) | Hives | Sigourney Gorge | (no reaction) | (no severity) [...] + | (no date) | CEPHALEXIN | Sigourney Gorge | (no reaction) | (no severity) | | | | ENT and | | | | | | Allergy | | | + + + + + + | (no date) | LATEX | Sigourney Gorge | (no reaction) | (no severity) | | | | ENT and | | | | | | Allergy | | | + + + + + + | (no date) | | Sigourney Gorge | (no reaction) | (no severity) | | | OXYCODONE-ACETA | ENT and | | | | | MINOPHEN | Allergy | | | + + + + + + | (no date) | | Sigourney Gorge | (no reaction) | (no severity) | | | OXYCODONE-ACETA | ENT and | | | | | MINOPHEN | Allergy | | | + + + + + + | (no date) | HYDROCODONE | Sigourney Gorge | (no reaction) | (no severity) | | | | ENT and | | | | | | Allergy | | | + + + + + + | (no date) | | Sigourney Gorge | (no reaction) | (no severity) | | | OXYCODONE-ACETA | ENT and | | | | | MINOPHEN | Allergy | | | + + + + + + | (no date) | LISINOPRIL | Sigourney Gorge | (no reaction) | (no severity) | | | | ENT and | | | | | | Allergy | | | + + + + + + | (no date) | | Sigourney Gorge | (no reaction) | (no severity) | | | OXYCODONE-ACETA | ENT and | | | | | MINOPHEN | Allergy | | | + + + + + + | (no date) | LISINOPRIL | Sigour[facility] Gorge | (no reaction) | (no severity) | | | | ENT and | | | | | | Allergy | | | + + + + + + | (no date) | LISINOPRIL | Sigourney Gorge | (no reaction) | (no severity) | | | | ENT and | | | | | | Allergy | | | + + + + + + | (no date) | CEPHALEXIN | Sigourney Gorge | (no reaction) | (no severity) | | | | ENT and | | | | | | Allergy | | | + + + + + + | (no date) | LISINOPRIL | Sigourney Gorge | (no reaction) | (no severity) | | | | ENT and | | | | | | Allergy | | | + + + + + + | (no date) | | Sigourney Gorge | (no reaction) | (no severity) | | | OXYCODONE-ACETA | ENT and | | | | | MINOPHEN | Allergy | | | + + + + + + | (no date) | AMPICILLIN | Sigourney Gorge | (no reaction) | (no severity) | | | | ENT and | | | | | | Allergy | | | + + + + + + | (no date) | CEPHALEXIN | Sigourney Gorge | (no reaction) | (no severity) | | | | ENT and | | | | | | Allergy | | | + + + + + + | (no date) | LISINOPRIL | Sigourney Gorge | (no reaction) | (no severity) | | | | ENT and | | | | | | Allergy | | | + + + + + + | (no date) | | Sigourney Gorge | (no reaction) | (no severity) | | | OXYCODONE-ACETA | ENT and | | | | | MINOPHEN | Allergy | | | + + + + + + | (no date) | | Sigour[facility] Gorge | (no reaction) | (no severity) | | | OXYCODONE-ACETA | ENT and | | | | | MINOPHEN | Allergy | | | + + + + + + | (no date) | CEPHALEXIN | [facility] Gorge | (no reaction) | (no severity) | | | | ENT and | | | | | | Allergy | | | + + + + + + | (no date) | | Sigour[facility] Gorge | (no reaction) | (no severity) | | | OXYCODONE-ACETA | ENT and | | | | | MINOPHEN | Allergy | | | + + + + + + | (no date) | AMPICILLIN | [facility] Gorge | (no reaction) | (no severity) | | | | ENT and | | | | | | Allergy | | | + + + + + + | (no date) | | Sigourney Gorge | (no reaction) | (no severity) | | | OXYCODONE-ACETA | ENT and | | | | | MINOPHEN | Allergy | | | + + + + + + | (no date) | | Sigourney Gorge | (no reaction) | (no severity) | | | OXYCODONE-ACETA | ENT and | | | | | MINOPHEN | Allergy | | | + + + + + + | (no date) | AMPICILLIN | Sig[facility] Gorge | (no reaction) | (no severity) | | | | ENT and | | | | | | Allergy | | | + + + + + + | (no date) | HYDROCODONE | Sigourney Gorge | (no reaction) | (no severity) | | | | ENT and | | | | | | Allergy | | | + + + + + + | (no date) | CEPHALEXIN | Sigourney Gorge | (no reaction) | (no severity) | | | | ENT and | | | | | | Allergy | | | + + + + + + | (no date) | | Sigourney Gorge | (no reaction) | (no severity) | | | OXYCODONE-ACETA | ENT and | | | | | MINOPHEN | Allergy | | | + + + + + + | (no date) | HYDROCODONE | Sigourney Gorge | (no reaction) | (no severity) | | | | ENT and | | | | | | Allergy | | | + + + + + + | (no date) | Headache | Sigourney Gorge | (no reaction) | (no severity) [...] + | (no date) | Mild | [facility] Gorge | (no reaction) | (no severity) [...] + | (no date) | Wheez/Dyspnea | [facility] | (no reaction) | (no severity) | | | | ENT and | | | | | | Allergy | | | + + + + + + | (no date) | Rash | Sigourney Gorge | (no reaction) | (no severity) | | | | ENT and | | | | | | Allergy | | | + + + + + + | (no date) | Pruritus | Sigourney Gorge | (no reaction) | (no severity) | | | | ENT and | | | | | | Allergy | | | + + + + + + | (no date) | CEPHALEXIN | [facility] Gorge | (no reaction) | (no severity) | | | | ENT and | | | | | | Allergy | | | + + + + + + | (no date) | LISINOPRIL | Sigourney Gorge | (no reaction) | (no severity) [...] + | (no date) | HYDROCODONE | Sigourney Gorge | (no reaction) | (no severity) [...] + | (no date) | Anaphylaxis | [facility] Gorge | (no reaction) | (no severity) | | | | ENT and | | | | | | Allergy | | | + + + + + + | (no date) | | [facility]our[facility] Gorge | (no reaction) | (no severity) | | | OXYCODONE-ACETA | ENT and | | | | | MINOPHEN | Allergy | | | + + + + + + | (no date) | | Sigour[facility] Gorge | (no reaction) | (no severity) | | | OXYCODONE-ACETA | ENT and | | | | | MINOPHEN | Allergy | | | + + + + + + | (no date) | CEPHALEXIN | [facility] G[facility] | (no reaction) | (no severity) | | | | ENT and | | | | | | Allergy | | | + + + + + + | (no date) | HYDROCODONE | [facility] Gorge | (no reaction) | (no severity) | | | | ENT and | | | | | | Allergy | | | + + + + + + | (no date) | HYDROCODONE | [facility] Gorge | (no reaction) | (no severity) | | | | ENT and | | | | | | Allergy | | | + + + + + + | (no date) | | [facility] Gorge | (no reaction) | (no severity) | | | OXYCODONE-ACETA | ENT and | | | | | MINOPHEN | Allergy | | | + + + + + + | (no date) | | [facility] Gorge | (no reaction) | (no severity) | | | OXYCODONE-ACETA | ENT and | | | | | MINOPHEN | Allergy | | | + + + + + + | (no date) | | [facility] Gorge | (no reaction) | (no severity) [...] + | (no date) | HYDROCODONE | [facility] | (no reaction) | (no severity) [...] + | (no date) | AMPICILLIN | [facility] Gorge | (no reaction) | (no severity) [...] + | (no date) | AMPICILLIN | [facility] | (no reaction) | (no severity) | | | | ENT and | | | | | | Allergy | | | + + + + + + | (no date) | | [facility] | (no reaction) | (no severity) | | | OXYCODONE-ACETA | ENT and | | | | | MINOPHEN | Allergy | | | + + + + + + | (no date) | LISINOPRIL | [facility] | (no reaction) | (no severity) [...] + | (no date) | AMPICILLIN | [facility] | (no reaction) | (no severity) [facility] | | | + + + + + + | (no date) | AMPICILLIN | [facility] | (no reaction) | (no severity) | | | [facility] | | | + + + + + + | (no date) | CEPHALEXIN | [facility] | (no reaction) | (no severity) | | [facility] | | | | | | Hospital | | | + + + + + + | (no date) | CEPHALEXIN | [facility] | (no reaction) | (no severity) | | | | [facility] | | | + + + + + + | (no date) | HYDROCODONE | [facility] | (no reaction) | (no severity) | [facility] | | | | | | Hospital | | | + + + + + + | (no date) | HYDROCODONE | [facility] | (no reaction) | (no severity) | | | | [facility] | | | + + + + + + | (no date) | LATEX | [facility] | (no reaction) | (no severity) | | [facility] | | | | | | Hospital | | | + + + + + + | (no date) | LATEX | [facility] | (no reaction) | (no severity) | | | | [facility] | | | + + + + + + | (no date) | LISINOPRIL | [facility] | (no reaction) | (no severity) | | [facility] | | | | | Hospital | | | + + + + + + | (no date) | LISINOPRIL | [facility] | (no reaction) | (no severity) | | | | [facility] | | | + + + + + + | (no date) | | [facility] | (no reaction) | (no severity) | [...] + | (no date) | VENOM-HONEY | [facility] | (no reaction) | (no severity) | [...] + | (no date) | FLAVORING | [facility] | (no reaction) | (no severity) | [...] | (no date) | PEANUT BUTTER | [facility] | (no reaction) | (no severity) | [...] + | (no date) | CEPHALEXIN | [facility] | (no reaction) | (no severity) [...] + | 2021-10-21 00:00 | MEDROXYPROGESTERONE | [facility] | | | ACETATE | | + + + + | 2021-12-29 00:00 | MEDROXYPROGESTERONE | [facility] | | | ACETATE | | + + + + | 2022-07-14 00:00 | MEDROXYPROGESTERONE | [facility] | | | ACETATE | | + + + + | 2022-07-27 00:00 | MEDROXYPROGESTERONE | [facility] | | | ACETATE | | + + + + | 2022-09-21 00:00 | MEDROXYPROGESTERONE | [facility] | | | ACETATE | | + + + + | 2022-10-07 00:00 | MEDROXYPROGESTERONE | [facility] | | | ACETATE | | + + + + | 2021-04-24 00:00 | medroxyprogesterone | Yulissa REDMOND and | | | acetate 10 mg oral tablet | Allergy | + + + + | 2017-05-08 00:00 | Lidocaine | [facility] | + + + + | 2017-05-08 00:00 | Lidocaine | [facility] | + + + + | 2021-10-21 00:00 | DIAZEPAM | [facility] | + + + + | 2021-12-29 00:00 | DIAZEPAM | [facility] | + + + + | 2022-07-14 00:00 | DIAZEPAM | [facility] | + + + + | 2022-07-27 00:00 | DIAZEPAM | [facility] | + + + + | 2022-09-21 00:00 | DIAZEPAM | [facility] | + + + + | 2022-10-07 00:00 | DIAZEPAM | [facility] | + + + + | 2017-05-08 00:00 | ONDANSETRON | [facility] | + + + + | 2017-05-08 00:00 | ONDANSETRON | [facility] | + + + + | 2019-12-26 00:00 | OXYCODONE | [facility] | | | HCL/ACETAMINOPHEN | | + + + + | 2019-12-26 00:00 | OXYCODONE | [facility] | | | HCL/ACETAMINOPHEN | | + + + + | 2021-10-21 00:00 | OXYCODONE | [facility] | | | HCL/ACETAMINOPHEN | | + + + + | 2021-12-29 00:00 | OXYCODONE | [facility] | | | HCL/ACETAMINOPHEN | | + + + + | 2022-07-14 00:00 | OXYCODONE | [facility] | | | HCL/ACETAMINOPHEN | | + + + + | 2022-07-27 00:00 | OXYCODONE | [facility] | | | HCL/ACETAMINOPHEN | | + + + + | 2022-09-21 00:00 | OXYCODONE | [facility] | | | HCL/ACETAMINOPHEN | | + + + + | 2022-10-07 00:00 | OXYCODONE | [facility] | | | HCL/ACETAMINOPHEN | | + + + + | 2021-10-21 00:00 | OXYCODONE HCL | [facility] | + + + + | 2021-12-29 00:00 | OXYCODONE HCL | [facility] | + + + + | 2022-07-14 00:00 | OXYCODONE HCL | [facility] | + + + + | 2022-07-27 00:00 | OXYCODONE HCL | [facility] | + + + + | 2022-09-21 00:00 | OXYCODONE HCL | [facility] | + + + + | 2022-10-07 00:00 | OXYCODONE HCL | [facility] | + + + + | 2012-09-10 00:00 | DIPHENHYDRAMINE HCL | [facility] | + + + + | 2012-09-10 00:00 | DIPHENHYDRAMINE HCL | [facility] | + + + + | 2021-10-21 00:00 | RIVAROXABAN | [facility] | + + + + | 2021-12-29 00:00 | RIVAROXABAN | [facility] | + + + + | 2022-07-14 00:00 | RIVAROXABAN | [facility] | + + + + | 2022-07-27 00:00 | RIVAROXABAN | [facility] | + + + + | 2022-09-21 00:00 | RIVAROXABAN | [facility] | + + + + | 2022-10-07 00:00 | RIVAROXABAN | [facility] | + + + + | 2021-10-21 00:00 | MELOXICAM | [facility] | + + + + | 2021-10-21 00:00 | MELOXICAM | [facility] | + + + + | 2021-10-21 00:00 | EMPAGLIFLOZIN | [facility] | + + + + | 2021-12-29 00:00 | EMPAGLIFLOZIN | [facility] | + + + + | 2022-07-14 00:00 | EMPAGLIFLOZIN | [facility] | + + + + | 2022-07-27 00:00 | EMPAGLIFLOZIN | [facility] | + + + + | 2022-09-21 00:00 | EMPAGLIFLOZIN | [facility] | + + + + | 2022-10-07 00:00 | EMPAGLIFLOZIN | [facility] | + + + + | 2022-07-27 00:00 | Fluticasone/Vilanterol | [facility] | + + + + | 2022-09-21 00:00 | Fluticasone/Vilanterol | [facility] | + + + + | 2022-10-07 00:00 | Fluticasone/Vilanterol | [facility] | + + + + | 2022-07-27 00:00 | PAROXETINE HCL | [facility] | + + + + | 2022-09-21 00:00 | PAROXETINE HCL | [facility] | + + + + | 2022-10-07 00:00 | PAROXETINE HCL | [facility] | + + + + | 2021-10-21 00:00 | PAROXETINE HCL | [facility] | + + + + | 2021-12-29 00:00 | PAROXETINE HCL | [facility] | + + + + | 2022-07-14 00:00 | PAROXETINE HCL | [facility] | + + + + | 2022-07-27 00:00 | PAROXETINE HCL | [facility] | + + + + | 2022-09-21 00:00 | PAROXETINE HCL | [facility] | + + + + | 2022-10-07 00:00 | PAROXETINE HCL | [facility] | + + + + | 2020-04-16 00:00 | paroxetine hydrochloride | Yulissa REDMOND and | | | 40 mg oral tablet | Allergy | + + + + | 2022-10-07 00:00 | POTASSIUM CHLORIDE | [facility] | + + + + | 2021-10-21 00:00 | AMLODIPINE BESYLATE | [facility] | + + + + | 2021-12-29 00:00 | AMLODIPINE BESYLATE | [facility] | + + + + | 2022-07-14 00:00 | AMLODIPINE BESYLATE | [facility] | + + + + | 2017-05-05 00:00 | BACLOFEN | [facility] | + + + + | 2017-05-05 00:00 | BACLOFEN | [facility] | + + + + | 2021-10-21 00:00 | CHLORTHALIDONE | [facility] | + + + + | 2020-04-21 00:00 | chlorthalidone 25 mg oral | Yulissa REDMOND and | | | tablet | Allergy | + + + + | 2021-10-21 00:00 | DIAZEPAM | [facility] | + + + + | 2021-12-29 00:00 | DIAZEPAM | [facility] | + + + + | 2022-07-14 00:00 | DIAZEPAM | [facility] | + + + + | 2022-07-27 00:00 | DIAZEPAM | [facility] | + + + + | 2022-09-21 00:00 | DIAZEPAM | [facility] | + + + + | 2022-10-07 00:00 | DIAZEPAM | [facility] | + + + + | 2019-12-26 00:00 | IBUPROFEN | [facility] | + + + + | 2022-09-21 00:00 | METHOCARBAMOL | [facility] | + + + + | 2021-10-21 00:00 | NADOLOL | [facility] | + + + + | 2021-12-29 00:00 | NADOLOL | [facility] | + + + + | 2022-07-14 00:00 | NADOLOL | [facility] | + + + + | 2022-07-27 00:00 | NADOLOL | [facility] | + + + + | 2022-09-21 00:00 | NADOLOL | [facility] | + + + + | 2022-10-07 00:00 | NADOLOL | [facility] | + + + + | 2021-04-24 00:00 | nadolol 80 mg oral tablet | Yulissa REDMOND and | | | | Allergy | + + + + | 2021-10-21 00:00 | NAPROXEN | [facility] | + + + + | 2021-12-29 00:00 | NAPROXEN | [facility] | + + + + | 2022-07-14 00:00 | NAPROXEN | [facility] | + + + + | 2022-07-27 00:00 | NAPROXEN | [facility] | + + + + | 2022-09-21 00:00 | NAPROXEN | [facility] | + + + + | 2022-10-07 00:00 | NAPROXEN | [facility] | + + + + | 2021-10-21 00:00 | OMEPRAZOLE | [facility] | + + + + | 2022-07-27 00:00 | OMEPRAZOLE | [facility] | + + + + | 2022-09-21 00:00 | OMEPRAZOLE | [facility] | + + + + | 2022-10-07 00:00 | OMEPRAZOLE | [facility] | + + + + | 2021-04-24 00:00 | omeprazole 20 mg (as | Yulissa REDMOND and | | | omeprazole magnesium 20.6 | Allergy | | | mg) delayed release oral | | | | capsule | | + + + + | 2021-01-28 00:00 | hctz 25 mg / triamterene | [facility] and | | | 37.5 mg oral capsule | Allergy | + + + + | 2021-04-23 00:00 | hctz 25 mg / triamterene | [facility] | | | 37.5 mg oral capsule | Allergy | + + + + | 2019-12-26 00:00 | ACETAMINOPHEN | [facility] | + + + + | 2021-10-21 00:00 | ACETAMINOPHEN | [facility] | + + + + | 2021-12-29 00:00 | ACETAMINOPHEN | [facility] | + + + + | 2022-07-14 00:00 | ACETAMINOPHEN | [facility] | + + + + | 2022-07-27 00:00 | ACETAMINOPHEN | [facility] | + + + + | 2022-09-21 00:00 | ACETAMINOPHEN | [facility] | + + + + | 2022-10-07 00:00 | ACETAMINOPHEN | [facility] | + + + + | 2021-10-21 00:00 | MAGNESIUM OXIDE | [facility] | + + + + | 2021-12-29 00:00 | MAGNESIUM OXIDE | [facility] | + + + + | 2022-07-14 00:00 | MAGNESIUM OXIDE | [facility] | + + + + | 2022-07-27 00:00 | MAGNESIUM OXIDE | [facility] | + + + + | 2022-09-21 00:00 | MAGNESIUM OXIDE | [facility] | + + + + | 2022-10-07 00:00 | MAGNESIUM OXIDE | [facility] | + + + + | 2022-07-27 00:00 | Cholecalciferol (Vitamin | [facility] | | | D3) | | + + + + | 2022-09-21 00:00 | Cholecalciferol (Vitamin | [facility] | | | D3) | | + + + + | 2022-10-07 00:00 | Cholecalciferol (Vitamin | [facility] | | | D3) | | + + + + | 2022-07-27 00:00 | FUROSEMIDE | [facility] | + + + + | 2022-07-27 00:00 | FUROSEMIDE | [facility] | + + + + | 2022-07-27 00:00 | CELECOXIB | [facility] | + + + + | 2022-09-21 00:00 | CELECOXIB | [facility] | + + + + | 2021-12-29 00:00 | SILVER SULFADIAZINE | [facility] | + + + + | 2021-10-21 00:00 | PRAZOSIN HCL | [facility] | + + + + | 2021-12-29 00:00 | PRAZOSIN HCL | [facility] | + + + + | 2022-07-14 00:00 | PRAZOSIN HCL | [facility] | + + + + | 2022-07-27 00:00 | PRAZOSIN HCL | [facility] | + + + + | 2022-09-21 00:00 | PRAZOSIN HCL | [facility] | + + + + | 2022-10-07 00:00 | PRAZOSIN HCL | [facility] | + + + + | 2021-10-21 00:00 | PIOGLITAZONE HCL | [facility] | + + + + | 2021-12-29 00:00 | PIOGLITAZONE HCL | [facility] | + + + + | 2022-07-14 00:00 | PIOGLITAZONE HCL | [facility] | + + + + | 2022-07-27 00:00 | PIOGLITAZONE HCL | [facility] | + + + + | 2022-09-21 00:00 | PIOGLITAZONE HCL | [facility] | + + + + | 2022-10-07 00:00 | PIOGLITAZONE HCL | [facility] | + + + + | 2022-09-21 00:00 | Semaglutide | [facility] | + + + + | 2022-10-07 00:00 | Semaglutide | [facility] | + + + + | 2013-11-14 00:00 | CLINDAMYCIN HCL | [facility] | + + + + | 2013-11-14 00:00 | CLINDAMYCIN HCL | [facility] | + + + + | 2021-10-21 00:00 | CLINDAMYCIN HCL | [facility] | + + + + | 2021-12-29 00:00 | CLINDAMYCIN HCL | [facility] | + + + + | 2022-07-14 00:00 | CLINDAMYCIN HCL | [facility] | + + + + | 2022-07-27 00:00 | CLINDAMYCIN HCL | [facility] | + + + + | 2022-09-21 00:00 | CLINDAMYCIN HCL | [facility] | + + + + | 2022-10-07 00:00 | CLINDAMYCIN HCL | [facility] | + + + + | 2021-10-21 00:00 | ALPRAZOLAM | [facility] | + + + + | 2021-12-29 00:00 | ALPRAZOLAM | [facility] | + + + + | 2022-07-14 00:00 | ALPRAZOLAM | [facility] | + + + + | 2022-07-27 00:00 | ALPRAZOLAM | [facility] | + + + + | 2022-09-21 00:00 | ALPRAZOLAM | [facility] | + + + + | 2022-10-07 00:00 | ALPRAZOLAM | [facility] | + + + + | 2021-10-21 00:00 | ALPRAZOLAM | [facility] | + + + + | 2021-12-29 00:00 | ALPRAZOLAM | [facility] | + + + + | 2022-07-14 00:00 | ALPRAZOLAM | [facility] | + + + + | 2022-07-27 00:00 | ALPRAZOLAM | [facility] | + + + + | 2022-09-21 00:00 | ALPRAZOLAM | [facility] | + + + + | 2022-10-07 00:00 | ALPRAZOLAM | [facility] | + + + + | 2022-07-27 00:00 | AMLODIPINE BESYLATE | [facility] | + + + + | 2022-09-21 00:00 | AMLODIPINE BESYLATE | [facility] | + + + + | 2022-10-07 00:00 | AMLODIPINE BESYLATE | [facility] | + + + + | 2020-04-21 00:00 | amlodipine (as amlodipine | Yulissa REDMOND and | | | besylate) 10 mg oral tablet | Allergy | | | | | + + + + | 2021-10-21 00:00 | CLOTRIMAZOLE/BETAMETHASONE | [facility] | | | DIP | | + + + + | 2021-12-29 00:00 | CLOTRIMAZOLE/BETAMETHASONE | [facility] | | | DIP | | + + + + | 2022-07-14 00:00 | CLOTRIMAZOLE/BETAMETHASONE | [facility] | | | DIP | | + + + + | 2022-07-27 00:00 | CLOTRIMAZOLE/BETAMETHASONE | [facility] | | | DIP | | + + + + | 2022-09-21 00:00 | CLOTRIMAZOLE/BETAMETHASONE | [facility] | | | DIP | | + + + + | 2022-10-07 00:00 | CLOTRIMAZOLE/BETAMETHASONE | [facility] | | | DIP | | + + + + | 2021-10-21 00:00 | GLIPIZIDE | [facility] | + + + + | 2021-12-29 00:00 | GLIPIZIDE | [facility] | + + + + | 2022-07-14 00:00 | GLIPIZIDE | [facility] | + + + + | 2021-10-21 00:00 | NEOMYCIN/POLYMYXIN B | [facility] | | | SULF/HC | | + + + + | 2021-12-29 00:00 | NEOMYCIN/POLYMYXIN B | [facility] | | | SULF/HC | | + + + + | 2022-07-14 00:00 | NEOMYCIN/POLYMYXIN B | [facility] | | | SULF/HC | | + + + + | 2022-07-27 00:00 | NEOMYCIN/POLYMYXIN B | [facility] | | | SULF/HC | | + + + + | 2022-09-21 00:00 | NEOMYCIN/POLYMYXIN B | [facility] | | | SULF/HC | | + + + + | 2022-10-07 00:00 | NEOMYCIN/POLYMYXIN B | [facility] | | | SULF/HC | | + + + + | 2018-08-16 00:00 | MELOXICAM | [facility] | + + + + | 2018-08-16 00:00 | MELOXICAM | [facility] | + + + + | 2020-05-06 00:00 | ondansetron 8 mg oral | Yulissa REDMOND and | | | tablet | Allergy | + + + + | 2020-02-27 00:00 | ONDANSETRON | [facility] | + + + + | 2020-02-27 00:00 | ONDANSETRON | [facility] | + + + + | 2022-07-14 00:00 | ONDANSETRON | [facility] | + + + + | 2022-07-14 00:00 | ONDANSETRON | [facility] | + + + + | 2021-10-21 00:00 | POTASSIUM CHLORIDE | [facility] | + + + + | 2021-12-29 00:00 | POTASSIUM CHLORIDE | [facility] | + + + + | 2022-07-14 00:00 | POTASSIUM CHLORIDE | [facility] | + + + + | 2022-07-27 00:00 | POTASSIUM CHLORIDE | [facility] | + + + + | 2022-09-21 00:00 | POTASSIUM CHLORIDE | [facility] | + + + + | 2022-10-07 00:00 | POTASSIUM CHLORIDE | [facility] | + + + + | 2020-04-11 00:00 | prazosin 2 mg oral capsule | Yulissa REDMOND and | | | | Allergy | + + + + | 2012-09-10 00:00 | predniSONE | [facility] | + + + + | 2012-09-10 00:00 | predniSONE | [facility] | + + + + | 2018-07-06 00:00 | predniSONE | [facility] | + + + + | 2018-07-06 00:00 | predniSONE | [facility] | + + + + | 2020-08-04 00:00 | predniSONE | [facility] | + + + + | 2020-08-04 00:00 | predniSONE | [facility] | + + + + | 2021-03-17 00:00 | predniSONE | [facility] | + + + + | 2022-07-27 00:00 | predniSONE | [facility] | + + + + | 2022-07-27 00:00 | QUETIAPINE FUMARATE | [facility] | + + + + | 2022-09-21 00:00 | QUETIAPINE FUMARATE | [facility] | + + + + | 2022-10-07 00:00 | QUETIAPINE FUMARATE | [facility] | + + + + | 2020-04-11 00:00 | quetiapine 25 mg oral | [facility] and | | | tablet | Allergy | + + + + | 2022-07-27 00:00 | RIZATRIPTAN BENZOATE | [facility] | + + + + | 2022-09-21 00:00 | RIZATRIPTAN BENZOATE | [facility] | + + + + | 2022-10-07 00:00 | RIZATRIPTAN BENZOATE | [facility] | + + + + | 2022-07-27 00:00 | PIOGLITAZONE HCL | [facility] | + + + + | 2022-09-21 00:00 | PIOGLITAZONE HCL | [facility] | + + + + | 2020-04-21 00:00 | pioglitazone 15 mg oral | [facility] and | | | tablet | Allergy | + + + + | 2021-10-21 00:00 | ALBUTEROL SULFATE | [facility] | + + + + | 2021-12-29 00:00 | ALBUTEROL SULFATE | [facility] | + + + + | 2022-07-14 00:00 | ALBUTEROL SULFATE | [facility] | + + + + | 2022-07-27 00:00 | ALBUTEROL SULFATE | [facility] | + + + + | 2022-09-21 00:00 | ALBUTEROL SULFATE | [facility] | + + + + | 2022-10-07 00:00 | ALBUTEROL SULFATE | [facility] | + + + + | 2014-02-09 00:00 | NYSTATIN | [facility] | + + + + | 2014-02-09 00:00 | NYSTATIN | [facility] | + + + + | 2017-05-08 00:00 | TIZANIDINE HCL | [facility] | + + + + | 2017-05-08 00:00 | TIZANIDINE HCL | [facility] | + + + + | 2021-10-21 00:00 | DULOXETINE HCL | [facility] | + + + + | 2021-12-29 00:00 | DULOXETINE HCL | [facility] | + + + + | 2022-07-14 00:00 | DULOXETINE HCL | [facility] | + + + + | 2020-08-04 00:00 | ALBUTEROL SULFATE | [facility] | + + + + | 2020-08-04 00:00 | ALBUTEROL SULFATE | [facility] | + + + + | 2021-04-24 00:00 | sitagliptin 100 mg (as | [facility] | | | sitagliptin phosphate | Allergy | | | monohydrate 128.5 mg) oral | | | | tablet | | + + + + | 2021-10-21 00:00 | SITAGLIPTIN PHOSPHATE | [facility] | + + + + | 2021-12-29 00:00 | SITAGLIPTIN PHOSPHATE | [facility] | + + + + | 2022-07-14 00:00 | SITAGLIPTIN PHOSPHATE | [facility] | + + + + | 2022-07-27 00:00 | SITAGLIPTIN PHOSPHATE | [facility] | + + + + | 2021-04-24 00:00 | januvia 100 mg (as | [facility] | | | sitagliptin [...] + | 2013-09-28 00:00 | AZITHROMYCIN | [facility] | + + + + | 2013-09-28 00:00 | AZITHROMYCIN | [facility] | + + + + | 2021-10-21 00:00 | CYCLOBENZAPRINE HCL | [facility] | + + + + | 2021-10-21 00:00 | CYCLOBENZAPRINE HCL | [facility] | + + + + | 2022-07-27 00:00 | CYCLOBENZAPRINE HCL | [facility] | + + + + | 2022-09-21 00:00 | CYCLOBENZAPRINE HCL | [facility] | + + + + | 2022-10-07 00:00 | CYCLOBENZAPRINE HCL | [facility] | + + + + | 2021-04-24 00:00 | cyclobenzaprine | [facility] and | | | hydrochloride 10 mg oral | Allergy | | | tablet | | + + + + | 2022-07-27 00:00 | OMEGA-3/DHA/EPA/FISH OIL | [facility] | + + + + | 2022-09-21 00:00 | OMEGA-3/DHA/EPA/FISH OIL | [facility] | + + + + | 2022-10-07 00:00 | OMEGA-3/DHA/EPA/FISH OIL | [facility] | + + + + | 2017-05-05 00:00 | KETOROLAC TROMETHAMINE | [facility] | + + + + | 2017-05-05 00:00 | KETOROLAC TROMETHAMINE | [facility] | + + + + | 2021-10-21 00:00 | TRAMADOL HCL | [facility] | + + + + | 2021-12-29 00:00 | TRAMADOL HCL | [facility] | + + + + | 2022-07-14 00:00 | TRAMADOL HCL | [facility] | + + + + |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
[~2022-10-08 14:05] MED LIST changes: +POTASSIUM CHLO10 ME2 PO
[2022-10-08 14:48] LABS: BASOPHILS 1.5 % (0-2); EOSINOPHILS 1.7 % (0-6); HEMATOCRIT 39.3 % (35.0-50.0); HEMOGLOBIN 13.1 g/dL (12.0-18.0); LYMPHOCYTES 15.7 % (24-44); MCHC 33.4 g/dl (30-36); MONOCYTES 9.4 % (0-12); NEUTROPHILS 71.7 % (39-80); PLATELET COUNT 296 K/uL (140-440); RBC 4.85 M/ul (4.3-5.7); RDW 14.8 (10.5-15.0)
[2022-10-08 15:05] LABS: ALBUMIN 3.3 g/dL (3.4-5.0); ALBUMIN/GLOBULIN RATIO 0.75 (1.1-2.4); ANION GAP 13.2 (7-21); BILIRUBIN, TOTAL 0.5 ng/dL (0.2-1.0); BUN/CREATININE RATIO 18.09 (6.0-28.6); CALCIUM 9.3 mg/dL (8.5-10.1); CREATININE, SERUM 1.05 mg/dL (0.55-1.02); POTASSIUM 4.2 mmol/L (3.5-5.1); PROTEIN, TOTAL 7.7 g/dL (6.4-8.2)
[2022-10-08 17:08] VITALS: BP 161/80
--- NOTE | 2022-10-08 21:40 | EKG ---
[facility] [address] [facility] [place] [address] Signed Normal sinus rhythm Low voltage QRS Cannot rule out Anterior infarct , age undetermined Abnormal ECG When compared with ECG of 07-OCT-2022 21:09, No significant change was found Confirmed by Amelia Bowden MD () on 10/08/2022 9:40:19 PM Electronically Signed By: AMELIA BOWDEN MD [id number]/08/[id number] PATIENT NAME: SHAYYCHARLA Electrocardiogram DATE OF : 64 PHYSICIAN: AMELIA BOWDEN MD REPORT #: [id number] REPORT IS CONFIDENTIAL AND NOT TO BE RELEASED WITHOUT AUTHORIZATION
== END 2022-10-08 17:07 | disposition home or self-care (01) ==
LOC: ED 14:05
PROVIDERS: Emergency Medicine
DX: R07.89 Other chest pain (principal); F43.10 Post-traumatic stress disorder, unspecified; F41.1 Generalized anxiety disorder; F32.A Depression, unspecified; I11.0 Hypertensive heart disease with heart failure; I50.9 Heart failure, unspecified; E66.9 Obesity, unspecified; J44.9 Chronic obstructive pulmonary disease, unspecified; E11.40 Type 2 diabetes mellitus with diabetic neuropathy, unspecified; Z86.19 Personal history of other infectious and parasitic diseases; Z68.41 Body mass index [BMI] 40.0-44.9, adult; Z88.0 Allergy status to penicillin; Z88.8 Allergy status to other drugs, medicaments and biological substances; Z91.030 Bee allergy status; Z88.1 Allergy status to other antibiotic agents; Z79.899 Other long term (current) drug therapy
CPT/HCPCS: 36415; 71045; 80053; 84484; 85025; 93005; 93010; 96374; 99285-25; J1885

== ENCOUNTER 2023-06-25 17:56 | Emergency (ER) | payer MEDICARE, OTHER ==
[~2023-06-25] VITALS: Ht 162.6 cm; Wt 111.6 kg
[2023-06-25] MEDS ORDERED: DIPHTH,PERTUSS(ACELL),TET VAC 0.5 ML SYRINGE IM ONE (18:30)
[2023-06-25] MEDS ORDERED: CIPRO500 MG PO (19:13)
[2023-06-25] MEDS ORDERED: METRONIDAZOLE500 MG PO (19:13)
[2023-06-25] MEDS ORDERED: CIPROFLOXACIN 500 MG TAB PO ONE (19:15)
[2023-06-25] MEDS ORDERED: metroNIDAZOLE 250 MG TAB PO ONE (19:15)
[2023-06-25 19:40] VITALS: BP 163/91
== END 2023-06-25 19:40 | disposition home or self-care (01) ==
LOC: ED 17:56
DX: S60.417A Abrasion of left little finger, initial encounter (principal); F41.9 Anxiety disorder, unspecified; E66.9 Obesity, unspecified; Z68.41 Body mass index [BMI] 40.0-44.9, adult; F43.10 Post-traumatic stress disorder, unspecified; I11.0 Hypertensive heart disease with heart failure; I50.9 Heart failure, unspecified; J44.9 Chronic obstructive pulmonary disease, unspecified; Q77.4 Achondroplasia; E11.40 Type 2 diabetes mellitus with diabetic neuropathy, unspecified; W55.03XA Scratched by cat, initial encounter; Z87.891 Personal history of nicotine dependence; Z88.8 Allergy status to other drugs, medicaments and biological substances; Z91.010 Allergy to peanuts; Z91.030 Bee allergy status; Z88.1 Allergy status to other antibiotic agents; Z88.0 Allergy status to penicillin; Z79.84 Long term (current) use of oral hypoglycemic drugs; Z79.85 Long-term (current) use of injectable non-insulin antidiabetic drugs; Z79.899 Other long term (current) drug therapy; Z79.51 Long term (current) use of inhaled steroids
CPT/HCPCS: 90715

== ENCOUNTER 2023-08-16 11:06 | Emergency (ER) | payer MEDICARE, OTHER ==
[~2023-08-16] VITALS: Ht 162.6 cm; Wt 110.6 kg
[~2023-08-16 11:06] MED LIST changes: +CIPRO500 MG PO; +METRONIDAZOLE500 MG PO
[2023-08-16] MEDS ORDERED: CEPHALEXIN500 MG PO (11:48)
[2023-08-16 11:58] VITALS: BP 180/87
== END 2023-08-16 12:02 | disposition home or self-care (01) ==
LOC: ED 11:06
DX: L03.116 Cellulitis of left lower limb (principal); E11.9 Type 2 diabetes mellitus without complications; I11.9 Hypertensive heart disease without heart failure; I50.9 Heart failure, unspecified; J44.89 Other specified chronic obstructive pulmonary disease; F43.10 Post-traumatic stress disorder, unspecified; Z87.891 Personal history of nicotine dependence; Z79.51 Long term (current) use of inhaled steroids; Z79.899 Other long term (current) drug therapy; Z79.84 Long term (current) use of oral hypoglycemic drugs; Z91.018 Allergy to other foods; Z99.0 Dependence on aspirator; Z88.1 Allergy status to other antibiotic agents; Z91.038 Other insect allergy status; Z88.8 Allergy status to other drugs, medicaments and biological substances
CPT/HCPCS: 99283

== ENCOUNTER 2024-01-06 10:55 | Emergency (ER) | payer MEDICARE, OTHER ==
[~2024-01-06] VITALS: Ht 162.6 cm; Wt 100.0 kg
[~2024-01-06 10:55] MED LIST changes: +CEPHALEXIN500 MG PO; +COLCHICINE0.6 M1 PO; +INDOMETHACIN50 MG PO; +VOLTAREN ARTHRI20 GM TOP
[2024-01-06] MEDS ORDERED: ALBUTEROL/IPRATROPIUM 3 ML NEB INH ONE (11:30)
[2024-01-06] MEDS ORDERED: SODIUM CHLORIDE 0.9% 1,000 ML IV PRN (11:30)
[2024-01-06] MEDS ORDERED: methylPREDNISolone SOD SUCC 125 MG/2 ML VIAL IV ONE (11:30)
[2024-01-06 11:32] LABS: BASOPHILS 0.3 % (0-2); EOSINOPHILS 0.4 % (0-6); HEMATOCRIT 33.4 % (35.0-50.0); HEMOGLOBIN 11.3 g/dL (12.0-18.0); LYMPHOCYTES 8.3 % (24-44); MCH 28.5 (27-36); MCHC 33.7 g/dl (30-36); MCV 84.7 fl (81-99); MONOCYTES 7.9 % (0-12); NEUTROPHILS 83.1 % (39-80); PLATELET COUNT 270 K/uL (140-440); RBC 3.95 M/ul (4.3-5.7); RDW 13.7 (10.5-15.0)
[2024-01-06 11:36] LABS: BILIRUBIN, URINE NEGATIVE (negative); BLOOD/HGB, URINE NEGATIVE (Negative); KETONE, URINE NEGATIVE (Negative); LEUK ESTERASE, URINE NEGATIVE (negative); NITRITE, URINE NEGATIVE (negative); PH, URINE 5.5 (5-7)
[2024-01-06 11:39] LABS: PARTIAL THROMBOPLASTIN TIME 32.2 Sec (22.9-41.3)
[2024-01-06 11:40] LABS: INR 1.22 (0.80-1.30); PROTIME 14.7 Sec (11.2-14.2)
[2024-01-06 11:41] LABS: CRYSTALS, URINE NONE SEEN (0-1+); EPITHELIAL CELLS, URINE TRANSITIONAL 1+ /lpf (0-1+); RED BLOOD CELLS, URINE 0-1 /hpf (0-5)
[2024-01-06 11:42] LABS: BACTERIA, URINE NONE SEEN /hpf (negative); CASTS, URINE NONE SEEN \\lpf; COLLECTION TYPE, URINE CLEAN CATCH; REFLEX CULTURE, URINE No (No)
[2024-01-06 11:52] LABS: AMPHETAMINES, URINE NEGATIVE (NEGATIVE); BARBITURATES, URINE NEGATIVE (NEGATIVE); BENZODIAZEPINE, URINE NEGATIVE (NEGATIVE); BUPRENORPHINE, URINE NEGATIVE (NEGATIVE); CANNABINOID, URINE NEGATIVE (NEGATIVE); COCAINE, URINE NEGATIVE (NEGATIVE); ECSTASY, URINE NEGATIVE (NEGATIVE); FENTANYL, URINE NEGATIVE (NEGATIVE); METHADONE, URINE NEGATIVE (NEGATIVE); OPIATES, URINE POSITIVE (NEGATIVE); OXYCODONE, URINE POSITIVE (NEGATIVE); PHENCYCLIDINE, URINE NEGATIVE (NEGATIVE)
[2024-01-06 11:53] LABS: ACETAMINOPHEN 0 ug/mL (10-30); ALBUMIN 3.1 g/dL (3.4-5.0); ALCOHOL, MEDICAL <3 ng/dL (<3); ALKALINE PHOSPHATASE 113 U/L (46-116); ALT (SGPT) 34 U/L (14-59); ANION GAP 11.1 (7-21); AST (SGOT) 106 U/L (15-37); BILIRUBIN, TOTAL 0.9 ng/dL (0.2-1.0); BUN/CREATININE RATIO 23.03 (6.0-28.6); CALCIUM 8.8 mg/dL (8.5-10.1); CARBON DIOXIDE 30 mmol/L (21-32); CHLORIDE 96 mmol/L (98-107); CREATININE, SERUM 1.78 mg/dL (0.55-1.02); GLOMERULAR FILTRATION RATE,EST 32 mL/min (>60); MAGNESIUM 2.2 mg/dL (1.8-2.4); POTASSIUM 4.1 mmol/L (3.5-5.1); PROTEIN, TOTAL 7.5 g/dL (6.4-8.2); SALICYLATE 1.5 mg/dL (2.8-20.0); TSH, 3RD GENERATION 1.061 uIU/mL (0.358-3.740); UREA NITROGEN 41 mg/dL (7-18)
[2024-01-06 12:53] LABS: INFLUENZA B NAA NEGATIVE (NEGATIVE); RESPIRATORY SYNCYTIAL VIR NAA NEGATIVE (NEGATIVE)
[2024-01-06] MEDS ORDERED: AMOX TR-K CLV1 EAC1 PO (15:20)
[2024-01-06] MEDS ORDERED: AMOXICILLIN/CLAVULANATE K 875 MG TAB PO ONE (15:30)
[2024-01-06 16:15] VITALS: BP 125/60
--- NOTE | 2024-01-07 12:18 | EKG ---
[facility] [address] [place] [address] Signed Normal sinus rhythm Low voltage QRS Septal infarct (cited on or before 08-OCT-2022) Abnormal ECG When compared with ECG of 08-OCT-2022 14:02, Nonspecific T wave abnormality no longer evident in Inferior leads T wave inversion less evident in Anterior leads Confirmed by Tyler William MD ([id number]) on 01/07/2024 12:17:58 PM Electronically Signed By: TYLER WILLIAM DO 01/07/24 1218 PATIENT NAME: SHAYYCHARLA Electrocardiogram DATE OF : 64 PHYSICIAN: TYLER WILLIAM DO REPORT #: [id number] REPORT IS CONFIDENTIAL AND NOT TO BE RELEASED WITHOUT AUTHORIZATION
== END 2024-01-06 16:15 | disposition home or self-care (01) ==
LOC: ED 10:55
PROVIDERS: Emergency Medicine
DX: R53.1 Weakness (principal); J01.90 Acute sinusitis, unspecified; I11.0 Hypertensive heart disease with heart failure; I50.9 Heart failure, unspecified; E66.9 Obesity, unspecified; J44.9 Chronic obstructive pulmonary disease, unspecified; E11.22 Type 2 diabetes mellitus with diabetic chronic kidney disease; Z87.891 Personal history of nicotine dependence; Z96.611 Presence of right artificial shoulder joint; Z96.651 Presence of right artificial knee joint; Z88.0 Allergy status to penicillin; Z88.8 Allergy status to other drugs, medicaments and biological substances; Z91.030 Bee allergy status; Z91.010 Allergy to peanuts; Z79.899 Other long term (current) drug therapy; Z79.84 Long term (current) use of oral hypoglycemic drugs; Z11.52 Encounter for screening for COVID-19
CPT/HCPCS: 36415; 70450; 71260; 80053; 80307; 81001; 83735; 83880; 84443; 84484; 85025; 85610; 85730; 87502; 93005; 93010; 93970; 94640; 96361; 99285-25; G0480; J2919; J7030; Q9967; U0002

== ENCOUNTER 2024-02-15 11:55 | Emergency (ER) | payer OTHER ==
[~2024-02-15] VITALS: Ht 162.6 cm; Wt 110.7 kg
[~2024-02-15 11:55] MED LIST changes: +AMOX TR-K CLV1 EAC1 PO
[2024-02-15 13:48] VITALS: BP 133/75
== END 2024-02-15 13:49 | disposition home or self-care (01) ==
LOC: ED 11:55
DX: S80.02XA Contusion of left knee, initial encounter (principal); Z96.652 Presence of left artificial knee joint; Z91.010 Allergy to peanuts; Z88.8 Allergy status to other drugs, medicaments and biological substances; Z91.030 Bee allergy status; Z79.899 Other long term (current) drug therapy; Z79.84 Long term (current) use of oral hypoglycemic drugs; W01.0XXA Fall on same level from slipping, tripping and stumbling without subsequent striking against object, initial encounter
CPT/HCPCS: 73560; 99283